=== PATIENT | female | born 1960 | race Caucasian/White ===

== ENCOUNTER 2017-08-23 05:56 | Day surgery (SDC) | payer OTHER, SELFPAY ==
[2017-08-23] VITALS (7 sets, daily range): BP systolic 78–106; BP diastolic 50–83; PULSE 56–97; RESP 16–18; TEMP 36.4–36.7; O2SAT 94–97; BMI 30.1
--- NOTE | 2017-08-23 07:02 | PCM.HP.STD ---
Problem List (1) Screening for intestinal cancer Status: Acute History of Present Illness Date of Admission: 08/23/17 The patient is a 57 year old F who presents for screening colonoscopy. She denies bright red blood per rectum or melena. No abdominal pain. She otherwise enjoys good health. She does have asthma well-controlled on inhalers. She has a family history of colon polyps. She herself has never had a previous colonoscopy. Past Medical History Allergies amoxicillin Adverse Reaction (Verified 08/21/17 15:54) Rash Sulfa (Sulfonamide Antibiotics) Adverse Reaction (Verified 08/21/17 15:54) Rash Home Medications: Ambulatory Orders Medication Instructions Recorded Albuterol Inhaler [Ventolin Hfa 2 puff INHALATION Q4H PRN PRN 09/10/16 (SP)] Escitalopram Oxalate [Lexapro] 20 mg PO DAILY 09/10/16 Lorazepam [Ativan] 0.5 mg PO QHS PRN PRN 09/10/16 Montelukast [Singulair] 10 mg PO DAILY 09/10/16 Theophylline Anhydrous 300 mg PO BID 09/10/16 [Theophylline] estradiol 0.5 mg tablet 0.5 mg PO QDAY #90 tab 08/07/17 Smoking Status: Never smoker Review of Systems Constitutional: Denies: Anorexia Eyes: Denies: Blurred vision Cardiovascular: Denies: Chest Pain Respiratory: Denies: Cough Gastrointestinal: Denies: Abdominal Pain Genitourinary: Denies: Dysuria Endocrine: Denies: Change in Body Habitus VTE Information - Inpt Only VTE Present on Admission: No Patient Problems: Active and Suspected Problems (Last Updated 08/07/17 @ 10:50 by Cecile Porras NP-C) Screening for intestinal cancer (Acute) - Physical Exam General: Alert, Oriented x3, Cooperative, No apparent distress HEENT: Atraumatic Oral: Moist Mucosa Neck: Supple Lungs: Clear to auscultation Cardiovascular: Regular rate Abdomen: Bowel Sounds Present, Soft, Non Tender Extremities: No clubbing Skin: No rashes Musculoskeletal: No Tenderness to Palpation of Joints or Extremities Neurological: Cranial nerves II-XII grossly intact Psych/Mental Status: Normal Affect Vital Signs Temp Pulse Resp BP Pulse Ox 98.0 F 97 16 106/83 H 97 08/23/17 06:21 08/23/17 06:21 08/23/17 06:21 08/23/17 06:21 08/23/17 06:21 Oxygen Delivery Method Room Air Weight: 159 lb 9.835 oz Body Mass Index (BMI) 30.1 Assessment/Plan Active and Suspected Problems (Last Updated 08/07/17 @ 10:50 by Cecile Porras NP-Racheal) Screening for intestinal cancer (Acute) I am recommending a screening colonoscopy. This would be with biopsy or polypectomy if indicated. She is aware of the technique, benefits, risks and alternatives. She has performed the bowel preparation. We will proceed at her discretion. She presents via our open access technique. Primary care physician Dr. ELISABETH Villar M.D., F.A.C.S.
--- NOTE | 2017-08-23 07:27 | PCM.OPRPT ---
Problem List (1) Screening for intestinal cancer Status: Acute Report of Operation Date of Procedure: 08/23/17 Pre-Operative Diagnosis: Screening for intestinal cancer Post-Operative Diagnosis: Sigmoid diverticulosis Surgery/Procedure Performed:: Colonoscopy Description of Surgical Findings:: Timeout and informed consent was obtained. 57-year-old female was taken to the procedure room. She was placed in left loud skin position. Throughout the procedure in aliquots she received a total of 100 mg Demerol and 5 mg of Versed is intravenous sedation. Digital rectal exam performed. Moderate internal and external hemorrhoids. No mass lesions. Flexible colonoscope inserted the rectum advanced with tortuous sigmoid colon. The scope was then nicely advanced to the transverse colon and by placing the patient supine the scope was advanced to the cecum. Bowel prep was quite good. The cecum ileocecal valve area was nicely achieved. The scope was carefully withdrawn from the ascending transverse descending and sigmoid colon. Sigmoid diverticulosis was identified but no evidence of acute inflammatory change. The scope was withdrawn to the rectum retroflex the anorectal verge inspected moderate hemorrhoidal changes noted but no active bleeding. Excess fluid and air was aspirated free. The procedure was completed with the patient tolerating it well. Impression Sigmoid diverticulosis Internal and external hemorrhoids Recommendations will be for follow-up colonoscopy in 10 years. Medications were given at 0708. Procedure was initiated at 0712. The cecum was reached at 0718.33. Procedure was completed at 0724.47. Cc: Dr. ELISABETH Villar M.D., F.A.C.S.
== END 2017-08-23 08:28 | disposition home or self-care (01) ==
LOC: EN 05:57 → AC 05:59
PROVIDERS: Family Provider Family Medicine; PCP Family Medicine; Visit Provider Surgery
PROC: 0DJD8ZZ Inspection of Lower Intestinal Tract, Via Natural or Artificial Opening Endoscopic (ICD-10-PCS; CPT 45378; principal; 2017-08-23 06:55)
DX: Z12.11 Encounter for screening for malignant neoplasm of colon (principal); K57.30 Diverticulosis of large intestine without perforation or abscess without bleeding; K64.4 Residual hemorrhoidal skin tags; K64.8 Other hemorrhoids; J45.909 Unspecified asthma, uncomplicated; K21.9 Gastro-esophageal reflux disease without esophagitis; F32.9 Major depressive disorder, single episode, unspecified; Z87.19 Personal history of other diseases of the digestive system; Z79.899 Other long term (current) drug therapy
CPT/HCPCS: 45378; J7120

== ENCOUNTER → 2017-10-09 07:43 | Outpatient (CLI) | payer OTHER, SELFPAY | PROVIDERS: Family Provider Family Medicine; PCP Family Medicine; Visit Provider Family Medicine | DX: E55.9 Vitamin D deficiency, unspecified (principal) | CPT/HCPCS: 36415; 82306 ==

== ENCOUNTER → 2018-03-18 15:12 | Outpatient (CLI) | payer OTHER, SELFPAY ==
--- NOTE | 2018-03-18 15:16 | RAD_ITS ---
STUDY: X-RAY CHEST REASON FOR EXAM: Female, 58 years old. Dyspnea on exertion. TECHNIQUE: PA and lateral views of the chest. COMPARISON: Comparison is made with prior examination dated December 07, 2010. FINDINGS: Pectus excavatum deformity. The lungs are clear and expanded. There is no demonstrated pleural abnormality. Normal size heart. Normal mediastinum and asfia. Normal visualized pulmonary arteries. Normal visualized aortic arch and descending thoracic aorta. Normal visualized thoracic spine. Normal visualized ribs, clavicles, and shoulders. There is no demonstrated abnormality of the visualized soft tissue structures of the upper abdomen. RAD/Chest PA and Lateral IMPRESSION: No acute abnormality is seen. Electronically Signed: Huy Santacruz MD at 15:46 EDT Tel [phone], Service support ,
== END ==
LOC: MTRAD 15:14
PROVIDERS: Family Provider Family Medicine; PCP Family Medicine; Referring Provider Family Medicine; Visit Provider Family Medicine
DX: R06.09 Other forms of dyspnea (principal)
CPT/HCPCS: 71046

== ENCOUNTER → 2018-05-19 13:45 | Outpatient (CLI) | payer OTHER, SELFPAY ==
[2018-05-19 08:41] VITALS: BMI 28.7
[2018-05-19 14:27] LABS: Mucous, Urine 0 SEEN /hpf (<or=2+); Squamous Epithelial Cells - UA 0 SEEN /hpf (5-10)
[2018-05-19 14:38] LABS: Color, Urine Yellow (Yellow); Glucose, Dipstick Normal (Normal); Ketone-Dipstick Negative (Negative); Leukocyte Esterase-Dipstick Negative /ul (Negative); Nitrite-Dipstick Negative (Negative); Occult Blood-Urine Negative /ul (Negative); Protein-Dipstick Negative (Negative); Urine Bilirubin Dipstick Negative (Negative); Urine Clarity Clear (Clear); Urine Urobilinogen Normal (Normal)
[2018-05-19 14:49] LABS: Bacteria 1+ /hpf (None Seen); Red Blood Cells-Urine 0-5 SEEN /hpf (0-5); White Blood Cells 0-5 SEEN /hpf (0-5)
== END ==
PROVIDERS: Family Provider Family Medicine; PCP Family Medicine; Referring Provider Physician Assistant Surgical; Visit Provider Physician Assistant Surgical
DX: N30.00 Acute cystitis without hematuria (principal)
CPT/HCPCS: 81001; 87086

== ENCOUNTER → 2019-04-15 12:14 | Outpatient (CLI) | payer OTHER, SELFPAY ==
[2018-08-14 13:31] VITALS: BMI 28.7
[2019-04-15 14:09] LABS: Basophil# 0.03 X10^3/uL; Basophil% 0.3 % (0-1); Eosinophil# 0.05 X10^3/uL; Eosinophils% 0.6 % (0-5); Hematocrit 40.1 % (37-47); Hemoglobin 13.2 g/dL (12.0-15.0); Lymphocyte % 13.7 % (19-41); Mean Corp Hgb Conc 32.9 g/dL (32-36); Mean Corpuscular Hgb 29.1 pg (27.0-32.0); Mean Corpuscular Volume 88.5 fL (81-99); Mean Platelet Vol. 10.1 fl (6.2-12.0); Monocyte# 0.45 X10^3/uL; Monocyte% 5.1 % (0-10); NRBC Flagged by Analyzer 0 % (0-5); Neutrophil # 6.99 X10^3/uL (2.7-7.7); Neutrophil % 79.5 % (47-70); Platelet Count 278 K/mm3 (150-450); RBC Distribution Width CV 12.4 % (11.6-14.6); RBC Distribution Width SD 40.2 fl (35.1-43.9); Red Blood Count 4.53 M/mm3 (4.2-5.4); White Blood Count 8.8 K/mm3 (4.4-11.0)
[2019-04-15 14:27] LABS: Vitamin D,25 Hydroxy 36.8 ng/mL (29.95-100.01)
[2019-04-15 14:34] LABS: Thyroid Stim Hormone (TSH) 1.44 uIU/mL (0.358-3.74)
== END ==
PROVIDERS: Visit Provider Family Medicine
DX: F32.9 Major depressive disorder, single episode, unspecified (principal); J45.909 Unspecified asthma, uncomplicated; E55.9 Vitamin D deficiency, unspecified
CPT/HCPCS: 36415; 82306; 84443; 85025

== ENCOUNTER → 2019-06-18 09:53 | Outpatient (CLI) | payer OTHER, SELFPAY ==
[2019-06-01 10:14] VITALS: BMI 28.7
--- NOTE | 2019-06-18 13:59 | PFT ---
INTRODUCTION: The patient is a 64-year-old female that presents for pulmonary function studies secondary to a diagnosis of chronic cough. Respiratory therapy reports good patient effort. Bronchodilators were used during testing. INTERPRETATION: Forced expiration spirometry demonstrates no evidence of a large airways obstructive ventilatory defect. There was no significant response to aerosolized bronchodilators, based upon strict ATS criteria. Spirograms are of good quality and plateau normally. Body plethysmography was performed and reveals lung volumes to be within normal limits. Diffusing capacity by single breath CO is also within normal limits at 82% of predicted. IMPRESSION: Normal spirometry without bronchodilator response. Normal lung volumes and diffusing capacity.
== END ==
LOC: PSN 09:54
PROVIDERS: Family Provider Family Medicine; PCP Family Medicine; Referring Provider Internal Medicine Critical Care Medicine; Visit Provider Internal Medicine Critical Care Medicine
DX: R05 Cough (principal)
CPT/HCPCS: 94060; 94726; 94729

== ENCOUNTER 2019-08-02 21:24 | Emergency (ER) | payer OTHER, SELFPAY ==
[2019-07-23 10:55] VITALS: BMI 28.7
[2019-08-02 21:25] VITALS: BP 97/68; PULSE 91; RESP 16; TEMP 36.1; O2SAT 98; BMI 29.9
[2019-08-02] MEDS: Ondansetron 4 MG/2 ML Vial IV (22:07)
[2019-08-02] MEDS: Morphine 4 MG/ML Syringe IV (22:08)
[2019-08-02 22:11] LABS: Absolute Lymphocyte Count 0.75 X10^3/uL (0.83-4.51); Absolute Neutrophil Count 7.8 X10^3/uL (2.0-7.7); Basophil# 0.03 X10^3/uL; Basophil% 0.3 % (0-1); Eosinophil# 0.13 X10^3/uL; Eosinophils% 1.4 % (0-5); Hematocrit 44.6 % (37-47); Hemoglobin 14.7 g/dL (12.0-15.0); Lymphocyte # 0.75 X10^3/ul (4.0); Lymphocyte % 8.2 % (19-41); Mean Corpuscular Hgb 29.3 pg (27.0-32.0); Mean Platelet Vol. 9.6 fl (6.2-12.0); Monocyte# 0.37 X10^3/uL; NRBC Flagged by Analyzer 0 % (0-5); Neutrophil # 7.83 X10^3/uL (2.7-7.7); Neutrophil % 85.4 % (47-70); Platelet Count 235 K/mm3 (150-450); RBC Distribution Width CV 12.6 % (11.6-14.6); RBC Distribution Width SD 41.1 fl (35.1-43.9); Red Blood Count 5.01 M/mm3 (4.2-5.4); White Blood Count 9.2 K/mm3 (4.4-11.0)
[2019-08-02 22:20] LABS: Color, Urine Yellow (Yellow); Glucose, Dipstick Normal (Normal); Ketone-Dipstick Negative (Negative); Leukocyte Esterase-Dipstick 25 /ul (Negative); Nitrite-Dipstick Negative (Negative); Occult Blood-Urine Negative /ul (Negative); Protein-Dipstick Negative (Negative); Urine Bilirubin Dipstick Negative (Negative); Urine Clarity Clear (Clear); Urine Urobilinogen Normal (Normal); Urine pH 6.5 (5.0 - 8.0)
[2019-08-02 22:24] LABS: AST(SGOT) 13 U/L (15-37); Alanine Aminotransfer ALT/SGPT 26 U/L (13-56); Albumin, Serum 3.3 g/dL (3.2-5.0); Alkaline Phosphatase 67 U/L (45-117); Anion Gap 6 (5-15); BUN 16 mg/dL (7-18); BUN/Creat Ratio 15.7 RATIO (10-20); Bilirubin, Direct 0.12 mg/dL (0.00-0.30); Calcium,Total 8.5 mg/dL (8.5-10.1); Chloride 112 mmol/L (98-107); Creatinine, Serum 1.02 mg/dL (0.55-1.02); EST Glomerular Filtration Rate 59 mL/min (>60); Est Glom Filt Rate - Afr Amer 72 mL/min (>60); Estimated Creatinine Clearance 48.13 ml/min; Globulin 3.4 g/dL (2.2-4.2); Glucose 90 mg/dL (74-106); Potassium 3.8 mmol/L (3.5-5.1); Protein, Total 6.7 g/dL (6.4-8.2); Sodium Level 141 mmol/L (136-145)
[2019-08-02 22:26] LABS: Bacteria RARE /hpf (None Seen); Mucous, Urine RARE /hpf (<or=2+); Red Blood Cells-Urine 0-5 SEEN /hpf (0-5); Squamous Epithelial Cells - UA 5-10 SEEN /hpf (5-10); White Blood Cells 0-5 SEEN /hpf (0-5)
[2019-08-02] MEDS: 0.9% Normal Saline 1,000 ML 150 ML IV (22:48)
--- NOTE | 2019-08-02 22:52 | ED.DCSUM_ITS ---
History of Present Illness Chief Complaint: Nausea/Vomiting/Diarrhea Informant: Patient Onset: Today Current Severity: Moderate Maximum Severity: Moderate Narrative: Patient presents with nausea, diarrhea, body aches that started this evening shortly after eating dinner. She states had a single episode of diarrhea 2 days ago but felt well yesterday. She has had dry heaves tonight and mild headache. She has not had fever. She was diagnosed with influenza A on July 20. She did not take Tamiflu. She denies history of ulcerative colitis but does report a remote history of IBS. She has not had problems with this in quite some time. She denies any prior abdominal surgeries. - Past Medical History (1) Asthma Status: Chronic (2) Depression Status: Chronic Past Medical History - Allergies and Home Meds Allergies/Adverse Reactions: Allergies amoxicillin Adverse Reaction (Verified 08/02/19 21:25) Rash Sulfa (Sulfonamide Antibiotics) Adverse Reaction (Verified 08/02/19 21:25) Rash Primary Care Physician: Justice James MD [Primary Care Provider] - Prior records reviewed: Yes Lives: Spouse/ Significant Other Smoking Status: Never smoker Review of Systems General: Denies: Chills, Fever Eyes: Denies: Visual changes - bilaterally ENT: Denies: Bilateral ear pain Cardiovascular: Denies: Chest pain Respiratory: Denies: Dyspnea, Cough Gastrointestinal: Reports: Abdominal pain, Nausea, Diarrhea. Denies: Vomiting - Dry heaves Genitourinary: Denies: Dysuria Musculoskeletal: Reports: Myalgias. Denies: Extremity Pain Skin: Denies: Rash Neurological: Reports: Headache Physical Exam Vital Signs/Narrative: Vital Signs Temp Pulse Resp BP Pulse Ox 08/02/19 21:25 97 F L 91 16 97/68 98 Inital Vital Signs reviewed: Yes General: Well nourished, Well developed Head: Normocephalic ENT: Moist mucous membranes Neck: Supple Cardiovascular: Regular rate, Regular rhythm Respiratory: No distress, CTA bilaterally Abdomen: Soft, Tender - Mild diffuse tenderness location., Hypoactive bowel sounds. Negative for: Guarding, Rebound tenderness Extremities: Nontender Skin: Normal color, No rash Neurological: Alert, Oriented x3 Psychological: Normal affect Diagnostic/Tx/Re-eval 08/02/19 22:01 Mucosa - Nose Influenza Types A,B Direct FA (SIMONE) - Final Laboratory Results 08/02/19 08/02/1908/02/20 21:43 21:43 22:12 WBC 9.2 RBC 5.01 Hgb 14.7 Hct 44.6 MCV 89.0 MCH 29.3 MCHC 33.0 RDW Std Deviation 41.1 RDW Coeff of Sarah 12.6 Plt Count 235 MPV 9.6 Immature Gran % (Auto) 0.700 Neut % (Auto) 85.4 H Lymph % (Auto) 8.2 L [place] % (Auto) 4.0 Eos % (Auto) 1.4 Baso % (Auto) 0.3 Absolute Neuts (auto) 7.8 H Absolute Lymphs (auto) 0.75 L Nucleated RBC % 0 Sodium 141 Potassium 3.8 Chloride 112 H Carbon Dioxide 23.0 Anion Gap 6 BUN 16 Creatinine 1.02 Estim Creat Clear Calc 48.13 Est GFR (MDRD) Af Amer 72 Est GFR (MDRD) Non-Af 59 L BUN/Creatinine Ratio 15.7 Glucose 90 Calcium 8.5 Total Bilirubin 0.70 Direct Bilirubin 0.12 AST 13 L ALT 26 Alkaline Phosphatase 67 Total Protein 6.7 Albumin 3.3 Globulin 3.4 Urine Color Yellow Urine Clarity Clear Urine pH 6.5 Ur Specific [place] 1.010 Urine Protein Negative Urine Glucose (UA) Normal Urine Ketones Negative Urine Occult Blood Negative Urine Nitrite Negative Urine Bilirubin Negative Urine Urobilinogen Normal Ur Leukocyte Esterase 25 H Urine RBC 0-5 SEEN Urine WBC 0-5 SEEN Ur Squamous Epith Cells 5-10 SEEN Urine Bacteria RARE Urine Mucus RARE - Medical Decision Making Patient was given morphine, Zofran, and IV fluids. On repeat evaluation she does report some improvement. She given prescriptions for Zofran and Bentyl. Patient is given return instructions. ED Disposition - Plan for ED Patient: Disposition: Home or Assisted Living Diagnosis: Viral gastroenteritis Instructions: GASTROENTERITIS, Viral (6y-Adult) Prescriptions: Dicyclomine HCl [Bentyl] 20 mg PO TIDAC #20 capsule Ondansetron [Zofran Odt] 4 mg PO Q8H PRN PRN #10 tablet PRN Reason: Nausea Referrals: Justice James MD [Primary Care Provider] - 3-5 Days if not improving
== END 2019-08-02 23:26 | disposition home or self-care (01) ==
PROVIDERS: Emergency Provider Emergency Medicine; PCP Family Medicine
DX: A08.4 Viral intestinal infection, unspecified (principal); F32.9 Major depressive disorder, single episode, unspecified; K58.9 Irritable bowel syndrome, unspecified; J45.909 Unspecified asthma, uncomplicated; Z79.899 Other long term (current) drug therapy
CPT/HCPCS: 80048; 80076; 81001; 85025; 87804; 96361; 96374; 96375; 99283; J7030; J2405

== ENCOUNTER → 2019-10-28 07:33 | Outpatient (CLI) | payer OTHER, SELFPAY ==
[2019-08-26 08:15] VITALS: BMI 29.9
[2019-10-28 10:02] LABS: Anion Gap 8 (5-15); BUN 15 mg/dL (7-18); BUN/Creat Ratio 15.6 RATIO (10-20); Calcium,Total 8.6 mg/dL (8.5-10.1); Chloride 109 mmol/L (98-107); Creatinine, Serum 0.96 mg/dL (0.55-1.02); EST Glomerular Filtration Rate 63 mL/min (>60); Est Glom Filt Rate - Afr Amer 77 mL/min (>60); Glucose 92 mg/dL (74-106); Sodium Level 143 mmol/L (136-145)
[2019-10-28 10:04] LABS: Vitamin D,25 Hydroxy 51.7 ng/mL
== END ==
PROVIDERS: PCP Family Medicine; Referring Provider Family Medicine; Visit Provider Family Medicine
DX: E55.9 Vitamin D deficiency, unspecified (principal); R94.4 Abnormal results of kidney function studies
CPT/HCPCS: 36415; 80048; 82306

== ENCOUNTER → 2019-12-16 08:36 | Outpatient (CLI) | payer OTHER, SELFPAY ==
[2019-12-16 08:10] VITALS: BMI 29.9
[2019-12-16 09:15] LABS: Absolute Neutrophil Count 3.1 X10^3/uL (2.0-7.7); Basophil# 0.04 X10^3/uL; Basophil% 0.6 % (0-1); Eosinophil# 0.13 X10^3/uL; Hematocrit 40.5 % (37-47); Hemoglobin 13.2 g/dL (12.0-15.0); Lymphocyte % 40.9 % (19-41); Mean Corp Hgb Conc 32.6 g/dL (32-36); Mean Corpuscular Hgb 29.7 pg (27.0-32.0); Mean Corpuscular Volume 91.2 fL (81-99); Mean Platelet Vol. 9.8 fl (6.2-12.0); Monocyte# 0.48 X10^3/uL; Monocyte% 7.5 % (0-10); NRBC Flagged by Analyzer 0 % (0-5); Neutrophil # 3.08 X10^3/uL (2.7-7.7); Neutrophil % 48.5 % (47-70); Platelet Count 243 K/mm3 (150-450); RBC Distribution Width CV 12.2 % (11.6-14.6); RBC Distribution Width SD 40.6 fl (35.1-43.9); Red Blood Count 4.44 M/mm3 (4.2-5.4); White Blood Count 6.4 K/mm3 (4.4-11.0)
[2019-12-19 09:36] LABS: Alternaria alternata 0.26 kU/L (Class 0/I); Aspergillus fumigatus <0.10 kU/L (Class 0); Bahia Grass <0.10 kU/L (Class 0); Bermuda Grass <0.10 kU/L (Class 0); Bluegrass, Kentucky <0.10 kU/L (Class 0); Cat Hair/Dander, Standard <0.10 kU/L (Class 0); Cedar, Mountain <0.10 kU/L (Class 0); Cladosporium herbarum <0.10 kU/L (Class 0); Cockroach, American <0.10 kU/L (Class 0); D farinae Mite <0.10 kU/L (Class 0); D pteronyssinus <0.10 kU/L (Class 0); Dog Epithelia <0.10 kU/L (Class 0); Elm, American White <0.10 kU/L (Class 0); Hazelnut Tree <0.10 kU/L (Class 0); Hickory, White <0.10 kU/L (Class 0); Johnson Grass <0.10 kU/L (Class 0); Maple/Box Elder <0.10 kU/L (Class 0); Mucor racemosus <0.10 kU/L (Class 0); Mugwort <0.10 kU/L (Class 0); Mulberry, White <0.10 kU/L (Class 0); Oak, White <0.10 kU/L (Class 0); Penicillium chrysogen <0.10 kU/L (Class 0); Pigweed, Rough <0.10 kU/L (Class 0); Plantain, English <0.10 kU/L (Class 0); Ragweed, Short/Common <0.10 kU/L (Class 0); Sheep Sorrel(Dock) <0.10 kU/L (Class 0); Stemphylium herbarum 0.13 kU/L (Class 0/I); Sweet Gum <0.10 kU/L (Class 0); Sycamore, American <0.10 kU/L (Class 0)
[2019-12-19 14:33] LABS: Nettle <0.10 kU/L (Class 0)
[2019-12-20 09:07] LABS: Aspirgillus flavus Negative (Neg:<1:1); Aspirgillus fumigatus Negative (Neg:<1:1); Aspirgillus niger Negative (Neg:<1:1)
[2019-12-20 23:45] LABS: Immunoglobulin E 13 IU/mL (6-495)
== END ==
PROVIDERS: PCP Family Medicine; Referring Provider Internal Medicine Critical Care Medicine; Visit Provider Internal Medicine Critical Care Medicine
DX: J45.50 Severe persistent asthma, uncomplicated (principal)
CPT/HCPCS: 36415; 82785; 85025; 86003; 86606

== ENCOUNTER → 2020-04-06 10:10 | Outpatient (CLI) | payer OTHER, SELFPAY ==
[2020-04-06 10:15] LABS: Red Blood Cells-Urine 0 SEEN /hpf (0-5)
[2020-04-06 10:17] LABS: Bacteria 0 SEEN /hpf (None Seen); Mucous, Urine 0 SEEN /hpf (<or=2+)
[2020-04-06 10:20] LABS: Color, Urine Yellow (Yellow); Glucose, Dipstick Normal (Normal); Ketone-Dipstick Negative (Negative); Leukocyte Esterase-Dipstick 25 /ul (Negative); Nitrite-Dipstick Negative (Negative); Occult Blood-Urine Negative /ul (Negative); Protein-Dipstick Negative (Negative); Urine Bilirubin Dipstick Negative (Negative); Urine Clarity Clear (Clear); Urine Urobilinogen Normal (Normal); Urine pH 6.5 (5.0 - 8.0)
[2020-04-06 10:55] LABS: Squamous Epithelial Cells - UA 0-5 SEEN /hpf (5-10); White Blood Cells 0-5 SEEN /hpf (0-5)
== END ==
PROVIDERS: PCP Family Medicine; Visit Provider Physician Assistant
DX: M54.5 Low back pain (principal); R10.9 Unspecified abdominal pain
CPT/HCPCS: 81001; 87086; 87088

== ENCOUNTER → 2020-04-07 10:19 | Outpatient (CLI) | payer OTHER, SELFPAY ==
[2020-04-07 12:18] LABS: Absolute Lymphocyte Count 1.69 X10^3/uL (0.83-4.51); Absolute Neutrophil Count 2.7 X10^3/uL (2.0-7.7); Basophil# 0.02 X10^3/uL; Basophil% 0.4 % (0-1); Eosinophil# 0.16 X10^3/uL; Eosinophils% 3.2 % (0-5); Hematocrit 39.2 % (37-47); Hemoglobin 12.5 g/dL (12.0-15.0); Lymphocyte # 1.69 X10^3/ul (4.0); Lymphocyte % 33.9 % (19-41); Mean Corp Hgb Conc 31.9 g/dL (32-36); Mean Platelet Vol. 10.3 fl (6.2-12.0); Monocyte# 0.38 X10^3/uL; Monocyte% 7.6 % (0-10); NRBC Flagged by Analyzer 0 % (0-5); Neutrophil # 2.71 X10^3/uL (2.7-7.7); Neutrophil % 54.5 % (47-70); Platelet Count 229 K/mm3 (150-450); RBC Distribution Width CV 12.1 % (11.6-14.6); RBC Distribution Width SD 40.6 fl (35.1-43.9); Red Blood Count 4.31 M/mm3 (4.2-5.4)
[2020-04-07 12:37] LABS: ALB/GLOB Ratio 0.9 RATIO (0.9-2.4); AST(SGOT) 18 U/L (15-37); Alanine Aminotransfer ALT/SGPT 24 U/L (13-56); Albumin, Serum 3.5 g/dL (3.2-5.0); Alkaline Phosphatase 90 U/L (45-117); Anion Gap 6 (5-15); BUN 18 mg/dL (7-18); BUN/Creat Ratio 17.3 RATIO (10-20); Calcium,Total 9.2 mg/dL (8.5-10.1); Chloride 110 mmol/L (98-107); Creatinine, Serum 1.04 mg/dL (0.55-1.02); EST Glomerular Filtration Rate 58 mL/min (>60); Est Glom Filt Rate - Afr Amer 70 mL/min (>60); Globulin 3.8 g/dL (2.2-4.2); Glucose 110 mg/dL (74-106); Potassium 3.7 mmol/L (3.5-5.1); Protein, Total 7.3 g/dL (6.4-8.2); Sodium Level 141 mmol/L (136-145)
== END ==
PROVIDERS: PCP Family Medicine; Referring Provider Family Medicine; Visit Provider Family Medicine
DX: K57.92 Diverticulitis of intestine, part unspecified, without perforation or abscess without bleeding (principal)
CPT/HCPCS: 36415; 80053; 85025

== ENCOUNTER → 2020-04-07 11:17 | Outpatient (CLI) | payer OTHER, SELFPAY ==
--- NOTE | 2020-04-07 11:19 | CT_ITS ---
STUDY: CT ABDOMEN AND PELVIS WITH CONTRAST REASON FOR EXAM: Female, 60 years old. Abdomen pain, ? diverticulitis. RADIATION DOSAGE (If Supplied By Facility): CTDIvol = ( 15.30 ) mGy, DLP = ( 867.30 ) mGycm TECHNIQUE: Transaxial images were obtained from the dome of the diaphragm to the symphysis pubis with oral contrast. Oral and amp; IV Gastrografin and amp; 100mL Isovue-300 was administered. Sagittal and coronal images were reconstructed. Individualized dose optimization techniques were used for this CT. COMPARISON: None. FINDINGS: Mild degree of increased linear markings in the right middle lobe suggesting scarring. The visualized portions of the heart are within normal limits. A 1 cm cyst in the inferior aspect of the right lobe of the liver. There is also evidence of a 2.4 cm by 2.1 cm cyst in the peripheral aspect of the left liver. Normal gallbladder and extrahepatic biliary system. Normal spleen. Normal pancreas. Normal bilateral adrenal glands. Normal right kidney. Normal left kidney. Normal visualized stomach. Normal small intestine. There is diverticulosis, with thickening of the colon wall, and pericolonic inflammation changes consistent with acute diverticulitis. The appendix is visualized and appears normal. Normal abdominal aorta. Normal inferior vena cava. Normal retroperitoneum. Normal urinary bladder. There is a small umbilical hernia containing fat. Normal osseous structures. CT/Abdomen/Pelvis WITH Contrast IMPRESSION: Noncomplicated sigmoid diverticulitis. Small hepatic cysts. Electronically Signed: Huy Santacruz, at 14:08 EDT , Service support ,
== END ==
PROVIDERS: PCP Family Medicine; Referring Provider Family Medicine; Visit Provider Family Medicine
DX: K57.92 Diverticulitis of intestine, part unspecified, without perforation or abscess without bleeding (principal)
CPT/HCPCS: 74177; Q9967

== ENCOUNTER 2020-06-13 08:30 | Outpatient (RCR) | payer OTHER, SELFPAY ==
[2020-05-05 09:40] VITALS: BMI 30.9
== END 2020-06-16 23:59 ==
LOC: EMPH 08:30
PROVIDERS: PCP Family Medicine; Visit Provider Family Medicine Geriatric Medicine
DX: Z03.818 Encounter for observation for suspected exposure to other biological agents ruled out (principal)
CPT/HCPCS: 87426

== ENCOUNTER 2020-06-30 12:13 | Outpatient (CLI) | payer OTHER, SELFPAY ==
[2020-06-22 08:11] VITALS: BMI 30.5
[2020-06-30 12:17] VITALS: BP 107/63; PULSE 75; RESP 12; TEMP 36.2; O2SAT 99; BMI 30.3
[2020-06-30 13:16] VITALS: BP 105/71; PULSE 66; RESP 14; TEMP 36.1; O2SAT 98
[2020-06-30 13:43] VITALS: BP 108/65; PULSE 67; RESP 12; TEMP 36.1; O2SAT 100
[2020-06-30 14:13] VITALS: BP 118/74; PULSE 70; RESP 14; TEMP 36.1; O2SAT 100
[2020-06-30 14:42] VITALS: BP 110/67; PULSE 70; RESP 16; TEMP 36.1; O2SAT 100
== END 2020-06-30 14:46 | disposition home or self-care (01) ==
LOC: MS2OUT 12:14 → MS2 12:15
PROVIDERS: PCP Family Medicine; Referring Provider Nurse Practitioner Acute Care; Visit Provider Nurse Practitioner Acute Care
DX: U07.1 COVID-19 (principal)
CPT/HCPCS: 96365; J7050; M0239; Q0239

== ENCOUNTER → 2020-08-11 08:19 | Outpatient (CLI) | payer OTHER, SELFPAY ==
[2020-05-05 09:40] VITALS: BMI 30.9
--- NOTE | 2020-08-11 08:21 | BI_ITS ---
MAMMOGRAPHY - BILATERAL SCREENING REASON FOR EXAM: Female, 60 years old. Routine annual screening examination. PERTINENT HISTORY: Mother with breast cancer. Aunt with breast cancer. TECHNIQUE: Digital bilateral breast abraham (3D mammographic acquisition) in the CC and MLO projections. 2-D mediolateral oblique (MLO) and craniocaudad (CC) views of both breasts were obtained. CAD: Full Field Digital Mammography with Computer Added Detection was performed. COMPARISON: Comparison is made with prior examination dated 03/02/2015 and 09/10/2013. FINDINGS: Breast Composition: There are scattered areas of fibroglandular density. There are no dominant masses or suspicious calcifications. Stable small benign appearing bilateral axillary lymph nodes. No other significant abnormalities are identified. There has been no significant change since the prior study. BI/SCRN MAMM (CAD)W/ABRAHAM BILAT IMPRESSION: Stable bilateral screening mammogram. Yearly follow-up mammogram recommended. (A) ASSESSMENT CATEGORY: BIRADS Category 2: Benign. A letter regarding these results will be sent to the patient by the facility within 30 days. Approximately 10% of breast cancers are not detected by mammography. A normal mammogram should not delay biopsy of a clinically suspicious abnormality. [id number] Electronically Signed: Huy Santacruz MD at 9:07 EST , Service support ,
== END ==
PROVIDERS: PCP Family Medicine; Referring Provider Nurse Practitioner Women's Health; Visit Provider Nurse Practitioner Women's Health
DX: Z12.31 Encounter for screening mammogram for malignant neoplasm of breast (principal)
CPT/HCPCS: 77063; 77067

== ENCOUNTER → 2020-08-25 10:46 | Outpatient (CLI) | payer OTHER, SELFPAY ==
[2020-08-25 12:30] LABS: Anion Gap 4 (5-15); BUN 18 mg/dL (7-18); BUN/Creat Ratio 19.2 RATIO (10-20); Calcium,Total 8.9 mg/dL (8.5-10.1); Chloride 110 mmol/L (98-107); Creatinine, Serum 0.94 mg/dL (0.55-1.02); EST Glomerular Filtration Rate 65 mL/min (>60); Est Glom Filt Rate - Afr Amer 79 mL/min (>60); Glucose 73 mg/dL (74-106); Potassium 3.4 mmol/L (3.5-5.1); Sodium Level 141 mmol/L (136-145)
[2020-08-25 12:32] LABS: Vitamin D,25 Hydroxy 59.2 ng/mL
== END ==
PROVIDERS: PCP Family Medicine; Referring Provider Family Medicine; Visit Provider Family Medicine
DX: E55.9 Vitamin D deficiency, unspecified (principal); R94.4 Abnormal results of kidney function studies
CPT/HCPCS: 36415; 80048; 82306

== ENCOUNTER → 2020-11-29 | Outpatient (CLI) | payer OTHER, SELFPAY ==
[2020-11-29 08:00] VITALS: BMI 29.4
[2020-11-29 10:43] LABS: Mucous, Urine 0 SEEN /hpf (<or=2+); Squamous Epithelial Cells - UA 0 SEEN /hpf (5-10)
[2020-11-29 10:44] LABS: Color, Urine Yellow (Yellow); Glucose, Dipstick Normal (Normal); Ketone-Dipstick Negative (Negative); Leukocyte Esterase-Dipstick 500 /ul (Negative); Nitrite-Dipstick Positive (Negative); Occult Blood-Urine 25 /ul (Negative); Protein-Dipstick 15 mg/dl (Negative); Specific Gravity, Urine 1.015 (1.002-1.030); Urine Bilirubin Dipstick Negative (Negative); Urine Clarity Clear (Clear); Urine Urobilinogen 1 mg/dl (Normal)
[2020-11-29 10:53] LABS: Bacteria 2+ /hpf (None Seen); Red Blood Cells-Urine 0-5 SEEN /hpf (0-5); White Blood Cells 10-25 SEEN /hpf (0-5)
== END | disposition home or self-care (01) ==
LOC: LABSPEC 10:38
PROVIDERS: PCP Family Medicine; Visit Provider Physician Assistant Surgical
DX: N39.0 Urinary tract infection, site not specified (principal)
CPT/HCPCS: 81001; 87086; 87088; 87186

== ENCOUNTER 2020-12-06 14:56 | Inpatient (IN) | payer OTHER, SELFPAY ==
[2020-11-29 08:00] VITALS: BMI 29.4
[2020-12-06] VITALS (19 sets, daily range): BP systolic 95–133; BP diastolic 45–78; PULSE 86–115; RESP 14–22; TEMP 36.3–38.3; O2SAT 86–98; BMI 30.6; BMI 30.7
--- NOTE | 2020-12-06 15:37 | EKG12_ITS ---
Test Reason : NAUSEA/VOMITING Blood Pressure : / mmHG Vent. Rate : 106 BPM Atrial Rate : 106 BPM P-R Int : 146 ms QRS Dur : 094 ms QT Int : 336 ms P-R-T Axes : 055 048 013 degrees QTc Int : 446 ms Sinus tachycardia Possible Left atrial enlargement Incomplete right bundle branch block Nonspecific ST abnormality Abnormal ECG Confirmed by SARAH RANDHAWA, LISA ([id number]), subeditor JANI WHITNEY ([id number]) on 12/08/2020 12:30:36 PM Referred By: COBY Confirmed By:LISA SMITH MD
--- NOTE | 2020-12-06 15:47 | EDS_ITS ---
HPI History of Present Illness Chief Complaint: Nausea/Vomiting Narrative Narrative: Patient states she developed a gradual onset headache yesterday that felt like a migraine which she gets fairly frequently, similar pain, she took Tylenol and Benadryl which usually helps a but this time it did not and today the headache is persistent. She also has developed a productive cough, myalgias, subjective fevers, and she points to her manubrium saying that she has some tightness there and mild dyspnea. She has history of asthma and states she has not been wheezing and this does not necessarily feel like asthma, but although she does not provide any other details, hence that she has had the symptoms in her upper chest before. She had both Moderna COVID-19 injections, the first 1 was in June and the second was in September which was delayed because she developed Covid at some point soon after the first injection, and needed to have an antibody infusion. She has had no contact with anyone with COVID-19 that she knows of recently. [facility] Medical History (Updated 12/06/20 @ 17:[address] Nicholas Willoughby MD) Asthma Chronic neck and back pain Depression Diverticulosis GERD (gastroesophageal reflux disease) Hemorrhoids History of hay fever Home Medications albuterol sulfate 2 puff INHALATION Q4H PRN PRN 09/10/16 [History Last Taken 09/08/16] escitalopram oxalate 20 mg PO DAILY 09/10/16 [History Last Taken 09/08/16] montelukast 10 mg PO DAILY 09/10/16 [History Last Taken 09/08/16] omeprazole magnesium 20 mg capsule,delayed release 20 mg PO DAILY 04/05/20 [History Last Taken Unknown] cholecalciferol (vitamin D3) 125 mcg (5,000 unit) capsule 125 mcg PO DAILY 05/05/20 [History Last Taken Unknown] docusate sodium 100 mg capsule 200 mg PO DAILY cap 05/05/20 [History Last Taken Unknown] budesonide-formoterol HFA 160 mcg-4.5 mcg/actuation aerosol inhaler 2 puff INHALATION Q12H #3 ea 10/04/20 [Rx Last Taken Unknown] bupropion HCl 150 mg tablet,12 hr sustained-release 150 mg PO DAILY 10/04/20 [History Last Taken Unknown] Allergy/AdvReac Type Severity Reaction Status Date / Time amoxicillin AdvReac Rash Verified 12/06/20 14:59 Sulfa (Sulfonamide AdvReac Rash Verified 12/06/20 14:59 Antibiotics) Family History Mother Breast cancer CVA (cerebral vascular accident) Sister Cancer ovarian Father Myocardial infarction Grandmother Cancer cervical Aunt Breast cancer Cancer lymphoma Uncle Cancer lymphoma Surgical History History of colonoscopy (~2017) Social History Smoking Status: Never smoker alcohol intake: current details: social substance use type: does not use caffeine: Yes frequency: 3-4 times per week seatbelt use: always do you feel safe at home: Yes additional social history: Don- [employer] Patient works at [employer] ROS ROS ED Constitutional Constitutional ED: Reports body ache(s), fever(s), headache(s) and malaise; Denies chills Eyes Eyes: Reports blurry vision; Denies diplopia ENT ENT ED: Denies ear pain or sore throat Cardiovascular Cardiovascular: Reports chest pain; Denies palpitations Respiratory/Chest Respiratory/Chest: Reports cough, dyspnea, productive cough and other Details: mild nonbloody sputum production Gastrointestinal Gastrointestinal: Reports nausea and vomiting; Denies abdominal pain or diarrhea Genitourinary Genitourinary ED: Denies dysuria or urinary frequency Musculoskeletal Musculoskeletal: Reports myalgias and neck pain; Denies back pain Integumentary Denies abscess or rash Neurologic Neurologic: Reports headache(s); Denies paresthesias or weakness Psychiatric Psychiatric: Denies depression or suicidal thoughts EXAM Physical Exam Const Vital Signs: 12/06/20 14:57 12/06/20 14:59 12/06/20 15:55 Temperature 97.3 F L 97.3 F L Temperature Source Temporal Temporal Pulse Rate 115 H 115 H 105 H Respiratory Rate 16 16 18 Blood Pressure 95/78 95/78 Blood Pressure Mean 83 83 Pulse Ox 98 98 Oxygen Delivery Method Room Air Room Air Oxygen Flow Rate (L/min) 12/06/20 15:59 12/06/20 16:00 12/06/20 16:15 Temperature 97.3 F L 101 F H Temperature Source Temporal Oral Pulse Rate 105 H 108 H Respiratory Rate 18 22 H Blood Pressure 95/78 128/60 H Blood Pressure Mean 83 82 Pulse Ox 98 93 Oxygen Delivery Method Room Air Room Air Room Air Oxygen Flow Rate (L/min) 12/06/20 16:38 12/06/20 16:39 12/06/20 17:36 Temperature 100.8 F H Temperature Source Oral Pulse Rate 108 H Respiratory Rate 14 Blood Pressure 101/54 L Blood Pressure Mean 69 Pulse Ox 86 92 89 Oxygen Delivery Method Room Air Nasal Cannula Room Air Oxygen Flow Rate (L/min) 2 12/06/20 17:39 Temperature Temperature Source Pulse Rate Respiratory Rate Blood Pressure Blood Pressure Mean Pulse Ox 93 Oxygen Delivery Method Nasal Cannula Oxygen Flow Rate (L/min) 2 Positive alert, oriented x3 and no apparent distress HEENT Reports normocephalic and moist mucous membranes atraumatic Eyes PERRL, EOMs intact bilaterally and conjunctivae normal Neck no lymphadenopathy, supple and no meningeal signs Resp normal respiratory effort and clear to auscultation bilaterally GI non-tender and non-distended Auscultation: normoactive bowel sounds Palpation: soft Back/Spine no CVA tenderness, normal ROM and normal to inspection Extremity normal to inspection and full ROM Neuro oriented x3 and CN's II-XII intact bilaterally Sensorium / Orientation: awake and alert Speech: speech normal Gait (Neuro): normal gait Motor Exam: strength 5/5 throughout Psych mental status grossly normal Skin Lesions: no lesions Rashes: no rashes MDM MDM MDM Narrative Medical decision making narrative: In evaluating the patient's work-up, her chest x-ray is consistent with pneumonia. She does not have a significant leukocytosis. Prior to reevaluation, she did not meet sepsis criteria. However, when I went back to reevaluate her her heart rate is 120, and she is on oxygen. I discussed with nurses, she desatted to 87% and they put her on 2 L, and she is at 93 on 2 L. Her symptoms are improved with treatment with Toradol and an albuterol treatment, her chest discomfort is resolved and her dyspnea is resolved while at rest although she is still hypoxic when I took the oxygen off. We put it back on. Lactate, blood cultures, antibiotics are ordered and she will be admitted to the hospital for further treatment. Her Covid test did return negative as expected. Of note, her EKG shows some mild ST elevations inferolaterally possibly ischemic, however her high-sensitivity troponin returned negative. Lab Data Attestation: I reviewed the patient's lab results. Labs: Laboratory Results - last 24 hr 12/06/20 12/06/20 16:05 16:05 WBC 10.0 RBC 4.64 Hgb 13.5 Hct 41.7 MCV 89.9 MCH 29.1 MCHC 32.4 RDW Std Deviation 40.3 RDW Coeff of Sarah 12.2 Plt Count 184 MPV 9.2 Immature Gran % (Auto) 0.500 Neut % (Auto) 89.5 H Lymph % (Auto) 5.2 L [place] % (Auto) 3.1 Eos % (Auto) 1.4 Baso % (Auto) 0.3 Absolute Neuts (auto) 9.0 H Absolute Lymphs (auto) 0.52 L Nucleated RBC % 0 Differential Comment SEE COMMENT Platelet Estimate ADEQUATE RBC Morphology N CHROM Anisocytosis RARE Sodium 139 Potassium 3.5 Chloride 106 Carbon Dioxide 27.0 Anion Gap 6 BUN 12 Creatinine 1.08 H Estim Creat Clear Calc 44.91 Est GFR (MDRD) Af Amer 67 Est GFR (MDRD) Non-Af 55 L BUN/Creatinine Ratio 11.1 Glucose 99 Calcium 8.6 Troponin I High Sens < 3.0 L Radiography Chest X-Ray - ED: 1 View, Read by ED Physician, Right Infiltrate and Left In filtrate Diagnostic Testing: Radiology Impression Chest X-Ray 12/06/20 16:35 IMPRESSION: Hazy bibasilar airspace disease suspicious for pneumonia including atypical or viral pneumonia. Recommend short-term follow-up. at 1701 Reported and signed by: Darryl Maria MD Electronically Signed: Darryl Maria MD at 16:59 EDT Tel , Service support , EKG Initial EKG: Attestation: I personally reviewed and interpreted this EKG as follows: Interpretation: Sinus Tachycardia (106) and S-T Depression (Infero laterally) Comments: RSR' which is unchanged compared with prior Prior EKG tracings: available for review Prior: Changed Discharge Plan Triage Chief Complaint: Nausea/Vomiting ED Provider: Nicholas Willoughby Dx/Rx/DC Orders Clinical Impression: Pneumonia, Sepsis due to pneumonia, Hypoxemia Prescriptions: No Action omeprazole magnesium [[facility] Lead Consultant (omeprazole)] 20 mg capsule,delayed release(DR/EC) 20 mg PO DAILY RF: 0 bupropion HCl [Wellbutrin SR] 150 mg tablet sustained-release 12 hr 150 mg PO DAILY RF: 0 Symbicort 160-4.5 mcg/actuation HFA aerosol inhaler 2 puff INHALATION Q12H Qty: 3 RF: 3 docusate sodium [Colace] 100 mg capsule 200 mg PO DAILY RF: 0 cholecalciferol (vitamin D3) 125 mcg (5,000 unit) capsule 125 mcg PO DAILY RF: 0 montelukast 10 MG tablet 10 mg PO DAILY RF: 0 albuterol sulfate 1 INHALER inhaler 2 puff INHALATION Q4H PRN PRN (Reason: Sob &/Or Wheezing) RF: 0 escitalopram oxalate 20 MG tablet 20 mg PO DAILY RF: 0 Primary Care Provider: Justice James Referrals: Justice James MD [Primary Care Provider] - Disposition Disposition: Acute Care [facility]
[2020-12-06] MEDS: Albuterol 2.5 MG/3 ML VIAL.NEB. INHALATION ×2 (15:51→22:22)
[2020-12-06] MEDS: Ketorolac 15 MG/ML Vial IV (16:11)
[2020-12-06] MEDS: Metoclopramide 10 MG/2 ML Vial 5 MG IV (16:11)
[2020-12-06 16:13] LABS: Absolute Lymphocyte Count 0.52 X10^3/uL (0.83-4.51); Basophil# 0.03 X10^3/uL; Basophil% 0.3 % (0-1); Eosinophil# 0.14 X10^3/uL; Eosinophils% 1.4 % (0-5); Hematocrit 41.7 % (37-47); Hemoglobin 13.5 g/dL (12.0-15.0); Lymphocyte # 0.52 X10^3/ul (0.83-4.51); Lymphocyte % 5.2 % (19-41); Mean Corp Hgb Conc 32.4 g/dL (32-36); Mean Corpuscular Hgb 29.1 pg (27.0-32.0); Mean Corpuscular Volume 89.9 fL (81-99); Mean Platelet Vol. 9.2 fl (6.2-12.0); Monocyte# 0.31 X10^3/uL; Monocyte% 3.1 % (0-10); NRBC Flagged by Analyzer 0 % (0-5); Neutrophil # 8.96 X10^3/uL (2.7-7.7); Neutrophil % 89.5 % (47-70); POSITIVE DIFFERENTIAL YES; Platelet Count 184 K/mm3 (150-450); RBC Distribution Width CV 12.2 % (11.6-14.6); RBC Distribution Width SD 40.3 fl (35.1-43.9); Red Blood Count 4.64 M/mm3 (4.2-5.4)
[2020-12-06 16:26] LABS: Anion Gap 6 (5-15); BUN 12 mg/dL (7-18); BUN/Creat Ratio 11.1 RATIO (10-20); Calcium,Total 8.6 mg/dL (8.5-10.1); Chloride 106 mmol/L (98-107); Creatinine, Serum 1.08 mg/dL (0.55-1.02); EST Glomerular Filtration Rate 55 mL/min (>60); Est Glom Filt Rate - Afr Amer 67 mL/min (>60); Estimated Creatinine Clearance 44.91 ml/min; Glucose 99 mg/dL (74-106); Potassium 3.5 mmol/L (3.5-5.1); Sodium Level 139 mmol/L (136-145); Troponin-I HS < 3.0 pg/mL (3.0-53.7)
--- NOTE | 2020-12-06 16:35 | RAD_ITS ---
HISTORY: chest pain/sob EXAMINATION/TECHNIQUE: XR Chest 1 View: Portable upright AP chest x-ray COMPARISON: March 18, 2018 FINDINGS: LINES/DEVICES: None. LUNGS: Hazy bibasilar airspace opacities without consolidation, edema or effusion. No pneumothorax. MEDIASTINUM AND CARDIOVASCULAR STRUCTURES: Cardiac silhouette not enlarged. Central airways and mediastinal contour are unremarkable. BONES AND SOFT TISSUES: No acute bony abnormalities. RAD/Chest 1 View (Portable) IMPRESSION: Hazy bibasilar airspace disease suspicious for pneumonia including atypical or viral pneumonia. Recommend short-term follow-up. at 1701 Reported and signed by: Darryl Maria MD Electronically Signed: Darryl Maria MD at 16:59 EDT Tel , Service support ,
[2020-12-06 16:38] LABS: Differential Indicated SCAN CRITERIA MET
[2020-12-06 16:49] LABS: Anisocytosis RARE; Platelet Estimate ADEQUATE (ADEQ); Red Cell Morphology N CHROM NORMAL (NORM C&C)
[2020-12-06] MEDS: 0.9% Normal Saline 1,000 ML 999 ML IV (17:48)
[2020-12-06] MEDS: Acetaminophen 500 MG Tablet 1000 MG PO (18:03)
--- NOTE | 2020-12-06 18:11 | NURSING ---
PCU [facility] SEPSIS, PNEUMONIA, HYOXEMIA
--- NOTE | 2020-12-06 18:14 | HP.PCM.HOS_ITS ---
[facility] - General General Date of Admission: 12/06/20 Date of Service: 12/06/20 Chief Complaint: Headache, nausea, shortness of breath. [facility] Narrative ANMOL HERNANDEZ, is a 60 F with past medical history as mentioned below presented to the emergency because of multiple complaints. Her illness started 2 days ago with headache and she thought that it is because of migraine as she has history of migraine, associated with nausea. Since yesterday, she started having malaise and low-grade fever at home which was 99.7 Fahrenheit. Today, she started having shortness of breath, on minimal exertion, associated with mild cough with minimal clear sputum and without aggravating or relieving factors. She denied vomiting, abdominal pain, diarrhea. She denied urinary symptoms. She stated that she received her first, vaccine doses back on Jun and 2 weeks later, she developed COVID-19 infection. She was managed at home and it was recommended that she should receive the antibodies for the COVID-19 afterwards. She received her second dose of COVID-19 vaccine on September,. In the emergency department, initially patient was afebrile but then she developed fever and she became tachycardic. Initially, pulse ox was 98% on room air and then she required oxygen of up to 2 L. Routine blood work was unremarkable. Chest x-ray revealed questionable bilateral basilar infiltrate. COVID-19 antigen came back negative. EKG revealed sinus tachycardia with nonspecific ST, T wave changes, no acute ischemic changes. Troponin was n egative. She is being admitted for probable community-acquired pneumonia with sepsis and hypoxia. [facility] Medical History (Updated 12/06/20 @ 18:[address] Alvina Olivier MD) Asthma Chronic neck and back pain Depression GERD (gastroesophageal reflux disease) Hemorrhoids History of hay fever Home Medications albuterol sulfate 2 puff INHALATION Q4H PRN PRN 09/10/16 [History Last Taken 12/06/20] escitalopram oxalate 20 mg PO DAILY 09/10/16 [History Last Taken 12/06/20] montelukast 10 mg PO DAILY 09/10/16 [History Last Taken 12/06/20] omeprazole magnesium 20 mg capsule,delayed release 20 mg PO DAILY 04/05/20 [History Last Taken 12/06/20] cholecalciferol (vitamin D3) 125 mcg (5,000 unit) capsule 125 mcg PO DAILY 05/05/20 [History Last Taken 12/06/20] docusate sodium 100 mg capsule 200 mg PO DAILY cap 05/05/20 [History Last Taken 12/04/20] budesonide-formoterol HFA 160 mcg-4.5 mcg/actuation aerosol inhaler 2 puff INHALATION Q12H #3 ea 10/04/20 [Rx Last Taken 12/06/20] bupropion HCl 150 mg tablet,12 hr sustained-release 150 mg PO DAILY 10/04/20 [History Last Taken 12/04/20] Allergy/AdvReac Type Severity Reaction Status Date / Time amoxicillin AdvReac Rash Verified 12/06/20 14:59 Sulfa (Sulfonamide AdvReac Rash Verified 12/06/20 14:59 Antibiotics) Family History Mother Breast cancer CVA (cerebral vascular accident) Sister Cancer ovarian Father Myocardial infarction Grandmother Cancer cervical Aunt Breast cancer Cancer lymphoma Uncle Cancer lymphoma Surgical History (Updated 12/06/20 @ 18:[address] 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 [employer] [place] Constitutional Constitutional: Reports anorexia, fever(s) and malaise; Denies chills or fatigue Eyes Eyes: Denies blurry vision, change in eye color, change in vision, double vision or eye pain ENT HEENT: Denies ear discharge, ear pain, epistaxis, headache(s), nasal congestion, post nasal drip or sore throat Cardiovascular Cardiovascular: Reports dyspnea on exertion; Denies chest pain, edema, lightheadedness, orthopnea, palpitations or syncope Respiratory/Chest Respiratory/Chest: Reports cough, dyspnea, productive cough, shortness of breath at rest and shortness of breath with exertion; Denies hemoptysis or wheezing Gastrointestinal Gastrointestinal: Reports nausea and vomiting; Denies abdominal pain, constipation, diarrhea, hematemesis, hematochezia or melena Genitourinary Genitourinary: Denies burning urination, dysuria, hematuria, urinary hesitancy or urinary urgency Musculoskeletal Musculoskeletal: Denies arthralgias, back pain, joint pain, joint swelling, myalgias or neck pain Neurologic Neurologic: Denies confusion, dizziness, focal weakness, headache(s), numbness, paresthesias, seizures, tingling, tremor(s) or vertigo Psychiatric Psychiatric: Denies anxiety, depression, hallucinations, homicidal ideation or suicidal ideation Endocrine Endocrinology: Denies change in body appearance, cold intolerance, heat int olerance, polydipsia or polyuria Hematologic/Lymphatic Hematologic/Lymphatic: Denies easy bleeding, easy bruising or lymphadenopathy Allergic/Immunologic Allergic/Immunologic: Denies itchy eyes, rhinitis, throat swelling, tongue swelling, hives, urticaria or wheezing Vital Signs Vital Signs Vital Signs: 12/06/20 14:57 12/06/20 14:59 12/06/20 15:55 Temperature 97.3 F L 97.3 F L Temperature Source Temporal Temporal Pulse Rate 115 H 115 H 105 H Respiratory Rate 16 16 18 Blood Pressure 95/78 95/78 Blood Pressure Mean 83 83 Pulse Ox 98 98 Oxygen Delivery Method Room Air Room Air Oxygen Flow Rate (L/min) 12/06/20 15:59 12/06/20 16:00 12/06/20 16:15 Temperature 97.3 F L 101 F H Temperature Source Temporal Oral Pulse Rate 105 H 108 H Respiratory Rate 18 22 H Blood Pressure 95/78 128/60 H Blood Pressure Mean 83 82 Pulse Ox 98 93 Oxygen Delivery Method Room Air Room Air Room Air Oxygen Flow Rate (L/min) 12/06/20 16:38 12/06/20 16:39 12/06/20 17:36 Temperature 100.8 F H Temperature Source Oral Pulse Rate 108 H Respiratory Rate 14 Blood Pressure 101/54 L Blood Pressure Mean 69 Pulse Ox 86 92 89 Oxygen Delivery Method Room Air Nasal Cannula Room Air Oxygen Flow Rate (L/min) 2 12/06/20 17:39 12/06/20 17:46 12/06/20 17:56 Temperature 100.8 F H Temperature Source Oral Pulse Rate Respiratory Rate Blood Pressure Blood Pressure Mean Pulse Ox 93 93 Oxygen Delivery Method Nasal Cannula Nasal Cannula Oxygen Flow Rate (L/min) 2 2 12/06/20 18:00 12/06/20 18:14 Temperature 100.3 F H 100.3 F H Temperature Source Oral Oral Pulse Rate 107 H 107 H Respiratory Rate 22 H 22 H Blood Pressure 120/62 120/62 Blood Pressure Mean 81 81 Pulse Ox 96 96 Oxygen Delivery Method Room Air Nasal Cannula Oxygen Flow Rate (L/min) 2 2 Weight Weight: 167 lb 5.294 oz Body Mass Index (BMI) 30.6 Physical Exam Const alert, oriented x3, no apparent distress and no limitations General Appearance: cooperative HEENT normocephalic, head/scalp atraumatic, external ears normal, external nose normal and moist oral mucous membranes Eyes PERRL, EOMs intact bilaterally, conjunctivae normal and no scleral icterus General Eye: normal appearance of both eyes Neck no lymphadenopathy, supple, no meningeal signs, no JVD and no carotid bruits Lymph Lymphatic: no lymphadenopathy noted Resp normal air movement and clear to auscultation bilaterally Resp Narrative: Decreased breath sounds at the bases, otherwise clear. Auscultation: Negative for crackles, rales, rhonchi or wheezes Cardio regular rate, regular rhythm, S1 normal heart sound, S2 normal heart sound, no murmurs and no JVD Cardio Narrative: Tachycardia. GI normal to inspection, nondistended, normoactive bowel sounds, soft to palpation, non-tender and non-distended; Negative for hepatosplenomegaly Extremity normal to inspection, full ROM and no clubbing, cyanosis or edema Skin no rashes or lesions noted, no wounds and no petechiae Neuro oriented x3, CN's II-XII intact bilaterally and moves all extremities Sensorium / Orientation: alert Speech: speech normal Motor Exam: strength 5/5 throughout Psych mental status grossly normal and affect normal Appearance: appropriate Results Lab / Micro Data Result Diagrams: 12/06/20 16:05 12/06/20 16:05 Labs: Laboratory Results - last 24 hr 12/06/20 12/06/20 16:05 16:05 WBC 10.0 RBC 4.64 Hgb 13.5 Hct 41.7 MCV 89.9 MCH 29.1 MCHC 32.4 RDW Std Deviation 40.3 RDW Coeff of Sarah 12.2 Plt Count 184 MPV 9.2 Immature Gran % (Auto) 0.500 Neut % (Auto) 89.5 H Lymph % (Auto) 5.2 L [place] % (Auto) 3.1 Eos % (Auto) 1.4 Baso % (Auto) 0.3 Absolute Neuts (auto) 9.0 H Absolute Lymphs (auto) 0.52 L Nucleated RBC % 0 Differential Comment SEE COMMENT Platelet Estimate ADEQUATE RBC Morphology N CHROM Anisocytosis RARE Sodium 139 Potassium 3.5 Chloride 106 Carbon Dioxide 27.0 Anion Gap 6 BUN 12 Creatinine 1.08 H Estim Creat Clear Calc 44.91 Est GFR (MDRD) Af Amer 67 Est GFR (MDRD) Non-Af 55 L BUN/Creatinine Ratio 11.1 Glucose 99 Calcium 8.6 Troponin I High Sens < 3.0 L Micro: Microbiology 12/06/20 16:15 SARS-CoV-2 Antigen (Rapid) - Final Interface Orders Radiology Impression Chest X-Ray 12/06/20 16:35 IMPRESSION: Hazy bibasilar airspace disease suspicious for pneumonia including atypical or viral pneumonia. Recommend short-term follow-up. at 1701 Reported and signed by: Darryl Maria MD Electronically Signed: Darryl Maria MD at 16:59 EDT Tel , Service support , Assessment & Plan Assessment/Plan (1) Sepsis: (2) Community acquired pneumonia: (3) Hypoxemia: (4) GERD (gastroesophageal reflux disease): (5) Asthma: QUALIFIERS: Asthma complication type: uncomplicated Asthma persistence: persistent Asthma severity: moderate Qualified Code(s): J45.40 - Moderate persistent asthma, uncomplicated (6) Depression: PLAN: This is a 60 years old female patient presented to the emergency room because of nausea, headache, shortness of breath and cough as well as subjective fever, developed fever in the ED and she became tachycardic, found to have questionable bilateral basilar infiltrate on chest x-ray which could be due to probable pneumonia with sepsis and hypoxia. #1 sepsis: Probable source is the pneumonia. Patient mentioned that she had recent UTI as well. Currently, she is febrile, tachycardic. Lactic acid is normal. Plan: Admit to PCU, cardiac monitoring, IV fluids, blood culture, urine culture, urinalysis, start IV antibiotics as below, will do COVID-19 by PCR, repeat CBC and BMP tomorrow morning. #2 probable community-acquired pneumonia: Chest x-ray reviewed. She is febrile, no leukocytosis. COVID-19 antigen is negative. Plan: Pancultures, pneumococcal and Legionella antigen, COVID-19 by PCR, start empiric IV Rocephin and Zithromax, pulmonology consult. #3 hypoxia: Does not seem to be an asthma exacerbation. No wheezing auscultation. Probably due to the pneumonia, PE cannot be ruled out. Plan: Albuterol every 4 hours, D-dimer, CTA chest, oxygen by nasal cannula to keep O2 saturation around 92%. #4 status post COVID-19 infection: Patient received first COVID-19 vaccine on June,, had COVID-19 infection 2 weeks later was managed as outpatient and received monoclonal antibodies afterwards. Received second dose of COVID-19 vaccine on September,. Plan to repeat COVID-19 by PCR. #5 asthma: Currently, she is on oxygen at 2 L. Plan for albuterol every 4 hours, continue Symbicort twice daily, incentive spirometer. #6 GERD: Continue PPI. #7 depression: Continue bupropion and escitalopram. #8 DVT prophylaxis: Subcu Lovenox. This note was generated with [employer]ialpoint dictation software. It may contain incorrect words, spelling, and punctuation that were not noted in checking the note before signing. Charges/Coding Visit Charges Inpatient E&M: 98031 Init Hosp L3
--- NOTE | 2020-12-06 19:42 | CT_ITS ---
HISTORY: Hypoxia, tachycardia EXAMINATION: CTA Chest WO/W Contrast Injection TECHNIQUE: Helically acquired images were obtained of the chest following IV contrast as per pulmonary angiogram protocol with 3D reconstructions. A radiation dose optimization technique was used for this scan. IV Contrast dosage and agent: 100mL Isovue-370 COMPARISON: None FINDINGS: LUNGS, PLEURA AND LARGE AIRWAYS: Diffuse septal thickening with small areas of scattered groundglass opacity, bibasilar dependent changes with right middle lobe consolidation THYROID: No thyroid lesions. PULMONARY ARTERIES: Normal in caliber. No pulmonary embolism. AORTA AND GREAT VESSELS: No aneurysm or dissection. HEART AND PERICARDIUM: Heart size is normal. No pericardial effusion. No signs of right heart strain. MEDIASTINUM AND JANIA: Subcarinal mediastinal adenopathy. Esophagus is unremarkable. No hiatal hernia. UPPER ABDOMEN: No acute pathology. BONES: No acute or aggressive abnormality. CT/CTA Chest W/WO Contrast IMPRESSION: Negative CTA Chest. Pulmonary findings consistent with pulmonary interstitial edema, infection including atypical or viral pneumonia. Right middle lobe consolidation, atelectasis versus infection. Individualized dose optimization techniques were used for this CT. at 2104 Reported and signed by: Darryl Maria MD Electronically Signed: Darryl Maria MD at 21:02 EDT Tel , Service support ,
[2020-12-06 21:15] LABS: D-Dimer Quantitative (DVT/PE) 1.16 FEU/ug/m (0.27-0.49)
[2020-12-06] MEDS: 0.9% Normal Saline 1,000 ML 100 ML IV (21:53)
[2020-12-06] MEDS: 0.9% Saline Lock 10 ML Syringe IV (21:53)
[2020-12-06] MEDS: Acetaminophen 325 MG Tablet 650 MG PO (21:55)
[2020-12-07] VITALS (18 sets, daily range): BP systolic 108–124; BP diastolic 65–68; PULSE 68–109; RESP 16–20; TEMP 36.9–37.9; O2SAT 94–95
[2020-12-07 04:44] LABS: Bacteria 0 SEEN /hpf (None Seen); Mucous, Urine 0 SEEN /hpf (<or=2+); Red Blood Cells-Urine 0 SEEN /hpf (0-5); Squamous Epithelial Cells - UA 0 SEEN /hpf (5-10)
[2020-12-07 04:45] LABS: Color, Urine Yellow (Yellow); Glucose, Dipstick Normal (Normal); Ketone-Dipstick Negative (Negative); Leukocyte Esterase-Dipstick 25 /ul (Negative); Nitrite-Dipstick Negative (Negative); Occult Blood-Urine Negative /ul (Negative); Protein-Dipstick 15 mg/dl (Negative); Urine Bilirubin Dipstick Negative (Negative); Urine Clarity Clear (Clear); Urine Urobilinogen Normal (Normal)
[2020-12-07 04:52] LABS: White Blood Cells 0-5 SEEN /hpf (0-5)
[2020-12-07] MEDS: Ondansetron 4 MG/2 ML Vial IV (05:07)
[2020-12-07] MEDS: Acetaminophen 325 MG Tablet 650 MG PO ×3 (05:07→17:58)
[2020-12-07] MEDS: 0.9% Saline Lock 10 ML Syringe IV (05:08)
[2020-12-07] MEDS: Albuterol 2.5 MG/3 ML VIAL.NEB. INHALATION ×4 (05:09→18:54)
[2020-12-07] MEDS: 0.9% Normal Saline 1,000 ML 100 ML IV ×2 (05:12→15:16)
[2020-12-07 06:01] LABS: Absolute Lymphocyte Count 0.66 X10^3/uL (0.83-4.51); Absolute Neutrophil Count 9.9 X10^3/uL (2.0-7.7); Basophil# 0.02 X10^3/uL; Basophil% 0.2 % (0-1); Eosinophil# 0.23 X10^3/uL; Hematocrit 37.1 % (37-47); Hemoglobin 12.2 g/dL (12.0-15.0); Lymphocyte # 0.66 X10^3/ul (0.83-4.51); Lymphocyte % 5.8 % (19-41); Mean Corp Hgb Conc 32.9 g/dL (32-36); Mean Corpuscular Hgb 29.5 pg (27.0-32.0); Mean Corpuscular Volume 89.6 fL (81-99); Mean Platelet Vol. 9.9 fl (6.2-12.0); Monocyte# 0.41 X10^3/uL; Monocyte% 3.6 % (0-10); NRBC Flagged by Analyzer 0 % (0-5); Neutrophil # 9.92 X10^3/uL (2.7-7.7); Neutrophil % 87.6 % (47-70); Platelet Count 167 K/mm3 (150-450); RBC Distribution Width CV 12.1 % (11.6-14.6); RBC Distribution Width SD 39.6 fl (35.1-43.9); Red Blood Count 4.14 M/mm3 (4.2-5.4); White Blood Count 11.3 K/mm3 (4.4-11.0)
[2020-12-07 06:26] LABS: Anion Gap 7 (5-15); BUN 9 mg/dL (7-18); BUN/Creat Ratio 9.8 RATIO (10-20); Chloride 107 mmol/L (98-107); Creatinine, Serum 0.92 mg/dL (0.55-1.02); EST Glomerular Filtration Rate 67 mL/min (>60); Est Glom Filt Rate - Afr Amer 81 mL/min (>60); Estimated Creatinine Clearance 52.72 ml/min; Glucose 97 mg/dL (74-106); Potassium 3.5 mmol/L (3.5-5.1); Sodium Level 137 mmol/L (136-145)
[2020-12-07] MEDS: Budesonide Respules 0.5 MG/2 ML AMPUL.NEB. INHALATION (07:01)
[2020-12-07] MEDS: Escitalopram Oxalate 20 MG Tablet PO (09:49)
[2020-12-07] MEDS: Montelukast 10 MG Tablet PO (09:49)
[2020-12-07] MEDS: Pantoprazole Sodium 20 MG Tablet PO (09:49)
[2020-12-07] MEDS: Enoxaparin 40 MG/0.4 ML Syringe SC (09:49)
[2020-12-07] MEDS: buPROPion (SR) 150 MG Tablet.SA PO (09:49)
--- NOTE | 2020-12-07 10:45 | CASEMGMT ---
RN CM Face to Face with patient for initial transition planning/care coordination assessment. RN CM introduced self and role at [facility]. Patient lying in bed, alert and oriented. Patient willing to participate in assessment and is able to answer all questions appropriately. Care providers, pharmacy, and demographics verified. Patient wishes to discharge home, denies need for home health at this time. Patient states she has no further needs or concerns at this time. CM to follow for discharge planning needs that may arise. PCP: Erika Specialists: Sheldon fire[employer] [facility] Preferred Pharmacy: [facility] Insurance: MMO Prescription Benefit: yes Living Will/HPOA: none LNOK: Living Arrangements: Patient lives with in a 1 story home with 3 steps and railing to enter the home. Patient states she is independent at home. Transportation: self/ DME/HHC: Patient denies DME or previous HHC. Disposition Plan: Patient to discharge home with family support and follow-up plans in place. Marilyn JAY, RN, CM
[2020-12-07] MEDS: SUMAtriptan 6 MG/0.5 ML Vial SC (12:09)
--- NOTE | 2020-12-07 13:27 | PN.HOSP_ITS ---
Documented by User: Diana Abreu NP, [facility] 12/07/20 13:34 Subjective Subjective Patient seen and examined. Reports improvement in breathing. Complains of migraine which she has a history of. Denies other symptoms or complaints. Fever improved. Objective Data Objective Data Vital Signs: Vital Signs Temp Pulse Resp BP Pulse Ox 98.7 F 101 H 18 113/68 95 12/07/20 09:38 12/07/20 10:59 12/07/20 09:38 12/07/20 09:38 12/07/20 09:40 Oxygen Flow Rate (L/min) 2 Oxygen Delivery Method Room Air Weight: 167 lb 15.876 oz Body Mass Index (BMI) 30.7 Intake & Output: Intake and Output for Last 24 Hours 12/05/20 12/06/20 12/07/20 23:59 23:59 23:59 Intake Total 1305 / 1545 1451.67 / 1451.67 Balance 1305 / 1545 1451.67 / 1451.67 Lab / Micro Data Result Diagrams: 12/07/20 05:30 12/07/20 05:30 Labs: Laboratory Results - last 24 hr 12/06/20 12/06/20 12/06/20 16:05 16:05 17:50 WBC 10.0 RBC 4.64 Hgb 13.5 Hct 41.7 MCV 89.9 MCH 29.1 MCHC 32.4 RDW Std Deviation 40.3 RDW Coeff of Sarah 12.2 Plt Count 184 MPV 9.2 Immature Gran % (Auto) 0.500 Neut % (Auto) 89.5 H Lymph % (Auto) 5.2 L [place] % (Auto) 3.1 Eos % (Auto) 1.4 Baso % (Auto) 0.3 Absolute Neuts (auto) 9.0 H Absolute Lymphs (auto) 0.52 L Nucleated RBC % 0 Differential Comment SEE COMMENT Platelet Estimate ADEQUATE RBC Morphology N CHROM Anisocytosis RARE D-Dimer Quant (PE/DVT) Sodium 139 Potassium 3.5 Chloride 106 Carbon Dioxide 27.0 Anion Gap 6 BUN 12 Creatinine 1.08 H Estim Creat Clear Calc 44.91 Est GFR (MDRD) Af Amer 67 Est GFR (MDRD) Non-Af 55 L BUN/Creatinine Ratio 11.1 Glucose 99 Lactic Acid 1.0 Calcium 8.6 Troponin I High Sens < 3.0 L Urine Color Urine Clarity Urine pH Ur Specific [place] Urine Protein Urine Glucose (UA) Urine Ketones Urine Occult Blood Urine Nitrite Urine Bilirubin Urine Urobilinogen Ur Leukocyte Esterase Urine RBC Urine WBC Ur Squamous Epith Cells Urine Bacteria Urine Mucus COVID-19 (SHAYLA) 12/06/20 12/06/20 12/07/20 19:30 20:47 02:15 WBC RBC Hgb Hct MCV MCH MCHC RDW Std Deviation RDW Coeff of Sarah Plt Count MPV Immature Gran % (Auto) Neut % (Auto) Lymph % (Auto) [place] % (Auto) Eos % (Auto) Baso % (Auto) Absolute Neuts (auto) Absolute Lymphs (auto) Nucleated RBC % Differential Comment Platelet Estimate RBC Morphology Anisocytosis D-Dimer Quant (PE/DVT) 1.16 H* Sodium Potassium Chloride Carbon Dioxide Anion Gap BUN Creatinine Estim Creat Clear Calc Est GFR (MDRD) Af Amer Est GFR (MDRD) Non-Af BUN/Creatinine Ratio Glucose Lactic Acid Calcium Troponin I High Sens Urine Color Yellow Urine Clarity Clear Urine pH 5.0 Ur Specific [place] 1.010 Urine Protein 15 H Urine Glucose (UA) Normal Urine Ketones Negative Urine Occult Blood Negative Urine Nitrite Negative Urine Bilirubin Negative Urine Urobilinogen Normal Ur Leukocyte Esterase 25 H Urine RBC 0 SEEN Urine WBC 0-5 SEEN Ur Squamous Epith Cells 0 SEEN Urine Bacteria 0 SEEN Urine Mucus 0 SEEN COVID-19 (SHAYLA) Not Detected 12/07/20 12/07/20 05:30 05:30 WBC 11.3 H RBC 4.14 L Hgb 12.2 Hct 37.1 MCV 89.6 MCH 29.5 MCHC 32.9 RDW Std Deviation 39.6 RDW Coeff of Sarah 12.1 Plt Count 167 MPV 9.9 Immature Gran % (Auto) 0.800 Neut % (Auto) 87.6 H Lymph % (Auto) 5.8 L [place] % (Auto) 3.6 Eos % (Auto) 2.0 Baso % (Auto) 0.2 Absolute Neuts (auto) 9.9 H Absolute Lymphs (auto) 0.66 L Nucleated RBC % 0 Differential Comment Platelet Estimate RBC Morphology Anisocytosis D-Dimer Quant (PE/DVT) Sodium 137 Potassium 3.5 Chloride 107 Carbon Dioxide 23.0 Anion Gap 7 BUN 9 Creatinine 0.92 Estim Creat Clear Calc 52.72 Est GFR (MDRD) Af Amer 81 Est GFR (MDRD) Non-Af 67 BUN/Creatinine Ratio 9.8 L Glucose 97 Lactic Acid Calcium 8.0 L Troponin I High Sens Urine Color Urine Clarity Urine pH Ur Specific [place] Urine Protein Urine Glucose (UA) Urine Ketones Urine Occult Blood Urine Nitrite Urine Bilirubin Urine Urobilinogen Ur Leukocyte Esterase Urine RBC Urine WBC Ur Squamous Epith Cells Urine Bacteria Urine Mucus COVID-19 (SHAYLA) Micro: Microbiology 12/07/20 02:15 Urine, Clean Catch Legionella Antigen - Final 12/07/20 02:15 Urine, Clean Catch Streptococcus pneumoniae Antigen (M - Final 12/06/20 16:15 Interface Orders SARS-CoV-2 Antigen (Rapid) - Final Radiography Diagnostic Testing: Radiology Impression Chest X-Ray 12/06/20 16:35 IMPRESSION: Hazy bibasilar airspace disease suspicious for pneumonia including atypical or viral pneumonia. Recommend short-term follow-up. at 1701 Reported and signed by: Darryl Maria MD Electronically Signed: Darryl aMria MD at 16:59 EDT Tel , Service support , Chest CTA 12/06/20 19:42 IMPRESSION: Negative CTA Chest. Pulmonary findings consistent with pulmonary interstitial edema, infection including atypical or viral pneumonia. Right middle lobe consolidation, atelectasis versus infection. Individualized dose optimization techniques were used for this CT. at 2104 Reported and signed by: Darryl Maria MD Electronically Signed: Darryl Maria MD at 21:02 EDT Tel , Service support , Physical Exam Const alert, oriented x3 and no apparent distress Orientation / Consciousness: awake, oriented to person, oriented to place and oriented to time HEENT normocephalic and moist oral mucous membranes Eyes PERRL, EOMs intact bilaterally and conjunctivae normal Neck no lymphadenopathy Resp Auscultation: crackles left base and diminished lung sounds Cardio regular rate, regular rhythm and no murmurs Peripheral Pulses: pulses 2+ throughout GI normal to inspection, nondistended, normoactive bowel sounds, non-tender and non-distended Extremity normal to inspection Skin no rashes or lesions noted Lesions: no lesions Rashes: no rashes Trauma: no lacerations or abrasions Neuro CN's II-XII intact bilaterally, no focal motor deficits, no sensory deficits noted and deep tendon reflexes 2+ bilaterally Psych mental status grossly normal and affect normal Assessment & Plan Assessment/Plan (1) Community acquired pneumonia: (2) Sepsis: PLAN: 1. Sepsis secondary to community-acquired pneumonia-IV azithromycin and IV Rocephin. Albuterol DuoNeb aerosols. Improving. Possible DC tomorrow if continued improvement. Will need walking pulse ox prior to discharge. 2. Acute hypoxic respiratory insufficiency, secondary to #1-oxygen now stable on room air. Walking pulse ox prior to discharge. Per treatment per above. 3. History of COVID-19 infection, completed vaccination series. Covid PCR admission negative. 4. Chronic intermittent asthma-no exacerbation. As needed albuterol aerosol. 5. Depression-on bupropion, escitalopram. 6. GERD-continue PPI. 7. Status migrainous-subcu Imitrex. As needed Tylenol/NSAIDs. DVT prophylaxis- Lovenox sc This patient was seen by DEBORAH Galindo under the supervision of Dr. Magana. Documented by User: Dr. Adeel Magana MD 12/07/20 14:30 Objective Data Lab / Micro Data Result Diagrams: 12/07/20 05:30 12/07/20 05:30 Charges/Coding Addendum Addendum: Dr. Magana: I personally reviewed the chart and examined the patient, and agree with the above findings. 60-year-old female presented to the hospital with shortness of breath and sepsis secondary to a right lower lobe community-acquired pneumonia. She has had her Covid vaccines and actually had Covid in between her vaccines as well and she tested negative for Covid on this admission. Appreciate pulmonology's assistance, will transition her from Pulmicort to p.o. prednisone for 5 days. She is on room air currently in and maintaining her oxygen saturations very well. She feels better than when she came in however she is endorsing a headache therefore will also add Imitrex given her history of migraines in the past. Visit Charges Inpatient E&M: 60825 Subs Hosp L2
--- NOTE | 2020-12-07 13:53 | EX.PCM.CONCC ---
Assessment & Plan Assessment/Plan (1) Community acquired pneumonia: QUALIFIERS: Laterality: right Lung location: lower lobe of lung Qualified Code(s): J18.9 - Pneumonia, unspecified organism (2) Hypoxemia: (3) Asthma: QUALIFIERS: Asthma severity: moderate Asthma persistence: persistent Asthma complication type: with acute exacerbation Qualified Code(s): J45.41 - Moderate persistent asthma with (acute) exacerbation (4) Depression: QUALIFIERS: Depression Type: major depressive disorder Major depression recurrence: recurrent Active/Remission status: in full remission Qualified Code(s): F33.42 - Major depressive disorder, recurrent, in full remission (5) GERD (gastroesophageal reflux disease): QUALIFIERS: Esophagitis presence: without esophagitis Qualified Code(s): K21.9 - Gastro-esophageal reflux disease without esophagitis PLAN: RECOMMENDATIONS: 1. Continue antibiotics and bronchodilators as ordered 2. Transition from Pulmicort to prednisone 5-day burst 3. Walking oximetry prior to discharge 4. Follow-up chest x-ray in 6 to 8 weeks to ensure resolution IMPRESSIONS: 1. Acute hypoxic respiratory insufficiency secondary to asthma exacerbation secondary to community-acquired pneumonia Patient presented with hypoxia, likely secondary to atelectasis associated with asthma exacerbation. Patient has had some improvement on current therapy, but concerned that Pulmicort will not penetrate deep enough into the lungs to allow for pulmonary recruitment. Will transition to prednisone therapy. Patient has had difficulty tolerating prednisone in the past, so will attempt a 5-day burst. 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 We will follow-up in 6-8 weeks at a minimum to ensure resolution. 2. History of COVID-19/depression/GERD/obesity/migraines Complicates care, management, recovery and prognosis. Okay to continue with baseline medications. Okay to use baseline medications for migraine therapy. Clinical suspicion that migraines were triggered by problem #1. HPI Consult Data Date of Consult: 12/07/20 HPI Narrative HPI Narrative: ANMOL HERNANDEZ is a 60 F, with past medical history listed below and well-known to me from the outpatient office, who presented to [facility] on 12/06/2020 secondary to gradual onset of a headache and shortness of breath. Patient reports that over the last 2 days she had developed a productive cough, myalgias and subjective fevers. Patient subsequently developed a migraine and came to be evaluated. Patient has been immunized against COVID-19 in addition to having COVID-19 in the past. In the ER, patient was afebrile, but tachycardic and had a blood pressure of 95/78. Patient was doing well on room air initially, but eventually was found to be desaturating to 86% was placed on nasal cannula oxygen. Patient does not use supplemental oxygen at baseline. Patient did not have a significant leukocytosis, but was tachycardic and on supplemental oxygen. Patient was given some Toradol and albuterol with some improvement. Remaining laboratory work-up was relatively unremarkable, but a chest x-ray showed hazy bibasilar airspace disease. This was subsequently followed up with a CT scan confirming diagnosis. EKG showed only sinus tachycardia. Patient was given antibiotics and admitted to the floor. Since being admitted, patient is slightly improved compared to previous. Patient continues to have a cough productive of green sputum. Patient has been able to be taken off of supplemental oxygen, but reports shortness of breath with exertion. Patient denies any current chest pain, bone pain, nausea or vomiting.Patient does continue to have a headache. Patient denies any noxious exposure or known sick contacts. Patient states she has been compliant with her baseline inhaler therapy. Patient had tried to use albuterol prior to coming in without success. Review of systems otherwise negative from a constitutional, HEENT, respiratory, cardiovascular, GI, genitourinary, musculoskeletal, skin, neurologic, psychiatric and hematologic system unless stated above. [facility] Medical History Asthma Chronic neck and back pain Depression GERD (gastroesophageal reflux disease) Hemorrhoids History of hay fever Migraines Home Medications albuterol sulfate 2 puff INHALATION Q4H PRN PRN 09/10/16 [History Last Taken 12/06/20] escitalopram oxalate 20 mg PO DAILY 09/10/16 [History Last Taken 12/06/20] montelukast 10 mg PO DAILY 09/10/16 [History Last Taken 12/06/20] omeprazole magnesium 20 mg capsule,delayed release 20 mg PO DAILY 04/05/20 [History Last Taken 12/06/20] cholecalciferol (vitamin D3) 125 mcg (5,000 unit) capsule 125 mcg PO DAILY 05/05/20 [History Last Taken 12/06/20] docusate sodium 100 mg capsule 200 mg PO DAILY cap 05/05/20 [History Last Taken 12/04/20] budesonide-formoterol HFA 160 mcg-4.5 mcg/actuation aerosol inhaler 2 puff INHALATION Q12H #3 ea 10/04/20 [Rx Last Taken 12/06/20] bupropion HCl 150 mg tablet,12 hr sustained-release 150 mg PO DAILY 10/04/20 [History Last Taken 12/04/20] Allergy/AdvReac Type Severity Reaction Status Date / Time amoxicillin Allergy Rash Verified 12/06/20 19:17 Sulfa (Sulfonamide Allergy Rash Verified 12/06/20 19:17 Antibiotics) Family History Mother Breast cancer CVA (cerebral vascular accident) Sister Cancer ovarian Father Myocardial infarction Grandmother Cancer cervical Aunt Breast cancer Cancer lymphoma Uncle Cancer lymphoma Surgical History H/O: hysterectomy History of colonoscopy (~2017) Social History Smoking Status: Never smoker alcohol intake: current details: social substance use type: does not use caffeine: Yes frequency: 3-4 times per week seatbelt use: always do you feel safe at home: Yes 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 Patient works at [employer] Narrative See HPI Physical Exam Const oriented x3 and no apparent distress General Appearance: frail; Negative for in distress HEENT normocephalic and head/scalp atraumatic; Negative for moist oral mucous membranes Eyes PERRL, EOMs intact bilaterally and conjunctivae normal Neck full ROM Lymph Lymphatic: no lymphadenopathy noted Resp normal respiratory effort and no use of accessory muscles Effort and Inspection: able to speak in complete sentences Auscultation: rhonchi lower bilaterally; Negative for rales or wheezes Percussion: percussion normal Cardio S1 normal heart sound, S2 normal heart sound, no murmurs, no rub, no gallops and no JVD Rate: tachycardic Rhythm: abnormal rhythm irregularly irregular GI normal to inspection, nondistended, normoactive bowel sounds Extremity no clubbing, cyanosis or edema Skin no rashes or lesions noted Neuro oriented x3 and CN's II-XII intact bilaterally Psych cooperative and affect normal Lab / Micro Data Result Diagrams: 12/07/20 05:30 12/07/20 05:30 Labs: Laboratory Results - last 24 hr 12/06/20 12/06/20 12/06/20 16:05 16:05 17:50 WBC 10.0 RBC 4.64 Hgb 13.5 Hct 41.7 MCV 89.9 MCH 29.1 MCHC 32.4 RDW Std Deviation 40.3 RDW Coeff of Sarah 12.2 Plt Count 184 MPV 9.2 Immature Gran % (Auto) 0.500 Neut % (Auto) 89.5 H Lymph % (Auto) 5.2 L Kings % (Auto) 3.1 Eos % (Auto) 1.4 Baso % (Auto) 0.3 Absolute Neuts (auto) 9.0 H Absolute Lymphs (auto) 0.52 L Nucleated RBC % 0 Differential Comment SEE COMMENT Platelet Estimate ADEQUATE RBC Morphology N CHROM Anisocytosis RARE D-Dimer Quant (PE/DVT) Sodium 139 Potassium 3.5 Chloride 106 Carbon Dioxide 27.0 Anion Gap 6 BUN 12 Creatinine 1.08 H Estim Creat Clear Calc 44.91 Est GFR (MDRD) Af Amer 67 Est GFR (MDRD) Non-Af 55 L BUN/Creatinine Ratio 11.1 Glucose 99 Lactic Acid 1.0 Calcium 8.6 Troponin I High Sens < 3.0 L Urine Color Urine Clarity Urine pH Ur Specific [place] Urine Protein Urine Glucose (UA) Urine Ketones Urine Occult Blood Urine Nitrite Urine Bilirubin Urine Urobilinogen Ur Leukocyte Esterase Urine RBC Urine WBC Ur Squamous Epith Cells Urine Bacteria Urine Mucus COVID-19 (SHAYLA) 12/06/20 12/06/20 12/07/20 19:30 20:47 02:15 WBC RBC Hgb Hct MCV MCH MCHC RDW Std Deviation RDW Coeff of Sarah Plt Count MPV Immature Gran % (Auto) Neut % (Auto) Lymph % (Auto) Kings % (Auto) Eos % (Auto) Baso % (Auto) Absolute Neuts (auto) Absolute Lymphs (auto) Nucleated RBC % Differential Comment Platelet Estimate RBC Morphology Anisocytosis D-Dimer Quant (PE/DVT) 1.16 H* Sodium Potassium Chloride Carbon Dioxide Anion Gap BUN Creatinine Estim Creat Clear Calc Est GFR (MDRD) Af Amer Est GFR (MDRD) Non-Af BUN/Creatinine Ratio Glucose Lactic Acid Calcium Troponin I High Sens Urine Color Yellow Urine Clarity Clear Urine pH 5.0 Ur Specific [place] 1.010 Urine Protein 15 H Urine Glucose (UA) Normal Urine Ketones Negative Urine Occult Blood Negative Urine Nitrite Negative Urine Bilirubin Negative Urine Urobilinogen Normal Ur Leukocyte Esterase 25 H Urine RBC 0 SEEN Urine WBC 0-5 SEEN Ur Squamous Epith Cells 0 SEEN Urine Bacteria 0 SEEN Urine Mucus 0 SEEN COVID-19 (SHAYLA) Not Detected 12/07/20 12/07/20 05:30 05:30 WBC 11.3 H RBC 4.14 L Hgb 12.2 Hct 37.1 MCV 89.6 MCH 29.5 MCHC 32.9 RDW Std Deviation 39.6 RDW Coeff of Sarah 12.1 Plt Count 167 MPV 9.9 Immature Gran % (Auto) 0.800 Neut % (Auto) 87.6 H Lymph % (Auto) 5.8 L Kings % (Auto) 3.6 Eos % (Auto) 2.0 Baso % (Auto) 0.2 Absolute Neuts (auto) 9.9 H Absolute Lymphs (auto) 0.66 L Nucleated RBC % 0 Differential Comment Platelet Estimate RBC Morphology Anisocytosis D-Dimer Quant (PE/DVT) Sodium 137 Potassium 3.5 Chloride 107 Carbon Dioxide 23.0 Anion Gap 7 BUN 9 Creatinine 0.92 Estim Creat Clear Calc 52.72 Est GFR (MDRD) Af Amer 81 Est GFR (MDRD) Non-Af 67 BUN/Creatinine Ratio 9.8 L Glucose 97 Lactic Acid Calcium 8.0 L Troponin I High Sens Urine Color Urine Clarity Urine pH Ur Specific [place] Urine Protein Urine Glucose (UA) Urine Ketones Urine Occult Blood Urine Nitrite Urine Bilirubin Urine Urobilinogen Ur Leukocyte Esterase Urine RBC Urine WBC Ur Squamous Epith Cells Urine Bacteria Urine Mucus COVID-19 (SHAYLA) Micro: Microbiology 12/07/20 02:15 Legionella Antigen - Final Urine, Clean Catch Streptococcus pneumoniae Antigen (M - Final 12/06/20 16:15 SARS-CoV-2 Antigen (Rapid) - Final Interface Orders Radiology Impression Chest X-Ray 12/06/20 16:35 IMPRESSION: Hazy bibasilar airspace disease suspicious for pneumonia including atypical or viral pneumonia. Recommend short-term follow-up. at 1701 Reported and signed by: Darryl Maria MD Electronically Signed: Darryl Maria MD at 16:59 EDT Tel , Service support , Chest CTA 12/06/20 19:42 IMPRESSION: Negative CTA Chest. Pulmonary findings consistent with pulmonary interstitial edema, infection including atypical or viral pneumonia. Right middle lobe consolidation, atelectasis versus infection. Individualized dose optimization techniques were used for this CT. at 2104 Reported and signed by: Darryl Maria MD Electronically Signed: Darryl Maria MD at 21:02 EDT Tel , Service support , Charges/Coding Visit Charges Inpatient E&M: 36233 Init Hosp L2
[2020-12-07] MEDS: Ceftriaxone 1 GM/50 ML BAG IV (21:40)
[2020-12-08] VITALS (7 sets, daily range): BP systolic 114–123; BP diastolic 66–81; PULSE 70–93; RESP 16–18; TEMP 36.8–36.9; O2SAT 90–96
[2020-12-08] MEDS: Albuterol 2.5 MG/3 ML VIAL.NEB. INHALATION ×2 (00:35→06:49)
[2020-12-08] MEDS: 0.9% Normal Saline 1,000 ML 100 ML IV (02:57)
[2020-12-08] MEDS: Acetaminophen 325 MG Tablet 650 MG PO (03:03)
[2020-12-08 07:02] LABS: Absolute Lymphocyte Count 1.14 X10^3/uL (0.83-4.51); Absolute Neutrophil Count 2.2 X10^3/uL (2.0-7.7); Basophil# 0.01 X10^3/uL; Basophil% 0.3 % (0-1); Eosinophil# 0.18 X10^3/uL; Eosinophils% 4.7 % (0-5); Hematocrit 30.3 % (37-47); Hemoglobin 9.8 g/dL (12.0-15.0); Lymphocyte # 1.14 X10^3/ul (0.83-4.51); Lymphocyte % 29.9 % (19-41); Mean Corp Hgb Conc 32.3 g/dL (32-36); Mean Corpuscular Hgb 29.3 pg (27.0-32.0); Mean Corpuscular Volume 90.7 fL (81-99); Mean Platelet Vol. 10.1 fl (6.2-12.0); Monocyte# 0.23 X10^3/uL; NRBC Flagged by Analyzer 0 % (0-5); Neutrophil # 2.23 X10^3/uL (2.7-7.7); Neutrophil % 58.6 % (47-70); POSITIVE MORPHOLOGY YES; Platelet Count 149 K/mm3 (150-450); RBC Distribution Width CV 12.5 % (11.6-14.6); RBC Distribution Width SD 41.6 fl (35.1-43.9); Red Blood Count 3.34 M/mm3 (4.2-5.4); White Blood Count 3.8 K/mm3 (4.4-11.0)
[2020-12-08 07:05] LABS: Differential Indicated SCAN CRITERIA MET
[2020-12-08 07:20] LABS: Differential Comment SCANNED
[2020-12-08 07:27] LABS: Anion Gap 4 (5-15); BUN 8 mg/dL (7-18); BUN/Creat Ratio 8.8 RATIO (10-20); Calcium,Total 8.1 mg/dL (8.5-10.1); Chloride 115 mmol/L (98-107); Creatinine, Serum 0.91 mg/dL (0.55-1.02); EST Glomerular Filtration Rate 67 mL/min (>60); Est Glom Filt Rate - Afr Amer 81 mL/min (>60); Glucose 88 mg/dL (74-106); Potassium 3.8 mmol/L (3.5-5.1); Sodium Level 144 mmol/L (136-145)
[2020-12-08] MEDS: Escitalopram Oxalate 20 MG Tablet PO (08:35)
[2020-12-08] MEDS: Montelukast 10 MG Tablet PO (08:35)
[2020-12-08] MEDS: Pantoprazole Sodium 20 MG Tablet PO (08:35)
[2020-12-08] MEDS: buPROPion (SR) 150 MG Tablet.SA PO (08:35)
[2020-12-08] MEDS: predniSONE 20 MG Tablet 40 MG PO (08:35)
--- NOTE | 2020-12-08 08:42 | PN.CC_ITS ---
Assessment & Plan Assessment/Plan (1) Community acquired pneumonia: QUALIFIERS: Laterality: right Lung location: lower lobe of lung Qualified Code(s): J18.9 - Pneumonia, unspecified organism (2) Hypoxemia: (3) Asthma: QUALIFIERS: Asthma severity: moderate Asthma persistence: persistent Asthma complication type: with acute exacerbation Qualified Code(s): J45.41 - Moderate persistent asthma with (acute) exacerbation (4) Depression: QUALIFIERS: Depression Type: major depressive disorder Major depression recurrence: recurrent Active/Remission status: in full remission Qualified Code(s): F33.42 - Major depressive disorder, recurrent, in full sumit ssion (5) GERD (gastroesophageal reflux disease): QUALIFIERS: Esophagitis presence: without esophagitis Qualified Code(s): K21.9 - Gastro-esophageal reflux disease without esophagitis PLAN: RECOMMENDATIONS: 1. Continue antibiotics and bronchodilators as ordered 2. Transition from Pulmicort to prednisone 5-day burst 3. Walking oximetry prior to discharge 4. Follow-up chest x-ray in 6 to 8 weeks to ensure resolution 5. Consider discharging with supply for a 12-day taper. Patient should call if transition to a 12-day taper IMPRESSIONS: 1. Acute hypoxic respiratory insufficiency secondary to asthma exacerbation secondary to community-acquired pneumonia Patient presented with hypoxia, likely secondary to atelectasis associated with asthma exacerbation. Patient has had some improvement on current therapy, but concerned that Pulmicort will not penetrate deep enough into the lungs to allow for pulmonary recruitment. Transitioned to prednisone therapy. Patient has had difficulty tolerating prednisone in the past, so will attempt a 5-day burst. Patient may require a 12-day taper, but is resistant to this secondary to side effects of prednisone. 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 We will follow-up in 6-8 weeks at a minimum to ensure resolution. 2. History of COVID-19/depression/GERD/obesity/migraines Complicates care, management, recovery and prognosis. Okay to continue with baseline medications. Okay to use baseline medications for migraine therapy. Clinical suspicion that migraines were triggered by problem #1. Subjective Subjective Patient did have to go on supplemental oxygen briefly overnight secondary to hypoxia. Patient states that she feels more rattling but is not having much production. Patient denies any chest pain. Objective Data Objective Data Vital Signs: Vital Signs Temp Pulse Resp BP Pulse Ox 36.8 C 78 18 114/69 96 12/08/20 08:41 12/08/20 08:41 12/08/20 08:41 12/08/20 08:41 12/08/20 08:41 Oxygen Flow Rate (L/min) 2 Oxygen Delivery Method Room Air Weight: 76.2 kg Body Mass Index (BMI) 30.7 Intake & Output: Intake and Output for Last 24 Hours 12/06/20 12/07/20 12/08/20 23:59 23:59 23:59 Intake Total 1305 / 1545 3656.67 / 3656.67 1000 / 1000 Balance 1305 / 1545 3656.67 / 3656.67 1000 / 1000 Lab / Micro Data Result Diagrams: 12/08/20 05:50 12/08/20 05:50 Labs: Laboratory Results - last 24 hr 12/08/20 12/08/20 05:50 05:50 WBC 3.8 L RBC 3.34 L Hgb 9.8 L Hct 30.3 L MCV 90.7 MCH 29.3 MCHC 32.3 RDW Std Deviation 41.6 RDW Coeff of Sarah 12.5 Plt Count 149 L MPV 10.1 Immature Gran % (Auto) 0.500 Neut % (Auto) 58.6 Lymph % (Auto) 29.9 [place] % (Auto) 6.0 Eos % (Auto) 4.7 Baso % (Auto) 0.3 Absolute Neuts (auto) 2.2 Absolute Lymphs (auto) 1.14 Nucleated RBC % 0 Differential Comment SCANNED Sodium 144 Potassium 3.8 Chloride 115 H Carbon Dioxide 25.0 Anion Gap 4 L BUN 8 Creatinine 0.91 Estim Creat Clear Calc 53.30 Est GFR (MDRD) Af Amer 81 Est GFR (MDRD) Non-Af 67 BUN/Creatinine Ratio 8.8 L Glucose 88 Calcium 8.1 L Micro: Microbiology 12/07/20 02:15 Urine, Clean Catch Legionella Antigen - Final 12/07/20 02:15 Urine, Clean Catch Streptococcus pneumoniae Antigen (M - Final 12/06/20 16:15 Interface Orders SARS-CoV-2 Antigen (Rapid) - Final Physical Exam Const oriented x3 and no apparent distress General Appearance: frail; Negative for in distress HEENT normocephalic and head/scalp atraumatic; Negative for moist oral mucous membranes Eyes PERRL, EOMs intact bilaterally and conjunctivae normal Neck full ROM Lymph Lymphatic: no lymphadenopathy noted Resp normal respiratory effort and no use of accessory muscles Effort and Inspection: able to speak in complete sentences Auscultation: rhonchi lower bilaterally; Negative for rales or wheezes Percussion: percussion normal Cardio S1 normal heart sound, S2 normal heart sound, no murmurs, no rub, no gallops and no JVD Rate: tachycardic Rhythm: abnormal rhythm irregularly irregular GI normal to inspection, nondistended, normoactive bowel sounds Extremity no clubbing, cyanosis or edema Skin no rashes or lesions noted Neuro oriented x3 and CN's II-XII intact bilaterally Psych cooperative and affect normal Charges/Coding Visit Charges Inpatient E&M: 04358 Subs Hosp L2
--- NOTE | 2020-12-08 10:02 | CASEMGMT ---
Pt does not qualify for home oxygen at discharge. Pt stated no further concerns with going home. Pt awaiting discharge. Lyntete GRIFFITHS CM
--- NOTE | 2020-12-08 10:04 | CASEMGMT ---
[facility] palliative screening tool completed and pt does not qualify for palliative referral. SStdustin RN CM
--- NOTE | 2020-12-08 11:10 | DCINST_ITS ---
Discharge Instructions Diet Discharge Diet: No restrictions Activity Discharge Activity: Return to Normal Activity Dressing / Incision Call your doctor if you observe: Fever of 101 or Higher, Shortness of breath, Dizziness, Swelling in the ankles, Chest pain and Increased palpitations (irregular heartbeat) Follow Up Care Test Results: Test results from this visit will be discussed in further detail at your follow-up appointment, if applicable. Discharge Plan Admission Admit Date/Time: 12/06/20 18:12 Attending Provider: Adeel Magana Primary Care Provider: Justice James Consulting Providers: Kimani Chung Instructions Patient Instructions: Asthma Action Plan, Asthma Medicine, Asthma Trigger Checklist, Asthma, Pneumonia Discharge Orders/Prescriptions Prescriptions: New prednisone 10 mg tablet 40 mg PO BREAKFAST Qty: 30 RF: 0 azithromycin 500 mg tablet 500 mg PO DAILY Qty: 1 RF: 0 cefdinir 300 mg capsule 300 mg PO BID Qty: 10 RF: 0 Continued omeprazole magnesium [Acid Ruling Technician (omeprazole)] 20 mg capsule,delayed release(DR/EC) 20 mg PO DAILY RF: 0 bupropion HCl [Wellbutrin SR] 150 mg tablet sustained-release 12 hr 150 mg PO DAILY RF: 0 Symbicort 160-4.5 mcg/actuation HFA aerosol inhaler 2 puff INHALATION Q12H Qty: 3 RF: 3 docusate sodium [Colace] 100 mg capsule 200 mg PO DAILY RF: 0 cholecalciferol (vitamin D3) 125 mcg (5,000 unit) capsule 125 mcg PO DAILY RF: 0 montelukast 10 MG tablet 10 mg PO DAILY RF: 0 albuterol sulfate 1 INHALER inhaler 2 puff INHALATION Q4H PRN PRN (Reason: Sob &/Or Wheezing) RF: 0 escitalopram oxalate 20 MG tablet 20 mg PO DAILY RF: 0 Referrals / Follow Up: Justice James MD [Primary Care Provider] - Disposition Disposition (needs filled in before D/C Order can be placed): Home, Self Care
--- NOTE | 2020-12-08 12:08 | PHA.DC.MC ---
Pharmacy Service has performed discharge medication reconciliation and counseling for this patient. The patient was counseled on the following discharge medications and changes in medications for homegoing were reviewed. 1. OMNICEF 2. ZITHROMAX 3. PREDNISONE The Reason for Use, instructions for use, and potential side effects were reviewed for all new medications. The patient's questions regarding all of their medications were answered. The patient was able to verbally demonstrate an understanding of their discharge medications. Home Medications albuterol sulfate 2 puff INHALATION Q4H PRN PRN 09/10/16 escitalopram oxalate 20 mg PO DAILY 09/10/16 montelukast 10 mg PO DAILY 09/10/16 omeprazole magnesium 20 mg capsule,delayed release 20 mg PO DAILY 04/05/20 cholecalciferol (vitamin D3) 125 mcg (5,000 unit) capsule 125 mcg PO DAILY 05/05/20 docusate sodium 100 mg capsule 200 mg PO DAILY cap 05/05/20 budesonide-formoterol HFA 160 mcg-4.5 mcg/actuation aerosol inhaler 2 puff INHALATION Q12H #3 ea 10/04/20 bupropion HCl 150 mg tablet,12 hr sustained-release 150 mg PO DAILY 10/04/20 azithromycin 500 mg PO DAILY #1 tab 12/08/20 cefdinir 300 mg PO BID #10 cap 12/08/20 prednisone 40 mg PO BREAKFAST #30 tab 12/08/20 The patient's discharge medication list was reviewed for discrepancies and discrepancies were resolved.
--- NOTE | 2020-12-08 13:08 | PCM.DC.SUM ---
Providers Date of Admission: 12/06/20 Primary Care Physician: Dr. Justice James MD Consultations 12/06/20 18:59 Consult: [employer] Associate / Pulmonary Medicine Routine Consulting Provider: Kimani Chung Reason for Consult: Hypoxia, probable pneumonia, recent COVID-19 EMERGENT Consult: No MD Notified: Yes Date Notified: 12/06/20 Time Notified: 18:11 Method of Notification: Text Reason For Visit: SEPSIS, PROBABLY PNEUMONIA, HYPOXIA Diagnosis Discharge Diagnosis (1) Community acquired pneumonia: Status: Acute Code(s): J18.9 - Pneumonia, unspecified organism Qualifiers: Laterality: right Lung location: lower lobe of lung Qualified Code(s): J18.9 - Pneumonia, unspecified organism (2) Hypoxemia: Status: Acute Code(s): R09.02 - Hypoxemia (3) Asthma: Status: Chronic Code(s): J45.909 - Unspecified asthma, uncomplicated Qualifiers: Asthma severity: moderate Asthma persistence: persistent Asthma complication type: with acute exacerbation Qualified Code(s): J45.41 - Moderate persistent asthma with (acute) exacerbation (4) Depression: Status: Chronic Code(s): F32.9 - Major depressive disorder, single episode, unspecified Qualifiers: Depression Type: major depressive disorder Major depression recurrence: recurrent Active/Remission status: in full remission Qualified Code(s): F33.42 - Major depressive disorder, recurrent, in full remission (5) GERD (gastroesophageal reflux disease): Status: Acute Code(s): K21.9 - Gastro-esophageal reflux disease without esophagitis Qualifiers: Esophagitis presence: without esophagitis Qualified Code(s): K21.9 - Gastro-esophageal reflux disease without esophagitis Medications at Discharge Home Medications albuterol sulfate 2 puff INHALATION Q4H PRN PRN 09/10/16 escitalopram oxalate 20 mg PO DAILY 09/10/16 montelukast 10 mg PO DAILY 09/10/16 omeprazole magnesium 20 mg capsule,delayed release 20 mg PO DAILY 04/05/20 cholecalciferol (vitamin D3) 125 mcg (5,000 unit) capsule 125 mcg PO DAILY 05/05/20 docusate sodium 100 mg capsule 200 mg PO DAILY cap 05/05/20 budesonide-formoterol HFA 160 mcg-4.5 mcg/actuation aerosol inhaler 2 puff INHALATION Q12H #3 ea 10/04/20 bupropion HCl 150 mg tablet,12 hr sustained-release 150 mg PO DAILY 10/04/20 azithromycin 500 mg PO DAILY #1 tab 12/08/20 cefdinir 300 mg PO BID #10 cap 12/08/20 prednisone 40 mg PO BREAKFAST #30 tab 12/08/20 Hospital Course Operations None Procedures None Summary of Care Provided Minutes Spent on Discharge: 40 Hospital Course: Per HPI: ANMOL HERNANDEZ, is a 60 F with past medical history as mentioned below presented to the emergency because of multiple complaints. Her illness started 2 days ago with headache and she thought that it is because of migraine as she has history of migraine, associated with nausea. Since yesterday, she started having malaise and low-grade fever at home which was 99.7 Fahrenheit. Today, she started having shortness of breath, on minimal exertion, associated with mild cough with minimal clear sputum and without aggravating or relieving factors. She denied vomiting, abdominal pain, diarrhea. She denied urinary symptoms. She stated that she received her first, vaccine doses back on June, and 2 weeks later, she developed COVID-19 infection. She was managed at home and it was recommended that she should receive the antibodies for the COVID-19 afterwards. She received her second dose of COVID-19 vaccine on September,. In the emergency department, initially patient was afebrile but then she developed fever and she became tachycardic. Initially, pulse ox was 98% on room air and then she required oxygen of up to 2 L. Routine blood work was unremarkable. Chest x-ray revealed questionable bilateral basilar infiltrate. COVID-19 antigen came back negative. EKG revealed sinus tachycardia with nonspecific ST, T wave changes, no acute ischemic changes. Troponin was negative. She is being admitted for probable community-acquired pneumonia with sepsis and hypoxia. Hospital Course: 1. Sepsis and acute hypoxic respiratory insufficiency secondary to community-acquired pneumonia/chronic intermittent [id number] female with a history of asthma presents to the hospital with acute hypoxic respiratory insufficiency with right lower lobe pneumonia. Her oxygen sats were improved very quickly. Pulmonology was consulted short steroid burst secondary to her issues with prolonged steroid tapers asthma exacerbations. She did have an ambulatory pulse ox today which did not require her to have any oxygen and I discussed with her the possibility of discharge today and she would prefer to go home if she will be discharged on 1 more dose of azithromycin be taken tonight as well and has 5 more days of cefdinir to complete her antibiotic course. Also place her on total of 5 days of steroids however we will give her a prescription that will allow for a taper if necessary. She is aware that she should call her financial aid officer and if she continues to be short of breath she also did have a history of Covid in between her 2 doses of seen and she tested negative for Covid on admission here. 2. Depression, GERD, migraines are all chronic medical conditions which complicate her care. Her home medications were continued where appropriate Physical Exam Const alert, oriented x3 and no apparent distress General Appearance: cooperative HEENT normocephalic Mouth: dry mucous membranes Eyes PERRL, EOMs intact bilaterally and conjunctivae normal Neck supple and no JVD Resp normal respiratory effort, no retractions and no use of accessory muscles Auscultation: crackles right base; Negative for rales, rhonchi or wheezes Cardio regular rate, regular rhythm, S1 normal heart sound, S2 normal heart sound and no murmurs GI soft to palpation, non-tender and non-distended; Negative for hepatosplenomegaly Extremity no clubbing, cyanosis or edema Skin no rashes or lesions noted Neuro no focal motor deficits and no sensory deficits noted Psych affect normal Appearance: appropriate Weight / BMI Weight Weight: 167 lb 15.876 oz Body Mass Index (BMI) 30.7 ABG / Lab / Microbiology Data Result Diagrams: 12/08/20 05:50 12/08/20 05:50 Laboratory: Laboratory Results - last 24 hr 12/08/20 12/08/20 05:50 05:50 WBC 3.8 L RBC 3.34 L Hgb 9.8 L Hct 30.3 L MCV 90.7 MCH 29.3 MCHC 32.3 RDW Std Deviation 41.6 RDW Coeff of Sarah 12.5 Plt Count 149 L MPV 10.1 Immature Gran % (Auto) 0.500 Neut % (Auto) 58.6 Lymph % (Auto) 29.9 [place] % (Auto) 6.0 Eos % (Auto) 4.7 Baso % (Auto) 0.3 Absolute Neuts (auto) 2.2 Absolute Lymphs (auto) 1.14 Nucleated RBC % 0 Differential Comment SCANNED Sodium 144 Potassium 3.8 Chloride 115 H Carbon Dioxide 25.0 Anion Gap 4 L BUN 8 Creatinine 0.91 Estim Creat Clear Calc 53.30 Est GFR (MDRD) Af Amer 81 Est GFR (MDRD) Non-Af 67 BUN/Creatinine Ratio 8.8 L Glucose 88 Calcium 8.1 L Microbiology: Microbiology 12/07/20 02:15 Urine Culture - Preliminary Urine, Clean Catch Culture exhibits no growth. Microbiology 12/07/20 02:15 Urine, Clean Catch Urine Culture - Preliminary Culture exhibits no growth. 12/07/20 02:15 Urine, Clean Catch Legionella Antigen - Final 12/07/20 02:15 Urine, Clean Catch Streptococcus pneumoniae Antigen (M - Final 12/06/20 16:15 Interface Orders SARS-CoV-2 Antigen (Rapid) - Final D/C Instructions Discharge Diet: No restrictions Call your doctor if you observe: Fever of 101 or Higher, Shortness of breath, Dizziness, Swelling in the ankles, Chest pain and Increased palpitations (irregular heartbeat) Meaningful Use Info Meaningful Use Diagnoses (Choose all that apply): None applicable Discharge Plan Admission Admit Date/Time: 12/06/20 18:12 Attending Provider: Adeel Magana Primary Care Provider: Justice James Consulting Providers: Kimani Chung Instructions Patient Instructions: Asthma Action Plan, Asthma Medicine, Asthma Trigger Checklist, Asthma, Pneumonia Discharge Orders/Prescriptions Prescriptions: New prednisone 10 mg tablet 40 mg PO BREAKFAST Qty: 30 RF: 0 azithromycin 500 mg tablet 500 mg PO DAILY Qty: 1 RF: 0 cefdinir 300 mg capsule 300 mg PO BID Qty: 10 RF: 0 Continued omeprazole magnesium [Acid J2Ee Android Developer (omeprazole)] 20 mg capsule,delayed release(DR/EC) 20 mg PO DAILY RF: 0 bupropion HCl [Wellbutrin SR] 150 mg tablet sustained-release 12 hr 150 mg PO DAILY RF: 0 Symbicort 160-4.5 mcg/actuation HFA aerosol inhaler 2 puff INHALATION Q12H Qty: 3 RF: 3 docusate sodium [Colace] 100 mg capsule 200 mg PO DAILY RF: 0 cholecalciferol (vitamin D3) 125 mcg (5,000 unit) capsule 125 mcg PO DAILY RF: 0 montelukast 10 MG tablet 10 mg PO DAILY RF: 0 albuterol sulfate 1 INHALER inhaler 2 puff INHALATION Q4H PRN PRN (Reason: Sob &/Or Wheezing) RF: 0 escitalopram oxalate 20 MG tablet 20 mg PO DAILY RF: 0 Referrals / Follow Up: Justice James MD [Primary Care Provider] - 12/22/20 1:40 pm Disposition Disposition (needs filled in before D/C Order can be placed): Home, Self Care Charges/Coding Visit Charges Inpatient E&M: 71357 Disch Hosp
--- NOTE | 2020-12-09 16:22 | CASEMGMT ---
TUNDE APODACA Discharge Follow-up Phone Call: SIMON: 3 Strata: 3 Call Date: 12/09/20 Discharge Date: 12/08/20 Time of Call: 1623 Duration: 1 min Admitting Diagnosis: Sepsis, pneumonia TUNDE APODACA attempted to complete follow-up phone call after recent hospitalization. No answer, voice message left with return contact information.
== END 2020-12-08 13:13 | disposition home or self-care (01) | DRG 871 ==
LOC: ED 17:44 → PCU 18:19
PROVIDERS: Nurse Practitioner Family; Admitting Provider Hospitalist; Emergency Provider Emergency Medicine; PCP Family Medicine; Visit Provider Family Medicine
DX: A41.9 Sepsis, unspecified organism (principal); J18.9 Pneumonia, unspecified organism; J98.11 Atelectasis; J45.41 Moderate persistent asthma with (acute) exacerbation; R09.02 Hypoxemia; R06.89 Other abnormalities of breathing; G89.29 Other chronic pain; G43.909 Migraine, unspecified, not intractable, without status migrainosus; F33.42 Major depressive disorder, recurrent, in full remission; K21.9 Gastro-esophageal reflux disease without esophagitis; K57.90 Diverticulosis of intestine, part unspecified, without perforation or abscess without bleeding; E66.9 Obesity, unspecified; Z68.30 Body mass index [BMI] 30.0-30.9, adult; Z86.16 Personal history of COVID-19; Z86.73 Personal history of transient ischemic attack (TIA), and cerebral infarction without residual deficits; Z79.899 Other long term (current) drug therapy; Z87.440 Personal history of urinary (tract) infections
CPT/HCPCS: 36415; 71045; 71275; 80048; 81001; 83605; 84484; 85025; 85379; 87040; 87086; 87426; 87449; 87635; 93005; 94640; 99251; 99285; J7030; Q9967; U0005; A4216; G0463; J0696; J2405; J3030; U0003

== ENCOUNTER → 2020-12-22 14:06 | Outpatient (CLI) | payer OTHER, SELFPAY ==
[2020-12-15 07:51] VITALS: BMI 30.2
--- NOTE | 2020-12-22 14:09 | RAD_ITS ---
STUDY: X-RAY CHEST REASON FOR EXAM: Female, 60 years old. RIGHT LOWER LOBE PNEUMONIA TECHNIQUE: PA and lateral views of the chest. COMPARISON: Comparison is made with prior study dated 12/06/2020. FINDINGS: Mild residual increased markings at the lung bases. Further follow-up is recommended. There is no demonstrated pleural abnormality. Normal size heart. Normal mediastinum and safia. Normal visualized pulmonary arteries. Normal visualized aortic arch and descending thoracic aorta. Normal visualized thoracic spine. Normal visualized ribs, clavicles, and shoulders. There is no demonstrated abnormality of the visualized soft tissue structures of the upper abdomen. RAD/Chest PA and Lateral IMPRESSION: Mild degree of residual increased markings at the lung bases. Further follow-up is recommended. Electronically Signed: Huy Santacruz MD at 15:15 EDT , Service support ,
[2020-12-22 17:44] LABS: Absolute Lymphocyte Count 1.92 X10^3/uL (0.83-4.51); Absolute Neutrophil Count 2.4 X10^3/uL (2.0-7.7); Basophil# 0.04 X10^3/uL; Basophil% 0.8 % (0-1); Eosinophil# 0.38 X10^3/uL; Eosinophils% 7.3 % (0-5); Hematocrit 41.5 % (37-47); Lymphocyte # 1.92 X10^3/ul (0.83-4.51); Lymphocyte % 37.1 % (19-41); Mean Corp Hgb Conc 31.3 g/dL (32-36); Mean Corpuscular Hgb 28.6 pg (27.0-32.0); Mean Corpuscular Volume 91.4 fL (81-99); Mean Platelet Vol. 10.2 fl (6.2-12.0); Monocyte# 0.42 X10^3/uL; Monocyte% 8.1 % (0-10); NRBC Flagged by Analyzer 0 % (0-5); Neutrophil % 46.3 % (47-70); Platelet Count 273 K/mm3 (150-450); RBC Distribution Width CV 12.6 % (11.6-14.6); RBC Distribution Width SD 41.8 fl (35.1-43.9); Red Blood Count 4.54 M/mm3 (4.2-5.4); White Blood Count 5.2 K/mm3 (4.4-11.0)
[2020-12-22 17:58] LABS: Vitamin B12 422 pg/mL (211-911); Vitamin D,25 Hydroxy 62.4 ng/mL
[2020-12-28 10:53] LABS: AST(SGOT) 11 U/L (15-37); Alanine Aminotransfer ALT/SGPT 29 U/L (13-56); Albumin, Serum 3.5 g/dL (3.2-5.0); Alkaline Phosphatase 108 U/L (45-117); Anion Gap 6 (5-15); BUN 15 mg/dL (7-18); BUN/Creat Ratio 15.3 RATIO (10-20); Calcium,Total 8.7 mg/dL (8.5-10.1); Chloride 109 mmol/L (98-107); Creatinine, Serum 0.98 mg/dL (0.55-1.02); EST Glomerular Filtration Rate 62 mL/min (>60); Est Glom Filt Rate - Afr Amer 75 mL/min (>60); Ferritin 95 ng/mL (8-252); Globulin 3.5 g/dL (2.2-4.2); Glucose 82 mg/dL (74-106); Iron 43 ug/dL (50-170); Iron Binding Capacity,Total 292 ug/dL (250-450); Potassium 3.5 mmol/L (3.5-5.1); Sodium Level 141 mmol/L (136-145)
== END ==
PROVIDERS: PCP Family Medicine; Referring Provider Family Medicine; Visit Provider Family Medicine
DX: J18.9 Pneumonia, unspecified organism (principal); E55.9 Vitamin D deficiency, unspecified; D64.9 Anemia, unspecified
CPT/HCPCS: 36415; 71046; 80053; 82306; 82607; 82728; 82746; 83540; 83550; 85025

== ENCOUNTER → 2020-12-30 09:13 | Outpatient (CLI) | payer OTHER, SELFPAY ==
[2020-12-15 07:51] VITALS: BMI 30.2
--- NOTE | 2020-12-30 09:14 | RAD_ITS ---
STUDY: X-RAY CHEST REASON FOR EXAM: Female, 60 years old. pneu TECHNIQUE: Frontal and lateral views of the chest COMPARISON: 22 December 2020 FINDINGS: There there is no pneumothorax, pulmonary edema or pleural effusions. There are residual coarsened interstitial markings bilaterally in the bases, improved since CT at the end. The heart is mildly enlarged. There are enlarged hilar lymph nodes bilaterally. Appearance is comparable to one week prior. RAD/Chest PA and Lateral IMPRESSION: 1. Stable appearance since one week prior, including appearance since one month prior. 2. Residual basal interstitial disease, possibly resolving pneumonia. 3. Bilateral hilar lymphadenopathy. 4. Mild cardiomegaly. Electronically Signed: Devan Anthony MD at 17:07 EDT Tel , Service support ,
== END ==
PROVIDERS: PCP Family Medicine; Referring Provider Family Medicine; Visit Provider Family Medicine
DX: J18.9 Pneumonia, unspecified organism (principal)
CPT/HCPCS: 71046

== ENCOUNTER → 2021-03-28 08:36 | Outpatient (CLI) | payer OTHER, SELFPAY ==
[2021-03-28 09:58] LABS: Absolute Lymphocyte Count 1.94 X10^3/uL (0.83-4.51); Absolute Neutrophil Count 2.9 X10^3/uL (2.0-7.7); Basophil# 0.03 X10^3/uL; Basophil% 0.5 % (0-1); Eosinophil# 0.13 X10^3/uL; Eosinophils% 2.4 % (0-5); Hematocrit 39.2 % (37-47); Hemoglobin 12.6 g/dL (12.0-15.0); Lymphocyte # 1.94 X10^3/ul (0.83-4.51); Lymphocyte % 35.3 % (19-41); Mean Corp Hgb Conc 32.1 g/dL (32-36); Mean Corpuscular Hgb 29.4 pg (27.0-32.0); Mean Corpuscular Volume 91.4 fL (81-99); Mean Platelet Vol. 10.2 fl (6.2-12.0); Monocyte# 0.45 X10^3/uL; Monocyte% 8.2 % (0-10); NRBC Flagged by Analyzer 0 % (0-5); Neutrophil # 2.92 X10^3/uL (2.7-7.7); Neutrophil % 53.1 % (47-70); Platelet Count 229 K/mm3 (150-450); RBC Distribution Width CV 12.6 % (11.6-14.6); RBC Distribution Width SD 41.7 fl (35.1-43.9); Red Blood Count 4.29 M/mm3 (4.2-5.4); White Blood Count 5.5 K/mm3 (4.4-11.0)
[2021-03-28 10:39] LABS: ALB/GLOB Ratio 0.9 RATIO (0.9-2.4); AST(SGOT) 15 U/L (15-37); Alanine Aminotransfer ALT/SGPT 25 U/L (13-56); Albumin, Serum 3.4 g/dL (3.2-5.0); Alkaline Phosphatase 99 U/L (45-117); Anion Gap 9 (5-15); BUN 16 mg/dL (7-18); BUN/Creat Ratio 15.5 RATIO (10-20); Calcium,Total 8.6 mg/dL (8.5-10.1); Chloride 108 mmol/L (98-107); Creatinine, Serum 1.03 mg/dL (0.55-1.02); EST Glomerular Filtration Rate 58 mL/min (>60); Est Glom Filt Rate - Afr Amer 71 mL/min (>60); Ferritin 94 ng/mL (8-252); Globulin 3.7 g/dL (2.2-4.2); Glucose 87 mg/dL (74-106); Iron 59 ug/dL (50-170); Iron Binding Capacity,Total 272 ug/dL (250-450); Potassium 3.7 mmol/L (3.5-5.1); Protein, Total 7.1 g/dL (6.4-8.2); Sodium Level 142 mmol/L (136-145)
[2021-03-28 10:40] LABS: Vitamin B12 308 pg/mL (211-911); Vitamin D,25 Hydroxy 61.4 ng/mL
== END ==
PROVIDERS: PCP Family Medicine; Referring Provider Family Medicine; Visit Provider Family Medicine
DX: D64.9 Anemia, unspecified (principal); E55.9 Vitamin D deficiency, unspecified
CPT/HCPCS: 36415; 80053; 82306; 82607; 82728; 82746; 83540; 83550; 85025

== ENCOUNTER 2021-06-28 23:15 | Outpatient (RCR) | payer OTHER, SELFPAY | END 2021-07-17 23:59 | LOC: EMPH 23:15 | PROVIDERS: PCP Family Medicine; Referring Provider Family Medicine Geriatric Medicine; Visit Provider Family Medicine Geriatric Medicine | DX: Z03.818 Encounter for observation for suspected exposure to other biological agents ruled out (principal) | CPT/HCPCS: 87426 ==

== ENCOUNTER 2021-08-08 08:05 | Outpatient (CLI) | payer OTHER, SELFPAY ==
[2021-08-08 09:54] LABS: Absolute Lymphocyte Count 2.06 X10^3/uL (0.83-4.51); Absolute Neutrophil Count 2.9 X10^3/uL (2.0-7.7); Basophil# 0.04 X10^3/uL; Basophil% 0.7 % (0-1); Eosinophil# 0.14 X10^3/uL; Eosinophils% 2.5 % (0-5); Hematocrit 38.1 % (37-47); Hemoglobin 12.4 g/dL (12.0-15.0); Lymphocyte # 2.06 X10^3/ul (0.83-4.51); Lymphocyte % 36.7 % (19-41); Mean Corp Hgb Conc 32.5 g/dL (32-36); Mean Corpuscular Hgb 29.3 pg (27.0-32.0); Mean Corpuscular Volume 90.1 fL (81-99); Mean Platelet Vol. 10.1 fl (6.2-12.0); Monocyte# 0.45 X10^3/uL; NRBC Flagged by Analyzer 0 % (0-5); Neutrophil % 51.7 % (47-70); Platelet Count 227 K/mm3 (150-450); RBC Distribution Width CV 12.5 % (11.6-14.6); RBC Distribution Width SD 41.1 fl (35.1-43.9); Red Blood Count 4.23 M/mm3 (4.2-5.4); White Blood Count 5.6 K/mm3 (4.4-11.0)
[2021-08-08 10:31] LABS: Vitamin B12 314 pg/mL (211-911); Vitamin D,25 Hydroxy 64.6 ng/mL
[2021-08-08 10:33] LABS: AST(SGOT) 17 U/L (15-37); Alanine Aminotransfer ALT/SGPT 31 U/L (13-56); Albumin, Serum 3.6 g/dL (3.2-5.0); Alkaline Phosphatase 99 U/L (45-117); Anion Gap 9 (5-15); BUN 20 mg/dL (7-18); BUN/Creat Ratio 20.1 RATIO (10-20); Chloride 108 mmol/L (98-107); Cholesterol 238 mg/dL (200); EST Glomerular Filtration Rate 61 mL/min (>60); Est Glom Filt Rate - Afr Amer 73 mL/min (>60); Ferritin 88 ng/mL (8-252); Globulin 3.5 g/dL (2.2-4.2); Glucose 85 mg/dL (74-106); High Density Lipoprotein 66 mg/dL; Iron 52 ug/dL (50-170); Iron Binding Capacity,Total 291 ug/dL (250-450); Potassium 3.6 mmol/L (3.5-5.1); Protein, Total 7.1 g/dL (6.4-8.2); Sodium Level 140 mmol/L (136-145); Thyroid Stim Hormone (TSH) 2.75 uIU/mL (0.358-3.74); Triglycerides 69 mg/dL; Very Low Density Lipoprotein 14 mg/dL (5-40)
== END 2021-08-08 23:59 | disposition home or self-care (01) ==
LOC: MFPLAB 08:05
PROVIDERS: PCP Family Medicine; Referring Provider Family Medicine; Visit Provider Family Medicine
DX: E66.9 Obesity, unspecified (principal); D64.9 Anemia, unspecified; E55.9 Vitamin D deficiency, unspecified
CPT/HCPCS: 36415; 80053; 80061; 82306; 82607; 82728; 82746; 83540; 83550; 84443; 85025

== ENCOUNTER → 2022-02-21 | Outpatient (CLI) | payer OTHER, SELFPAY ==
--- NOTE | 2022-02-21 07:31 | BI_ITS ---
MAMMOGRAPHY - BILATERAL SCREENING REASON FOR EXAM: Female, 62 years old. Routine annual screening examination. PERTINENT HISTORY: Mother with breast cancer. Aunt with breast cancer. TECHNIQUE: Digital bilateral breast abraham (3D mammographic acquisition) in the CC and MLO projections. 2-D mediolateral oblique (MLO) and craniocaudad (CC) views of both breasts were obtained. CAD: Full Field Digital Mammography with Computer Added Detection was performed. COMPARISON: Comparison is made with prior study dated 08/11/2020 and 03/02/2015. FINDINGS: Breast Composition: There are scattered areas of fibroglandular density. There are no dominant masses or suspicious calcifications. Stable small benign-appearing bilateral axillary lymph nodes. No other significant abnormalities are identified. There has been no significant change since the prior study. BI/SCRN MAMM (CAD)W/ABRAHAM BILAT IMPRESSION: Stable bilateral screening mammogram. Yearly follow-up mammogram recommended. (A) ASSESSMENT CATEGORY: BIRADS Category 2: Benign. A letter regarding these results will be sent to the patient by the facility within 30 days. Approximately 10% of breast cancers are not detected by mammography. A normal mammogram should not delay biopsy of a clinically suspicious abnormality. [id number] Electronically Signed: Huy Santacruz MD at 9:49 EDT ,
== END | disposition home or self-care (01) ==
LOC: OPBI 07:29
PROVIDERS: PCP Family Medicine; Visit Provider Family Medicine
DX: Z12.31 Encounter for screening mammogram for malignant neoplasm of breast (principal)
CPT/HCPCS: 77063; 77067

== ENCOUNTER 2022-02-25 16:51 | Emergency (ER) | payer OTHER, SELFPAY ==
[2022-02-25 16:52] VITALS: BP 114/74; PULSE 122; RESP 18; TEMP 37.4; O2SAT 96; BMI 29.9
[2022-02-25 17:44] VITALS: BP 128/59; PULSE 110; RESP 16; O2SAT 96
[2022-02-25 17:45] VITALS: BP 128/59; PULSE 112; RESP 16; TEMP 38.2; O2SAT 96
--- NOTE | 2022-02-25 18:06 | EKG12_ITS ---
Test Reason : GEN ILLNESS Blood Pressure : / mmHG Vent. Rate : 107 BPM Atrial Rate : 107 BPM P-R Int : 148 ms QRS Dur : 102 ms QT Int : 324 ms P-R-T Axes : 051 019 -13 degrees QTc Int : 432 ms Sinus tachycardia T wave abnormality, consider inferior ischemia Abnormal ECG Confirmed by TIFFANIE RANDHAWA, FRED ([id number]), order editor JANI WHITNEY ([id number]) on 02/26/2022 10:33:43 AM Referred By: DR MURCIA Confirmed By:FRED MORENO MD
--- NOTE | 2022-02-25 18:07 | EX.ED.DYSGE1 ---
HPI History of Present Illness Chief Complaint: General Illness Informant: patient and spouse/S.O. Narrative Narrative: 1 day history of headache, fever dyspnea with significant nausea. Grandchild 5 months was sick with viral issues. Not tested. Patient vaccinated for COVID no booster. Had COVID began last year prior to vaccination. Denies vomiting diarrhea. Week ago had some lower abdominal cramping without urine symptoms took Pyridium has resolved since then. History of allergic asthma. Motrin taken 5 hours ago. [facility] Medical History Asthma Chronic neck and back pain Depression GERD (gastroesophageal reflux disease) Hemorrhoids History of hay fever Migraines Home Medications albuterol sulfate 90 mcg/actuation aerosol inhaler 2 puff inhalation Q4H PRN PRN Sob &/Or Wheezing 09/10/16 [History Last Taken 12/06/20] escitalopram oxalate 20 mg tablet (Lexapro) 20 mg PO DAILY 09/10/16 [History Last Taken 12/06/20] omeprazole magnesium 20 mg capsule,delayed release (Acid Loan Originator (omeprazole)) 20 mg PO DAILY 04/05/20 [History Last Taken 12/06/20] cholecalciferol (vitamin D3) 125 mcg (5,000 unit) capsule 125 mcg PO DAILY 05/05/20 [History Last Taken 12/06/20] docusate sodium 100 mg capsule (Colace) 200 mg PO DAILY 05/05/20 [History Last Taken 12/04/20] bupropion HCl 150 mg tablet,12 hr sustained-release (Wellbutrin SR) 150 mg PO DAILY 10/04/20 [History Last Taken 12/04/20] budesonide-formoterol HFA 160 mcg-4.5 mcg/actuation aerosol inhaler (Symbicort) 2 puff inhalation Q12H #3 ea 05/01/21 [Rx Last Taken Unknown] montelukast 10 mg tablet (Singulair) 10 mg PO DAILY 02/25/22 [History Last Taken Unknown] ondansetron 4 mg disintegrating tablet 4 mg PO Q6H PRN nausea and vomiting #10 tabs 02/25/22 [Rx Last Taken Unknown] Allergy/AdvReac Type Severity Reaction Status Date / Time amoxicillin Allergy Rash Verified 02/25/22 17:50 Sulfa (Sulfonamide Allergy Rash Verified 02/25/22 17:50 Antibiotics) Family History Mother Breast cancer CVA (cerebral vascular accident) Sister Cancer ovarian Father Myocardial infarction Grandmother Cancer cervical Aunt Breast cancer Cancer lymphoma Uncle Cancer lymphoma Other Asthma Surgical History H/O: hysterectomy History of colonoscopy (~2018) Social History Smoking Status: Never smoker alcohol intake: current details: social substance use type: does not use caffeine: Yes frequency: 3-4 times per week seatbelt use: always do you feel safe at home: Yes 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 works at [employer] ED Constitutional Constitutional ED: Reports fever(s); Denies chills or sweats Eyes Eyes: Denies change in vision ENT ENT ED: Denies dysphagia or sore throat Cardiovascular Cardiovascular: Denies chest pain, leg edema, palpitations or racing heartbeat Respiratory/Chest Respiratory/Chest: Reports cough and dyspnea; Denies dyspnea on exertion Gastrointestinal Gastrointestinal: Reports nausea; Denies abdominal pain, diarrhea or vomiting Genitourinary Genitourinary ED: Denies dysuria, hematuria or urinary frequency Musculoskeletal Musculoskeletal: Denies back pain, extremity pain or neck pain Integumentary Denies rash or wounds Neurologic Neurologic: Reports headache(s); Denies paresthesias or weakness EXAM Physical Exam Const Vital Signs: 02/25/22 16:52 02/25/22 17:44 02/25/22 17:45 Temperature 99.4 F H 100.7 F H Temperature Source Temporal Temporal Pulse Rate 122 H 110 H 112 H Respiratory Rate 18 16 16 Respiratory Effort Respiratory Pattern Blood Pressure 114/74 128/59 H 128/59 H Blood Pressure Mean 87 82 82 Pulse Ox 96 96 96 Oxygen Delivery Method Room Air Room Air Room Air 02/25/22 17:46 02/25/22 19:27 02/25/22 19:27 Temperature 98.9 F 98.9 F Temperature Source Temporal Temporal Pulse Rate 107 H 107 H Respiratory Rate 17 16 Respiratory Effort Short of Breath Respiratory Pattern Normal Blood Pressure 122/72 H 122/72 H Blood Pressure Mean 88 88 Pulse Ox 96 96 Oxygen Delivery Method Room Air Room Air 02/25/22 20:24 Temperature 99 F Temperature Source Pulse Rate 100 Respiratory Rate 15 Respiratory Effort Respiratory Pattern Blood Pressure 114/62 Blood Pressure Mean Pulse Ox 98 Oxygen Delivery Method Positive well nourished and well developed General Appearance ED: well developed and NAD HEENT Reports moist mucous membranes normocephalic and atraumatic Eyes PERRL, EOMs intact bilaterally and conjunctivae normal General Eye ED: Yes normal appearance of both eyes Neck no lymphadenopathy and supple Neck Narrative: No meningismus General: Negative for tenderness Chest Wall Chest: Negative for tenderness Resp normal respiratory effort and normal air movement Effort and Inspection: symmetric chest movement; Negative for respiratory distress Cardio regular rhythm and no murmurs Rate: tachycardic Peripheral Pulses: pulses 2+ throughout GI normal to inspection, nondistended, normoactive bowel sounds and non-tender Palpation: Negative for guarding or rebound tenderness present Back/Spine no CVA tenderness and no thoracic nor lumbar tenderness Extremity normal to inspection General Extremety ED: Negative for edema or tenderness General Extremity: Negative for edema Neuro oriented x3, CN's II-XII intact bilaterally and no sensory deficits noted Sensorium / Orientation: awake and alert Skin no rashes or lesions noted and no wounds MDM MDM MDM Narrative Medical decision making narrative: Patient presenting with COVID symptoms she is febrile tachycardic. She is nontoxic. She was given Tylenol Zofran for her nausea. Labs were obtained white count 11 creatinine 1.3. Urine only noted 25 leukocytes he is currently asymptomatic. Rapid COVID and flu were negative. Pulse ox 98%. Chest x-ray 1 view reviewed by myself read by radiologist shows no infiltrates. She is feeling better on reevaluation. I did send off for COVID PCR with concerning symptoms and was pending. Discussed viral syndrome at this time. Patient heart rate improved. Prescription for Zofran. She will continue Tylenol and Motrin as needed. Return precautions discussed. She does have a pulse oximeter at home to monitor. 0020: COVID PCR returned negative. Lab Data Attestation: I reviewed the patient's lab results. Labs: Laboratory Results - last 24 hr 02/25/22 02/25/22 02/25/22 17:39 17:39 19:37 WBC 11.0 RBC 4.29 Hgb 12.9 Hct 38.1 MCV 88.8 MCH 30.1 MCHC 33.9 RDW Std Deviation 39.8 RDW Coeff of Sarah 12.4 Plt Count 175 MPV 10.2 Immature Gran % (Auto) 0.400 Neut % (Auto) 93.1 H Lymph % (Auto) 3.0 L [place] % (Auto) 2.6 Eos % (Auto) 0.7 Baso % (Auto) 0.2 Absolute Neuts (auto) 10.2 H Absolute Lymphs (auto) 0.33 L Nucleated RBC % 0 Platelet Estimate ADEQUATE RBC Morphology NORM C+C Sodium 139 Potassium 3.6 Chloride 109 H Carbon Dioxide 23.0 Anion Gap 7 BUN 10 Creatinine 1.10 H Estim Creat Clear Calc 43.02 Est GFR (MDRD) Af Amer 65 Est GFR (MDRD) Non-Af 54 L BUN/Creatinine Ratio 9.1 L Glucose 105 Calcium 9.0 Total Bilirubin 0.70 AST 14 L ALT 28 Alkaline Phosphatase 87 Total Protein 6.9 Albumin 3.2 Globulin 3.7 Albumin/Globulin Ratio 0.9 Urine Color Yellow Urine Clarity Clear Urine pH 8.0 Ur Specific Paige 1.015 Urine Protein Negative Urine Glucose (UA) Normal Urine Ketones Negative Urine Occult Blood Negative Urine Nitrite Negative Urine Bilirubin Negative Urine Urobilinogen Normal Ur Leukocyte Esterase 25 H Urine RBC 0 SEEN Urine WBC 0-5 SEEN Ur Squamous Epith Cells 0-5 SEEN Urine Bacteria 0 SEEN Urine Mucus 0 SEEN COVID-19 (SHAYLA) 02/25/22 20:00 WBC RBC Hgb Hct MCV MCH MCHC RDW Std Deviation RDW Coeff of Sarah Plt Count MPV Immature Gran % (Auto) Neut % (Auto) Lymph % (Auto) [place] % (Auto) Eos % (Auto) Baso % (Auto) Absolute Neuts (auto) Absolute Lymphs (auto) Nucleated RBC % Platelet Estimate RBC Morphology Sodium Potassium Chloride Carbon Dioxide Anion Gap BUN Creatinine Estim Creat Clear Calc Est GFR (MDRD) Af Amer Est GFR (MDRD) Non-Af BUN/Creatinine Ratio Glucose Calcium Total Bilirubin AST ALT Alkaline Phosphatase Total Protein Albumin Globulin Albumin/Globulin Ratio Urine Color Urine Clarity Urine pH Ur Specific Paige Urine Protein Urine Glucose (UA) Urine Ketones Urine Occult Blood Urine Nitrite Urine Bilirubin Urine Urobilinogen Ur Leukocyte Esterase Urine RBC Urine WBC Ur Squamous Epith Cells Urine Bacteria Urine Mucus COVID-19 (SHAYLA) Not Detected Radiography Diagnostic Testing: Clinical Impression(s) from Imaging Studies Chest X-Ray 02/25/22 18:23 IMPRESSION: Poor inspiration with some bibasilar atelectasis. Electronically Signed: Robert Boo MD at 18:33 EDT , EKG Initial EKG: Attestation: I personally reviewed and interpreted this EKG as follows: Comments: Sinus rhythm 107, no ST changes T wave inversions inferior leads. Similar to November 2020. Discharge Plan Triage Chief Complaint: General Illness ED Provider: Derik Duffy Dx/Rx/DC Orders Clinical Impression: Fever, Viral syndrome, Headache, Nausea Instructions: ED FUO Adult, ED Viral Syndrome (Adult) Prescriptions: New ondansetron 4 mg tablet,disintegrating 4 mg PO Q6H PRN (Reason: nausea and vomiting) Qty: 10 0RF No Action omeprazole magnesium [Acid Loan Originator (omeprazole)] 20 mg capsule,delayed release(DR/EC) 20 mg PO DAILY bupropion HCl [Wellbutrin SR] 150 mg tablet sustained-release 12 hr 150 mg PO DAILY docusate sodium [Colace] 100 mg capsule 200 mg PO DAILY cholecalciferol (vitamin D3) 125 mcg (5,000 unit) capsule 125 mcg PO DAILY Symbicort 160-4.5 mcg/actuation HFA aerosol inhaler 2 puff INHALATION Q12H Qty: 3 3RF albuterol sulfate 1 INHALER inhaler 2 puff INHALATION Q4H PRN PRN (Reason: Sob &/Or Wheezing) escitalopram oxalate [Lexapro] 20 MG tablet 20 mg PO DAILY montelukast [Singulair] 10 mg tablet 10 mg PO DAILY Stand Alone Forms: ED Work / School Excuse Primary Care Provider: Justice James Referrals: Justice James MD [Primary Care Provider] - 3-5 Days if not improving Activity Restrictions/Additional Instructions: Work-up negative COVID PCR pending. Take medications as prescribed and needed. Continue oral fluids Tylenol Motrin as needed. Monitor your pulse oximeter return if worsening dyspnea pulse ox below 88%. Disposition Disposition: Home, Self Care Discharge Date/Time: 02/25/22 20:58
[2022-02-25] MEDS: Acetaminophen 500 MG Tablet 1000 MG PO (18:18)
[2022-02-25] MEDS: Ondansetron 4 MG/2 ML Vial IV (18:18)
[2022-02-25] MEDS: 0.9% Normal Saline 1,000 ML 1000 ML IV (18:19)
[2022-02-25 18:21] LABS: Absolute Lymphocyte Count 0.33 X10^3/uL (0.83-4.51); Absolute Neutrophil Count 10.2 X10^3/uL (2.0-7.7); Basophil# 0.02 X10^3/uL; Basophil% 0.2 % (0-1); Eosinophil# 0.08 X10^3/uL; Eosinophils% 0.7 % (0-5); Hematocrit 38.1 % (37-47); Hemoglobin 12.9 g/dL (12.0-15.0); Lymphocyte # 0.33 X10^3/ul (0.83-4.51); Mean Corp Hgb Conc 33.9 g/dL (32-36); Mean Corpuscular Hgb 30.1 pg (27.0-32.0); Mean Corpuscular Volume 88.8 fL (81-99); Mean Platelet Vol. 10.2 fl (6.2-12.0); Monocyte# 0.28 X10^3/uL; Monocyte% 2.6 % (0-10); NRBC Flagged by Analyzer 0 % (0-5); Neutrophil # 10.23 X10^3/uL (2.7-7.7); Neutrophil % 93.1 % (47-70); POSITIVE DIFFERENTIAL YES; Platelet Count 175 K/mm3 (150-450); RBC Distribution Width CV 12.4 % (11.6-14.6); RBC Distribution Width SD 39.8 fl (35.1-43.9); Red Blood Count 4.29 M/mm3 (4.2-5.4)
--- NOTE | 2022-02-25 18:23 | RAD_ITS ---
STUDY: X-RAY CHEST REASON FOR EXAM: Female, 62 years old. cough TECHNIQUE: Single AP portable view of the chest. COMPARISON: 12/30/2020 FINDINGS: Poor inspiration with some bibasilar atelectasis. There is no demonstrated pleural abnormality. Normal size heart. Normal mediastinum and safia. Normal visualized pulmonary arteries. Normal visualized aortic arch and descending thoracic aorta. Normal visualized thoracic spine. Normal visualized ribs, clavicles, and shoulders. There is no demonstrated abnormality of the visualized soft tissue structures of the upper abdomen. RAD/Chest 1 View (Portable) IMPRESSION: Poor inspiration with some bibasilar atelectasis. Electronically Signed: Robert Boo MD at 18:33 EDT ,
[2022-02-25 18:37] LABS: ALB/GLOB Ratio 0.9 RATIO (0.9-2.4); AST(SGOT) 14 U/L (15-37); Alanine Aminotransfer ALT/SGPT 28 U/L (13-56); Albumin, Serum 3.2 g/dL (3.2-5.0); Alkaline Phosphatase 87 U/L (45-117); Anion Gap 7 (5-15); BUN 10 mg/dL (7-18); BUN/Creat Ratio 9.1 RATIO (10-20); Chloride 109 mmol/L (98-107); EST Glomerular Filtration Rate 54 mL/min (>60); Est Glom Filt Rate - Afr Amer 65 mL/min (>60); Estimated Creatinine Clearance 43.02 ml/min; Globulin 3.7 g/dL (2.2-4.2); Glucose 105 mg/dL (74-106); Potassium 3.6 mmol/L (3.5-5.1); Protein, Total 6.9 g/dL (6.4-8.2); Sodium Level 139 mmol/L (136-145)
[2022-02-25 18:44] LABS: Differential Indicated SCAN CRITERIA MET
[2022-02-25 19:26] LABS: Platelet Estimate ADEQUATE (ADEQ); Red Cell Morphology NORM C+C NORMAL (NORM C&C)
[2022-02-25 19:27] VITALS: BP 122/72; PULSE 107; RESP 16; RESP 17; TEMP 37.2; O2SAT 96
[2022-02-25 19:42] LABS: Bacteria 0 SEEN /hpf (None Seen); Mucous, Urine 0 SEEN /hpf (<or=2+); Red Blood Cells-Urine 0 SEEN /hpf (0-5)
[2022-02-25 19:45] LABS: Color, Urine Yellow (Yellow); Glucose, Dipstick Normal (Normal); Ketone-Dipstick Negative (Negative); Leukocyte Esterase-Dipstick 25 /ul (Negative); Nitrite-Dipstick Negative (Negative); Occult Blood-Urine Negative /ul (Negative); Protein-Dipstick Negative (Negative); Specific Gravity, Urine 1.015 (1.002-1.030); Urine Bilirubin Dipstick Negative (Negative); Urine Clarity Clear (Clear); Urine Urobilinogen Normal (Normal)
[2022-02-25 20:00] LABS: Squamous Epithelial Cells - UA 0-5 SEEN /hpf (5-10); White Blood Cells 0-5 SEEN /hpf (0-5)
[2022-02-25 20:24] VITALS: BP 114/62; PULSE 100; RESP 15; TEMP 37.2; O2SAT 98
== END 2022-02-25 20:58 | disposition home or self-care (01) ==
PROVIDERS: Emergency Provider Emergency Medicine; PCP Family Medicine; Visit Provider Emergency Medicine
DX: B34.9 Viral infection, unspecified (principal); R11.0 Nausea; R51.9 Headache, unspecified; R50.9 Fever, unspecified; R06.00 Dyspnea, unspecified; Z86.16 Personal history of COVID-19; F32.A Depression, unspecified; J45.909 Unspecified asthma, uncomplicated; K21.9 Gastro-esophageal reflux disease without esophagitis; Z79.899 Other long term (current) drug therapy; G43.909 Migraine, unspecified, not intractable, without status migrainosus
CPT/HCPCS: 71045; 80053; 81001; 85025; 87428; 87635; 93005; 96361; 96374; 99285; J7030; A4216; J2405; U0003; U0005

== ENCOUNTER → 2022-03-30 | Outpatient (CLI) | payer OTHER, SELFPAY ==
[2022-03-30 12:39] LABS: Absolute Lymphocyte Count 2.15 X10^3/uL (0.83-4.51); Absolute Neutrophil Count 2.6 X10^3/uL (2.0-7.7); Basophil# 0.04 X10^3/uL; Basophil% 0.7 % (0-1); Eosinophils% 5.3 % (0-5); Hematocrit 41.3 % (37-47); Hemoglobin 13.3 g/dL (12.0-15.0); Lymphocyte # 2.15 X10^3/ul (0.83-4.51); Lymphocyte % 38.3 % (19-41); Mean Corp Hgb Conc 32.2 g/dL (32-36); Mean Corpuscular Hgb 29.3 pg (27.0-32.0); Mean Platelet Vol. 10.6 fl (6.2-12.0); Monocyte# 0.55 X10^3/uL; Monocyte% 9.8 % (0-10); NRBC Flagged by Analyzer 0 % (0-5); Neutrophil # 2.55 X10^3/uL (2.7-7.7); Neutrophil % 45.5 % (47-70); Platelet Count 235 K/mm3 (150-450); RBC Distribution Width CV 12.3 % (11.6-14.6); RBC Distribution Width SD 41.1 fl (35.1-43.9); Red Blood Count 4.54 M/mm3 (4.2-5.4); White Blood Count 5.6 K/mm3 (4.4-11.0)
[2022-03-30 13:11] LABS: Vitamin D,25 Hydroxy 64.2 ng/mL
[2022-03-30 13:58] LABS: ALB/GLOB Ratio 0.9 RATIO (0.9-2.4); AST(SGOT) 16 U/L (15-37); Alanine Aminotransfer ALT/SGPT 33 U/L (13-56); Albumin, Serum 3.4 g/dL (3.2-5.0); Alkaline Phosphatase 94 U/L (45-117); Anion Gap 6 (5-15); BUN 18 mg/dL (7-18); BUN/Creat Ratio 16.5 RATIO (10-20); Calcium,Total 9.1 mg/dL (8.5-10.1); Chloride 111 mmol/L (98-107); Creatinine, Serum 1.09 mg/dL (0.55-1.02); EST Glomerular Filtration Rate 54 mL/min (>60); Est Glom Filt Rate - Afr Amer 66 mL/min (>60); Globulin 3.7 g/dL (2.2-4.2); Glucose 85 mg/dL (74-106); Potassium 3.5 mmol/L (3.5-5.1); Protein, Total 7.1 g/dL (6.4-8.2); Sodium Level 142 mmol/L (136-145); Thyroid Stim Hormone (TSH) 2.23 uIU/mL (0.358-3.74)
== END | disposition home or self-care (01) ==
LOC: MTLAB 09:35
PROVIDERS: PCP Family Medicine; Referring Provider Family Medicine; Visit Provider Family Medicine
DX: J45.909 Unspecified asthma, uncomplicated (principal); E55.9 Vitamin D deficiency, unspecified; F32.A Depression, unspecified
CPT/HCPCS: 36415; 80053; 82306; 84443; 85025

== ENCOUNTER → 2022-09-25 | Outpatient (CLI) | payer OTHER, SELFPAY ==
[2022-09-25 10:12] LABS: Absolute Lymphocyte Count 1.44 X10^3/uL (0.83-4.51); Absolute Neutrophil Count 2.1 X10^3/uL (2.0-7.7); Basophil# 0.03 X10^3/uL; Basophil% 0.7 % (0-1); Eosinophil# 0.16 X10^3/uL; Hematocrit 38.1 % (37-47); Hemoglobin 12.2 g/dL (12.0-15.0); Lymphocyte # 1.44 X10^3/ul (0.83-4.51); Lymphocyte % 35.6 % (19-41); Mean Corpuscular Hgb 29.3 pg (27.0-32.0); Mean Corpuscular Volume 91.4 fL (81-99); Mean Platelet Vol. 10.3 fl (6.2-12.0); Monocyte# 0.35 X10^3/uL; Monocyte% 8.6 % (0-10); NRBC Flagged by Analyzer 0 % (0-5); Neutrophil # 2.05 X10^3/uL (2.7-7.7); Neutrophil % 50.6 % (47-70); Platelet Count 220 K/mm3 (150-450); RBC Distribution Width CV 12.9 % (11.6-14.6); RBC Distribution Width SD 42.7 fl (35.1-43.9); Red Blood Count 4.17 M/mm3 (4.2-5.4); White Blood Count 4.1 K/mm3 (4.4-11.0)
[2022-09-25 10:35] LABS: AST(SGOT) 16 U/L (15-37); Alanine Aminotransfer ALT/SGPT 31 U/L (13-56); Albumin, Serum 3.2 g/dL (3.2-5.0); Alkaline Phosphatase 107 U/L (45-117); Anion Gap 7 (5-15); BUN 15 mg/dL (7-18); BUN/Creat Ratio 14.7 RATIO (10-20); Calcium,Total 9.1 mg/dL (8.5-10.1); Chloride 111 mmol/L (98-107); Creatinine, Serum 1.02 mg/dL (0.55-1.02); EST Glomerular Filtration Rate 59 mL/min (>60); Est Glom Filt Rate - Afr Amer 71 mL/min (>60); Globulin 3.3 g/dL (2.2-4.2); Glucose 124 mg/dL (74-106); Potassium 3.4 mmol/L (3.5-5.1); Protein, Total 6.5 g/dL (6.4-8.2); Sodium Level 141 mmol/L (136-145)
[2022-09-25 10:56] LABS: Vitamin D,25 Hydroxy 66.6 ng/mL
[2022-09-26 15:17] LABS: Hemoglobin A1c 5.5 % (3.8-5.6)
== END | disposition home or self-care (01) ==
LOC: MFPLAB 08:30
PROVIDERS: PCP Family Medicine; Referring Provider Family Medicine; Visit Provider Family Medicine
DX: J45.909 Unspecified asthma, uncomplicated (principal); E55.9 Vitamin D deficiency, unspecified
CPT/HCPCS: 36415; 80053; 82306; 83036; 85025

== ENCOUNTER → 2023-01-08 | Outpatient (CLI) | payer OTHER, SELFPAY ==
--- NOTE | 2023-01-08 16:08 | RAD_ITS ---
INDICATION: wheeze EXAMINATION/TECHNIQUE: X-RAY - XR Chest 2 Views COMPARISON: 02/25/2022. FINDINGS: LINES/DEVICES: None. LUNGS: No consolidation, edema or effusion. No pneumothorax. MEDIASTINUM AND CARDIOVASCULAR STRUCTURES: Cardiac silhouette not enlarged. Central airways and mediastinal contour are unremarkable. BONES AND SOFT TISSUES: Unremarkable. RAD/Chest PA and Lateral IMPRESSION: No radiographic evidence of acute cardiopulmonary disease. Electronically Signed: Milagros Javier MD at 17:52 EDT Reading Location ID and State: [id number] / Tel , Service support ,
== END | disposition home or self-care (01) ==
PROVIDERS: PCP Family Medicine; Referring Provider Nurse Practitioner Acute Care; Visit Provider Nurse Practitioner Acute Care
DX: R06.2 Wheezing (principal)
CPT/HCPCS: 71046

== ENCOUNTER 2023-01-09 13:51 | Emergency (ER) | payer OTHER, SELFPAY ==
[2023-01-09 13:53] VITALS: BP 162/91; PULSE 71; RESP 20; TEMP 35.7; O2SAT 98; BMI 31.1
--- NOTE | 2023-01-09 15:06 | EKG12_ITS ---
Test Reason : CP Blood Pressure : / mmHG Vent. Rate : 068 BPM Atrial Rate : 068 BPM P-R Int : 156 ms QRS Dur : 092 ms QT Int : 418 ms P-R-T Axes : 000 031 033 degrees QTc Int : 444 ms Normal sinus rhythm RSR' or QR pattern in V1 suggests right ventricular conduction delay Borderline ECG Confirmed by TIFFANIE RANDHAWA, FRED ([id number]), associate entertainment editor JANI WHITNEY ([id number]) on 01/10/2023 1:28:05 PM Referred By: OSWALD/LAST Confirmed By:FRED MORENO MD
--- NOTE | 2023-01-09 15:07 | EDS_ITS ---
HPI History of Present Illness Chief Complaint: Chest Pain Informant: patient Onset/Context/Timing Onset: Weeks (1) Context: sudden Timing: Continuous Quality: Positive for Wheezing and - (Feels like I am breathing through a straw) Worsened by: Nothing Relieved by: - (Sitting up) Associated Symptoms Negative for cough, rhinorrhea, post nasal drip, fever, sore throat or chills Chest Pain: Positive for - (Heaviness) Narrative Narrative: Patient presents with shortness of breath that has been getting worse over the past 8 days. Patient states it began rather suddenly. Patient states it has been constant. Patient states she called her pulmonology office and was given a prescription for Zithromax and prednisone. Patient states she completed this course. Patient states she had a chest x-ray done yesterday that was negative. Patient states her breathing is better when she is sitting up. Patient states nothing makes it worse. Patient admits to some chest heaviness that is substernal. PE Risk Factors: Negative for Cancer, OCP + Smoking + > 35, Prior DVT or PE, Recent immobilization, Recent surgery or Recent travel [facility] Medical History Asthma Chronic neck and back pain Depression GERD (gastroesophageal reflux disease) Hemorrhoids History of hay fever Migraines Home Medications escitalopram oxalate 20 mg tablet (Lexapro) 20 mg PO DAILY 09/10/16 [History Last Taken 12/06/20] omeprazole magnesium 20 mg capsule,delayed release (Acid Package Line Operator (omeprazole)) 20 mg PO DAILY 04/05/20 [History Last Taken 12/06/20] cholecalciferol (vitamin D3) 125 mcg (5,000 unit) capsule 125 mcg PO DAILY 05/05/20 [History Last Taken 12/06/20] docusate sodium 100 mg capsule (Colace) 200 mg PO DAILY 05/05/20 [History Last Taken 12/04/20] ondansetron 4 mg disintegrating tablet 4 mg PO Q6H PRN nausea and vomiting #10 tabs 02/25/22 [Rx Last Taken Unknown] albuterol sulfate 90 mcg/actuation aerosol inhaler 2 puff inhalation Q4H PRN PRN Sob &/Or Wheezing #8.5 grams 06/20/22 [Rx Last Taken Unknown] budesonide-formoterol HFA 160 mcg-4.5 mcg/actuation aerosol inhaler (Symbicort) 2 puff inhalation Q12H #3 ea 06/20/22 [Rx Last Taken Unknown] bupropion HCl 100 mg tablet,12 hr sustained-release (Wellbutrin SR) 100 mg PO DAILY 06/20/22 [History Last Taken Unknown] montelukast 10 mg tablet (Singulair) 10 mg PO DAILY #90 tabs 06/20/22 [Rx Last Taken Unknown] azithromycin 250 mg tablet See Rx Instructions PO .COMPLEX #6 tabs 01/02/23 [Rx Last Taken Unknown] prednisone 20 mg tablet 60 mg (3 x 20 mg) PO QDAY #15 tabs 01/02/23 [Rx Last Taken Unknown] Allergy/AdvReac Type Severity Reaction Status Date / Time amoxicillin Allergy Rash Verified 01/09/23 13:52 Sulfa (Sulfonamide Allergy Rash Verified 01/09/23 13:52 Antibiotics) Family History Mother Breast cancer CVA (cerebral vascular accident) Sister Cancer ovarian Father Myocardial infarction Grandmother Cancer cervical Aunt Breast cancer Cancer lymphoma Uncle Cancer lymphoma Other Asthma Surgical History H/O: hysterectomy History of colonoscopy (~2017) Social History Smoking Status: Never smoker alcohol intake: current details: social substance use type: does not use caffeine: Yes frequency: 3-4 times per week seatbelt use: always do you feel safe at home: Yes 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 at [employer] ROS ROS ED Constitutional Constitutional ED: Denies chills or fever(s) Eyes Eyes: Denies blurry vision or change in vision ENT ENT ED: Denies rhinorrhea or sore throat Cardiovascular Cardiovascular: Reports chest pain; Denies palpitations Respiratory/Chest Respiratory/Chest: Reports dyspnea; Denies cough Gastrointestinal Gastrointestinal: Denies nausea or vomiting Genitourinary Genitourinary ED: Denies dysuria or hematuria Musculoskeletal Musculoskeletal: Denies back pain or neck pain Integumentary Denies abscess or rash Neurologic Neurologic: Denies headache(s) or weakness Allergic/Immunologic Allergic/Immunologic ED: Denies mouth swelling or urticaria EXAM Physical Exam Const Vital Signs: 01/09/23 13:53 01/09/23 14:01 01/09/23 15:17 Temperature 96.2 F L Temperature Source Temporal Pulse Rate 71 63 Respiratory Rate 20 H 20 H Respiratory Effort Short of Breath Respiratory Depth Shallow Respiratory Pattern Normal Tachypnea Blood Pressure 162/91 H Blood Pressure Mean 114 Pulse Ox 98 Oxygen Delivery Method Room Air Room Air 01/09/23 15:52 01/09/23 17:52 Temperature Temperature Source Pulse Rate 67 Respiratory Rate 16 12 Respiratory Effort Respiratory Depth Respiratory Pattern Blood Pressure 147/80 H Blood Pressure Mean 102 Pulse Ox 97 Oxygen Delivery Method Room Air Positive well nourished and well developed General Appearance ED: well developed and NAD HEENT Reports moist mucous membranes Neck supple and no JVD Resp normal respiratory effort Auscultation: wheezes expiratory wheezes and throughout Cardio regular rate and regular rhythm GI normal to inspection, nondistended, normoactive bowel sounds and non-tender Palpation: soft Extremity normal to inspection General Extremety ED: Negative for edema or tenderness General Extremity: Negative for edema Neuro oriented x3, CN's II-XII intact bilaterally and no sensory deficits noted Sensorium / Orientation: alert Motor Exam: strength 5/5 throughout Psych mental status grossly normal Skin no rashes or lesions noted MDM MDM MDM Narrative Medical decision making narrative: Differential diagnosis includes asthma, cardiac dysrhythmia, cardiac ischemia, pneumonia, pneumothorax, and electrolyte abnormality. EKG will be obtained to assess for cardiac dysrhythmia and cardiac ischemia. CBC will be obtained to assess for anemia and leukocytosis. Basic metabolic profile will be obtained to assess for electrolyte abnormality and renal function. High-sensitivity troponin will be obtained to assess for cardiac ischemia. Chest x-ray will be obtained to assess for pneumonia and pneumothorax. Lab Data Attestation: I reviewed the patient's lab results. Lab results narrative: CBC was reviewed and was within normal limits. Basic metabolic profile was reviewed and was essentially within normal limits. High-sensitivity troponin was reviewed and was normal at less than 3. Labs: Laboratory Results - last 24 hr 01/09/23 15:25 WBC 7.8 RBC 5.11 Hgb 14.8 Hct 45.0 MCV 88.1 MCH 29.0 MCHC 32.9 RDW Std Deviation 39.8 RDW Coeff of Sarah 12.3 Plt Count 295 MPV 9.5 Immature Gran % (Auto) 1.500 H Neut % (Auto) 49.6 Lymph % (Auto) 39.8 Vance % (Auto) 5.9 Eos % (Auto) 2.7 Baso % (Auto) 0.5 Absolute Neuts (auto) 3.8 Absolute Lymphs (auto) 3.09 Nucleated RBC % 0 Sodium 140 Potassium 3.9 Chloride 109 H Carbon Dioxide 24.0 Anion Gap 7 BUN 12 Creatinine 1.08 H Estim Creat Clear Calc 43.81 Est GFR (MDRD) Af Amer 66 Est GFR (MDRD) Non-Af 55 L BUN/Creatinine Ratio 11.1 Glucose 91 Calcium 9.3 Troponin I High Sens < 3 L Radiography Diagnostic Testing: Clinical Impression(s) from Imaging Studies Chest X-Ray 01/09/23 15:33 IMPRESSION: No acute abnormality is seen. Pectus excavatum deformity. Electronically Signed: Huy Santacruz MD at 15:44 EDT , PA and lateral chest x-ray was obtained. There are 2 views. On my independent interpretation, lung jiménez are clear. There is normal cardiac silhouette. Bony thorax shows a pectus excavatum deformity. There is no acute process noted. Radiologist also interpreted the x-ray and agrees. EKG Initial EKG: Attestation: I personally reviewed and interpreted this EKG as follows: Interpretation: Sinus Rhythm (68) and No Acute Injury Pattern Comments: EKG was obtained. On my independent interpretation, it showed a normal sinus rhythm with a rate of 68. [place] interval, QRS interval, and QTc intervals were all normal. [place] was normal. There are no acute ST or T wave changes. Prior EKG tracings: available for review Prior: Unchanged (02/25/2022) Treatment and Re-Evaluation :: Patient was given a DuoNeb aerosol here. Patient felt better on reevaluation. Patient was advised of her findings. Patient wants to go home. Patient was instructed to follow-up with her primary care physician in 5 to 7 days for further evaluation. Patient was instructed return if worse in any way. Patient understood and was agreeable with the plan. All questions were answered. Discharge Plan Triage Chief Complaint: Chest Pain Other Complaint: Shortness of Breath ED Provider: Raphael Guerrero Dx/Rx/DC Orders Clinical Impression: Dyspnea, Asthma Instructions: ED Asthma, Acute (Adult) Prescriptions: No Action omeprazole magnesium [Acid Package Line Operator (omeprazole)] 20 mg capsule,delayed release(DR/EC) 20 mg PO DAILY docusate sodium [Colace] 100 mg capsule 200 mg PO DAILY cholecalciferol (vitamin D3) 125 mcg (5,000 unit) capsule 125 mcg PO DAILY bupropion HCl [Wellbutrin SR] 100 mg tablet sustained-release 12 hr 100 mg PO DAILY montelukast [Singulair] 10 mg tablet 10 mg PO DAILY Qty: 90 3RF Symbicort 160-4.5 mcg/actuation HFA aerosol inhaler 2 puff INHALATION Q12H Qty: 3 3RF albuterol sulfate 90 mcg/actuation HFA aerosol inhaler 2 puff INHALATION Q4H PRN PRN (Reason: Sob &/Or Wheezing) Qty: 8.5 3RF escitalopram oxalate [Lexapro] 20 MG tablet 20 mg PO DAILY ondansetron 4 mg tablet,disintegrating 4 mg PO Q6H PRN (Reason: nausea and vomiting) Qty: 10 0RF azithromycin 250 mg tablet See Rx Instructions PO .COMPLEX Qty: 6 0RF Rx Instructions: take 500 mg today (day 1), then 250 mg for 4 days (days 2-5) PO prednisone 20 mg tablet 60 mg PO QDAY Qty: 15 0RF Rx Instructions: administer with food or milk Primary Care Provider: Justice James Referrals: Justice James MD [Primary Care Provider] - 5-7 Days Disposition Disposition: Home, Self Care
[2023-01-09] MEDS: Ipratropium/Albuterol Sulfate 3 ML AMPUL.NEB INHALATION (15:16)
[2023-01-09 15:17] VITALS: PULSE 63; RESP 20
--- NOTE | 2023-01-09 15:33 | RAD_ITS ---
STUDY: X-RAY CHEST REASON FOR EXAM: Female, 62 years old. Dyspnea TECHNIQUE: PA and lateral views of the chest. COMPARISON: Comparison is made with prior study dated January 08, 2003. FINDINGS: EKG electrodes are seen. There is evidence of a pectus excavatum deformity. No acute abnormality is seen. The lungs are clear and expanded. There is no demonstrated pleural abnormality. Normal size heart. Normal mediastinum and safia. Normal visualized pulmonary arteries. Normal visualized aortic arch and descending thoracic aorta. Normal visualized thoracic spine. Normal visualized ribs, clavicles, and shoulders. There is no demonstrated abnormality of the visualized soft tissue structures of the upper abdomen. RAD/Chest PA and Lateral IMPRESSION: No acute abnormality is seen. Pectus excavatum deformity. Electronically Signed: Huy Santacruz MD at 15:44 EDT ,
[2023-01-09 15:38] LABS: Absolute Lymphocyte Count 3.09 X10^3/uL (0.83-4.51); Absolute Neutrophil Count 3.8 X10^3/uL (2.0-7.7); Basophil# 0.04 X10^3/uL; Basophil% 0.5 % (0-1); Eosinophil# 0.21 X10^3/uL; Eosinophils% 2.7 % (0-5); Hemoglobin 14.8 g/dL (12.0-15.0); Lymphocyte # 3.09 X10^3/ul (0.83-4.51); Lymphocyte % 39.8 % (19-41); Mean Corp Hgb Conc 32.9 g/dL (32-36); Mean Corpuscular Volume 88.1 fL (81-99); Mean Platelet Vol. 9.5 fl (6.2-12.0); Monocyte# 0.46 X10^3/uL; Monocyte% 5.9 % (0-10); NRBC Flagged by Analyzer 0 % (0-5); Neutrophil # 3.84 X10^3/uL (2.7-7.7); Neutrophil % 49.6 % (47-70); Platelet Count 295 K/mm3 (150-450); RBC Distribution Width CV 12.3 % (11.6-14.6); RBC Distribution Width SD 39.8 fl (35.1-43.9); Red Blood Count 5.11 M/mm3 (4.2-5.4); White Blood Count 7.8 K/mm3 (4.4-11.0)
[2023-01-09 15:52] VITALS: RESP 16
[2023-01-09 17:52] VITALS: BP 147/80; PULSE 67; RESP 12; O2SAT 97
[2023-01-09 17:54] LABS: Anion Gap 7 (5-15); BUN 12 mg/dL (7-18); BUN/Creat Ratio 11.1 RATIO (10-20); Calcium,Total 9.3 mg/dL (8.5-10.1); Chloride 109 mmol/L (98-107); Creatinine, Serum 1.08 mg/dL (0.55-1.02); EST Glomerular Filtration Rate 55 mL/min (>60); Est Glom Filt Rate - Afr Amer 66 mL/min (>60); Estimated Creatinine Clearance 43.81 ml/min; Glucose 91 mg/dL (74-106); Potassium 3.9 mmol/L (3.5-5.1); Sodium Level 140 mmol/L (136-145); Troponin-I HS < 3 pg/mL (3.0-54.0)
== END 2023-01-09 18:46 | disposition home or self-care (01) ==
PROVIDERS: Emergency Provider Emergency Medicine; PCP Family Medicine; Visit Provider Emergency Medicine
DX: J45.909 Unspecified asthma, uncomplicated (principal); R06.00 Dyspnea, unspecified; F32.A Depression, unspecified; K21.9 Gastro-esophageal reflux disease without esophagitis; Z79.899 Other long term (current) drug therapy; Z79.51 Long term (current) use of inhaled steroids; Z90.710 Acquired absence of both cervix and uterus
CPT/HCPCS: 71046; 80048; 84484; 85025; 93005; 94640; 99284; A4216

== ENCOUNTER → 2023-03-20 | Outpatient (CLI) | payer OTHER, SELFPAY ==
[2023-03-20 10:40] LABS: Vitamin D,25 Hydroxy 66.1 ng/mL
[2023-03-20 10:46] LABS: AST(SGOT) 15 U/L (15-37); Alanine Aminotransfer ALT/SGPT 30 U/L (13-56); Albumin, Serum 3.3 g/dL (3.2-5.0); Alkaline Phosphatase 101 U/L (45-117); Anion Gap 6 (5-15); BUN 16 mg/dL (7-18); Chloride 112 mmol/L (98-107); Creatinine, Serum 1.07 mg/dL (0.55-1.02); EST Glomerular Filtration Rate 55 mL/min (>60); Est Glom Filt Rate - Afr Amer 67 mL/min (>60); Globulin 3.3 g/dL (2.2-4.2); Glucose 107 mg/dL (74-106); Potassium 3.2 mmol/L (3.5-5.1); Protein, Total 6.6 g/dL (6.4-8.2); Sodium Level 143 mmol/L (136-145)
[2023-03-20 15:35] LABS: Magnesium 2.4 mg/dL (1.6-2.6)
[2023-03-20 22:02] LABS: Hemoglobin A1c 5.5 % (3.8-5.6)
== END | disposition home or self-care (01) ==
PROVIDERS: PCP Family Medicine; Visit Provider Family Medicine
DX: E55.9 Vitamin D deficiency, unspecified (principal)
CPT/HCPCS: 36415; 80053; 82306; 83036; 83735

== ENCOUNTER → 2023-04-10 | Outpatient (CLI) | payer OTHER, SELFPAY ==
--- NOTE | 2023-04-10 07:52 | BI_ITS ---
MAMMOGRAPHY - BILATERAL SCREENING REASON FOR EXAM: Female, 63 years old. Routine annual screening examination. PERTINENT HISTORY: Mother with breast cancer. Aunt with breast cancer. TECHNIQUE: Digital bilateral breast abraham (3D mammographic acquisition) in the CC and MLO projections. 2-D mediolateral oblique (MLO) and craniocaudad (CC) views of both breasts were obtained. CAD: Full Field Digital Mammography with Computer Added Detection was performed. COMPARISON: Comparison is made with prior study dated February 21, 2022 and March 11, 2021. FINDINGS: Breast Composition: There are scattered areas of fibroglandular density. There are no dominant masses or suspicious calcifications. Stable small benign-appearing bilateral axillary lymph nodes. No other significant abnormalities are identified. There has been no significant change since the prior study. BI/SCRN MAMM (CAD)W/ABRAHAM BILAT IMPRESSION: Stable bilateral screening mammogram. Yearly follow-up mammogram recommended. (A) ASSESSMENT CATEGORY: BIRADS Category 2: Benign. A letter regarding these results will be sent to the patient by the facility within 30 days. Approximately 10% of breast cancers are not detected by mammography. A normal mammogram should not delay biopsy of a clinically suspicious abnormality. [id number] Electronically Signed: Huy Santacruz MD at 8:33 EDT ,
== END | disposition home or self-care (01) ==
PROVIDERS: PCP Family Medicine; Referring Provider Family Medicine; Visit Provider Family Medicine
DX: Z12.31 Encounter for screening mammogram for malignant neoplasm of breast (principal); Z80.3 Family history of malignant neoplasm of breast
CPT/HCPCS: 77063; 77067

== ENCOUNTER → 2023-06-12 | Outpatient (CLI) | payer OTHER, SELFPAY ==
[2023-06-12 18:00] LABS: Bacteria 0 SEEN /hpf (None Seen)
[2023-06-12 18:16] LABS: Glucose, Dipstick Normal (Normal); Ketone-Dipstick Negative (Negative); Leukocyte Esterase-Dipstick Negative /ul (Negative); Nitrite-Dipstick Positive (Negative); Occult Blood-Urine Negative /ul (Negative); Protein-Dipstick 30 mg/dl (Negative); Urine Clarity Clear (Clear); Urine Urobilinogen 8 mg/dl (Normal)
[2023-06-12 18:18] LABS: Color, Urine SEE COMMENT BELOW (Yellow); Urine Bilirubin Dipstick 6 mg/dL (Negative)
[2023-06-12 18:24] LABS: Red Blood Cells-Urine 0-5 SEEN /hpf (0-5); Squamous Epithelial Cells - UA 0-5 SEEN /hpf (5-10); White Blood Cells 0-5 SEEN /hpf (0-5)
[2023-06-12 18:25] LABS: Mucous, Urine 1+ /hpf (<or=2+)
== END | disposition home or self-care (01) ==
PROVIDERS: PCP Family Medicine; Visit Provider Physician Assistant Surgical
DX: N39.0 Urinary tract infection, site not specified (principal); R30.0 Dysuria
CPT/HCPCS: 81001; 87086

== ENCOUNTER 2023-08-27 20:11 | Emergency (ER) | payer OTHER, SELFPAY ==
[2023-08-27] VITALS (20 sets, daily range): BP systolic 103–120; BP diastolic 63–85; PULSE 72–175; RESP 12–21; TEMP 36.6; O2SAT 88–100; BMI 31.3
--- NOTE | 2023-08-27 20:24 | EKG12_ITS ---
Test Reason : SVT Blood Pressure : / mmHG Vent. Rate : 086 BPM Atrial Rate : 086 BPM P-R Int : 170 ms QRS Dur : 098 ms QT Int : 384 ms P-R-T Axes : 040 026 020 degrees QTc Int : 459 ms Normal sinus rhythm Incomplete right bundle branch block Nonspecific ST abnormality Abnormal ECG Confirmed by TIFFANIE RANDHAWA, FRED ([id number]), editor book IRMA GIORDANO ([id number]) on 08/29/2023 6:19:21 AM Referred By: Confirmed By:FRED MORENO MD
[2023-08-27 20:32] LABS: Absolute Lymphocyte Count 2.18 X10^3/uL (0.83-4.51); Absolute Neutrophil Count 3.7 X10^3/uL (2.0-7.7); Basophil# 0.04 X10^3/uL; Basophil% 0.6 % (0-1); Eosinophil# 0.18 X10^3/uL; Eosinophils% 2.7 % (0-5); Hemoglobin 13.7 g/dL (12.0-15.0); Lymphocyte # 2.18 X10^3/ul (0.83-4.51); Lymphocyte % 32.7 % (19-41); Mean Corp Hgb Conc 32.6 g/dL (32-36); Monocyte# 0.49 X10^3/uL; Monocyte% 7.3 % (0-10); NRBC Flagged by Analyzer 0 % (0-5); Neutrophil # 3.74 X10^3/uL (2.7-7.7); Neutrophil % 56.1 % (47-70); Platelet Count 257 K/mm3 (150-450); RBC Distribution Width CV 12.8 % (11.6-14.6); RBC Distribution Width SD 41.7 fl (35.1-43.9); Red Blood Count 4.72 M/mm3 (4.2-5.4); White Blood Count 6.7 K/mm3 (4.4-11.0)
[2023-08-27 21:15] LABS: Anion Gap 8 (5-15); BUN 16 mg/dL (7-18); BUN/Creat Ratio 13.3 RATIO (10-20); Calcium,Total 9.2 mg/dL (8.5-10.1); Chloride 109 mmol/L (98-107); EST Glomerular Filtration Rate 49 mL/min (>60); Est Glom Filt Rate - Afr Amer 59 mL/min (>60); Estimated Creatinine Clearance 47.49 ml/min; Glucose 111 mg/dL (74-106); Potassium 3.8 mmol/L (3.5-5.1); Sodium Level 142 mmol/L (136-145); Thyroid Stim Hormone (TSH) 2.25 uIU/mL (0.358-3.74)
--- NOTE | 2023-08-27 22:00 | EX.ED.DYSGE1 ---
HPI History of Present Illness Chief Complaint: Palpitations Detail of Chief Complaint: Rapid heart rate, pallor, diaphoresis and orthostatic lightheadedness. Informant: patient Onset/Context/Timing Onset: Hours Timing: Intermittent Quality: Orthostatic lightheadedness, pallor, diaphoresis and palpitations Location: At work Current Severity: Mild Maximum Severity: Severe Worsened by: Nothing Relieved by: Nothing Associated Symptoms Associated Symptoms: Per HPI narrative Narrative Narrative: patient is a 63-year-old female with history of asthma. While at work she became lightheaded with rapid heart rate greater than 170, pallor and diaphoresis. She presents to the emergency department. First set of vitals revealed blood pressure 118/85 with a heart rate of 175. She was not on the monitor. She presently feels back to baseline. She denies fever, chills night sweats. She denies headache, visual, ocular auditory symptoms. She denies chest pain of any type. She denied dyspnea. She denied dyspnea on exertion. Denies orthopnea or PND. She denies history of cardiac disease, hypertension hyperlipidemia. She denies abdominal pain, black or maroon-colored stool. She denies history of VTE. Denies leg pain, swelling or discoloration. She denies symptoms of hyperthyroidism i.e. weight loss, rigidity, sweating, diarrhea etc. Prior similar symptoms: Yes (Several years ago) Recent Illness/Hospitalization: No [facility] Medical History Asthma Chronic neck and back pain Depression GERD (gastroesophageal reflux disease) Hemorrhoids History of hay fever Migraines Home Medications escitalopram oxalate 20 mg tablet (Lexapro) 20 mg PO DAILY 09/10/16 [History Last Taken 12/06/20] omeprazole magnesium 20 mg capsule,delayed release (Acid Supervisor [place] (omeprazole)) 20 mg PO DAILY 04/05/20 [History Last Taken 12/06/20] cholecalciferol (vitamin D3) 125 mcg (5,000 unit) capsule 125 mcg PO DAILY 05/05/20 [History Last Taken 12/06/20] docusate sodium 100 mg capsule (Colace) 200 mg PO DAILY 05/05/20 [History Last Taken 12/04/20] budesonide-formoterol HFA 160 mcg-4.5 mcg/actuation aerosol inhaler (Symbicort) 2 puff inhalation Q12H #3 ea 06/20/22 [Rx Last Taken Unknown] bupropion HCl 100 mg tablet,12 hr sustained-release (Wellbutrin SR) 100 mg PO DAILY 06/20/22 [History Last Taken Unknown] montelukast 10 mg tablet (Singulair) 10 mg PO DAILY #90 tabs 06/04/23 [Rx Last Taken Unknown] albuterol sulfate 90 mcg/actuation aerosol inhaler 2 puff inhalation Q4H PRN PRN Sob &/Or Wheezing #8.5 grams 07/26/23 [Rx Last Taken Unknown] metoprolol tartrate 25 mg tablet 25 mg PO DAILY #30 tabs 08/27/23 [Rx Last Taken Unknown] Allergy/AdvReac Type Severity Reaction Status Date / Time amoxicillin Allergy Rash Verified 08/27/23 20:16 Sulfa (Sulfonamide Allergy Rash Verified 08/27/23 20:16 Antibiotics) Family History Mother Breast cancer CVA (cerebral vascular accident) Sister Cancer ovarian Father Myocardial infarction Grandmother Cancer cervical Aunt Breast cancer Cancer lymphoma Uncle Cancer lymphoma Other Asthma Surgical History H/O: hysterectomy History of colonoscopy (~2017) Social History Smoking Status: Never smoker alcohol intake: current details: social substance use type: does not use caffeine: Yes frequency: 3-4 times per week seatbelt use: always do you feel safe at home: Yes 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 [employer] ROS ROS ED Constitutional Constitutional ED: Denies chills, fever(s), subjective, sweats or weight loss Eyes Eyes: Denies blurry vision, change in vision or diplopia ENT ENT ED: Denies ear pain, rhinorrhea or sore throat Cardiovascular Cardiovascular: Reports palpitations and racing heartbeat; Denies chest pain, orthopnea or paroxysmal nocturnal dyspnea Respiratory/Chest Respiratory/Chest: Denies cough, dyspnea, dyspnea on exertion, orthopnea or paroxysmal nocturnal dyspnea Gastrointestinal Gastrointestinal: Reports nausea; Denies abdominal pain, diarrhea, melena or vomiting Musculoskeletal Musculoskeletal: Denies arthralgias or myalgias Integumentary Denies rash Neurologic Neurologic: Denies headache(s) or paresthesias Endocrine Endocrinology: Denies heat intolerance Hematologic/Lymphatic Hematologic/Lymphatic: Reports systems reviewed and no addt'l complaints, except as documented EXAM Physical Exam Const Vital Signs: 08/27/23 20:12 08/27/23 20:15 08/27/23 20:16 Temperature 97.8 F Temperature Source Temporal Pulse Rate 175 H 159 H Respiratory Rate 21 H 13 Respiratory Effort Normal Respiratory Pattern Normal Blood Pressure 118/85 H 120/79 Blood Pressure Mean 96 92 Pulse Ox 98 98 Oxygen Delivery Method Room Air Room Air 08/27/23 20:20 08/27/23 20:24 08/27/23 20:30 Temperature Temperature Source Pulse Rate 86 89 84 Respiratory Rate 12 21 H 12 Respiratory Effort Respiratory Pattern Blood Pressure 111/75 Blood Pressure Mean 87 Pulse Ox 96 98 96 Oxygen Delivery Method Room Air 08/27/23 20:40 08/27/23 20:45 08/27/23 20:50 Temperature Temperature Source Pulse Rate 88 84 87 Respiratory Rate 18 13 18 Respiratory Effort Respiratory Pattern Blood Pressure 119/68 Blood Pressure Mean 84 Pulse Ox 94 94 Oxygen Delivery Method Room Air Room Air 08/27/23 21:12 Temperature Temperature Source Pulse Rate 83 Respiratory Rate 16 Respiratory Effort Respiratory Pattern Blood Pressure 114/78 Blood Pressure Mean 90 Pulse Ox 99 Oxygen Delivery Method Room Air Positive well nourished and well developed General Appearance ED: well developed, NAD and pallor HEENT HEENT Narrative: Head is atraumatic and normocephalic. Ears normal. Nares patent. Posterior pharynx is normal. Eyes PERRL and EOMs intact bilaterally General Eye ED: Negative for pale conjunctiva or scleral icterus Neck no lymphadenopathy, supple and no JVD Chest Wall inspection of chest normal and palpation of chest normal Resp normal respiratory effort and clear to auscultation bilaterally Cardio regular rate, regular rhythm, S1 normal heart sound, S2 normal heart sound and no murmurs GI normal to inspection, nondistended, normoactive bowel sounds, non-tender, non-distended and no masses; Negative for hepatosplenomegaly Extremity normal to inspection Extremity Narrative: There is no asymmetry, swelling, discoloration, leg vein distention, palpable cords or tenderness along the distribution of the deep venous system. Neuro oriented x3, CN's II-XII intact bilaterally and no sensory deficits noted Sensorium / Orientation: alert Motor Exam: strength 5/5 throughout Psych mental status grossly normal Skin no rashes or lesions noted, no wounds and skin turgor normal Skin Narrative: Nurses state when she arrived she was pale. General Skin Exam: pallor; Negative for jaundice MDM MDM MDM Narrative Medical decision making narrative: Differential diagnosis would include paroxysmal atrial fibrillation, PSVT, will obtain EKG to determine there is any changes to suggest WPW or Sanchez long Ganong syndrome etc. Will obtain TSH to rule out thyroid disease. CBC to assess for anemia since she appears pale. Electrolyte panel to assess renal function as well as potassium calcium and sodium. She was placed on the monitor. Her rhythm has been sinus without any ectopy or dysrhythmia noted. Lab Data Attestation: I reviewed the patient's lab results. Lab results narrative: Blood work is unremarkable. Creatinine is slightly evaded 1.2 with an estimated GFR of 49. TSH was normal. Labs: Laboratory Results - last 24 hr 08/27/23 20:15 WBC 6.7 RBC 4.72 Hgb 13.7 Hct 42.0 MCV 89.0 MCH 29.0 MCHC 32.6 RDW Std Deviation 41.7 RDW Coeff of Sarah 12.8 Plt Count 257 MPV 10.0 Immature Gran % (Auto) 0.600 Neut % (Auto) 56.1 Lymph % (Auto) 32.7 [place] % (Auto) 7.3 Eos % (Auto) 2.7 Baso % (Auto) 0.6 Absolute Neuts (auto) 3.7 Absolute Lymphs (auto) 2.18 Nucleated RBC % 0 Sodium 142 Potassium 3.8 Chloride 109 H Carbon Dioxide 25.0 Anion Gap 8 BUN 16 Creatinine 1.20 H Estim Creat Clear Calc 47.49 Est GFR (MDRD) Af Amer 59 L Est GFR (MDRD) Non-Af 49 L BUN/Creatinine Ratio 13.3 Glucose 111 H Calcium 9.2 TSH 2.25 EKG Initial EKG: Attestation: I personally reviewed and interpreted this EKG as follows: Interpretation: Sinus Rhythm (Rate is 86. There is an RR prime in V1 and V2. CO interval is 170 ms. Cures duration 90 ms. QT durations are 94 ms. [place] is normal.) Management Discussion w/another healthcare provider: Product Representative (Case discussed with Dr. Jimmy Rios. Recommendation is metoprolol succinate 25 mg XL once a day. Call the office to be seen by Dr. Walters or him.) Discharge Plan Triage Chief Complaint: Palpitations Other Complaint: Chest Pain ED Provider: Richard Das Dx/Rx/DC Orders Clinical Impression: Orthostatic hypotension, Tachycardia Instructions: ED About Arrhythmias Prescriptions: New metoprolol tartrate 25 mg tablet 25 mg PO DAILY Qty: 30 0RF No Action omeprazole magnesium [Acid Supervisor [place] (omeprazole)] 20 mg capsule,delayed release(DR/EC) 20 mg PO DAILY docusate sodium [Colace] 100 mg capsule 200 mg PO DAILY cholecalciferol (vitamin D3) 125 mcg (5,000 unit) capsule 125 mcg PO DAILY bupropion HCl [Wellbutrin SR] 100 mg tablet sustained-release 12 hr 100 mg PO DAILY Symbicort 160-4.5 mcg/actuation HFA aerosol inhaler 2 puff INHALATION Q12H Qty: 3 3RF escitalopram oxalate [Lexapro] 20 MG tablet 20 mg PO DAILY montelukast [Singulair] 10 mg tablet 10 mg PO DAILY Qty: 90 3RF albuterol sulfate 90 mcg/actuation HFA aerosol inhaler 2 puff INHALATION Q4H PRN PRN (Reason: Sob &/Or Wheezing) Qty: 8.5 3RF Primary Care Provider: Justice James Referrals: Justice James MD [Primary Care Provider] - Don Rios MD [Med Staff - Active Staff] - 5-7 Days Disposition Disposition: Home, Self Care
[2023-08-27] MEDS: Metoprolol Tartrate 25 MG Tablet PO (22:23)
== END 2023-08-27 22:24 | disposition home or self-care (01) ==
PROVIDERS: Emergency Provider Emergency Medicine; PCP Family Medicine; Visit Provider Emergency Medicine
DX: R00.0 Tachycardia, unspecified (principal); I95.1 Orthostatic hypotension; F32.A Depression, unspecified; K21.9 Gastro-esophageal reflux disease without esophagitis; Z79.899 Other long term (current) drug therapy; J45.909 Unspecified asthma, uncomplicated; Z79.51 Long term (current) use of inhaled steroids; Z90.710 Acquired absence of both cervix and uterus
CPT/HCPCS: 80048; 84443; 85025; 93005; 99284; A4216

== ENCOUNTER → 2023-09-17 | Outpatient (CLI) | payer OTHER, SELFPAY ==
[2023-09-17 10:05] LABS: Absolute Lymphocyte Count 1.78 X10^3/uL (0.83-4.51); Absolute Neutrophil Count 2.4 X10^3/uL (2.0-7.7); Basophil# 0.04 X10^3/uL; Basophil% 0.8 % (0-1); Eosinophil# 0.13 X10^3/uL; Eosinophils% 2.7 % (0-5); Hematocrit 39.7 % (37-47); Hemoglobin 12.8 g/dL (12.0-15.0); Lymphocyte # 1.78 X10^3/ul (0.83-4.51); Lymphocyte % 37.2 % (19-41); Mean Corp Hgb Conc 32.2 g/dL (32-36); Mean Corpuscular Hgb 28.4 pg (27.0-32.0); Mean Platelet Vol. 10.1 fl (6.2-12.0); Monocyte# 0.38 X10^3/uL; Monocyte% 7.9 % (0-10); NRBC Flagged by Analyzer 0 % (0-5); Neutrophil # 2.42 X10^3/uL (2.7-7.7); Neutrophil % 50.8 % (47-70); Platelet Count 234 K/mm3 (150-450); RBC Distribution Width CV 12.7 % (11.6-14.6); RBC Distribution Width SD 40.8 fl (35.1-43.9); Red Blood Count 4.51 M/mm3 (4.2-5.4); White Blood Count 4.8 K/mm3 (4.4-11.0)
[2023-09-17 10:58] LABS: ALB/GLOB Ratio 0.9 RATIO (0.9-2.4); AST(SGOT) 15 U/L (15-37); Alanine Aminotransfer ALT/SGPT 26 U/L (13-56); Albumin, Serum 3.2 g/dL (3.2-5.0); Alkaline Phosphatase 105 U/L (45-117); Anion Gap 6 (5-15); BUN 16 mg/dL (7-18); BUN/Creat Ratio 15.2 RATIO (10-20); Calcium,Total 8.4 mg/dL (8.5-10.1); Chloride 113 mmol/L (98-107); Creatinine, Serum 1.05 mg/dL (0.55-1.02); EST Glomerular Filtration Rate 57 mL/min (>60); Est Glom Filt Rate - Afr Amer 68 mL/min (>60); Globulin 3.4 g/dL (2.2-4.2); Glucose 107 mg/dL (74-106); Magnesium 2.2 mg/dL (1.6-2.6); Potassium 3.8 mmol/L (3.5-5.1); Protein, Total 6.6 g/dL (6.4-8.2); Sodium Level 142 mmol/L (136-145); T4 Free Direct 0.77 ng/dL (0.76-1.46); Thyroid Stim Hormone (TSH) 2.18 uIU/mL (0.358-3.74)
[2023-09-17 11:00] LABS: Vitamin D,25 Hydroxy 70.6 ng/mL
== END | disposition home or self-care (01) ==
LOC: MFPLAB 09:13
PROVIDERS: PCP Family Medicine; Visit Provider Family Medicine
DX: R00.0 Tachycardia, unspecified (principal); E55.9 Vitamin D deficiency, unspecified
CPT/HCPCS: 36415; 80053; 82306; 83735; 84439; 84443; 85025

== ENCOUNTER 2023-10-02 07:46 | Outpatient (CLI) | payer OTHER, SELFPAY ==
--- NOTE | 2023-10-02 07:48 | ECHOD_ITS ---
Reason For Study: Tachycardia Procedure This was a 2D Doppler, Color Flow transthoracic echocardiogram. Exam performed in department. Left Ventricle Normal LV size. Left ventricular systolic function is normal. The estimated ejection fraction is 65 %. No regional wall motion abnormalities noted. Right Ventricle Normal RV size. Normal systolic function. Atria Normal left atrium. Normal right atrium. Mitral Valve Normal mitral valve. Tricuspid Valve Normal tricuspid valve. Mild tricuspid valve insufficiency. Aortic Valve Trisinus/trileaflet aortic valve. Pulmonic Valve Normal pulmonic valve. Great Vessels Normal aortic root. The pulmonary artery is normal size. Normal inferior vena cava. Pericardium/Pleural No pericardial effusion. MMode/2D Measurements & Calculations LVIDd: 4.3 cm IVSd: 0.88 cm Ao root diam: 2.9 cm LVIDs: 2.2 cm LVPWd: 0.93 cm RVDd: 3.2 cm FS: 49.2 % LAV(MOD-bp): 43.5 ml LVAd ap4: 23.1 cm2 SV(MOD-sp4): 37.9 ml LAV(MOD-bp) Indexed: 24.4 ml/m2 LVLd ap4: 7.2 cm LAV(MOD-sp2): 35.6 ml EDV(MOD-sp4): 61.1 ml LAV(MOD-sp4): 42.9 ml EDV(sp4-el): 63.1 ml LVAs ap4: 12.3 cm2 LVLs ap4: 5.7 cm ESV(MOD-sp4): 23.2 ml ESV(sp4-el): 22.4 ml EF(MOD-sp4): 62.1 % EF(sp4-el): 64.5 % SV(sp4-el): 40.7 ml LA A4 area: 17.2 cm2 LA dimension(2D): 3.6 cm RA A4 area: 11.6 cm2 TAPSE: 2.0 cm Time Measurements MV dec time: 0.23 sec Doppler Measurements & Calculations MV E max jay: 91.0 cm/sec Lat Peak E' Jay: 8.4 cm/sec Med Peak E' Jay: 10.3 cm/sec MV A max jay: 66.7 cm/sec E/E' lat: 10.8 E/E' med: 8.8 MV E/A: 1.4 Ao V2 max: 132.5 cm/sec LV V1 max: 101.6 cm/sec MV dec slope: 398.5 cm/sec2 Ao max P.0 mmHg LV V1 max P.1 mmHg Ao V2 mean: 94.3 cm/sec LV V1 mean P.1 mmHg Ao mean P.9 mmHg LV V1 mean: 67.0 cm/sec Ao V2 VTI: 32.6 cm LV V1 VTI: 25.7 cm AV (velocity ratio): 0.79 PA V2 max: 89.9 cm/sec TR max jay: 214.8 cm/sec TR max P.5 mmHg ECHO/Echo Complete Interpretation Summary Normal LV size. Left ventricular systolic function is normal. The estimated ejection fraction is 65 %. Structurally normal valves. Ordering Physician: Julio Cesar Scott Referring Physician: Justice James Performed By: Stacia Elias, MANDEEP, RVT
== END 2023-10-02 23:59 | disposition home or self-care (01) ==
LOC: CVS 07:48
PROVIDERS: PCP Family Medicine; Referring Provider Internal Medicine Cardiovascular Disease; Visit Provider Internal Medicine Cardiovascular Disease
DX: R00.0 Tachycardia, unspecified (principal)
CPT/HCPCS: 93306

== ENCOUNTER → 2023-11-04 | Outpatient (CLI) | payer OTHER, SELFPAY ==
[2023-11-04 16:03] LABS: Anion Gap 5 (5-15); BUN 18 mg/dL (7-18); BUN/Creat Ratio 17.1 RATIO (10-20); Calcium,Total 9.6 mg/dL (8.5-10.1); Chloride 112 mmol/L (98-107); Creatinine, Serum 1.05 mg/dL (0.55-1.02); EST Glomerular Filtration Rate 57 mL/min (>60); Est Glom Filt Rate - Afr Amer 68 mL/min (>60); Glucose 93 mg/dL (74-106); Potassium 3.9 mmol/L (3.5-5.1); Sodium Level 140 mmol/L (136-145)
== END | disposition home or self-care (01) ==
LOC: MFPLAB 11:27
PROVIDERS: PCP Family Medicine; Visit Provider Family Medicine
DX: R94.4 Abnormal results of kidney function studies (principal)
CPT/HCPCS: 36415; 80048

== ENCOUNTER 2023-11-21 23:30 | Emergency (ER) | payer OTHER, SELFPAY ==
[2023-11-21 23:31] VITALS: BP 135/86; PULSE 88; RESP 22; TEMP 36.8; O2SAT 99; BMI 32.4
--- NOTE | 2023-11-21 23:50 | ED.VIS.GI ---
HPI HPI - GI History of Present Illness Chief Complaint: Abd Pain Informant: patient Narrative Narrative: 63-year-old female gradual onset lower abdominal pain all day today, but became severe tonight. Does not radiate into her back. Nausea but no vomiting. No fevers or chills. No problems urinating. Small firm bowel movements today did not seem to alter the pain. She had a couple of loose bowel movements yesterday but no watery diarrhea. No blood or melena. Had a diverticulosis diagnosis on colonoscopy in the past. Doctor also suspicious she may have irritable bowel syndrome, but she states the discomfort that she has off-and-on in her abdomen is nothing like what she is experiencing now. [facility] Medical History Tachycardia Orthostatic hypotension Dyspnea Migraines GERD (gastroesophageal reflux disease) Hemorrhoids History of hay fever Asthma Chronic neck and back pain Depression Home Medications ?Medication ?Instructions ?Recorded ?Last Taken ?Type escitalopram oxalate 20 mg tablet 20 mg PO DAILY 09/10/16 12/06/20 History (Lexapro) omeprazole magnesium 20 mg 20 mg PO DAILY 04/05/20 12/06/20 History capsule,delayed release (Acid Rehab Therapy Manager (omeprazole)) cholecalciferol (vitamin D3) 125 125 mcg PO DAILY 05/05/20 12/06/20 History mcg (5,000 unit) capsule bupropion HCl 100 mg tablet,12 hr 100 mg PO DAILY 06/20/22 Unknown History sustained-release (Wellbutrin SR) montelukast 10 mg tablet 10 mg PO DAILY #90 tabs 06/04/23 Unknown Rx (Singulair) docusate sodium 100 mg capsule 200 mg PO DAILY PRN 08/30/23 Unknown History (Colace) krill oil 500 mg capsule 500 mg PO DAILY 08/30/23 Unknown History mecobalamin (vitamin B12) 1,000 1,000 mcg PO DAILY 08/30/23 Unknown History mcg lozenges albuterol sulfate 90 mcg/actuation 2 puff inhalation Q4H PRN 10/11/23 Unknown Rx aerosol inhaler (Ventolin HFA) shortness of breath or wheezing #18 grams fluticasone 250 mcg-salmeterol 50 1 inh inhalation ONCE 11/19/23 Unknown History mcg/dose blistr powdr for inhalation (Wixela Inhub) metoprolol tartrate 25 mg tablet 12.5 mg (1/2 x 25 mg) PO DAILY #90 11/19/23 Unknown Rx tabs ciprofloxacin HCl 500 mg tablet 500 mg PO BID #20 TABLETS 11/22/23 Unknown Rx hydrocodone-acetaminophen 5-325mg 1 tab PO Q6H PRN PRN Pain 3 days 11/22/23 Unknown Rx 5mg-325mg #10 TABLETS metronidazole 500 mg tablet 500 mg PO BID #20 tabs 11/22/23 Unknown Rx ondansetron 8 mg disintegrating 8 mg PO Q8H PRN nausea and 11/22/23 Unknown Rx tablet vomiting #12 tabs Allergy/AdvReac Type Severity Reaction Status Date / Time Penicillins Allergy Severe Rash Verified 11/21/23 23:33 amoxicillin Allergy Rash Verified 11/21/23 23:33 Sulfa (Sulfonamide Allergy Rash Verified 11/21/23 23:33 Antibiotics) duloxetine (From Cymbalta) AdvReac Severe LETHARGY Verified 11/21/23 23:33 loratadine (From Claritin) AdvReac Intermediate headache Verified 11/21/23 23:33 Family History Mother Breast cancer CVA (cerebral vascular accident) Sister Cancer ovarian Father Myocardial infarction Grandmother Cancer cervical Aunt Breast cancer Cancer lymphoma Uncle Cancer lymphoma Other Asthma Surgical History H/O: hysterectomy History of colonoscopy (~2017) Social History Smoking Status: Never smoker alcohol intake: current details: social substance use type: does not use caffeine: Yes frequency: 3-4 times per week seatbelt use: always do you feel safe at home: Yes 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 works at [employer] ROS ED Constitutional Constitutional ED: Denies chills or fever(s) Eyes Eyes: Denies change in vision or diplopia ENT ENT ED: Denies rhinorrhea or sore throat Cardiovascular Cardiovascular: Denies chest pain or palpitations Respiratory/Chest Respiratory/Chest: Denies cough or dyspnea Gastrointestinal Gastrointestinal: Reports abdominal pain and nausea; Denies diarrhea, melena or vomiting Genitourinary Genitourinary ED: Denies dysuria or hematuria Musculoskeletal Musculoskeletal: Reports other Details: Sore back from working out in the garden ; Denies neck pain Integumentary Denies abscess or rash Neurologic Neurologic: Denies headache(s), paresthesias or weakness Psychiatric Psychiatric: Denies anxiety or suicidal thoughts EXAM Physical Exam Const Vital Signs: 11/21/23 23:31 Temperature 98.2 F Temperature Source Temporal Pulse Rate 88 Respiratory Rate 22 H Blood Pressure 135/86 H Blood Pressure Mean 102 Pulse Ox 99 Oxygen Delivery Method Room Air Positive well nourished and well developed Constitutional Narrative: Uncomfortable in pain holding abdomen but in no distress General Appearance ED: well developed and NAD HEENT Reports moist mucous membranes normocephalic and atraumatic Eyes PERRL and EOMs intact bilaterally Neck full ROM and supple Resp normal respiratory effort and clear to auscultation bilaterally Cardio regular rate, regular rhythm and no murmurs GI non-distended GI Narrative: Very tender in the left lower quadrant and suprapubic area without guarding or rebound, less tender to right lower quadrant and left mid and upper abdomen. Auscultation: normoactive bowel sounds Palpation: soft Back/Spine no CVA tenderness General Back: other FROM Extremity normal to inspection General Extremety ED: Negative for edema, pulses abnormal or tenderness General Extremity: Negative for edema or pulses abnormal Neuro oriented x3, CN's II-XII intact bilaterally and no sensory deficits noted Sensorium / Orientation: awake and alert Motor Exam: strength 5/5 throughout Skin no rashes or lesions noted and no wounds MDM MDM MDM Narrative Medical decision making narrative: Given diverticulitis is high in the differential, CT abdomen/pelvis warranted and obtained. I reviewed the images and report and I agree with it, uncomplicated sigmoid diverticulitis. Labs are noted, she does not have a significant leukocytosis, and after treating her with morphine, Toradol, IV fluids, Zofran she is feeling much better. Offered admission she declines and states she would prefer to be at home and her pain is well-controlled. Will put her on Cipro and Flagyl as well as given her prescriptions for Zofran and [place] to use as needed, and advised to follow-up with her doctor after this clears up we discussed reasons to return to the ER. Lab Data Attestation: I reviewed the patient's lab results. Labs: Laboratory Results - last 24 hr 11/21/23 11/22/23 23:59 00:50 WBC 9.8 RBC 4.63 Hgb 13.3 Hct 41.0 MCV 88.6 MCH 28.7 MCHC 32.4 RDW Std Deviation 41.1 RDW Coeff of Sarah 12.7 Plt Count 254 MPV 9.6 Immature Gran % (Auto) 0.500 Neut % (Auto) 73.9 H Lymph % (Auto) 16.2 L [place] % (Auto) 7.4 Eos % (Auto) 1.5 Baso % (Auto) 0.5 Absolute Neuts (auto) 7.3 Absolute Lymphs (auto) 1.59 Nucleated RBC % 0 Sodium 141 Potassium 3.7 Chloride 110 H Carbon Dioxide 25.0 Anion Gap 6 BUN 14 Creatinine 1.12 H Estim Creat Clear Calc 51.81 Est GFR (MDRD) Af Amer 63 Est GFR (MDRD) Non-Af 52 L BUN/Creatinine Ratio 12.5 Glucose 115 H Calcium 9.3 Urine Color Yellow Urine Clarity Clear Urine pH 6.0 Ur Specific [place] 1.010 Urine Protein Negative Urine Glucose (UA) Normal Urine Ketones Negative Urine Occult Blood Negative Urine Nitrite Negative Urine Bilirubin Negative Urine Urobilinogen Normal Ur Leukocyte Esterase Negative Urine RBC 0 SEEN Urine WBC 0 SEEN Ur Squamous Epith Cells 0 SEEN Urine Bacteria 0 SEEN Urine Mucus 0 SEEN Radiography Diagnostic Testing: Clinical Impression(s) from Imaging Studies Abdomen/Pelvis CT 11/22/23 23:49 IMPRESSION: Acute sigmoid diverticulitis. No evidence of perforation or abscess. Electronically Signed: Edilma Ng MD at 1:17 EDT , Discharge Plan Triage Chief Complaint: Abd Pain ED Provider: Nicholas Willoughby Dx/Rx/DC Orders Clinical Impression: Diverticulitis of sigmoid colon Instructions: Diverticulitis Dc Prescriptions: New hydrocodone-acetaminophen 5-325 mg tablet 1 tab PO Q6H PRN PRN (Reason: Pain) 3 Days Qty: 10 0RF ciprofloxacin HCl 500 mg tablet 500 mg PO BID Qty: 20 0RF ondansetron 8 mg tablet,disintegrating 8 mg PO Q8H PRN (Reason: nausea and vomiting) Qty: 12 0RF metronidazole 500 mg tablet 500 mg PO BID Qty: 20 0RF No Action omeprazole magnesium [Acid Rehab Therapy Manager (omeprazole)] 20 mg capsule,delayed release(DR/EC) 20 mg PO DAILY cholecalciferol (vitamin D3) 125 mcg (5,000 unit) capsule 125 mcg PO DAILY docusate sodium [Colace] 100 mg capsule 200 mg PO DAILY PRN bupropion HCl [Wellbutrin SR] 100 mg tablet sustained-release 12 hr 100 mg PO DAILY krill oil 500 mg capsule 500 mg PO DAILY mecobalamin (vitamin B12) 1,000 mcg lozenge 1,000 mcg PO DAILY Rx Instructions: allow to dissolve in mouth OR may chew lightly before swallowing fluticasone propion-salmeterol [Wixela Inhub] 250-50 mcg/dose blister with device 1 inh inhalation ONCE metoprolol tartrate 25 mg tablet 12.5 mg PO DAILY Qty: 90 3RF escitalopram oxalate [Lexapro] 20 MG tablet 20 mg PO DAILY montelukast [Singulair] 10 mg tablet 10 mg PO DAILY Qty: 90 3RF albuterol sulfate [Ventolin HFA] 90 mcg/actuation HFA aerosol inhaler 2 puff inhalation Q4H PRN (Reason: shortness of breath or wheezing) Qty: 18 6RF Primary Care Provider: Justice James Referrals: Justice James MD [Primary Care Provider] - 1-2 Weeks Print Language: Bulgarian Disposition Disposition: Home, Self Care
[2023-11-21] MEDS: 0.9% Normal Saline (1000mL) 1,000 ML 125 ML IV (23:57)
[2023-11-21] MEDS: Morphine 4 MG/ML Syringe IV (23:57)
[2023-11-21] MEDS: Ondansetron 4 MG/2 ML Vial IV (23:57)
[2023-11-21] MEDS: Ketorolac 15 MG/ML Vial IV (23:57)
[2023-11-22 00:15] LABS: Absolute Lymphocyte Count 1.59 X10^3/uL (0.83-4.51); Absolute Neutrophil Count 7.3 X10^3/uL (2.0-7.7); Basophil# 0.05 X10^3/uL; Basophil% 0.5 % (0-1); Eosinophil# 0.15 X10^3/uL; Eosinophils% 1.5 % (0-5); Hemoglobin 13.3 g/dL (12.0-15.0); Lymphocyte # 1.59 X10^3/ul (0.83-4.51); Lymphocyte % 16.2 % (19-41); Mean Corp Hgb Conc 32.4 g/dL (32-36); Mean Corpuscular Hgb 28.7 pg (27.0-32.0); Mean Corpuscular Volume 88.6 fL (81-99); Mean Platelet Vol. 9.6 fl (6.2-12.0); Monocyte# 0.73 X10^3/uL; Monocyte% 7.4 % (0-10); NRBC Flagged by Analyzer 0 % (0-5); Neutrophil # 7.26 X10^3/uL (2.7-7.7); Neutrophil % 73.9 % (47-70); Platelet Count 254 K/mm3 (150-450); RBC Distribution Width CV 12.7 % (11.6-14.6); RBC Distribution Width SD 41.1 fl (35.1-43.9); Red Blood Count 4.63 M/mm3 (4.2-5.4); White Blood Count 9.8 K/mm3 (4.4-11.0)
[2023-11-22 00:34] LABS: Anion Gap 6 (5-15); BUN 14 mg/dL (7-18); BUN/Creat Ratio 12.5 RATIO (10-20); Calcium,Total 9.3 mg/dL (8.5-10.1); Chloride 110 mmol/L (98-107); Creatinine, Serum 1.12 mg/dL (0.55-1.02); EST Glomerular Filtration Rate 52 mL/min (>60); Est Glom Filt Rate - Afr Amer 63 mL/min (>60); Estimated Creatinine Clearance 51.81 ml/min; Glucose 115 mg/dL (74-106); Potassium 3.7 mmol/L (3.5-5.1); Sodium Level 141 mmol/L (136-145)
[2023-11-22 00:57] LABS: Bacteria 0 SEEN /hpf (None Seen); Mucous, Urine 0 SEEN /hpf (<or=2+); Red Blood Cells-Urine 0 SEEN /hpf (0-5); Squamous Epithelial Cells - UA 0 SEEN /hpf (5-10); White Blood Cells 0 SEEN /hpf (0-5)
[2023-11-22 01:01] LABS: Color, Urine Yellow (Yellow); Glucose, Dipstick Normal (Normal); Ketone-Dipstick Negative (Negative); Leukocyte Esterase-Dipstick Negative /ul (Negative); Nitrite-Dipstick Negative (Negative); Occult Blood-Urine Negative /ul (Negative); Protein-Dipstick Negative (Negative); Urine Bilirubin Dipstick Negative (Negative); Urine Clarity Clear (Clear); Urine Urobilinogen Normal (Normal)
[2023-11-22] MEDS: metroNIDAZOLE 500 MG Tablet PO (01:50)
[2023-11-22] MEDS: Ciprofloxacin 500 MG Tablet PO (01:50)
[2023-11-22 01:52] VITALS: BP 97/52; PULSE 85; RESP 18; TEMP 36.4; O2SAT 97
--- NOTE | 2023-11-22 23:49 | CT_ITS ---
EXAM: CT Abdomen And Pelvis W/ Contrast Injection HISTORY: lower abd pain TECHNIQUE: Routine protocol CT abdomen pelvis. IV Contrast: IV 100mL Isovue-370 . Oral Contrast: without. Sagittal and coronal images were reconstructed. RADIATION DOSAGE (If Supplied By Facility): CTDIvol = ( 16.22 ) mGy, DLP = ( 979.38 ) mGycm Individualized dose optimization techniques were used for this CT. COMPARISON: None. LIMITATIONS: None. FINDINGS: LOWER CHEST: Minimal dependent atelectasis in the lung bases. LIVER: Small cyst in the left lobe. A few smaller low attenuation structures likely cysts, too small to characterize. GALLBLADDER/BILE DUCTS: Unremarkable. PANCREAS: Unremarkable. SPLEEN: Unremarkable. ADRENAL GLANDS: Unremarkable. KIDNEYS / URETERS: Unremarkable. BOWEL / MESENTERY: Mild wall thickening of the sigmoid colon with adjacent inflammatory stranding. Diverticula in this region and throughout the colon. No bowel obstruction. APPENDIX: Identified and normal. No evidence of acute appendicitis. PERITONEUM: No free air. Small amount of fluid in the free fluid in the pelvis. VESSELS: Abdominal aorta is normal caliber. RETROPERITONEUM: Unremarkable. REPRODUCTIVE ORGANS: Uterus not identified. BLADDER: Unremarkable. ABDOMINAL WALL: Small umbilical hernia contains only fat, no bowel. BONES: No acute abnormality. Bilateral pars defects at L5 with grade 2 spondylolisthesis L5-S1 and degenerative changes. OTHER: None. CT/Abdomen/Pelvis W IV Cont ONLY IMPRESSION: Acute sigmoid diverticulitis. No evidence of perforation or abscess. Electronically Signed: Edilma Ng MD at 1:17 EDT ,
== END 2023-11-22 01:58 | disposition home or self-care (01) ==
PROVIDERS: Emergency Provider Emergency Medicine; PCP Family Medicine; Visit Provider Emergency Medicine
DX: K57.32 Diverticulitis of large intestine without perforation or abscess without bleeding (principal); R11.0 Nausea; F32.A Depression, unspecified; K21.9 Gastro-esophageal reflux disease without esophagitis; Z90.710 Acquired absence of both cervix and uterus; Z79.899 Other long term (current) drug therapy
CPT/HCPCS: 74177; 80048; 81001; 85025; 96361; 96374; 96375; 99284; J7030; Q9967; A4216; J2405

== ENCOUNTER → 2023-11-28 | Outpatient (CLI) | payer OTHER, SELFPAY ==
[2023-11-28 16:44] LABS: AST(SGOT) 37 U/L (15-37); Alanine Aminotransfer ALT/SGPT 43 U/L (13-56); Albumin, Serum 3.6 g/dL (3.2-5.0); Alkaline Phosphatase 92 U/L (45-117); Bilirubin, Direct 0.14 mg/dL (0.00-0.30); Cholesterol 191 mg/dL (200); Globulin 3.8 g/dL (2.2-4.2); High Density Lipoprotein 57 mg/dL; Protein, Total 7.4 g/dL (6.4-8.2); Triglycerides 84 mg/dL; Very Low Density Lipoprotein 17 mg/dL (5-40)
== END | disposition home or self-care (01) ==
LOC: LAB 08:34
PROVIDERS: PCP Family Medicine; Visit Provider Nurse Practitioner Gerontology
DX: E78.5 Hyperlipidemia, unspecified (principal)
CPT/HCPCS: 36415; 80061; 80076

== ENCOUNTER → 2024-04-17 | Outpatient (CLI) | payer OTHER, SELFPAY ==
--- NOTE | 2024-04-17 07:32 | BI_ITS ---
MAMMOGRAPHY - BILATERAL SCREENING REASON FOR EXAM: Female, 64 years old. Routine annual screening examination. PERTINENT HISTORY: Mother with breast cancer. Aunt with breast cancer. History of prior right needle breast biopsy. TECHNIQUE: Digital bilateral breast abraham (3D mammographic acquisition) in the CC and MLO projections. 2-D mediolateral oblique (MLO) and craniocaudad (CC) views of both breasts were obtained. CAD: Full Field Digital Mammography with Computer Added Detection was performed. COMPARISON: Comparison is made with prior study April 10, 2023 and February 21, 2022. FINDINGS: Breast Composition: There are scattered areas of fibroglandular density. There are no dominant masses or suspicious calcifications. No other significant abnormalities are identified. There has been no significant change since the prior study. BI/SCRN MAMM (CAD)W/ABRAHAM BILAT IMPRESSION: Stable bilateral screening mammogram. Yearly follow-up mammogram recommended. (A) ASSESSMENT CATEGORY: BIRADS Category 1: Negative. A letter regarding these results will be sent to the patient by the facility within 30 days. Approximately 10% of breast cancers are not detected by mammography. A normal mammogram should not delay biopsy of a clinically suspicious abnormality. [id number] Electronically Signed: Huy Santacruz MD at 8:50 EDT ,
== END | disposition home or self-care (01) ==
PROVIDERS: PCP Family Medicine; Referring Provider Nurse Practitioner Gerontology; Visit Provider Nurse Practitioner Gerontology
DX: Z12.31 Encounter for screening mammogram for malignant neoplasm of breast (principal); R00.0 Tachycardia, unspecified
CPT/HCPCS: 77063; 77067; 93225; 93226

== ENCOUNTER → 2024-05-04 | Outpatient (CLI) | payer OTHER, SELFPAY ==
--- NOTE | 2024-05-04 16:18 | STRESSREP_ITS ---
Stress Test Report Exercise myocardial perfusion stress test. 64-year-old lady with a history of chest discomfort Stress protocol: Resting EKG demonstrates normal sinus rhythm with a rate of 59 bpm resting blood pressure is 122/78 mmHg. The patient exercised according to the regular Kimani protocol for a total duration of 7 minutes and 5 seconds attaining a maximum heart rate of 142 bpm which was 89% of maximum predicted heart rate; the maximum workload was 10.1 metabolic equivalents. At rest there were no ST or T wave changes noted to suggest ischemia and at peak exercise upsloping ST changes only were noted which did not meet the criteria for ischemia. The patient did experience some chest discomfort and throat tightness at peak exercise which res olved during rest. The test was terminated due to the target heart rate being achieved/fatigue. The peak blood pressure was 148/70 mmHg. Rate-pressure product was 18,000. Myocardial perfusion protocol. 12.0 mCi of technetium 99m sestamibi was injected at rest. The patient exercised according to regular Kimani protocol for total duration of 7 minutes and 5 seconds and at peak exercise 35.0 mCi of technetium 99m sestamibi was injected stress images were obtained stress and rest images were reconstructed in comparing the short axis vertical long and horizontal long axis. Gated images were also obtained. Perfusion SPECT analysis: Review of the stress images demonstrate normal uptake of tracer noted in all areas of the myocardium except for a small portion of the anterior wall with mildly reduced perfusion. The resting images similarly demonstrate normal uptake of tracer noted in all areas of the myocardium. Mild anterior ischemia cannot be completely excluded. Gated SPECT analysis: The gated ejection fraction is 87%. Conclusion: Mildly abnormal exercise myocardial perfusion stress test at a high workload, with mild anterior ischemia Preserved ejection fraction.
== END | disposition home or self-care (01) ==
LOC: CVS 07:02
PROVIDERS: PCP Family Medicine; Referring Provider Nurse Practitioner Gerontology; Visit Provider Nurse Practitioner Gerontology
DX: R07.9 Chest pain, unspecified (principal)
CPT/HCPCS: 78452; 93017; A9500; A4216

== ENCOUNTER → 2024-05-26 | Outpatient (CLI) | payer OTHER, SELFPAY | END | disposition home or self-care (01) | LOC: LABSPEC 15:31 | PROVIDERS: PCP Family Medicine; Referring Provider Otolaryngology Otolaryngology/Facial Plastic Surgery; Visit Provider Otolaryngology Otolaryngology/Facial Plastic Surgery | DX: J32.9 Chronic sinusitis, unspecified (principal) | CPT/HCPCS: 87070; 87077; 87186; 87205 ==

== ENCOUNTER 2024-06-02 08:02 | Day surgery (SDC) | payer OTHER, SELFPAY ==
--- NOTE | 2024-05-25 15:10 | PCM.HP.BLA ---
History and Physical Date of Admission: 06/02/24 Pleasant 64-year-old lady who presents today for a diagnostic heart catheterization. She has no previous cardiac history who was previously seen for lightheadedness, and tachycardia. 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 She was taken to the emergency room where she was hooked up to the monitor and at that time had apparently converted to sinus rhythm. She denied any chest pain or paroxysmal nocturnal dyspnea or pedal edema no neck arm or jaw discomfort suggest angina. She has been compliant with her antidepressant medications but no other medications. Electrolytes that were obtained demonstrated normal potassium and TSH and a normal hemoglobin. EKG demonstrated sinus rhythm with a rate of 86 bpm and no acute changes. During an office visit in February 2024, She acknowledged short bursts of palpitations about twice daily. She also acknowledged chest pain with exertion. This is midsternal. She describes this as an achy pressure. This will last for a few minutes. She also acknowledged -she attributes this to her asthma. She underwent a stress test which was mildly abnormal at a high workload with mild anterior ischemia. Because of this she is here today to undergo a diagnostic heart catheterization. [facility] Medical History Tachycardia Orthostatic hypotension Dyspnea Migraines GERD (gastroesophageal reflux disease) Hemorrhoids History of hay fever Asthma Chronic neck and back pain Depression Surgical History H/O: hysterectomy History of colonoscopy (~2017) Family History Mother Breast cancer CVA (cerebral vascular accident) Sister Cancer ovarian Father Myocardial infarction Grandmother Cancer cervical Aunt Breast cancer Cancer lymphoma Uncle Cancer lymphoma Other Asthma Social History Smoking Status: Never smoker alcohol intake: current details: social substance use type: does not use caffeine: Yes frequency: 3-4 times per week seatbelt use: always do you feel safe at home: Yes additional social history: Don- Sqe Patient works at [employer] ROS Const Const: Negative for fatigue, weakness, fever(s), headache(s), chills, frequent falls, weight gain or weight loss Eyes Eyes: Negative for blind spots, loss of peripheral vision, transient loss of vision, blurry vision, change in vision, double vision, floaters or tunnel vision ENT ENT: Negative for headache(s), dizziness, Nosebleed/epistaxis, balance problems or neck pain Cardio Chest Pain: Yes Frequency: weekly Character: other (ache/pressure) Onset: exercise Location: mid sternal Duration: minutes Palpitations: Yes feels like its: fast Edema: None Muscle aches with walking: None Resp Respiratory: Positive for SOB with activity (attributes to asthma); Negative for SOB at rest or SOB orthopnea\SOB lying down GI GI: Negative nausea, vomiting, heartburn, bloating, vomiting blood/hematemesis, bright, red blood in stools or black,tarry stools Musc Musc: Negative for muscle aches/ myalgia, muscle weakness, joint pain or balance problems Neuro Neuro: Positive for lightheadedness (occasional with quick positional changes); Negative for dizziness, near syncope, syncope, orthostatic symptoms, frequent falls, headache(s), weakness, blurry vision or double vision Fco Hematologic/Lymphatic: Negative for easy bleeding or easy bruising Endo Endo: Negative for fatigue Cardiology Exam Const Appearance: cooperative, healthy appearing, no acute distress, well developed and well groomed Nutritional Appearance: average body habitus and well nourished Orientation: alert, awake and oriented x3 Head Head: normal to inspection, normocephalic and atraumatic Ears: hearing grossly normal bilaterally and external ears normal Nose: external nose normal and nares normal Face and Sinus: face symmetric Eyes General: appearance normal, both eyes and all related structures Eyelids: eyelids normal Conjunctivae: conjunctivae normal Pupils: PERRL, normal by confrontation and accommodation normal EOM: EOM intact bilaterally Neck Neck: normal visual inspection, trachea midline and no JVD JVD: +5 Carotids: normal carotid upstroke and bounding pulses Chest Chest inspection: normal inspection of the chest, symmetric chest movement and normal respiratory effort Auscultation: Bilateral: Clear to Auscultation Cardio Palpation: normal PMI Rate: regular rate Rhythm: regular rhythm; Negative ectopic beats Heart sounds: S1 normal, S2 normal and normal, physiologic split S2; Negative rub, gallop or murmur GI GI: normal to inspection and soft Neuro General: patient alert, patient awake, patient oriented x3, gait normal, moves all extremities and no focal sensory deficit Skin Skin: no rashes or lesions noted Extremities Pulses: Normal: Right Posterior Tibial Pulse, Left Posterior Tibial Pulse, Right Radial Pulse and Left Radial Pulse Lower Extremity Edema: None: Bilateral Musculoskel Musculoskeletal: No joint tenderness Psych Psychological: normal affect Assessment & Plan Assessment/Plan (1) Abnormal stress test: (2) Chest pain: PLAN: Plan Patient will undergo a diagnostic heart catheterization. Based on findings plan of care will be determined.
--- NOTE | 2024-05-26 08:40 | RAD_ITS ---
STUDY: X-RAY CHEST REASON FOR EXAM: Female, 64 years old. Cardiac Cath TECHNIQUE: PA and lateral views of the chest. COMPARISON: Comparison is made with prior study dated January 09, 2023. FINDINGS: Mild increased linear markings in the lingular segment of the left upper lobe suggestive of either atelectasis and/or linear scarring. There is no demonstrated pleural abnormality. Normal size heart. Normal mediastinum and safia. Normal visualized pulmonary arteries. Normal visualized aortic arch and descending thoracic aorta. There is demineralization of the osseous structures. Normal visualized ribs, clavicles, and shoulders. There is no demonstrated abnormality of the visualized soft tissue structures of the upper abdomen. RAD/Chest PA and Lateral IMPRESSION: Mild increased markings in the lingular segment of the left upper lobe suggestive of linear scarring and/or atelectasis. Electronically Signed: Huy Santacruz MD at 15:26 EST ,
[2024-05-26 09:03] LABS: Absolute Lymphocyte Count 2.29 X10^3/uL (0.83-4.51); Absolute Neutrophil Count 3.8 X10^3/uL (2.0-7.7); Basophil# 0.04 X10^3/uL; Basophil% 0.6 % (0-1); Eosinophil# 0.18 X10^3/uL; Eosinophils% 2.7 % (0-5); Hematocrit 41.9 % (37-47); Hemoglobin 13.4 g/dL (12.0-15.0); Lymphocyte # 2.29 X10^3/ul (0.83-4.51); Lymphocyte % 33.8 % (19-41); Mean Corpuscular Hgb 28.5 pg (27.0-32.0); Mean Corpuscular Volume 89.1 fL (81-99); Mean Platelet Vol. 9.7 fl (6.2-12.0); Monocyte# 0.39 X10^3/uL; Monocyte% 5.8 % (0-10); NRBC Flagged by Analyzer 0 % (0-5); Neutrophil # 3.84 X10^3/uL (2.7-7.7); Neutrophil % 56.5 % (47-70); Platelet Count 250 K/mm3 (150-450); RBC Distribution Width CV 12.6 % (11.6-14.6); RBC Distribution Width SD 41.7 fl (35.1-43.9); White Blood Count 6.8 K/mm3 (4.4-11.0)
[2024-05-26 09:17] LABS: AST(SGOT) 12 U/L (15-37); Alanine Aminotransfer ALT/SGPT 23 U/L (13-56); Albumin, Serum 3.4 g/dL (3.2-5.0); Alkaline Phosphatase 112 U/L (45-117); Anion Gap 6 (5-15); BUN 14 mg/dL (7-18); BUN/Creat Ratio 12.6 RATIO (10-20); Bilirubin, Direct 0.12 mg/dL (0.00-0.30); Calcium,Total 9.3 mg/dL (8.5-10.1); Chloride 112 mmol/L (98-107); Cholesterol 243 mg/dL (200); Creatinine, Serum 1.11 mg/dL (0.55-1.02); EST Glomerular Filtration Rate 53 mL/min (>60); Est Glom Filt Rate - Afr Amer 64 mL/min (>60); Globulin 3.6 g/dL (2.2-4.2); Glucose 98 mg/dL (74-106); High Density Lipoprotein 72 mg/dL; Potassium 3.8 mmol/L (3.5-5.1); Sodium Level 143 mmol/L (136-145); Triglycerides 95 mg/dL; Very Low Density Lipoprotein 19 mg/dL (5-40)
[2024-06-02 08:15] VITALS: BMI 33.3
--- NOTE | 2024-06-02 10:07 | CL.D_ITS ---
Patient Name: ANMOL HERNANDEZ Study Date: 06/02/2024 Performing: Julio Cesar Scott MD Ht: 62 inches 157.48 cm : 1960 Wt: 182.79 lbs 82.91 kg Age: 64 Gender: female BSA: 1.84 PROCEDURE(S) PERFORMED [id number])LHC/COR/LV CLINICAL PROFILE AND INDICATIONS Indications: Suspected CAD Heart Failure: None Stress/Imaging Date: 05/10/24Stress Test with SPECT MPI: Positive Low Risk CAD Presentations: Stable angina. CONCLUSIONS Normal coronary arteries Normal LV size, wall motion,and systolic function RECOMMENDATIONS Medical therapy DESCRIPTION OF PROCEDURE The patient arrived to the procedure lab. The risks and benefits of the procedure as well as a full description of our services here and current unavailability of surgical backup were fully explained to the patient and/or their significant other prior to the catheterization. The Timeout was completed, verifying the correct patient and procedure. The patient's procedural site was prepped and draped in the usual fashion. Local anesthetic was given subcutaneously to right radial region with Lidocaine 2%. Using a modified Seldinger technique, arterial access was obtained via the right radial artery, a 6Fr sheath was inserted. Left Coronary Artery selective angiography was performed in multiple views using a 5 Fr. 4.0 [place] catheter. Right Coronary Artery selective angiography was then performed in multiple views using a 5 Fr. 4.0 [place] catheter. Left Ventriculography was performed in [place] projection using a 5 Fr. [place] catheter. LV to AO pullback pressures were then recorded.The arterial sheath was pulled and a TR Band was applied for hemostasis. 10cc of air CORONARY ANGIOGRAPHY DOMINANCE: Left Dominant LEFT HEART ASSESSMENT Left Ventricular Ejection Fraction: by LV Gram 60 % Normal LV wall motion Normal Left Ventricular systolic function LEFT MAIN: Angiographically normal LEFT ANTERIOR DESCENDING ARTERY: Angiographically normal CIRCUMFLEX ARTERY: Angiographically normal RIGHT CORONARY ARTERY: Angiographically normal COMPLICATIONS No Complications PROCEDURE MEDICATIONS Fentanyl 50 mcg IV Versed 1 mg IV Versed 1 mg IV Oxygen: 2 L/min via nasal cannula Heparin given IA 06/02/2024 09:35:44 Verapamil 2.5mg, Ntg 100mcgs, 3000 units of Heparin given IA 06/02/2024 09:35:44 SUMMARY OF HEMODYNAMIC DATA Time AIR REST ECG 08:18:23 ECG 09:16:05 AO 125/66 (88) SA 09:52:44 LV 127/0, 7 09:56:43 LV 112/1, 11 09:56:51 LV 111/0, 12 09:57:23 LVp 110/1, 12 09:57:26 AOp 109/48 (77) 09:57:33 Signed By Julio Cesar Scott MD On 06/02/2024 10:06:42 Julio Cesar Scott MD
== END 2024-06-02 11:34 | disposition home or self-care (01) ==
PROVIDERS: Nurse Practitioner Gerontology; PCP Family Medicine; Referring Provider Internal Medicine Cardiovascular Disease; Visit Provider Internal Medicine Cardiovascular Disease
DX: R94.39 Abnormal result of other cardiovascular function study (principal); J45.909 Unspecified asthma, uncomplicated; I20.9 Angina pectoris, unspecified; R00.2 Palpitations; R07.9 Chest pain, unspecified; Z90.710 Acquired absence of both cervix and uterus
CPT/HCPCS: 36415; 71046; 80048; 80061; 80076; 85025; 93458; 99152; 99153; Q9967; C1769; C1894

== ENCOUNTER 2024-08-20 16:33 | Emergency (ER) | payer OTHER, SELFPAY ==
[2024-08-20 16:34] VITALS: BP 114/70; PULSE 86; RESP 18; TEMP 36.7; O2SAT 98; BMI 32.5
[2024-08-20 17:06] LABS: Absolute Lymphocyte Count 0.62 X10^3/uL (0.83-4.51); Absolute Neutrophil Count 6.6 X10^3/uL (2.0-7.7); Basophil# 0.03 X10^3/uL; Basophil% 0.4 % (0-1); Eosinophil# 0.13 X10^3/uL; Eosinophils% 1.7 % (0-5); Hematocrit 41.1 % (37-47); Hemoglobin 13.8 g/dL (12.0-15.0); Lymphocyte # 0.62 X10^3/ul (0.83-4.51); Lymphocyte % 8.1 % (19-41); Mean Corp Hgb Conc 33.6 g/dL (32-36); Mean Corpuscular Hgb 29.2 pg (27.0-32.0); Mean Corpuscular Volume 86.9 fL (81-99); Mean Platelet Vol. 9.7 fl (6.2-12.0); Monocyte# 0.31 X10^3/uL; NRBC Flagged by Analyzer 0 % (0-5); Neutrophil # 6.58 X10^3/uL (2.7-7.7); Neutrophil % 85.4 % (47-70); Platelet Count 231 K/mm3 (150-450); RBC Distribution Width CV 12.6 % (11.6-14.6); RBC Distribution Width SD 40.1 fl (35.1-43.9); Red Blood Count 4.73 M/mm3 (4.2-5.4); White Blood Count 7.7 K/mm3 (4.4-11.0)
[2024-08-20 17:22] LABS: ALB/GLOB Ratio 1.4 RATIO (0.9-2.4); AST(SGOT) 21 U/L (<=31); Alanine Aminotransfer ALT/SGPT 23 U/L (<=34); Albumin, Serum 4.1 g/dL (3.4-4.8); Alkaline Phosphatase 110 U/L (35-104); Anion Gap 12 (5-15); BUN 21 mg/dL (4-19); BUN/Creat Ratio 19.3 RATIO (10-20); Calcium,Total 9.4 mg/dL (7.6-11.0); Carbon Dioxide 21.7 mmol/L (21.0-32.0); Chloride 108 mmol/L (98-108); Creatinine, Serum 1.08 mg/dL (0.70-1.20); EST Glomerular Filtration Rate 58 (>60); Estimated Creatinine Clearance 53.19 ml/min (50-250); Globulin 2.9 g/dL (2.2-4.2); Glucose 108 mg/dL (70-99); Lipase 24 U/L (13-75); Sodium Level 141 mmol/L (133-145); Total Bilirubin 0.49 mg/dL (0.00-1.30)
--- NOTE | 2024-08-20 17:27 | CT_ITS ---
PROCEDURE: ABDOMEN/PELVIS W IV CONT ONLY REASON FOR EXAM: Nausea vomiting Diarrhea TECHNIQUE: CT abdomen and pelvis was performed with IV contrast. Multiplanar reformats were generated. IV CONTRAST: 99 mL Isovue 370 COMPARISON: 11/22/2023 FINDINGS: Lung bases: Atelectasis/scarring.. Tiny hiatal hernia. Liver: Similar left lobe cyst. Additional tiny hypodensities too small to characterize, likely additional cysts or hemangiomas in the absence of known malignancy, also similar. Spleen: Unremarkable. Gallbladder: Unremarkable. Pancreas: Unremarkable. Adrenals: Unremarkable. Kidneys: Tiny hypodensities too small to characterize, likely cysts. Bowel: Mild focal stranding in the left pericolic gutter abutting the descending colon surrounding a fat lobule, atypical appearance for epiploic appendagitis, new from prior. Mildly prominent fluid distended but nondilated mid and distal small bowel loops without convincing inflammation. Diverticulosis. Normal caliber appendix. Lymph nodes: Unremarkable. Vasculature: Unremarkable. Peritoneum: Unremarkable. Bladder: Underdistended and suboptimally evaluated, grossly unremarkable. Reproductive Organs: Hysterectomy. Body Wall: Small fat containing umbilical hernia. Bones: Degenerative disc disease, L5-S1. Similar bilateral L5 pars defects with grade 1-2 anterolisthesis. Trace lumbar dextroscoliosis may be positional. Similar likely bone island along the left iliac bone. CT/Abdomen/Pelvis W IV Cont ONLY IMPRESSION: 1. Borderline findings of possible very mild small bowel ileus/enteritis. 2. Findings along the descending colon typical for mild epiploic appendagitis w hich may be an additional source of self-limited abdominal pain, if present. 3. Additional description as above. Reading Location: [id number]
--- NOTE | 2024-08-20 17:29 | EDS_ITS ---
HPI HPI - GI History of Present Illness Chief Complaint: Nausea/Vomiting/Diarrhea Narrative Narrative: 62-year-old female no past surgical history to the abdomen presents with nausea, vomiting, and diarrhea. 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 She started feeling some indigestion type symptoms at that time. She awoke this afternoon at around 1 PM, 4 hours ago, with burning sensation more in her chest and indigestion type symptoms. She states that she went to the bathroom and vomited 3 times without any hematemesis. She now has burning in her throat from the acid. She also had multiple episodes of diarrhea. No blood in her stool. She thinks that she has history of diverticulitis and IBS and thought maybe she was having an exacerbation of that. No exacerbating or alleviating factors to her abdominal pain. She might feel slightly weak and dehydrated as well. She has diffuse, crampy abdominal pain, and pressing on her abdomen makes her nauseated. No fevers or chills. [facility] Medical History Tachycardia Orthostatic hypotension Dyspnea Migraines GERD (gastroesophageal reflux disease) Hemorrhoids History of hay fever Asthma Chronic neck and back pain Depression Home Medications ?Medication ?Instructions ?Recorded ?Last Taken ?Type escitalopram oxalate 20 mg tablet 20 mg PO DAILY 09/1006/02/24 History (Lexapro) cholecalciferol (vitamin D3) 125 125 mcg PO DAILY 04/1712/06/20 History mcg (5,000 unit) capsule bupropion HCl 100 mg tablet,12 hr 100 mg PO DAILY 10/0706/02/24 History sustained-release (Wellbutrin SR) krill oil 500 mg capsule 500 mg PO DAILY 08/30/23 Unk nown History mecobalamin (vitamin B12) 1,000 1,000 mcg PO DAILY Unknown History mcg lozenges fluticasone 250 mcg-salmeterol 50 1 inh inhalation ONC E 11/19/23 06/02/24 History mcg/dose blistr powdr for
--- NOTE | 2024-08-20 17:29 | ED.VIS.GI ---
HPI HPI - GI History of Present Illness Chief Complaint: Nausea/Vomiting/Diarrhea Narrative Narrative: 62-year-old female no past surgical history to the abdomen presents with nausea, vomiting, and diarrhea. 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 She started feeling some indigestion type symptoms at that time. She awoke this afternoon at around 1 PM, 4 hours ago, with burning sensation more in her chest and indigestion type symptoms. She states that she went to the bathroom and vomited 3 times without any hematemesis. She now has burning in her throat from the acid. She also had multiple episodes of diarrhea. No blood in her stool. She thinks that she has history of diverticulitis and IBS and thought maybe she was having an exacerbation of that. No exacerbating or alleviating factors to her abdominal pain. She might feel slightly weak and dehydrated as well. She has diffuse, crampy abdominal pain, and pressing on her abdomen makes her nauseated. No fevers or chills. [facility] Medical History Tachycardia Orthostatic hypotension Dyspnea Migraines GERD (gastroesophageal reflux disease) Hemorrhoids History of hay fever Asthma Chronic neck and back pain Depression Home Medications ?Medication ?Instructions ?Recorded ?Last Taken ?Type escitalopram oxalate 20 mg tablet 20 mg PO DAILY 09/10/16 06/02/24 History (Lexapro) cholecalciferol (vitamin D3) 125 125 mcg PO DAILY 05/05/20 12/06/20 History mcg (5,000 unit) capsule bupropion HCl 100 mg tablet,12 hr 100 mg PO DAILY 06/20/22 06/02/24 History sustained-release (Wellbutrin SR) krill oil 500 mg capsule 500 mg PO DAILY 08/30/23 Unknown History mecobalamin (vitamin B12) 1,000 1,000 mcg PO DAILY 08/30/23 Unknown History mcg lozenges fluticasone 250 mcg-salmeterol 50 1 inh inhalation ONCE 11/19/23 06/02/24 History mcg/dose blistr powdr for inhalation (Wixela Inhub) metoprolol tartrate 25 mg tablet 12.5 mg (1/2 x 25 mg) PO DAILY 12/12/23 Unknown Rx Please give 90 pills in case pt needs to increase #90 tabs albuterol 90 mcg-budesonide 80 2 inh inhalation TID PRN shortness 03/16/24 Unknown Rx mcg/actuation HFA aerosol inhaler of breath #10.7 grams (Airsupra) aspirin 81 mg tablet,delayed 81 mg PO QDAY Cardiac cath #10 tabs 05/06/24 06/02/24 Rx release (Adult Aspirin Regimen) montelukast 10 mg tablet 10 mg PO DAILY #90 tabs 05/22/24 06/02/24 Rx (Singulair) losartan 50 mg tablet 50 mg PO QDAY #60 tabs 06/04/24 Unknown Rx dicyclomine 20 mg tablet 20 mg PO BID #15 tabs 08/20/24 Unknown Rx ondansetron 4 mg disintegrating 4 mg PO Q8H PRN PRN Nausea #12 tabs 08/20/24 Unknown Rx tablet Allergy/AdvReac Type Severity Reaction Status Date / Time Penicillins Allergy Severe Rash Verified 08/20/24 16:34 amoxicillin Allergy Rash Verified 08/20/24 16:34 Sulfa (Sulfonamide Allergy Rash Verified 08/20/24 16:34 Antibiotics) duloxetine (From Cymbalta) AdvReac Severe LETHARGY Verified 08/20/24 16:34 loratadine (From Claritin) AdvReac Intermediate headache Verified 08/20/24 16:34 Family History Mother Breast cancer CVA (cerebral vascular accident) Sister Cancer ovarian Father Myocardial infarction Grandmother Cancer cervical Aunt Breast cancer Cancer lymphoma Uncle Cancer lymphoma Other Asthma Surgical History H/O: hysterectomy History of colonoscopy (~2017) Social History (Updated 08/20/24 @ 17:43 by Linnette Rodriguez) household members: spouse housing: house Smoking Status: Never smoker alcohol intake: current details: social substance use type: does not use caffeine: Yes frequency: 3-4 times per week seatbelt use: always do you feel safe at home: Yes additional social history: Don- [employer] Patient works at [employer] ROS ROS ED ROS Narrative Review of systems positive for diffuse crampy abdominal pain. Positive nausea and vomiting. No hematemesis. Multiple episodes of diarrhea. Mild generalized weakness. No fevers or chills. EXAM Physical Exam Narrative Exam Narrative: Afebrile. Vital signs noted. Nontoxic-appearing. Cardiovascular examination reveals a regular rate and rhythm. Lungs are clear to auscultation bilaterally. Abdomen is soft with diffuse tenderness to palpation but no guarding or rebound. She does have more tenderness towards the left lower quadrant of the abdomen. Negative Oscar sign. No pain over McBurney's point. Neurological examination is nonfocal and nonlateralizing, moves all extremities. Const Vital Signs: 08/20/24 16:34 Temperature 98.1 F Temperature Source Oral Pulse Rate 86 Respiratory Rate 18 Blood Pressure 114/70 Blood Pressure Mean 84 Pulse Ox 98 Oxygen Delivery Method Room Air MDM MDM MDM Narrative Medical decision making narrative: Differential diagnosis includes but not limited to diverticulitis versus gastroenteritis versus acute appendicitis versus partial bowel obstruction. History and physical does not support bowel obstruction. Additionally, her pain is more diffuse she is not having pain over the right lower quadrant so I doubt acute appendicitis. Patient administered morphine and Zofran for analgesia. Protocol labs were obtained and reviewed by myself. She has normal white count of 7.7 with hemoglobin normal at 13.8, hematocrit 41.1, platelet count normal at 231. BUN slightly elevated at 21 with creatinine 1.08. Lipase normal at 24 so I doubt pancreatitis. Urinalysis obtained and negative for infection. I do not feel she requires antibiotics. I reviewed the radiology report of the CT of the abdomen and pelvis. There is distal small bowel wall thickening consistent with enteritis. Although it mentions ileus, she does have bowel sounds that I doubt ileus. There is no evidence of diverticulitis. She may have epiploic appendagitis as well. Appendix appears normal. Repeat examination at approximately 1830 does show her resting comfortably and her symptoms have improved. She will be given oral Bentyl here and prescription written for a few tablets to take twice a day as well as Zofran ODT's. She was given a note to be off work for the next 2 days. She will follow-up with her primary care provider. Return instructions to the emergency department were reviewed. Disposition is discharged home in stable condition. History & Record Review Discussion w/independent historian: Patient Lab Data Attestation: I reviewed the patient's lab results. Labs: Laboratory Results - last 24 hr 08/20/24 08/20/24 16:50 17:26 WBC 7.7 RBC 4.73 Hgb 13.8 Hct 41.1 MCV 86.9 MCH 29.2 MCHC 33.6 RDW Std Deviation 40.1 RDW Coeff of Sarah 12.6 Plt Count 231 MPV 9.7 Immature Gran % (Auto) 0.400 Neut % (Auto) 85.4 H Lymph % (Auto) 8.1 L [place] % (Auto) 4.0 Eos % (Auto) 1.7 Baso % (Auto) 0.4 Absolute Neuts (auto) 6.6 Absolute Lymphs (auto) 0.62 L Nucleated RBC % 0 Sodium 141 Potassium 4.0 Chloride 108 Carbon Dioxide 21.7 Anion Gap 12 BUN 21 H Creatinine 1.08 Estim Creat Clear Calc 53.19 Est GFR (MDRD) Non-Af 58 L BUN/Creatinine Ratio 19.3 Glucose 108 H Calcium 9.4 Total Bilirubin 0.49 AST 21 ALT 23 Alkaline Phosphatase 110 H Total Protein 7.0 Albumin 4.1 Globulin 2.9 Albumin/Globulin Ratio 1.4 Lipase 24 Urine Color Yellow Urine Clarity Sl. Cloudy Urine pH 7.0 Ur Specific [place] 1.010 Urine Protein 30 H Urine Glucose (UA) Normal Urine Ketones Negative Urine Occult Blood Negative Urine Nitrite Negative Urine Bilirubin Negative Urine Urobilinogen Normal Ur Leukocyte Esterase 25 H Urine RBC 0 SEEN Urine WBC 0-5 SEEN Ur Squamous Epith Cells 0-5 SEEN Urine Bacteria 0 SEEN Urine Mucus 0 SEEN Radiography Diagnostic Testing: Clinical Impression(s) from Imaging Studies Abdomen/Pelvis CT 08/20/24 17:27 IMPRESSION: 1. Borderline findings of possible very mild small bowel ileus/enteritis. 2. Findings along the descending colon typical for mild epiploic appendagitis which may be an additional source of self-limited abdominal pain, if present. 3. Additional description as above. Reading Location: [id number] Discharge Plan Triage Chief Complaint: Nausea/Vomiting/Diarrhea ED Provider: Nolan Anderson Dx/Rx/DC Orders Clinical Impression: Nausea, vomiting, and diarrhea, Enteritis, Epiploic appendagitis Instructions: Anatomy of the Digestive System, ED Gastroenteritis, Noninfectious, ED Vomit Diarrhea [place] Adult Prescriptions: New dicyclomine 20 mg tablet 20 mg PO BID Qty: 15 0RF ondansetron 4 mg tablet,disintegrating 4 mg PO Q8H PRN PRN (Reason: Nausea) Qty: 12 0RF No Action cholecalciferol (vitamin D3) 125 mcg (5,000 unit) capsule 125 mcg PO DAILY bupropion HCl [Wellbutrin SR] 100 mg tablet sustained-release 12 hr 100 mg PO DAILY krill oil 500 mg capsule 500 mg PO DAILY mecobalamin (vitamin B12) 1,000 mcg lozenge 1,000 mcg PO DAILY Rx Instructions: allow to dissolve in mouth OR may chew lightly before swallowing fluticasone propion-salmeterol [Wixela Inhub] 250-50 mcg/dose blister with device 1 inh inhalation ONCE Airsupra 90-80 mcg/actuation HFA aerosol inhaler 2 inh inhalation TID PRN (Reason: shortness of breath) Qty: 10.7 11RF Rx Instructions: as a single dose; may repeat up to 6 doses per day (12 inhalations) escitalopram oxalate [Lexapro] 20 MG tablet 20 mg PO DAILY metoprolol tartrate 25 mg tablet 12.5 mg PO DAILY Qty: 90 3RF aspirin [Adult Aspirin Regimen] 81 mg tablet,delayed release (DR/EC) 81 mg PO QDAY Qty: 10 0RF montelukast [Singulair] 10 mg tablet 10 mg PO DAILY Qty: 90 3RF losartan 50 mg tablet 50 mg PO QDAY Qty: 60 3RF Stand Alone Forms: ED Work / School Excuse Primary Care Provider: Justice James Referrals: Justice James MD [Primary Care Provider] - 3-5 Days if not improving Activity Restrictions/Additional Instructions: Medication as directed. Drink plenty of oral fluids. Return with increased abdominal pain, new or worsening symptoms. Print Language: Setswana Disposition Disposition: Home, Self Care
[2024-08-20] MEDS: Ondansetron 4 MG/2 ML Vial IV (17:36)
[2024-08-20] MEDS: Morphine 4 MG/ML Syringe IV (17:36)
[2024-08-20 17:40] LABS: Bacteria 0 SEEN /hpf (None Seen); Mucous, Urine 0 SEEN /hpf (<or=2+)
[2024-08-20 17:43] LABS: Color, Urine Yellow (Yellow); Glucose, Dipstick Normal (Normal); Ketone-Dipstick Negative (Negative); Leukocyte Esterase-Dipstick 25 /ul (Negative); Nitrite-Dipstick Negative (Negative); Occult Blood-Urine Negative /ul (Negative); Protein-Dipstick 30 mg/dl (Negative); Urine Bilirubin Dipstick Negative (Negative); Urine Clarity Sl. Cloudy (Clear); Urine Urobilinogen Normal (Normal)
[2024-08-20 17:49] LABS: Red Blood Cells-Urine 0 SEEN /hpf (0-5); Squamous Epithelial Cells - UA 0-5 SEEN /hpf (5-10); White Blood Cells 0-5 SEEN /hpf (0-5)
[2024-08-20 18:34] VITALS: BP 93/57; PULSE 70; RESP 18; O2SAT 98
[2024-08-20] MEDS: Dicyclomine 10 MG Capsule 20 MG PO (18:34)
--- NOTE | 2024-08-20 18:46 | ED.RN ---
pt states blood pressure always runs low. bp 93/61
[2024-08-20 19:08] VITALS: BP 93/57; PULSE 70; RESP 18; TEMP 36.8; O2SAT 98
== END 2024-08-20 19:56 | disposition home or self-care (01) ==
PROVIDERS: Emergency Provider Emergency Medicine; PCP Family Medicine; Referring Provider Emergency Medicine; Visit Provider Emergency Medicine
DX: R11.2 Nausea with vomiting, unspecified (principal); K52.9 Noninfective gastroenteritis and colitis, unspecified; Z90.710 Acquired absence of both cervix and uterus; K63.89 Other specified diseases of intestine; Q43.8 Other specified congenital malformations of intestine; F32.A Depression, unspecified; Z79.899 Other long term (current) drug therapy; J45.909 Unspecified asthma, uncomplicated; Z79.51 Long term (current) use of inhaled steroids
CPT/HCPCS: 74177; 80053; 81001; 83690; 85025; 93005; 96374; 96375; 99284; Q9967; J2405

== ENCOUNTER → 2024-09-23 | Outpatient (CLI) | payer OTHER, SELFPAY ==
[2024-09-23 12:25] LABS: Absolute Lymphocyte Count 2.18 X10^3/uL (0.83-4.51); Absolute Neutrophil Count 2.7 X10^3/uL (2.0-7.7); Basophil# 0.04 X10^3/uL; Basophil% 0.7 % (0-1); Eosinophil# 0.21 X10^3/uL; Eosinophils% 3.8 % (0-5); Hematocrit 37.8 % (37-47); Hemoglobin 12.3 g/dL (12.0-15.0); Lymphocyte # 2.18 X10^3/ul (0.83-4.51); Lymphocyte % 39.4 % (19-41); Mean Corp Hgb Conc 32.5 g/dL (32-36); Mean Corpuscular Hgb 28.7 pg (27.0-32.0); Mean Corpuscular Volume 88.1 fL (81-99); Mean Platelet Vol. 10.3 fl (6.2-12.0); Monocyte# 0.38 X10^3/uL; Monocyte% 6.9 % (0-10); NRBC Flagged by Analyzer 0 % (0-5); Neutrophil # 2.69 X10^3/uL (2.7-7.7); Neutrophil % 48.7 % (47-70); Platelet Count 255 K/mm3 (150-450); RBC Distribution Width CV 12.9 % (11.6-14.6); RBC Distribution Width SD 41.4 fl (35.1-43.9); Red Blood Count 4.29 M/mm3 (4.2-5.4); White Blood Count 5.5 K/mm3 (4.4-11.0)
[2024-09-23 15:53] LABS: ALB/GLOB Ratio 1.5 RATIO (0.9-2.4); AST(SGOT) 21 U/L (<=31); Alanine Aminotransfer ALT/SGPT 29 U/L (<=34); Albumin, Serum 3.9 g/dL (3.4-4.8); Alkaline Phosphatase 105 U/L (35-104); Anion Gap 10 (5-15); BUN 16 mg/dL (4-19); BUN/Creat Ratio 17.4 RATIO (10-20); Calcium,Total 9.3 mg/dL (7.6-11.0); Carbon Dioxide 22.5 mmol/L (21.0-32.0); Chloride 108 mmol/L (98-108); Creatinine, Serum 0.91 mg/dL (0.70-1.20); EST Glomerular Filtration Rate 71 (>60); Globulin 2.7 g/dL (2.2-4.2); Glucose 97 mg/dL (70-99); Magnesium 2.2 mg/dL (1.5-2.2); Potassium 3.7 mmol/L (3.3-5.1); Protein, Total 6.6 g/dL (5.9-8.4); Sodium Level 140 mmol/L (133-145); Total Bilirubin 0.19 mg/dL (0.00-1.30)
[2024-09-23 15:54] LABS: Vitamin D,25 Hydroxy 54.7 ng/mL (30-100)
== END | disposition home or self-care (01) ==
LOC: MFPLAB 09:49
PROVIDERS: PCP Family Medicine; Referring Provider Family Medicine; Visit Provider Family Medicine
DX: R00.0 Tachycardia, unspecified (principal); E87.6 Hypokalemia; E55.9 Vitamin D deficiency, unspecified
CPT/HCPCS: 36415; 80053; 82306; 83735; 84439; 84443; 85025

== ENCOUNTER → 2024-09-28 | Outpatient (CLI) | payer OTHER, SELFPAY ==
--- NOTE | 2024-09-28 08:00 | US_ITS ---
PROCEDURE: ABDOMEN LIMITED 09/28/2024 REASON FOR EXAM: CYST FINDINGS: Visualized portions of the pancreas appear within limits. No evidence of ductal dilation. The liver measures 18.4 cm. Increased appearing liver echogenicity can be seen with hepatic steatosis or other hepatocellular disease. Liver surface contour appears smooth. No evidence of intrahepatic biliary ductal dilation. Hepatic color flow is present. Flow within the portal vein appears hepatopetal as expected. 2 x 2.8 x 2.2 cm cyst seen within the left lobe. Smaller 8 mm cyst also noted left lobe. The gallbladder appears within limits without stones, wall thickening or pericholecystic free fluid. Wall measures 2 mm. Report of a negative sonographic Oscar's sign. CBD 4 mm. The right kidney measures 10.9 x 5.9 x 4.7 cm with a cortical thickness of 1.1 cm. No hydronephrosis, renal stone or perinephric edema seen. A couple of renal cysts, 6 mm upper lateral and 1.1 cm inferior medial. No free fluid seen. US/Abdomen Limited IMPRESSION: Increased appearing liver echogenicity can be seen with hepatic steatosis or ot her hepatocellular disease. Liver surface contour appears smooth. A couple of liver and renal cysts as above. Reading Location: [id number]
--- NOTE | 2024-09-28 08:30 | US_ITS ---
PROCEDURE: KIDNEY AND BLADDER 09/28/2024 REASON FOR EXAM: CYST TECHNIQUE: Bilateral renal and bladder ultrasound. FINDINGS: The right kidney measures 10.9 x 5.8 x 4.8 cm with a cortical thickness of 1.1 cm. The left kidney measures 11 x 5.8 x 4.8 with a cortical thickness of 1 cm. The kidneys appear within limits for echogenicity without hydronephrosis, renal stone or perinephric edema seen. A couple of right renal cysts, 6 mm upper and 1.1 cm lower pole. Bladder volume 86.5 cc. The bladder appears within limits. 5 mm wall thickness. Bilateral ureteral jets are seen during imaging. No free fluid seen. US/Kidney and Bladder IMPRESSION: The kidneys appear within limits as above. A couple of small right renal cysts. Bladder wall borderline thick at 5 mm otherwise appears within limits. Reading Location: [id number]
== END | disposition home or self-care (01) ==
LOC: US 07:58
PROVIDERS: PCP Family Medicine; Referring Provider Family Medicine; Visit Provider Family Medicine
DX: K76.89 Other specified diseases of liver (principal); N28.1 Cyst of kidney, acquired
CPT/HCPCS: 76705; 76770

== ENCOUNTER 2025-04-29 05:50 | Emergency (ER) | payer OTHER, SELFPAY ==
[2025-04-29 05:51] VITALS: BP 132/75; PULSE 77; RESP 16; TEMP 37.4; O2SAT 96; BMI 31.1
--- OUTSIDE RECORDS SUMMARY | 2025-04-29 06:12 | XMS RPT_ITS | CCD ---
Author Organization [facility] Care Team Providers Care Gas Main And Line Fitter Name Role Phone Dr. Justice James Primary Care Provider Dr. Justice James Referring Provider Georges DENNIS, DIRECTOR OF STRATEGIC PARTNERSHIPS-C Parul Attending Provider Dr. Justice James Primary Care Provider Dr. Justice James Referring Provider JIMMY Zuniga Attending Provider Dr. Justice James Primary Care Provider Dr. Justice James Referring Provider JIMMY Zuniga Attending Provider Dr. Julio Cesar Scott Attending Provider Terrell DENNIS, DIRECTOR OF STRATEGIC PARTNERSHIPS-C Yocasta Attending Provider Dr. Justice James MD Primary Care Provider Terrell DENNIS-CYocasta Attending Provider Terrell DENNIS-CYocasta Referring Provider Terrell DENNIS-CYocasta Other Provider Dr. Julio Cesar Scott MD Attending Provider Dr. Julio Cesar Scott MD Other Provider Joie Lazaro Attending Provider Maya RANDHAWA, Dr. José Miguel Hall Attending Provider Dr. José Miguel Trejo MD Referring Provider Dr. Julio Cesar Scott MD Referring Provider Nolan Anderson MD Referring Provider Monica RANDHAWA, Nolan Emergency Provider Erika RANDHAWA, Dr. Justice Calvert Primary Care Provider [phone] Sonia RANDHAWA, Dr. Harrell Attending Provider Sonia RANDHAWA, Dr. Harrell Referring Provider [phone] Terrell DIRECTOR OF STRATEGIC PARTNERSHIPS-C, Yocasta Other Provider Monica RANDHAWA, Nolan Attending Provider Monica RANDHAWA, Nolan Referring Provider Monica RANDHAWA, Nolan Emergency Provider Erika RANDHAWA, Dr. Justice Calvert Attending Provider Erika RANDHAWA, Justice Referring Provider Unavailable Erika RANDHAWA, Dr. Justice Calvert Referring Provider Erika RANDHAWA, Dr. Justice Calvert Primary Care Physician Erika RANDHAWA, Dr. Justice Calvert Referring Provider Georges DENNIS-C, Parul Attending Physician Erika Justice E Primary Care Unavailable Schlukaszner, Justice E Attending Unavailable Justice Wheeler Referring Unavailable Reodicjose, Nolan Referring Unavailable Reodica, Nolan Attending Unavailable Schinner, Justice E Primary Care Unavailable Schinner, Justice E Primary Care Unavailable Schinner Justice E Referring Unavailable SchinnerJustice E Attending Unavailable Schinner, Justice E Primary Care Unavailable Terrell DENNIS, Yocasta Referring Unavailable Terrell DENNIS, Yocasta Attending Unavailable Schinner, Justice E Primary Care Unavailable Schinner, Justice E Referring Unavailable Joie Lazaro Attending Unavail able Schinner Justice E Primary Care Unavailable Sonia, Julio Cesar Referring Unavailable Sonia, Dinosaur Attending Unavailable Schinner, Justice E Primary Care Unavailable Sonia, Julio Cesar Attending Unavailable Terrell DENNIS, Yocasta Consulting Unavailable Terrell DENNIS, Yocasta Referring Unavailable Schinner, Justice E Primary Care Unavailable Sonia, Julio Cesar Consulting Unavailable Joie Lazaro Attending Unavail able Schinner, Justice E Primary Care Unavailable Schinner, Justice E Referring Unavailable Parul Su NP Attending Unavailable Parul Su NP Attending Unavailable Schinner, Justice E Primary Care Unavailable Schinner, Justice E Referring Unavailable Justice James Primary Care Unavailable Julio Cesar Scott Attending Unavailable Yocasta Tejada NP Referring Unavailable Justice James Primary Care Unavailable Yocasta Tejada NP Attending Unavailable Justice James Primary Care Unavailable Yocasta Tejada NP Referring Unavailable Yocasta Tejada NP Attending Unavailable Yocasta Tejada NP Consulting Unavailable Justice James Primary Care Unavailable José Miguel Trejo Referring Unavailable José Miguel Trejo Attending Unavailable Allergies Allergy Classification Reported Allergen(s) Allergy Type Date of Onset Reaction(s) Facility (16 sources) Amoxicillin Drug Allergy 1 [facility] (17 sources) Sulfonamides (Antibiotic); Translations: [Sulfa (Sulfonamide Antibiotics)] Allergy to substance 1 [facility] (6 sources) [facility] All[facility] 4 headache [facility] (6 sources) Penicillins Allergy to substance 4 [facility] (1 source) Amoxicillin Drug Allergy 5 [facility] (1 source) DULoxetine Drug Allergy 5 [facility] (1 source) Loratadine Drug Allergy 5 [facility] (1 source) Penicillins Drug allergy (disorder) 5 [facility] Medications Current Medications Medication Drug Class(es) Dates Sig (Normalized) Sig (Original) albuterol 0.83 mg/ml inhalation solution (20 sources) beta2-Adrenergic Agonist Start: 10-09-2024 take 2.5 mg by inhalation every four hours as needed for wheezing Albuterol Sulfate 2.5 mg /3 mL (0.083 %) solution for nebulization Active 2.5 mg INHALATION Q4H as needed for Sob &/Or Wheezing 180 3 October 09, 2024 12:00am Complies with drug therapy Start: 06-20-2022 End: 07-26-2023 take 1 puff(s) by inhalation every four hours as needed Albuterol Sulfate Active 2 PUFF INHALATION EVERY 4 HOURS NEEDED 8.5 July 26, 2023 11:21am Start: 09-10-2016 take 1 puff(s) by in halation every four hours as needed Albuterol Sulfate Active 2 PUFF INHALATION EVERY 4 HOURS NEEDED September 10, 2016 8:17am Start: 09-10-2016 End: 03-16-2024 Albuterol Sulfate (Ventolin Hfa) 90 mcg/actuation HFA aerosol inhaler Discontinued 2 NMA INHALATION Q4H as needed for shortness of breath or wheezing 18 6 October 11, 2023 12:00am March 16, 2024 8:03am Start: 09-10-2016 End: 06-20-2022 Albuterol Sulfate 1 INHALER inhaler Discontinued 2 NMA INHALATION EVERY 4 HOURS NEEDED as needed for Sob &/Or Wheezing September 10, 2016 12:00am June 20, 2022 12:12pm Start: 09-10-2016 End: 06-20-2022 Albuterol Sulfate 1 INHALER inhaler Discontinued 2 NMA INHALATION EVERY 4 HOURS NEEDED as needed for Sob &/Or Wheezing September 09, 2016 11:00pm June 20, 2022 11:12am Start: 09-10-2016 End: 06-20-2022 take 1 puff(s) by inhalation every four hours as needed Albuterol Sulfate Discontinued 2 PUFF INHALATION EVERY 4 HOURS NEEDED September 09, 2016 11:00pm June 20, 2022 11:12am Start: 09-10-2016 End: 06-20-2022 take 1 puff(s) by inhalation every four hours as needed Albuterol Sulfate Discontinued 2 PUFF INHALATION EVERY 4 HOURS NEEDED September 10, 2016 12:00am June 20, 2022 12:12pm Start: 09-10-2016 take 1 puff(s) by in halation every four hours as needed Albuterol Sulfate Active 2 PUFF INHALATION EVERY 4 HOURS NEEDED September 10, 2016 12:00am Albuterol-Budesonide (1 source) Start: 03-16-2024 Albuterol-[place] sonide (Airsupra) 90-80 mcg/actuation HFA aerosol inhaler Active 2 NMA INHALATION THREE TIMES A DAY as needed for shortness of breath 10.7 11 March 16, 2024 12:00am as a single dose; may repeat up to 6 doses per day (12 inhalations) Complies with drug therapy Albuterol-Budesonide (Airsup ra) 90-80 mcg/actuation HFA aerosol inhaler (3 sources) Start: 03-16-2024 Albuterol-[place] sonide (Airsupra) 90-80 mcg/actuation HFA aerosol inhaler Active 2 NMA INHALATION THREE TIMES A DAY as needed for shortness of breath 10.7 March 16, 2024 12:00am as a single dose; may repeat up to 6 doses per day (12 inhalations) Start: 03-16-2024 Albuterol-[place] sonide (Airsupra) 90-80 mcg/actuation HFA aerosol inhaler Active 2 NMA INHALATION THREE TIMES A DAY as needed for shortness of breath 10.7 March 15, 2024 11:00pm as a single dose; may repeat up to 6 doses per day (12 inhalations) Budesonide-Formoterol (20 sources) Corticosteroid, beta2-Adrenergic Agonist Start: 03-16-2025 Budesonide-Formoterol (Breyna) 160-4.5 mcg/actuation HFA aerosol inhaler Active 2 NMA INHALATION TWICE A DAY 3 3 March 16, 2025 12:00am Complies with drug therapy Start: 05-01-2021 End: 10-24-2023 Budesonide-Formoterol (Symbi blu) 160-4.5 mcg/actuation HFA aerosol inhaler Discontinued 2 NMA INHALATION Q12H 3 3 October 21, 2023 1:16pm October 24, 2023 12:05pm Start: 05-01-2021 End: 06-20-2022 take 1 puff(s) by inhalation every twelve hours Budesonide-Formoterol (Symbicort) 160-4.5 mcg/actuation HFA aerosol inhaler Active 2 PUFF INHALATION Q12H 3 June 20, 2022 12:10pm Start: 10-04-2020 End: 05-01-2021 Budesonide-Formoterol (Symbi blu) 160-4.5 mcg/actuation HFA aerosol inhaler Discontinued 2 NMA INHALATION Q12H 3 3 October 04, 2020 8:33am May 01, 2021 10:33am Start: 10-04-2020 End: 05-01-2021 Budesonide-Formoterol (Symbi blu) 160-4.5 mcg/actuation HFA aerosol inhaler Discontinued 2 NMA INHALATION Q12H 3 October 04, 2020 8:33am May 01, 2021 10:33am Start: 10-04-2020 End: 05-01-2021 Budesonide-Formoterol (Symbi blu) 160-4.5 mcg/actuation HFA aerosol inhaler Discontinued 2 NMA INHALATION Q12H 3 October 04, 2020 7:33am May 01, 2021 9:33am Start: 10-04-2020 End: 05-01-2021 take 1 puff(s) by inhalation every twelve hours Budesonide-Formoterol (Symbicort) 160-4.5 mcg/actuation HFA aerosol inhaler Discontinued 2 PUFF INHALATION Q12H 3 October 04, 2020 7:33am May 01, 2021 9:33am Start: 10-04-2020 End: 05-01-2021 take 1 puff(s) by inhalation every twelve hours Budesonide-Formoterol (Symbicort) 160-4.5 mcg/actuation HFA aerosol inhaler Discontinued 2 PUFF INHALATION Q12H 3 October 04, 2020 8:33am May 01, 2021 10:33am Start: 07-23-2019 End: 10-04-2020 Budesonide-Formoterol (Symbi blu) 160-4.5 mcg/actuation HFA aerosol inhaler Discontinued 2 NMA INHALATION Q12H 3 3 August 26, 2019 8:34am October 04, 2020 8:33am Start: 07-23-2019 End: 10-04-2020 take 1 puff(s) by inhalation every twelve hours Budesonide-Formoterol (Symbicort) 160-4.5 mcg/actuation HFA aerosol inhaler Discontinued 2 PUFF INHALATION Q12H 3 August 26, 2019 8:34am October 04, 2020 8:33am Start: 08-14-2018 End: 06-01-2019 Budesonide-Formoterol (Symbi blu) 80-4.5 mcg/actuation HFA aerosol inhaler Discontinued 2 NMA INHALATION TWICE A DAY August 14, 2018 1:00am June 01, 2019 11:18am Start: 08-14-2018 End: 06-01-2019 take 1 puff(s) by inhalation twice daily Budesonide-Formoterol (Symbicort) 80-4.5 mcg/actuation HFA aerosol inhaler Discontinued 2 PUFF INHALATION TWICE A DAY August 14, 2018 1:00am June 01, 2019 11:18am 12 hr buPROPion hydrochloride 100 mg extended release oral tablet (20 sources) Aminoketone Start: 06-20-2022 take 1 tablet by mouth once daily Bupropion Hcl (Wellbutrin Sr) 100 mg tablet sustained-release 12 hr Active 100 mg PO DAILY June 20, 2022 1:00am Complies with drug therapy Start: 10-04-2020 End: 06-20-2022 take 1 tablet by mouth once daily Bupropion Hcl (Wellbutrin Sr) 150 mg tablet sustained-release 12 hr Discontinued 150 mg PO DAILY October 04, 2020 12:00am June 20, 2022 11:52am cholecalciferol 0.125 mg oral capsule (16 sources) Vitamin D Start: 05-05-2020 take 1 capsule by mouth once daily Cholecalciferol (Vitamin D3) 125 mcg (5,000 unit) capsule Active 125 ug PO DAILY May 05, 2020 1:00am Complies with drug therapy dicyclomine hydrochloride 10 mg oral capsule (20 sources) Anticholinergic Start: 08-20-2024 take 1 capsule by mouth twice daily as needed Dicyclomine 10 mg capsule Active 10 mg PO TWICE A DAY as needed for Abdominal cramping 10 August 20, 2024 7:59pm Complies with drug therapy Start: 08-02-2019 End: 05-05-2020 take 2 capsules by mouth three times daily before mealtime Dicyclomine 10 MG capsule Discontinued 20 mg PO THREE TIMES DAILY BEFORE MEALS 20 August 02, 2019 1:00am May 05, 2020 10:42am Start: 08-02-2019 End: 05-05-2020 take 20 mg by mouth three times daily before mealtime Dicyclomine Discontinued 20 MG PO THREE TIMES DAILY BEFORE MEALS August 02, 2019 1:00am May 05, 2020 10:42am escitalopram 20 mg oral tablet (16 sources) Serotonin Reuptake Inhibitor Start: 09-10-2016 take 1 tablet by mouth once daily Escitalopram Oxalate (Lexapro) 20 MG tablet Active 20 mg PO DAILY September 10, 2016 12:00am Complies with drug therapy krill oil 500 mg oral capsule (6 sources) Start: 08-30-2023 take 1 capsule by mouth once daily Krill Oil 500 mg capsule Active 500 mg PO DAILY August 30, 2023 12:00am Complies with drug therapy losartan potassium 50 mg oral tablet (5 sources) Angiotensin 2 Receptor Lina Start: 06-04-2024 End: 11-25-2024 take 1 tablet by mouth once daily Losartan 50 mg tablet Active 50 mg PO daily 3 November 25, 2024 11:00am Complies with drug therapy mecobalamin 1 mg oral lozenge (3 sources) Start: 08-30-2023 take 1000 ug by mouth once daily Mecobalamin (Vitamin B12) 1,000 mcg lozenge Active 1000 ug PO DAILY August 30, 2023 12:00am allow to dissolve in mouth OR may chew lightly before swallowing Complies with drug therapy Start: 08-30-2023 take 1000 ug by mout h once daily Mecobalamin (Vitamin B12) Active 1000 MCG PO DAILY August 30, 2023 12:00am allow to dissolve in mouth OR may chew lightly before swallowing Mecobalamin (Vitamin B12) 1,000 mcg lozenge (3 sources) Start: 08-30-2023 take 1000 ug by mouth once daily Mecobalamin (Vitamin B12) 1,000 mcg lozenge Active 1000 ug PO DAILY August 30, 2023 12:00am allow to dissolve in mouth OR may chew lightly before swallowing Start: 08-30-2023 take 1000 ug by mout h once daily Mecobalamin (Vitamin B12) 1,000 mcg lozenge Active 1000 ug PO DAILY August 29, 2023 11:00pm allow to dissolve in mouth OR may chew lightly before swallowing Completed/Discontinued Medications Medication Drug Class(es) Dates Sig (Normalized) Sig (Original) acetaminophen 325 mg / HYDROcodone bitartrate 5 mg oral tablet (4 sources) Opioid Agonist Start: 11-22-2023 End: 02-20-2024 Hydrocodone-Acetami nophen 5-325 mg tablet Discontinued 1 {tbl} PO EVERY 6 HOURS NEEDED as needed for Pain 10 3 0 November 22, 2023 February 20, 2024 8:32am Diverticulitis of sigmoid colon aspirin 81 mg delayed release oral tablet (4 sources) Platelet Aggregation Inhibitor, Nonsteroidal Anti-inflammatory Drug Start: 05-06-2024 End: 03-16-2025 take 1 tablet by mouth once daily Aspirin (Adult Aspirin Regimen) 81 mg tablet,delayed release (DR/EC) Discontinued 81 mg PO daily 10 May 06, 2024 1:00am March 16, 2025 10:59am Cardiac cath azithromycin 250 mg oral tablet (20 sources) Macrolide Antimicrobial Start: 10-09-2024 End: 03-16-2025 Azithromycin 250 mg tablet Discontinued 0 PO .COMPLEX October 09, 2024 12:00am March 16, 2025 10:59am orally; as directed Start: 01-02-2023 End: 06-12-2023 take 2-5 tablets by mouth once daily Azithromycin 250 mg tablet Discontinued 0 PO .COMPLEX 6 January 02, 2023 12:00am June 12, 2023 4:36pm take 500 mg today (day 1), then 250 mg for 4 days (days 2-5) PO Start: 12-08-2020 End: 12-15-2020 take 1 tablet by mouth once daily at bedtime Azithromycin 500 mg tablet Discontinued 500 mg PO DAILY 1 December 08, 2020 12:00am December 15, 2020 9:19am Take dose this evening at bedtime cefdinir 300 mg oral capsule (16 sources) Cephalosporin Antibacterial Start: 12-08-2020 End: 12-15-2020 take 1 capsule by mouth twice daily Cefdinir 300 mg capsule Discontinued 300 mg PO TWICE A DAY 10 December 08, 2020 12:00am December 15, 2020 9:19am ciprofloxacin 500 mg oral tablet (4 sources) Quinolone Antimicrobial Start: 11-22-2023 End: 02-20-2024 take 1 tablet by mouth twice daily Ciprofloxacin Hcl 500 mg tablet Discontinued 500 mg PO TWICE A DAY 20 November 22, 2023 12:00am February 20, 2024 8:33am cyclobenzaprine hydrochloride 10 mg oral tablet (16 sources) Muscle Relaxant Start: 09-10-2016 End: 08-07-2017 take 1 tablet by mouth three times daily as needed for muscle spasms Cyclobenzaprine 10 MG tablet Discontinued 10 mg PO THREE TIMES A DAY as needed for Muscle Spasm September 10, 2016 12:00am August 07, 2017 11:41am docusate sodium 100 mg oral capsule (20 sources) Start: 05-05-2020 End: 02-20-2024 take 2 capsules by mouth once daily as needed Docusate Sodium (Colace) 100 mg capsule Discontinued 200 mg PO DAILY as needed August 30, 2023 1:53pm February 20, 2024 8:32am ergocalciferol 0.05 mg oral tablet (16 sources) Provitamin D2 Compound Start: 08-14-2018 End: 05-05-2020 Ergocalciferol (Vitamin D2) 2,000 unit tablet Discontinued 2000 U PO DAILY August 14, 2018 1:00am May 05, 2020 10:41am estradiol 0.5 mg oral tablet (20 sources) Estrogen Start: 08-14-2018 End: 05-05-2020 take 1 tablet by mouth once daily Estradiol 0.5 mg tablet Discontinued 0.5 mg PO DAILY 90 3 August 14, 2018 1:00am May 05, 2020 10:47am Start: 08-07-2017 End: 05-19-2018 take 1 tablet by mouth once daily Estradiol 0.5 mg tablet Discontinued 0.5 mg PO daily 90 3 August 07, 2017 1:00am May 19, 2018 9:45am fluticasone propionate 0.05 mg/actuat metered dose nasal spray (16 sources) Corticosteroid Start: 07-23-2019 End: 05-05-2020 Fluticasone Propionate 50 mcg/actuation spray,suspension Discontinued 1 NMA INTRANASAL Q12H 54.6 3 July 23, 2019 1:00am May 05, 2020 10:43am administer into each nostril Start: 07-23-2019 End: 05-05-2020 take 1 spray(s) nasal route every twelve hours Fluticasone Propionate Discontinued 1 SPRAY INTRANASAL Q12H 54.6 July 23, 2019 1:00am May 05, 2020 10:43am administer into each nostril Fluticasone Propion-Salmeterol (10 sources) Corticosteroid, beta2-Adrenergic Agonist Start: 12-25-2024 End: 03-16-2025 Fluticasone Propion-Salmeterol (Wixela Inhub) 250-50 mcg/dose blister with device Discontinued 1 NMA INHALATION TWICE A DAY 60 December 25, 2024 8:27am March 16, 2025 11:30am Start: 11-19-2024 End: 12-25-2024 Fluticasone Propion-Salmeter ol (Wixela Inhub) 250-50 mcg/dose blister with device Discontinued 1 NMA INHALATION TWICE A DAY 60 11 November 19, 2024 2:02pm December 25, 2024 8:27am Start: 11-19-2023 End: 11-19-2024 Fluticasone Propion-Salmeter ol (Wixela Inhub) 250-50 mcg/dose blister with device Discontinued 1 NMA INHALATION ONCE November 19, 2023 8:51am November 19, 2024 2:02pm Start: 11-19-2023 Fluticasone Pr opion-Salmeterol (Wixela Inhub) 250-50 mcg/dose blister with device Active 1 NMA INHALATION ONCE November 19, 2023 8:51am Start: 11-19-2023 Fluticasone Pr opion-Salmeterol (Wixela Inhub) 250-50 mcg/dose blister with device Active 1 NMA INHALATION ONCE November 19, 2023 7:51am Start: 10-24-2023 End: 11-19-2023 Fluticasone Propion-Salmeter ol (Wixela Inhub) 250-50 mcg/dose blister with device Discontinued 1 NMA INHALATION TWICE A DAY 60 11 October 24, 2023 12:00am November 19, 2023 8:52am LORazepam 0.5 mg oral tablet (16 sources) Benzodiazepine Start: 09-10-2016 End: 05-19-2018 take 1 tablet by mouth at bedtime as needed for sleep Lorazepam 0.5 MG tablet Discontinued 0.5 mg PO AT BEDTIME NEEDED as needed for Sleep September 10, 2016 12:00am May 19, 2018 9:43am metoprolol tartrate 25 mg oral tablet (20 sources) beta-Adrenergic Lina Start: 12-12-2023 End: 03-16-2025 Metoprolol Tartrate 25 mg tablet Discontinued 12.5 mg PO DAILY 90 3 December 12, 2023 8:57am March 16, 2025 11:00am Please give 90 pills in case pt needs to increase Start: 11-19-2023 End: 12-12-2023 Metoprolol Tartrate 25 mg ta blet Discontinued 12.5 mg PO DAILY 90 3 November 19, 2023 9:01am December 12, 2023 8:57am Start: 08-28-2023 End: 11-19-2023 take 1 tablet by mouth once daily Metoprolol Tartrate 25 mg tablet Discontinued 25 mg PO DAILY 90 3 September 10, 2023 12:01pm November 19, 2023 9:02am Start: 08-27-2023 End: 08-28-2023 take 1 capsule by mouth once daily Metoprolol Succinate 25 mg capsule,sprinkle,ER 24hr Discontinued 25 mg PO DAILY 30 0 August 27, 2023 12:00am August 28, 2023 1:57pm metroNIDAZOLE 500 mg oral tablet (4 sources) Nitroimidazole Antimicrobial Start: 11-22-2023 End: 02-20-2024 take 1 tablet by mouth twice daily Metronidazole 500 mg tablet Discontinued 500 mg PO TWICE A DAY 20 0 November 22, 2023 12:00am February 20, 2024 8:32am montelukast 10 mg oral tablet (20 sources) Leukotriene Receptor Antagonist Start: 09-10-2016 End: 05-22-2024 take 1 tablet by mouth once daily Montelukast (Singulair) 10 mg tablet Discontinued 10 mg PO DAILY 90 June 04, 2023 10:55am May 22, 2024 10:06am nitrofurantoin, macrocrystals 25 mg / nitrofurantoin, monohydrate 75 mg oral capsule (20 sources) Nitrofuran Antibacterial Start: 06-12-2023 End: 06-19-2023 take 1 capsule by mouth every twelve hours at mealtime Nitrofurantoin Monohyd/M-Cryst 100 mg capsule Discontinued 1 NMA PO Q12H 14 7 0 June 12, 2023 1:00am June 18, 2023 1:00am June 19, 2023 1:05am administer with a meal/food; swallow whole; do not open, crush, dissolve , or chew Start: 11-29-2020 End: 12-06-2020 take 1 capsule by mouth every twelve hours at mealtime Nitrofurantoin Monohyd/M-Cryst 100 mg capsule Discontinued 1 NMA PO Q12H 14 7 0 November 29, 2020 12:00am December 05, 2020 12:00am December 06, 2020 12:01am administer with a meal/food; swallow whole; do not open, crush, dissolve , or chew Start: 05-19-2018 End: 05-26-2018 take 1 capsule by mouth every twelve hours at mealtime Nitrofurantoin Monohyd/M-Cryst 100 mg capsule Discontinued 1 NMA PO Q12H 14 7 0 May 19, 2018 1:00am May 25, 2018 1:00am May 26, 2018 1:08am Urinary tract infection, site not specified administer with a meal/food; swallow whole; do not open, crush, dissolve , or chew omeprazole 20 mg delayed release oral capsule (16 sources) Proton Pump Inhibitor Start: 04-05-2020 End: 02-20-2024 take 1 capsule by mouth once daily Omeprazole Magnesium (Acid Data Collection Technician (Omeprazole)) 20 mg capsule,delayed release(DR/EC) Discontinued 20 mg PO DAILY April 05, 2020 12:00am February 20, 2024 8:32am ondansetron 4 mg disintegrating oral tablet (20 sources) Serotonin-3 Receptor Antagonist Start: 08-20-2024 End: 03-16-2025 take 1 tablet by mouth every eight hours as needed for nausea Ondansetron 4 mg tablet,disintegratin g Discontinued 4 mg PO EVERY 8 HOURS NEEDED as needed for Nausea 12 August 20, 2024 1:00am March 16, 2025 11:00am Start: 11-22-2023 End: 02-20-2024 take 1 tablet by mouth every eight hours as needed for nausea and vomiting Ondansetron 8 mg tablet,disintegrating Discontinued 8 mg PO Q8H as needed for nausea and vomiting 12 November 22, 2023 12:00am February 20, 2024 8:32am Start: 02-25-2022 End: 06-12-2023 take 1 tablet by mouth every six hours as needed for nausea and vomiting Ondansetron 4 mg tablet,disintegrating Discontinued 4 mg PO EVERY 6 HOURS as needed for nausea and vomiting February 25, 2022 12:00am June 12, 2023 4:36pm Start: 08-02-2019 End: 05-05-2020 take 1 tablet by mouth every eight hours as needed for nausea Ondansetron 4 MG tablet Discontinued 4 mg PO EVERY 8 HOURS NEEDED as needed for Nausea August 02, 2019 1:00am May 05, 2020 10:43am predniSONE 20 mg oral tablet (20 sources) Start: 10-09-2024 End: 10-14-2024 take 3 tablets by mouth once daily at mealtime Prednisone 20 mg tablet Discontinued 60 mg PO daily 15 5 0 October 09, 2024 12:00am October 13, 2024 12:00am October 14, 2024 12:08am administer with food or milk Start: 01-02-2023 End: 06-12-2023 take 3 tablets by mouth once daily at mealtime Prednisone 20 mg tablet Discontinued 60 mg PO daily 15 0 January 02, 2023 12:00am June 12, 2023 4:36pm administer with food or milk Start: 01-02-2023 End: 06-12-2023 take 60 mg by mouth once daily at mealtime Prednisone Discontinued 60 MG PO daily January 02, 2023 12:00am June 12, 2023 4:36pm administer with food or milk Start: 12-08-2020 End: 12-15-2020 take 4 tablets by mouth once daily at breakfast Prednisone 10 mg tablet Discontinued 40 mg PO WITH BREAKFAST 30 December 08, 2020 12:00am December 15, 2020 9:20am Take 40 mg daily for 4 more days Start: 12-08-2020 End: 12-15-2020 take 40 mg by mouth once daily at breakfast Prednisone Discontinued 40 MG PO WITH BREAKFAST December 08, 2020 12:00am December 15, 2020 9:20am Take 40 mg daily for 4 more days spacer (16 sources) Start: 08-26-2019 End: 08-26-2019 spacer Discontinued 0 .ROUTE .MEDSUPPLY August 26, 2019 8:29am August 26, 2019 8:34am As directed Start: 08-26-2019 End: 08-26-2019 spacer Discontinued 0 .ROUTE .MEDSUPPLY 1 August 26, 2019 12:00am August 26, 2019 8:34am As directed Start: 08-26-2019 End: 08-26-2019 spacer Discontinued 0 .ROUTE .MEDSUPPLY August 25, 2019 11:00pm August 26, 2019 7:34am As directed Start: 08-26-2019 End: 08-26-2019 spacer Discontinued 0 .ROUTE .MEDSUPPLY 1 August 26, 2019 12:00am August 26, 2019 8:34am As directed theophylline 400 mg extended release oral tablet (16 sources) Methylxanthine Start: 09-10-2016 End: 05-19-2018 Theophylline 400 MG tablet extended release 24 hr Discontinued 300 mg PO TWICE A DAY September 10, 2016 12:00am May 19, 2018 9:44am Start: 09-10-2016 End: 05-19-2018 take 300 mg by mouth twice daily Theophylline Discontinued 300 MG PO TWICE A DAY September 10, 2016 12:00am May 19, 2018 9:44am 60 actuat tiotropium 0.73147 mg/actuat inhalation spray (16 sources) Anticholinergic Start: 06-01-2019 End: 07-23-2019 take 1.25 ug by inhalation once daily Tiotropium Lynndyl (Spiriva Respimat) 1.25 mcg/actuation mist Discontinued 2 NMA INHALATION DAILY 4 June 01, 2019 1:00am July 23, 2019 12:27pm Start: 06-01-2019 End: 07-23-2019 take 1 puff(s) by inhalation once daily Tiotropium Lynndyl (Spiriva Respimat) 1.25 mcg/actuation mist Discontinued 2 PUFF INHALATION DAILY June 01, 2019 1:00am July 23, 2019 12:27pm Problems Active Problems Problem Classification Problem Date Documented Da te Episodic/Chronic Acute bronchitis (1 source) Parainfluenza virus bronchitis; Translations: [Acute bronchitis due to parainfluenza virus] 10-09-2024 Episodic Asthma (20 sources) Asthma; Translations: [Unspecified asthma, uncomplicated] Onset: 10-09-2024 Chronic Bacterial infection; unspecified site (1 source) Pneumococcal infectious disease; Translations: [Streptococcal infection, unspecified site] 10-09-2024 Episodic Disorders of lipid metabolism (4 sources) Hyperlipidemia; Translations: [Hyperlipidemia, unspecified] 11-19-2023 Chronic Diverticulosis and diverticulitis (4 sources) Diverticulitis of sigmoid colon; Translations: [Diverticulitis of large intestine without perforation or abscess without bleeding] 11-30-2023 Chronic Fever of unknown origin (13 sources) Fever; Translations: [Fever, unspecified] 03-05-2022 Episodic Headache; including migraine (13 sources) Headache; Translations: [Headache] 03-05-2022 Episodic Hemorrhoids (16 sources) Hemorrhoids; Translations: [Unspecified hemorrhoids] 08-02-2019 Episodic Intestinal infection (16 sources) Viral gastroenteritis; Translations: [Viral intestinal infection, unspecified] 08-03-2019 Episodic Noninfectious gastroenteritis (4 sources) Enteritis of small intestine; Translations: [Noninfective gastroenteritis and colitis, unspecified] 08-20-2024 Episodic Other circulatory disease (7 sources) Orthostatic hypotension; Translations: [Orthostatic hypotension] 08-27-2023 Episodic Other gastrointestinal disorders (4 sources) Epiploic appendagitis; Translations: [Other specified diseases of intestine] 08-20-2024 Episodic Other liver diseases (1 source) Other specified diseases of liver; Translations: [Other specified diseases of liver] Onset: 09-30-2024 Chronic Other lower respiratory disease (16 sources) Hypoxemia; Translations: [Hypoxemia] 12-16-2020 Episodic Other lower respiratory disease (16 sources) H/O: hay fever; Translations: [Personal history of other diseases of the respiratory system] 08-02-2019 Episodic Other lower respiratory disease (10 sources) Dyspnea; Translations: [Dyspnea, unspecified] 01-17-2023 Episodic Other upper respiratory disease (2 sources) Seasonal allergy; Translations: [Other seasonal allergic rhinitis] 03-16-2025 Chronic Other upper respiratory infections (1 source) Chronic sinusitis, unspecified; Translations: [Chronic sinusitis, unspecified] Onset: 06-26-2024 Chronic Pneumonia (except that caused by tuberculosis or sexually transmitted disease) (20 sources) Community acquired pneumonia; Translations: [Pneumonia, unspecified organism] 12-16-2020 Episodic Septicemia (except in labor) (16 sources) Sepsis; Translations: [Sepsis, unspecified organism] 12-16-2020 Episodic Spondylosis; intervertebral disc disorders; other back problems (16 sources) Chronic pain; Translations: [Cervicalgia] 08-02-2019 Episodic Urinary tract infections (4 sources) Urinary tract infection, site not specified; Translations: [Urinary tract infection, site not specified] 06-12-2023 Episodic Viral infection (13 sources) Viral disease; Translations: [Viral infection, unspecified] 03-05-2022 Episodic Past or Other Problems Problem Classification Problem Date Documented Date Episodic/Chronic Cardiac dysrhythmias (8 sources) Tachycardia; Translations: [Tachycardia, unspecified] Onset: 09-25-2024 08-27-2023 Episodic Nausea and vomiting (18 sources) Nausea; Translations: [Nausea] Onset: 09-01-2024 03-05-2022 Episodic Nonspecific chest pain (9 sources) Chest pain; Translations: [Chest pain, unspecified] Onset: 06-02-2024 02-20-2024 Episodic Other screening for suspected conditions (not mental disorders or infectious disease) (10 sources) Cardiovascular stress test abnormal; Translations: [Abnormal result of other cardiovascular function study] Onset: 05-11-2024 05-05-2024 Episodic Results Test Name Value Interpretation Reference Range Facility Pulmonary Visit Reporton Pulmonary Visit Report [facility] Pulmonary Medicine [address] [place] [address] OFFICE VISIT Date of Service: 03/16/25 MR#: [id number] Acct: [id number] Name: MARYANMOL Jose Rep #: [id number] : 1960 Provider: DEBORAH Su Age/Sex: 65/F [place] [facility] [place] Status: Signed Assessment and Plan Assessment and Plan (1) Asthma: Status: Chronic Qualifiers: Asthma severity: moderate Asthma persistence: persistent Asthma complication type: with acute exacerbation Qualified Code(s): J45.41 - Moderate persistent asthma with (acute) exacerbation Plan: Deteriorated. Unfortunately, this patient is experiencing an unwanted side effect of hoarseness that I believe is a direct result of the powdered combination ICS/LABA. For this reason I would like to switch her to an HFA type device. We will try to see if Breyna is covered by her prescription plan. I provided the patient with a list of alternatives if this is not affordable. She will contact our office if she is not able to fill this prescription. She has not been on Singulair as she did not find it to be helpful. (2) Seasonal allergies: Status: Acute Plan: I have encouraged her to take Greta or Zyrtec daily the fall until there is any thorough oliver on the ground. The patient conveys understanding and is agreeable with this plan. Medications: New budesonide-formotero l 160-4.5 mcg/actuation (Breyna) 2 inhalations inhalation BID 3 ea 3RF Discontinued fluticasone propion-salmeterol 250-50 mcg/dose (Wixela Inhub) Discontinued Reason: Order Changed 1 inh inhalation BID 60 ea 11RF Plan Details Additional Comments: This note was generated with [employer] dictation software. It may contain incorrect words, spelling, and punctuation that were not noted in checking the note before signing. Portions of this documentation have been copied and pasted from previous office visit notes to provide a cohesive continuity of the history. The note has been reviewed, edited, and updated, as necessary. Follow Up: 1 Year HPI HPI Comments Details: This patient presents to the office today for follow-up of her asthma. She is ambulatory and on room air. She has not recently been seen in the ED or urgent care for any respiratory illness. She has not required any antibiotics or prednisone for any breathing problems. She is compliant with use of Wixela twice daily. She does report rinsing her mouth out after each use. She sore throat or thrush. Unfortunately, she does notice hoarseness and in need to clear her throat that she believes is related to the inhaler. She has not been taking Singulair. She has not recently required the use of her albuterol rescue inhaler. She denies any difficulty with shortness of breath. She denies any cough, sputum production or hemoptysis. She has not had any wheezing, chest tightness, chest pain or palpitations. She has noticed some sinus congestion that she believes is related to allergies to goldenrod. She also denies any fever, chills or body aches. Intake Vital Signs 03/16/24 07:39 03/16/25 07:54 Height 5 ft 2 in 5 ft 2 in Weight: 169 lb BMI 30.9 BP 116/75 Blood Pressure Location Lt brachial Position Sitting Respiration 18 Pulse 64 Pulse Source Monitor Temp 97.4 F L Temperature Source Temporal Artery Pulse Oximetry (%) 99 Oxygen Delivery Method room air Intake Visit Reasons: 1 Y FU Chief Complaint: dysuria Application Development Team Lead Required: No Accompanied by: Self Allergies Penicillins Allergy (Severe, Verified 03/16/25 10:58) Rash amoxicillin Allergy (Verified 03/16/25 10:58) Rash Sulfa (Sulfonamide Antibiotics) Allergy (Verified 03/16/25 10:58) Rash duloxetine (From Cymbalta) Adverse Reaction (Severe, Verified 03/16/25 10:58) LETHARGY loratadine (From Claritin) Adverse Reaction (Intermediate, Verified 03/16/25 10:58) headache Medications ???Medication ???Instructions ???Recorded ???Confirmed ???Type escitalopram oxalate 20 mg tablet 20 mg PO DAILY 09/10/16 03/16/25 History (Lexapro) cholecalciferol (vitamin D3) 125 125 mcg PO DAILY 05/05/20 03/16/25 History mcg (5,000 unit) capsule bupropion HCl 100 mg tablet,12 hr 100 mg PO DAILY 06/20/22 03/16/25 History sustained-release (Wellbutrin SR) krill oil 500 mg capsule 500 mg PO DAILY 08/30/23 03/16/25 History mecobalamin (vitamin B12) 1,000 1,000 mcg PO DAILY 08/30/23 History mcg lozenges albuterol 90 mcg-budesonide 80 2 inh inhalation TID PRN shortness 03/16/24 03/16/25 Rx mcg/actuation HFA aerosol inhaler of breath #10.7 grams (Airsupra) montelukast 10 mg tablet 10 mg PO DAILY #90 tabs 05/22/24 0 03/16/25 Rx (Singulair) dicyclomine 10 mg capsule 10 mg PO BID PRN Abdominal 5 03/16/25 Rx cramp (more content not included)... Normal [facility] Pulmonary Visit Reporton Pulmonary Visit Report [facility] Pulmonary Medicine of [address] [place] [address] OFFICE VISIT Date of Service: 10/09/24 MR#: [id number] Acct: [id number] Name: ANMOL HERNANDEZ Jose Rep #: [id number] : 1960 Provider: DEBORAH Su Age/Sex: 64/F [place] [facility] [place] Status: Signed Assessment and Plan Assessment and Plan (1) Parainfluenza virus bronchitis: Status: Acute (2) Streptococcus pneumoniae: Status: Acute (3) Asthma: Status: Chronic Qualifiers: Asthma severity: moderate Asthma persistence: persistent Asthma complication type: with acute exacerbation Qualified Code(s): J45.41 - Moderate persistent asthma with (acute) exacerbation Orders: Orders NIOX Today J45.41 - Moderate persistent asthma with (acute) exacerbation Medications: New albuterol sulfate 2.5 mg (3 mL) inhalation Q4H PRN 180 mL 3RF Sob /Or Wheezing prednisone administer with food or milk 60 mg (3 x 20 mg) PO QDAY 15 tabs 0RF 5 days Plan The patient is an acute exacerbation of asthma secondary to parainfluenza virus and Streptococcus pneumoniae. She has been ordered Levaquin and azithromycin by her primary care doctor. I am going to provide the patient with a nebulizer and prescribed albuterol to be nebulized every 4 hours as needed. I am also placing her on a prednisone burst. I have encouraged her to increase Mucinex to 1200 mg twice daily. Continue all maintenance medications. She should avoid work for the next few days as she is contagious. I asked her to contact the office next week with an update. Keep previously scheduled routine follow-up. Plan Details Additional Comments: This note was generated with [employer] dictation software. It may contain incorrect words, spelling, and punctuation that were not noted in checking the note before signing. HPI Acute Chief Complaint: Shortness of breath HPI Comments Details: This patient presents to the office today for an acute visit regarding cough. She is ambulatory and on room air. She contacted the office on October 09, 2023 reporting that she had acute respiratory symptoms. She had been seen by her primary care doctor earlier this week. Symptoms technically started 1 week ago. She was negative for influenza and COVID. There was some other type of swab that was "sent out" and test results should be back today. Test results have arrived and indicate positive parainfluenza virus and Streptococcus pneumoniae. The patient started a Z-Shivam on Saturday and the PCP called in Levaquin today. She is reporting shortness of breath on exertion. She has a cough that can be productive of yellow to mcwilliams-colored sputum. She has been using [id number] Mucinex 600 mg twice daily and Sudafed. She is compliant with Wixela twice daily. She does report rinsing her mouth out after each use. She denies any medication side effect such as or throat or thrush. She is also compliant with Singulair daily. She has been utilizing albuterol several times daily. She has shortness of breath that has progressed. It is exaggerated on exertion. She has a cough that is productive of yellow to mcwilliams-colored sputum. She is having white to yellow-colored nasal drainage. She is experiencing chest congestion and chest tightness. She has noticed wheezing. She has not had any palpitations. She denies any fever, chills or body aches. She is experiencing fatigue. Intake Vital Signs 08/20/24 16:34 10/08/24 15:06 10/09/24 07:55 Height 5 ft 2 in 5 ft 2 in 5 ft 2 in Weight: 175 lb BMI 32.0 BP 89/61 L Blood Pressure Location Lt brachial Position Sitting Respiration 18 Pulse 77 Pulse Source Monitor Temp 95.8 F L Temperature Source Temporal Artery Pulse Oximetry (%) 96 Oxygen Delivery Method room air Intake Visit Reasons: Acute Chief Complaint: dysuria Application Development Team Lead Required: No Accompanied by: Self Allergies Penicillins Allergy (Severe, Verified 10/09/24 09:48) Rash amoxicillin Allergy (Verified 10/09/24 09:48) Rash Sulfa (Sulfonamide Antibiotics) Allergy (Verified 10/09/24 09:48) Rash duloxetine (From Cymbalta) Adverse Reaction (Severe, Verified 10/09/24 09:48) LETHARGY loratadine (From Claritin) Adverse Reaction (Intermediate, Verified 10/09/24 09:48) headache Medications ???Medication ???Instructions ???Recorded ???Confirmed ???Type escitalopram oxalate 20 mg tablet 20 mg PO DAILY 09/10/16 10/09/24 History (Lexapro) cholecalciferol (vitamin D3) 125 125 mcg PO DAILY 05/05/20 10/09/24 History mcg (5,000 unit) capsule bupropion HCl 100 mg tablet,12 hr 100 mg PO DAILY 06/20/22 10/09/24 History sustained-release (Wellbutrin SR) krill oil 500 mg capsule 500 mg PO DAILY 08/30/23 10/09/24 History mecobalamin (vitamin B12) 1,000 1,000 mcg PO DAILY 08/30/2310/09/ (more content not included)... Normal [facility] Abdomen Limitedon 09-28-2024 Abdomen Limited [facility] Imaging Services [address] [place], [place] [address] Abdomen Limited MR#: [id number] Acct: [id number] Name: ANMOL HERNANDEZ Rep #: [id number] : 1960 F 64 From: Hossein Lyle MD PCP: Dr. Justice James MD Status: REG CLI Study: Abdomen Limited Date of Exam: 09/28/24 Exam# [id number] Ordering Dr: Justice James MD PROCEDURE: ABDOMEN LIMITED 09/28/2024 REASON FOR EXAM: CYST FINDINGS: Visualized portions of the pancreas appear within limits. No evidence of ductal dilation. The liver measures 18.4 cm. Increased appearing liver echogenicity can be seen with hepatic steatosis or other hepatocellular disease. Liver surface contour appears smooth. No evidence of intrahepatic biliary ductal dilation. Hepatic color flow is present. Flow within the portal vein appears hepatopetal as expected. 2 x 2.8 x 2.2 cm cyst seen within the left lobe. Smaller 8 mm cyst also noted left lobe. The gallbladder appears within limits without stones, wall thickening or pericholecystic free fluid. Wall measures 2 mm. Report of a negative sonographic Oscar's sign. CBD 4 mm. The right kidney measures 10.9 x 5.9 x 4.7 cm with a cortical thickness of 1.1 cm. No hydronephrosis, renal stone or perinephric edema seen. A couple of renal cysts, 6 mm upper lateral and 1.1 cm inferior medial. No free fluid seen. US/Abdomen Limited IMPRESSION: Increased appearing liver echogenicity can be seen with hepatic steatosis or other hepatocellular disease. Liver surface contour appears smooth. A couple of liver and renal cysts as above. Reading Location: [facility] CC: Dr. Justice James MD Principal Cyber Engineer: Signed Normal [facility] Kidney and Bladderon 025 Kidney and Bladder [facility] Imaging Services [address] [place] [address] Kidney and Bladder MR#: [id number] Acct: [id number] Name: ANMOL HERNANDEZ Rep #: [id number] : 1960 F 64 From: Hossein Lyle MD PCP: Dr. Justice James MD Status: REG CLI Study: Kidney and Bladder Date of Exam: 09/28/24 Exam# [id number] Ordering Dr: Justice James MD PROCEDURE: KIDNEY AND BLADDER 09/28/2024 REASON FOR EXAM: CYST TECHNIQUE: Bilateral renal and bladder ultrasound. FINDINGS: The right kidney measures 10.9 x 5.8 x 4.8 cm with a cortical thickness of 1.1 cm. The left kidney measures 11 x 5.8 x 4.8 with a cortical thickness of 1 cm. The kidneys appear within limits for echogenicity without hydronephrosis, renal stone or perinephric edema seen. A couple of right renal cysts, 6 mm upper and 1.1 cm lower pole. Bladder volume 86.5 cc. The bladder appears within limits. 5 mm wall thickness. Bilateral ureteral jets are seen during imaging. No free fluid seen. US/Kidney and Bladder IMPRESSION: The kidneys appear within limits as above. A couple of small right renal cysts. Bladder wall borderline thick at 5 mm otherwise appears within limits. Reading Location: [facility] CC: Dr. Justice James MD Principal Cyber Engineer: Signed Normal [facility] Absolute neutrophil countOrd ered By: Justice James on 09-23-2024 Neutrophils (Bld) [#/Vol] 2.7 10*3/uL 2.0-7.7 [facility] Anion gap in Serum or Plasma Ordered By: Justice James on 09-23-2024 Anion gap [Moles/Vol] 10 mmol/L 5- [facility] BUN/creatinine ratioOrdered By: Justice James on 09-23-2024 Urea nitrogen/Creatinine [Mass ratio] 17.4 mg/mg 10-20 [facility] Basophil percentageOrdered B y: Justice James on 09-23-2024 Basophils/100 WBC (Bld) 0.7 % 0-1 [facility] Bilirubin, totalOrdered By: Justice James on 09-23-2024 Bilirubin [Mass/Vol] 0.19 mg/dL 0.00-1.30 [facility] CBC W/Diff, Automatedon Absolute Lymph 2.18 X10 3/uL Normal 0.83-4.51 [facility] Comment on above: Order Comment: Order Date: 09/23/24Order Info: 0184-1 - CBCD Performed By: #### L 100.0100, L500.4050, L501.5200, L506.0400, L501.9520 ####[facility] [address] [place], [address] Absolute Neut 2.7 X10 3/uL Normal 2.0-7.7 [facility] Comment on above: Order Comment: Order Date: 09/23/24Order Info: 0184-1 - CBCD Performed By: #### L 100.0100, L500.4050, L501.5200, L506.0400, L501.9520 ####[facility] [address] [place], [address] Basophils/100 WBC (Bld) 0.7 % Normal 0-1 [facility] Comment on above: Order Comment: Order Date: 09/23/24Order Info: 0184-1 - CBCD Performed By: #### L 100.0100, L500.4050, L501.5200, L506.0400, L501.9520 ####[facility] [address] [place], [address] Eosinophils/100 WBC (Bld) 3.8 % Normal 0-5 [facility] Comment on above: Order Comment: Order Date: 09/23/24Order Info: 0184-1 - CBCD Performed By: #### L 100.0100, L500.4050, L501.5200, L506.0400, L501.9520 ####[facility] [address] [place], [address] Erythrocyte distribution width (RBC) [Ratio] 12.9 % Normal 11.6-14.6 [facility] Comment on above: Order Comment: Order Date: 09/23/24Order Info: 0184-1 - CBCD Performed By: #### L 100.0100, L500.4050, L501.5200, L506.0400, L501.9520 ####[facility] [address] [place], [address] Hematocrit (Bld) [Volume fraction] 37.8 % Normal 37-47 [facility] Comment on above: Order Comment: Order Date: 09/23/24Order Info: 0184-1 - CBCD Performed By: #### L 100.0100, L500.4050, L501.5200, L506.0400, L501.9520 ####[facility] [address] [place], [address] Hemoglobin (Bld) [Mass/Vol] 12.3 g/dL Normal 12.0-15.0 [facility] Comment on above: Order Comment: Order Date: 09/23/24Order Info: 0184-1 - CBCD Performed By: #### L 100.0100, L500.4050, L501.5200, L506.0400, L501.9520 ####[facility] [address] [place], [address] IG% 0.500 Normal 0.0-0.9 [facility] Comment on above: Order Comment: Order Date: 09/23/24Order Info: 0184-1 - CBCD Result Comment: IG% - Immature Granulocytes (promyelocytes, myelocytes and metamyelocytes) > 1% indicates that a LEFT SHIFT is Present. Performed By: #### L 100.0100, L500.4050, L501.5200, L506.0400, L501.9520 ####[facility] [address] [place], [address] Lymphocytes/100 WBC (Bld) 39.4 % Normal 19-41 [facility] Comment on above: Order Comment: Order Date: 09/23/24Order Info: 0184-1 - CBCD Performed By: #### L 100.0100, L500.4050, L501.5200, L506.0400, L501.9520 ####[facility] [address] [place], [address] MCH (RBC) [Entitic mass] 28.7 pg Normal 27.0-32.0 [facility] Comment on above: Order Comment: Order Date: 09/23/24Order Info: 0184-1 - CBCD Performed By: #### L 100.0100, L500.4050, L501.5200, L506.0400, L501.9520 ####[facility] [address] [place], [address] MCHC (RBC) [Mass/Vol] 32.5 g/dL Normal 32-36 [facility] Comment on above: Order Comment: Order Date: 09/23/24Order Info: 0184-1 - CBCD Performed By: #### L 100.0100, L500.4050, L501.5200, L506.0400, L501.9520 ####[facility] [address] [place], [address] MCV (RBC) [Entitic vol] 88.1 fL Normal 81-[address] [facility] Comment on above: Order Comment: Order Date: 09/23/24Order Info: 0184-1 - CBCD Performed By: #### L 100.0100, L500.4050, L501.5200, L506.0400, L501.9520 ####[facility] [address] [place], [address] Monocytes/100 WBC (Bld) 6.9 % Normal 0-[address] [facility] Comment on above: Order Comment: Order Date: 09/23/24Order Info: 0184-1 - CBCD Performed By: #### L 100.0100, L500.4050, L501.5200, L506.0400, L501.9520 ####[facility] [address] [place], [address] Neutrophils/100 WBC (Bld) 48.7 % Normal 47-70 [facility] Comment on above: Order Comment: Order Date: 09/23/24Order Info: 0184-1 - CBCD Performed By: #### L 100.0100, L500.4050, L501.5200, L506.0400, L501.9520 ####[facility] [address] [place], [address] Nucleated RBC (Bld) [#/Vol] 0 10*3/uL Normal 0-5 [facility] Comment on above: Order Comment: Order Date: 09/23/24Order Info: 0184-1 - CBCD Performed By: #### L 100.0100, L500.4050, L501.5200, L506.0400, L501.9520 ####[facility] [address] [place], [address] Platelet mean volume (Bld) [Entitic vol] 10.3 fL Normal 6.2-12.0 [facility] Comment on above: Order Comment: Order Date: 09/23/24Order Info: 0184-1 - CBCD Performed By: #### L 100.0100, L500.4050, L501.5200, L506.0400, L501.9520 ####[facility] [address] [place], [address] Platelets (Bld) [#/Vol] 255 10*3/uL Normal 150-450 [facility] Comment on above: Order Comment: Order Date: 09/23/24Order Info: 0184-1 - CBCD Performed By: #### L 100.0100, L500.4050, L501.5200, L506.0400, L501.9520 ####[facility] [address] [place], [address] RBC (Bld) [#/Vol] 4.29 10*6/uL Normal 4.2-5.4 [facility] Comment on above: Order Comment: Order Date: 09/23/24Order Info: 0184-1 - CBCD Performed By: #### L 100.0100, L500.4050, L501.5200, L506.0400, L501.9520 ####[facility] [address] [place], [address] RDW SD 41.4 fl Normal 35.1-43.9 [facility] Comment on above: Order Comment: Order Date: 09/23/24Order Info: [id number] - CBCD Performed By: #### L 100.0100, L500.4050, L501.5200, L506.0400, L501.9520 ####[facility] [address] [place], [address] WBC (Bld) [#/Vol] 5.5 10*3/uL Normal 4.4-11.0 [facility] Comment on above: Order Comment: Order Date: 09/23/24Order Info: [id number] - CBCD Performed By: #### L 100.0100, L500.4050, L501.5200, L506.0400, L501.9520 ####[facility] [address] [place], [address] Carbon dioxide, total [Moles /volume] in Central venous bloodOrdered By: Justice James on 09-23-2024 CO2 [Moles/Vol] 22.5 mmol/L 21.0-32.0 [facility] Chloride assayOrdered By: Bernice James on 09-23-2024 Chloride [Moles/Vol] 108 mmol/L 98-108 [facility] Comprehensive Metabolic Prof ilon 09-23-2024 Albumin [Mass/Vol] 3.9 g/dL Normal 3.4-4.8 [facility] Comment on above: Order Comment: Order Date: 09/23/24Order Info: [id number] - CMPOrder Info: [id number] - MGOrder Info: [id number] - TSHOrder Info: 3024-7 - T4F Performed By: #### L 100.0100, L500.4050, L501.5200, L506.0400, L501.9520 ####[facility] [address] [place], [address] Albumin/Globulin [Mass ratio] 1.5 {ratio} Normal 0.9-2.4 [facility] Comment on above: Order Comment: Order Date: 09/23/24Order Info: [id number] - CMPOrder Info: [id number] - MGOrder Info: [id number] - TSHOrder Info: 3024-7 - T4F Performed By: #### L 100.0100, L500.4050, L501.5200, L506.0400, L501.9520 ####[facility] [address] [place], [address] ALK PHOS 105 U/L High 35-104 [facility] Comment on above: Order Comment: Order Date: 09/23/24Order Info: [id number] - CMPOrder Info: [id number] - MGOrder Info: [id number] - TSHOrder Info: 3024-7 - T4F Performed By: #### L 100.0100, L500.4050, L501.5200, L506.0400, L501.9520 ####[facility] [address] [place], [address] ALT [Catalytic activity/Vol] 29 U/L Normal <=34 [facility] Comment on above: Order Comment: Order Date: 09/23/24Order Info: [id number] - CMPOrder Info: [id number] - MGOrder Info: [id number] - TSHOrder Info: 3024-7 - T4F Performed By: #### L 100.0100, L500.4050, L501.5200, L506.0400, L501.9520 ####[facility] [address] [place], [address] AST [Catalytic activity/Vol] 21 U/L Normal <=31 [facility] Comment on above: Order Comment: Order Date: 09/23/24Order Info: [id number] - CMPOrder Info: [id number] - MGOrder Info: [id number] - TSHOrder Info: 3024-7 - T4F Performed By: #### L 100.0100, L500.4050, L501.5200, L506.0400, L501.9520 ####[facility] [address] [place], [address] Bilirubin [Mass/Vol] 0.19 mg/dL Normal 0.00-1.30 [facility] Comment on above: Order Comment: Order Date: 09/23/24Order Info: 0786-1 - CMPOrder Info: [id number] - MGOrder Info: [id number] - TSHOrder Info: 3024-7 - T4F Performed By: #### L 100.0100, L500.4050, L501.5200, L506.0400, L501.9520 ####[facility] [address] [place], [address] BUN/CRE 17.4 RATIO Normal 10-20 [facility] Comment on above: Order Comment: Order Date: 09/23/24Order Info: [id number] - CMPOrder Info: [id number] - MGOrder Info: [id number] - TSHOrder Info: 3024-7 - T4F Performed By: #### L 100.0100, L500.4050, L501.5200, L506.0400, L501.9520 ####[facility] [address] [place], [address] Calcium [Mass/Vol] 9.3 mg/dL Normal 7.6-11.0 [facility] Comment on above: Order Comment: Order Date: 09/23/24Order Info: [id number] - CMPOrder Info: [id number] - MGOrder Info: [id number] - TSHOrder Info: 3024-7 - T4F Performed By: #### L 100.0100, L500.4050, L501.5200, L506.0400, L501.9520 ####[facility] [address] [place], [address] Chloride [Moles/Vol] 108 mmol/L Normal 98-108 [facility] Comment on above: Order Comment: Order Date: 09/23/24Order Info: 0786-1 - CMPOrder Info: [id number] - MGOrder Info: [id number] - TSHOrder Info: 3024-7 - T4F Performed By: #### L 100.0100, L500.4050, L501.5200, L506.0400, L501.9520 ####[facility] [address] [place], [address] CO2 [Moles/Vol] 22.5 mmol/L Normal 21.0-32.0 [facility] Comment on above: Order Comment: Order Date: 09/23/24Order Info: [id number] - CMPOrder Info: [id number] - MGOrder Info: [id number] - TSHOrder Info: 3024-7 - T4F Performed By: #### L 100.0100, L500.4050, L501.5200, L506.0400, L501.9520 ####[facility] [address] [place], [address] Creatinine [Mass/Vol] 0.91 mg/dL Normal 0.70-1.20 [facility] Comment on above: Order Comment: Order Date: 09/23/24Order Info: 0786-1 - CMPOrder Info: [id number] - MGOrder Info: [id number] - TSHOrder Info: 3024-7 - T4F Performed By: #### L 100.0100, L500.4050, L501.5200, L506.0400, L501.9520 ####[facility] [address] [place], [place], [address] GAP 10 Normal 5-15 [facility] Comment on above: Order Comment: Order Date: 09/23/24Order Info: 0786-1 - CMPOrder Info: [id number] - MGOrder Info: [id number] - TSHOrder Info: 3024-7 - T4F Performed By: #### L 100.0100, L500.4050, L501.5200, L506.0400, L501.9520 ####[facility] [address] [place], [place], [address] GFR/1.73 sq M.predicted among non-blacks MDRD (S/P/Bld) [Vol rate/Area] 71 mL/min/{1.73_m2} Normal >60 [facility] Comment on above: Order Comment: Order Date: 09/23/24Order Info: 785-1 - CMPOrder Info: [id number] - MGOrder Info: 3016-3 - TSHOrder Info: 3024-7 - T4F Result Comment: mL/m in/1.73m2 CKD-EPI Creatinine Equation (2020) Performed By: #### L 100.0100, L500.4050, L501.5200, L506.0400, L501.9520 ####[facility] [address] [place], [place], [id number] Globulin (S) [Mass/Vol] 2.7 g/dL Normal 2.2-4.2 [facility] Comment on above: Order Comment: Order Date: 09/23/24Order Info: 0786-1 - CMPOrder Info: [id number] - MGOrder Info: [id number] - TSHOrder Info: 3024-7 - T4F Performed By: #### L 100.0100, L500.4050, L501.5200, L506.0400, L501.9520 ####[facility] [address] [place], [address] Glucose [Mass/Vol] 97 mg/dL Normal 70-99 [facility] Comment on above: Order Comment: Order Date: 09/23/24Order Info: 0786-1 - CMPOrder Info: [id number] - MGOrder Info: [id number] - TSHOrder Info: 3024-7 - T4F Performed By: #### L 100.0100, L500.4050, L501.5200, L506.0400, L501.9520 ####[facility] [address] [place], [address] Potassium [Moles/Vol] 3.7 mmol/L Normal 3.3-5.1 [facility] Comment on above: Order Comment: Order Date: 09/23/24Order Info: 0786-1 - CMPOrder Info: [id number] - MGOrder Info: [id number] - TSHOrder Info: 3024-7 - T4F Performed By: #### L 100.0100, L500.4050, L501.5200, L506.0400, L501.9520 ####[facility] [address] [place], [address] Sodium [Moles/Vol] 140 mmol/L Normal 133-145 [facility] Comment on above: Order Comment: Order Date: 09/23/24Order Info: 0786-1 - CMPOrder Info: [id number] - MGOrder Info: [id number] - TSHOrder Info: 3024-7 - T4F Performed By: #### L 100.0100, L500.4050, L501.5200, L506.0400, L501.9520 ####[facility] [address] [place], [address] T PROT 6.6 g/dL Normal 5.9-8.4 [facility] Comment on above: Order Comment: Order Date: 09/23/24Order Info: 0786-1 - CMPOrder Info: [id number] - MGOrder Info: [id number] - TSHOrder Info: 3024-7 - T4F Performed By: #### L 100.0100, L500.4050, L501.5200, L506.0400, L501.9520 ####[facility] [address] [place], [address] Urea nitrogen [Mass/Vol] 16 mg/dL Normal 4-19 [facility] Comment on above: Order Comment: Order Date: 09/23/24Order Info: 0786-1 - CMPOrder Info: [id number] - MGOrder Info: 3016-3 - TSHOrder Info: 3024-7 - T4F Performed By: #### L 100.0100, L500.4050, L501.5200, L506.0400, L501.9520 ####[facility] [address] [place], [address] Eosinophil percentageOrdered By: Justice James on 09-23-2024 Eosinophils/100 WBC (Bld) 3.8 % 0-5 [facility] Erythrocyte distribution wid th (RBC) [Ratio]Ordered By: Justice James on 09-23-2024 Erythrocyte distribution width (RBC) [Entitic vol] 41.4 fL 35.1-43.9 [facility] Erythrocyte distribution wid th ratioOrdered By: Justice James on 09-23-2024 Erythrocyte distribution width (RBC) [Ratio] 12.9 % 11.6-14.6 [facility] GFR/1.73 sq M.predicted primo g non-blacks MDRD (S/P/Bld) [Vol rate/Area]Ordered By: Justice James on 09-23-2024 Estimated GFR (MDRD) Non-Af Amer 71 >60 [facility] Comment on above: mL/min/1.73m2 CKD-EP I Creatinine Equation (2020) Hematocrit Auto (Bld) [Volum e fraction]Ordered By: Justice James on 09-23-2024 Hematocrit (Bld) [Volume fraction] 37.8 % 37-47 [facility] Hemoglobin measurementOrdere d By: Justice James on 09-23-2024 Hemoglobin (Bld) [Mass/Vol] 12.3 g/dL 12.0-15.0 [facility] Immature granulocytes/100 WB C Auto (Bld)Ordered By: Justice James on 09-23-2024 Immature granulocytes/100 WBC (Bld) 0.500 % 0.0-0.9 [facility] Comment on above: IG% - Immature Granu locytes (promyelocytes, myelocytes and metamyelocytes) > 1% indicates that a LEFT SHIFT is Present. Laboratory - Chemistry and C hemistry - challengeOrdered By: Justice James on 09-23-2024 AST [Catalytic activity/Vol] 21 U/L <32 [facility] Lymphocytes Auto (Unsp spec) [#/Vol]Ordered By: Justice James on 09-23-2024 Lymphocytes (Bld) [#/Vol] 2.18 10*3/uL 0.83-4.51 [facility] Lymphocytes/100 WBC Auto (Un sp spec)Ordered By: Justice James on 09-23-2024 Lymphocytes/100 WBC (Bld) 39.4 % 19-41 [facility] MCV (mean corpuscular volume ) determinationOrdered By: Justice James on 09-23-2024 MCV (RBC) [Entitic vol] 88.1 fL 81-99 [facility] Magnesiumon 09-23-2024 Magnesium [Mass/Vol] 2.2 mg/dL Normal 1.5-2.2 [facility] Comment on above: Order Comment: Order Date: 09/23/24Order Info: [id number] - CMPOrder Info: [id number] - MGOrder Info: [id number] - TSHOrder Info: 3024-7 - T4F Performed By: #### L 100.0100, L500.4050, L501.5200, L506.0400, L501.9520 ####[facility] [address] [place], [place], [id number] Magnesium (Unsp spec) [Mass/ Vol]Ordered By: Justice James on 09-23-2024 Magnesium [Mass/Vol] 2.2 mg/dL 1.5-2.2 [facility] Mean corpuscular hemoglobin (MCH) determinationOrdered By: Justice James on 09-23-2024 MCH (RBC) [Entitic mass] 28.7 pg 27.0-32.0 [facility] Mean corpuscular hemoglobin concentration (MCHC) determinationOrdered By: Justice James on 09-23-2024 MCHC (RBC) [Mass/Vol] 32.5 g/dL 32-36 [facility] Mean platelet volume determi nationOrdered By: Justice James on 09-23-2024 Platelet mean volume (Bld) [Entitic vol] 10.3 fL 6.2-12.0 [facility] Monocyte percentageOrdered B y: Justice James on 09-23-2024 Monocytes/100 WBC (Bld) 6.9 % 0-10 [facility] Neutrophil percentageOrdered By: Justice James on 09-23-2024 Neutrophils/100 WBC (Bld) 48.7 % 47-70 [facility] Nucleated red blood cell per centageOrdered By: Justice James on 09-23-2024 Nucleated RBC/100 WBC (Bld) [Ratio] 0 % 0-5 [facility] Platelet countOrdered By: Bernice James on 09-23-2024 Platelets (Bld) [#/Vol] 255 10*3/uL 150-450 [facility] Potassium (Unsp spec) [Mass/ Vol]Ordered By: Justice James on 09-23-2024 Potassium [Moles/Vol] 3.7 mmol/L 3.3-5.1 [facility] RBC Auto (Bld) [#/Vol]Ordere d By: Justice James on 09-23-2024 RBC (Bld) [#/Vol] 4.29 10*6/uL 4.2-5.4 [facility] Serum creatinine measurement (mass/volume)Ordered By: Justice James on 09-23-2024 Creatinine [Mass/Vol] 0.91 mg/dL 0.70-1.20 [facility] Serum globulin measurementOr dered By: Justice James on 09-23-2024 Globulin (S) [Mass/Vol] 2.7 g/dL 2.2-4.2 [facility] Serum glucose measurement (m ass/volume)Ordered By: Justice James on 09-23-2024 Glucose [Mass/Vol] 97 mg/dL 70-99 [facility] Serum or plasma alanine james otransferase (ALT) measurementOrdered By: Justice James on 09-23-2024 ALT [Catalytic activity/Vol] 29 U/L <35 [facility] Serum or plasma albumin pilo urement (mass/volume)Ordered By: Justice James on 09-23-2024 Albumin [Mass/Vol] 3.9 g/dL 3.4-4.8 [facility] Serum or plasma albumin/glob ulin mass ratioOrdered By: Justice James on 09-23-2024 Albumin/Globulin [Mass ratio] 1.5 {ratio} 0.9-2.4 [facility] Serum or plasma alkaline hui sphatase measurementOrdered By: Justice James on 09-23-2024 ALP [Catalytic activity/Vol] 105 U/L High 35-104 [facility] Serum or plasma calcium pilo urement (mass/volume)Ordered By: Justice James on 09-23-2024 Calcium [Mass/Vol] 9.3 mg/dL 7.6-11.0 [facility] Serum or plasma urea nitroge n measurement (mass/volume)Ordered By: Justice James on 09-23-2024 Urea nitrogen [Mass/Vol] 16 mg/dL 4-19 [facility] Sodium levelOrdered By: Justice James on 09-23-2024 Sodium [Moles/Vol] 140 mmol/L 133-145 [facility] T4 Free Directon 09-23-2024 T4 FREE DIRECT 0.80 ng/dL Normal 0.76-1.46 [facility] Comment on above: Order Comment: Order Date: 09/23/24Order Info: [id number] - CMPOrder Info: [id number] - MGOrder Info: [id number] - TSHOrder Info: 3024-7 - T4F Performed By: #### L 100.0100, L500.4050, L501.5200, L506.0400, L501.9520 ####[facility] [address] [place], [place], [address] T4 freeOrdered By: Justice cowart on 09-23-2024 Free T4 [Mass/Vol] 0.80 ng/dL 0.76-1.46 [facility] TSH DL <= 0.005 mIU/L QnOrde red By: Justice James on 09-23-2024 Thyroid Stimulating Hormone (TSH) 2.420 uIU/mL 0.300-4.200 [facility] Thyroid Stim Hormone (TSH)on 09-23-2024 TSH 2.420 uIU/mL Normal 0.300-4.200 [facility] Comment on above: Order Comment: Order Date: 09/23/24Order Info: [id number]- - CMPOrder Info: - MGOrder Info: [id number] - TSHOrder Info: [id number] - T4F Performed By: #### L 100.0100, L500.4050, L501.5200, L506.0400, L501.9520 ####[facility] [address] [place], [place], [address] Total proteinOrdered By: Pato James on 09-23-2024 Protein [Mass/Vol] 6.6 g/dL 5.9-8.4 [facility] Vitamin D, 25-hydroxyOrdered By: Justice James on 09-23-2024 Vitamin D 25-Hydroxy 54.7 ng/mL 30-100 [facility] Comment on above: Vitamin D StatusDefi ciency: <20 ng/mL (50nmol/L)Insufficiency: 20-30 ng/mL (50-75 nmol/L)Sufficiency: 30-100 ng/mL (75-250 nmol/L)Toxicity: >100 ng/mL (>250 nmol/L) Vitamin D,25 Hydroxyon 09-23 Vitamin D 25-OH 54.7 ng/mL Normal 30-100 [facility] Comment on above: Order Comment: Order Date: 09/23/24Order Info: [id number] - CMPOrder Info: - MGOrder Info: [id number] - TSHOrder Info: [id number] - T4F Result Comment: Irene min D Status Deficiency: <20 ng/mL (50nmol/L) Insufficiency: 20-30 ng/mL (50-75 nmol/L) Sufficiency: 30-100 ng/mL (75-250 nmol/L) Toxicity: >100 ng/mL (>250 nmol/L) Performed By: #### L 506.1001 ####[facility] [address] [facility] [place], [address] White blood cell (WBC) count Ordered By: Justice James on 09-23-2024 WBC (Bld) [#/Vol] 5.5 10*3/uL 4.4-11.0 [facility] Abdomen/Pelvis W IV Cont ONL Yon 08-20-2024 Abdomen/Pelvis W IV Cont ONLY [facility] Imaging Services [address] [place] [address] Abdomen/Pelvis W IV Cont ONLY MR#: [id number] Acct: [id number] Name: ANMOL HERNANDEZ Jose Rep #: [id number] : 1960 F 64 From: Francisco Skelton MD PCP: Dr. Justice James MD Status: REG ER Study: Abdomen/Pelvis W IV Cont ONLY Date of Exam: Exam# [id number] Ordering Dr: Nolan Anderson MD PROCEDURE: ABDOMEN/PELVIS W IV CONT ONLY REASON FOR EXAM: Nausea vomiting Diarrhea TECHNIQUE: CT abdomen and pelvis was performed with IV contrast. Multiplanar reformats were generated. IV CONTRAST: 99 mL Isovue 370 COMPARISON: 11/22/2023 FINDINGS: Lung bases: Atelectasis/scarring .. Tiny hiatal hernia. Liver: Similar left lobe cyst. Additional tiny hypodensities too small to characterize, likely additional cysts or hemangiomas in the absence of known malignancy, also similar. Spleen: Unremarkable. Gallbladder: Unremarkable. Pancreas: Unremarkable. Adrenals: Unremarkable. Kidneys: Tiny hypodensities too small to characterize, likely cysts. Bowel: Mild focal stranding in the left pericolic gutter abutting the descending colon surrounding a fat lobule, atypical appearance for epiploic appendagitis, new from prior. Mildly prominent fluid distended but nondilated mid and distal small bowel loops without convincing inflammation. Diverticulosis. Normal caliber appendix. Lymph nodes: Unremarkable. Vasculature: Unremarkable. Peritoneum: Unremarkable. Bladder: Underdistended and suboptimally evaluated, grossly unremarkable. Reproductive Organs: Hysterectomy. Body Wall: Small fat containing umbilical hernia. Bones: Degenerative disc disease, L5-S1. Similar bilateral L5 pars defects with grade 1-2 anterolisthesis. Trace lumbar dextroscoliosis may be positional. Similar likely bone island along the left iliac bone. CT/Abdomen/Pelvis W IV Cont ONLY IMPRESSION: 1. Borderline findings of possible very mild small bowel ileus/enteritis. 2. Findings along the descending colon typical for mild epiploic appendagitis which may be an additional source of self-limited abdominal pain, if present. 3. Additional description as above. Reading Location: [facility] CC: Dr. Nolan Anderson MD; Dr. Justice James MD Principal Cyber Engineer: Signed Normal [facility] Absolute neutrophil countOrd ered By: ED PROVIDER on 08-20-2024 Neutrophils (Bld) [#/Vol] 6.6 10*3/uL 2.0-7.7 [facility] Anion gap in Serum or Plasma Ordered By: Nolan Anderson on 08-20-2024 Anion gap [Moles/Vol] 12 mmol/L 5-15 [facility] BUN/creatinine ratioOrdered By: Nolan Anderson on 08-20-2024 Urea nitrogen/Creatinine [Mass ratio] 19.3 mg/mg 10-20 [facility] Basophil percentageOrdered B y: ED PROVIDER on 08-20-2024 Basophils/100 WBC (Bld) 0.4 % 0-1 [facility] Bilirubin Test strip Ql (U)O rdered By: Nolan Anderson on 08-20-2024 Bilirubin Ql (U) Negative Negative [facility] Bilirubin, totalOrdered By: Nolan Anderson on 08-20-2024 Bilirubin [Mass/Vol] 0.49 mg/dL 0.00-1.30 [facility] CBC W/Diff, Automatedon Absolute Lymph 0.62 X10 3/uL Low 0.83-4.51 [facility] Comment on above: Performed By: #### L 500.4050, L501.2450, L100.0100 #### [facility] [address] [place], [address] Absolute Neut 6.6 X10 3/uL Normal 2.0-7.7 [facility] Comment on above: Performed By: #### L 500.4050, L501.2450, L100.0100 #### [facility] [address] [place], [address] Basophils/100 WBC (Bld) 0.4 % Normal 0-1 [facility] Comment on above: Performed By: #### L 500.4050, L501.2450, L100.0100 #### [facility] [address] [place], [address] Eosinophils/100 WBC (Bld) 1.7 % Normal 0-5 [facility] Comment on above: Performed By: #### L 500.4050, L501.2450, L100.0100 #### [facility] [address] [place], [address] Erythrocyte distribution width (RBC) [Ratio] 12.6 % Normal 11.6-14.6 [facility] Comment on above: Performed By: #### L 500.4050, L501.2450, L100.0100 #### [facility] [address] [place], [address] Hematocrit (Bld) [Volume fraction] 41.1 % Normal 37-47 [facility] Comment on above: Performed By: #### L 500.4050, L501.2450, L100.0100 #### [facility] [address] [place], [address] Hemoglobin (Bld) [Mass/Vol] 13.8 g/dL Normal 12.0-15.0 [facility] Comment on above: Performed By: #### L 500.4050, L501.2450, L100.0100 #### [facility] [address] [place], [address] IG% 0.400 Normal 0.0-0.9 [facility] Comment on above: Result Comment: IG% - Immature Granulocytes (promyelocytes, myelocytes and metamyelocytes) > 1% indicates that a LEFT SHIFT is Present. Performed By: #### L 500.4050, L501.2450, L100.0100 #### [facility] [address] [place], [address] Lymphocytes/100 WBC (Bld) 8.1 % Low 19-41 [facility] Comment on above: Performed By: #### L 500.4050, L501.2450, L100.0100 #### [facility] [address] [place], [address] MCH (RBC) [Entitic mass] 29.2 pg Normal 27.0-32.0 [facility] Comment on above: Performed By: #### L 500.4050, L501.2450, L100.0100 #### [facility] [address] [place], [address] MCHC (RBC) [Mass/Vol] 33.6 g/dL Normal 32-36 [facility] Comment on above: Performed By: #### L 500.4050, L501.2450, L100.0100 #### [facility] [address] [place], [address] MCV (RBC) [Entitic vol] 86.9 fL Normal 81-99 [facility] Comment on above: Performed By: #### L 500.4050, L501.2450, L100.0100 #### [facility] [address] [place], [address] Monocytes/100 WBC (Bld) 4.0 % Normal 0-10 [facility] Comment on above: Performed By: #### L 500.4050, L501.2450, L100.0100 #### [facility] [address] [place], [address] Neutrophils/100 WBC (Bld) 85.4 % High 47-70 [facility] Comment on above: Performed By: #### L 500.4050, L501.2450, L100.0100 #### [facility] [address] [place], [address] Nucleated RBC (Bld) [#/Vol] 0 10*3/uL Normal 0-5 [facility] Comment on above: Performed By: #### L 500.4050, L501.2450, L100.0100 #### [facility] [address] [place], [address] Platelet mean volume (Bld) [Entitic vol] 9.7 fL Normal 6.2-12.0 [facility] Comment on above: Performed By: #### L 500.4050, L501.2450, L100.0100 #### [facility] [address] [place], [address] Platelets (Bld) [#/Vol] 231 10*3/uL Normal 150-450 [facility] Comment on above: Performed By: #### L 500.4050, L501.2450, L100.0100 #### [facility] [address] [place], [address] RBC (Bld) [#/Vol] 4.73 10*6/uL Normal 4.2-5.4 [facility] Comment on above: Performed By: #### L 500.4050, L501.2450, L100.0100 #### [facility] [address] [place], [address] RDW SD 40.1 fl Normal 35.1-43.9 [facility] Comment on above: Performed By: #### L 500.4050, L501.2450, L100.0100 #### [facility] [address] [place], [address] WBC (Bld) [#/Vol] 7.7 10*3/uL Normal 4.4-11.0 [facility] Comment on above: Performed By: #### L 500.4050, L501.2450, L100.0100 #### [facility] [address] [place], [address] Carbon dioxide, total [Moles /volume] in Central venous bloodOrdered By: Nolan Anderson on 08-20-2024 CO2 [Moles/Vol] 21.7 mmol/L 21.0-32.0 [facility] Chloride assayOrdered By: Kal Anderson on 08-20-2024 Chloride [Moles/Vol] 108 mmol/L 98-108 [facility] Comprehensive Metabolic Prof ilon 08-20-2024 Albumin [Mass/Vol] 4.1 g/dL Normal 3.4-4.8 [facility] Comment on above: Performed By: #### L 500.4050, L501.2450, L100.0100 #### [facility] [address] [place], [address] Albumin/Globulin [Mass ratio] 1.4 {ratio} Normal 0.9-2.4 [facility] Comment on above: Performed By: #### L 500.4050, L501.2450, L100.0100 #### [facility] [address] [place], [address] ALK PHOS 110 U/L High 35-104 [facility] Comment on above: Performed By: #### L 500.4050, L501.2450, L100.0100 #### [facility] [address] [place], [address] ALT [Catalytic activity/Vol] 23 U/L Normal <=34 [facility] Comment on above: Performed By: #### L 500.4050, L501.2450, L100.0100 #### [facility] [address] [place], [address] AST [Catalytic activity/Vol] 21 U/L Normal <=31 [facility] Comment on above: Performed By: #### L 500.4050, L501.2450, L100.0100 #### [facility] [address] [place], [address] Bilirubin [Mass/Vol] 0.49 mg/dL Normal 0.00-1.30 [facility] Comment on above: Performed By: #### L 500.4050, L501.2450, L100.0100 #### [facility] [address] [place], [address] BUN/CRE 19.3 RATIO Normal 10-20 [facility] Comment on above: Performed By: #### L 500.4050, L501.2450, L100.0100 #### [facility] [address] [place], [address] Calcium [Mass/Vol] 9.4 mg/dL Normal 7.6-11.0 [facility] Comment on above: Performed By: #### L 500.4050, L501.2450, L100.0100 #### [facility] [address] [place], [address] Chloride [Moles/Vol] 108 mmol/L Normal 98-108 [facility] Comment on above: Performed By: #### L 500.4050, L501.2450, L100.0100 #### [facility] [address] [place], [address] CO2 [Moles/Vol] 21.7 mmol/L Normal 21.0-32.0 [facility] Comment on above: Performed By: #### L 500.4050, L501.2450, L100.0100 #### [facility] [address] [place], [address] Creatinine [Mass/Vol] 1.08 mg/dL Normal 0.70-1.20 [facility] Comment on above: Performed By: #### L 500.4050, L501.2450, L100.0100 #### [facility] [address] [place], [address] ECRCL 53.19 ml/min Normal 50-250 [facility] Comment on above: Performed By: #### L 500.4050, L501.2450, L100.0100 #### [facility] [address] [place], [address] GAP 12 Normal 5-15 [facility] Comment on above: Performed By: #### L 500.4050, L501.2450, L100.0100 #### [facility] [address] [place], [address] GFR/1.73 sq M.predicted among non-blacks MDRD (S/P/Bld) [Vol rate/Area] 58 mL/min/{1.73_m2} Low >60 [facility] Comment on above: Result Comment: mL/m in/1.73m2 CKD-EPI Creatinine Equation (2020) Performed By: #### L 500.4050, L501.2450, L100.0100 #### [facility] [address] [place], [address] Globulin (S) [Mass/Vol] 2.9 g/dL Normal 2.2-4.[address] [facility] Comment on above: Performed By: #### L 500.4050, L501.2450, L100.0100 #### [facility] [address] [place], [address] Glucose [Mass/Vol] 108 mg/dL High 70-99 [facility] Comment on above: Performed By: #### L 500.4050, L501.2450, L100.0100 #### [facility] [address] [place], [address] Potassium [Moles/Vol] 4.0 mmol/L Normal 3.3-5.1 [facility] Comment on above: Performed By: #### L 500.4050, L501.2450, L100.0100 #### [facility] [address] [place], [address] Sodium [Moles/Vol] 141 mmol/L Normal 133-145 [facility] Comment on above: Performed By: #### L 500.4050, L501.2450, L100.0100 #### [facility] [address] [place], [address] T PROT 7.0 g/dL Normal 5.9-8.4 [facility] Comment on above: Performed By: #### L 500.4050, L501.2450, L100.0100 #### [facility] [address] [place], [address] Urea nitrogen [Mass/Vol] 21 mg/dL High 4-19 [facility] Comment on above: Performed By: #### L 500.4050, L501.2450, L100.0100 #### [facility] [address] [place], [address] Emergency Department Summary on 08-20-2024 Emergency Department Summary [facility] Medical Records Department [address] [place] [address] Emergency Department Summary 08/20/24 MR#: [id number] Acct: [id number] Name: ANMOL HERNANDEZ Rep #: [id number] : 1960 64 From: Nolan Anderson MD PCP: Dr. Justice James MD Status:REG ER Location: ED HPI HPI - GI History of Present Illness Chief Complaint: Nausea/Vomiting/Diar anusah Narrative Narrative: 62-year-old female no past surgical history to the abdomen presents with nausea, vomiting, and diarrhea. 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 She started feeling some indigestion type symptoms at that time. She awoke this afternoon at around 1 PM, 4 hours ago, with burning sensation more in her chest and indigestion type symptoms. She states that she went to the bathroom and vomited 3 times without any hematemesis. She now has burning in her throat from the acid. She also had multiple episodes of diarrhea. No blood in her stool. She thinks that she has history of diverticulitis and IBS and thought maybe she was having an exacerbation of that. No exacerbating or alleviating factors to her abdominal pain. She might feel slightly weak and dehydrated as well. She has diffuse, crampy abdominal pain, and pressing on her abdomen makes her nauseated. No fevers or chills. [facility] Medical History Tachycardia Orthostatic hypotension Dyspnea Migraines GERD (gastroesophageal reflux disease) Hemorrhoids History of hay fever Asthma Chronic neck and back pain Depression Home Medications ???Medication ???Instructions ???Recorded ???Last Taken ???Type escitalopram oxalate 20 mg tablet 20 mg PO DAILY 09/10/16 06/02/24 History (Lexapro) cholecalciferol (vitamin D3) 125 125 mcg PO DAILY 05/05/20 12/06/20 History mcg (5,000 unit) capsule bupropion HCl 100 mg tablet,12 hr 100 mg PO DAILY 06/20/22 06/02/24 History sustained-release (Wellbutrin SR) krill oil 500 mg capsule 500 mg PO DAILY 08/30/23 Unknown H istory mecobalamin (vitamin B12) 1,000 1,000 mcg PO DAILY 08/30/23 Unknow n History mcg lozenges fluticasone 250 mcg-salmeterol 50 1 inh inhalation ONCE 11/19/23 History mcg/dose blistr powdr for inhalation (Wixela Inhub) metoprolol tartrate 25 mg tablet 12.5 mg (1/2 x 25 mg) PO DAILY Unknown Rx Please give 90 pills in case pt needs to increase #90 tabs albuterol 90 mcg-budesonide 80 2 inh inhalation TID PRN shortness 03/16/24 Unknown Rx mcg/actuation HFA aerosol inhaler of breath #10.7 grams (Airsupra) aspirin 81 mg tablet,delayed 81 mg PO QDAY Cardiac cath #10 tab s 05/06/24 06/02/24 Rx release (Adult Aspirin Regimen) montelukast 10 mg tablet 10 mg PO DAILY #90 tabs 05/22/24 1 08/03/23 Rx (Singulair) losartan 50 mg tablet 50 mg PO QDAY #60 tabs 06/04/24 Un known Rx dicyclomine 20 mg tablet 20 mg PO BID #15 tabs 08/20/24 Unk nown Rx ondansetron 4 mg disintegrating 4 mg PO Q8H PRN PRN Nausea #12 tab s 08/20/24 Unknown Rx tablet Allergy/AdvReac Type Severity Reaction Status Date / Time Penicillins Allergy Severe Rash Verified 08/20/24 16:34 amoxicillin Allergy Rash Verified 08/20/24 16:34 Sulfa (Sulfonamide Allergy Rash Verified 08/20/24 16:34 Antibiotics) duloxetine (From Cymbalta) AdvReac Severe LETHARGY Verified 08/20/24 16:34 loratadine (From Claritin) AdvReac Intermediate headache Verified 08/20/24 16:34 Family History Mother Breast cancer CVA (cerebral vascular accident) Sister Cancer ovarian Father Myocardial infarction Grandmother Cancer cervical Aunt Breast cancer Cancer lymphoma Uncle Cancer lymphoma Other Asthma Surgical History H/O: hysterectomy History of colonoscopy ( 2018) Social History (Updated 08/20/24 @ 17:43 by Linnette Rodriguez) household members: spouse housing: house Smoking Status: Never smoker alcohol intake: current details: social substance use type: does not use caffeine: Yes frequency: 3-4 times per week seatbelt use: always do you feel safe at home: Yes 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 ROS ROS ED ROS Narrative Review of systems positive for diffuse crampy abdominal pain. Positive nausea and vomiting. No hematemesis. Multiple episodes of diarrhea. Mild generalized weakness. No fevers or chills. EXAM Physical Exam Narrative Exam Narrative: Afebrile. Vital signs noted. Nontoxic-appearing. Cardiovascular examination reveals a regular rate and rhythm. Lungs are clear to auscultation bilaterally. Abdomen is soft with diffuse tenderness to palpation but no guarding or rebound. She does (more content not included)... Normal [facility] Eosinophil percentageOrdered By: ED PROVIDER on 08-20-2024 Eosinophils/100 WBC (Bld) 1.7 % 0-5 [facility] Epithelial cells.squamous LM Ql (Urine sed)Ordered By: Nolan Anderson on 08-20-2024 Epithelial cells.squamous LM.HPF (Urine sed) [#/Area] 0 /[HPF] 5-10 [facility] Erythrocyte distribution wid th ratioOrdered By: ED PROVIDER on 08-20-2024 Erythrocyte distribution width (RBC) [Ratio] 12.6 % 11.6-14.6 [facility] Erythrocyte distribution wid th standard deviationOrdered By: ED PROVIDER on 08-20-2024 Erythrocyte distribution width (RBC) [Entitic vol] 40.1 fL 35.1-43.9 [facility] Estimation of creatinine garret aranceOrdered By: Nolan Anderson on 08-20-2024 Estimated Creatinine Clearance Calc 53.19 ml/min 50-250 [facility] GFR/1.73 sq M.predicted primo g non-blacks MDRD (S/P/Bld) [Vol rate/Area]Ordered By: Nolan Anderson on 08-20-2024 Estimated GFR (MDRD) Non-Af Amer 58 Low >60 [facility] Comment on above: mL/min/1.73m2 CKD-EP I Creatinine Equation (2020) Glucose Ql (U)Ordered By: Kal Anderson on 08-20-2024 Urine Glucose (UA) Normal mg/dl Normal [facility] Hematocrit Auto (Bld) [Volum e fraction]Ordered By: ED PROVIDER on 08-20-2024 Hematocrit (Bld) [Volume fraction] 41.1 % 37-47 [facility] Hemoglobin measurementOrdere d By: ED PROVIDER on 08-20-2024 Hemoglobin (Bld) [Mass/Vol] 13.8 g/dL 12.0-15.0 [facility] Immature granulocytes/100 WB C Auto (Bld)Ordered By: ED PROVIDER on 08-20-2024 Immature granulocytes/100 WBC (Bld) 0.400 % 0.0-0.9 [facility] Comment on above: IG% - Immature Granu locytes (promyelocytes, myelocytes and metamyelocytes) > 1% indicates that a LEFT SHIFT is Present. Ketones Test strip Ql (U)Ord ered By: Nolan Anderson on 08-20-2024 Ketones Ql (U) Negative Negative [facility] - Chemistry and C hemistry - challengeOrdered By: Nolan Anderson on 08-20-2024 AST [Catalytic activity/Vol] 21 U/L <32 [facility] Lipaseon 08-20-2024 Lipase [Catalytic activity/Vol] 24 U/L Normal 13-75 [facility] Comment on above: Result Comment: Plejose kaplan note: LIPASE revised reference range effective 22. New Lipase methodology. Expected to produce lower values than the previous assay method. NEW Reference Range: 13 - 75 U/L Performed By: #### L 500.4050, L501.2450, L100.0100 #### [facility] [address] [place], [address] Lipase measurementOrdered By : Nolan Anderson on 08-20-2024 Lipase [Catalytic activity/Vol] 24 U/L 13-75 [facility] Comment on above: Please note:LIPASE r evised reference range effective 22. New Lipase methodology. Expected to produce lower values than the previous assay method. NEW Reference Range: 13 - 75 U/L Lymphocytes Auto (Unsp spec) [#/Vol]Ordered By: ED PROVIDER on 08-20-2024 Lymphocytes (Bld) [#/Vol] 0.62 10*3/uL Low 0.83-4.51 [facility] Lymphocytes/100 WBC Auto (Un sp spec)Ordered By: ED PROVIDER on 08-20-2024 Lymphocytes/100 WBC (Bld) 8.1 % Low 19-41 [facility] MCV (mean corpuscular volume ) determinationOrdered By: ED PROVIDER on 08-20-2024 MCV (RBC) [Entitic vol] 86.9 fL 81-99 [facility] Mean corpuscular hemoglobin (MCH) determinationOrdered By: ED PROVIDER on 08-20-2024 MCH (RBC) [Entitic mass] 29.2 pg 27.0-32.0 [facility] Mean corpuscular hemoglobin concentration (MCHC) determinationOrdered By: ED PROVIDER on 08-20-2024 MCHC (RBC) [Mass/Vol] 33.6 g/dL 32-36 [facility] Mean platelet volume determi nationOrdered By: ED PROVIDER on 08-20-2024 Platelet mean volume (Bld) [Entitic vol] 9.7 fL 6.2-12.0 [facility] Microscopic analysis of urin e for red blood cells (RBC)Ordered By: Nolan Anderson on 08-20-2024 Urine RBC 0 SEEN /hpf 0-5 [facility] Monocyte percentageOrdered B y: ED PROVIDER on 08-20-2024 Monocytes/100 WBC (Bld) 4.0 % 0-10 [facility] Mucus LM Ql (Urine sed)Order ed By: Nolan Anderson on 08-20-2024 Mucus Ql (Urine sed) 0 SEEN /hpf [facility] Neutrophil percentageOrdered By: ED PROVIDER on 08-20-2024 Neutrophils/100 WBC (Bld) 85.4 % High 47-70 [facility] Nitrite Test strip Ql (U)Ord ered By: Nolan Anderson on 08-20-2024 Nitrite Ql (U) Negative Negative [facility] Nucleated red blood cell per centageOrdered By: ED PROVIDER on 08-20-2024 Nucleated RBC/100 WBC (Bld) [Ratio] 0 % 0-5 [facility] Platelet countOrdered By: ED PROVIDER on 08-20-2024 Platelets (Bld) [#/Vol] 231 10*3/uL 150-450 [facility] Potassium (Unsp spec) [Mass/ Vol]Ordered By: Nolan Anderson on 08-20-2024 Potassium [Moles/Vol] 4.0 mmol/L 3.3-5.1 [facility] Protein Test strip Ql (U)Ord ered By: Nolan Anderson on 08-20-2024 Protein Ql (U) 30 mg/dl High Negative [facility] RBC Auto (Bld) [#/Vol]Ordere d By: ED PROVIDER on 08-20-2024 RBC (Bld) [#/Vol] 4.73 10*6/uL 4.2-5.4 [facility] Serum creatinine measurement (mass/volume)Ordered By: Nolan Anderson on 08-20-2024 Creatinine [Mass/Vol] 1.08 mg/dL 0.70-1.20 [facility] Serum globulin measurementOr dered By: Nolan Anderson on 08-20-2024 Globulin (S) [Mass/Vol] 2.9 g/dL 2.2-4.2 [facility] Serum glucose measurement (m ass/volume)Ordered By: Nolan Anderson on 08-20-2024 Glucose [Mass/Vol] 108 mg/dL High 70-99 [facility] Serum or plasma alanine james otransferase (ALT) measurementOrdered By: Nolan Anderson on 08-20-2024 ALT [Catalytic activity/Vol] 23 U/L <35 [facility] Serum or plasma albumin pilo urement (mass/volume)Ordered By: Nolan Anderson on 08-20-2024 Albumin [Mass/Vol] 4.1 g/dL 3.4-4.8 [facility] Serum or plasma albumin/glob ulin mass ratioOrdered By: Nolan Anderson on 08-20-2024 Albumin/Globulin [Mass ratio] 1.4 {ratio} 0.9-2.4 [facility] Serum or plasma alkaline hui sphatase measurementOrdered By: Nolan Anderson on 08-20-2024 ALP [Catalytic activity/Vol] 110 U/L High 35-104 [facility] Serum or plasma calcium pilo urement (mass/volume)Ordered By: Nolan Anderson on 08-20-2024 Calcium [Mass/Vol] 9.4 mg/dL 7.6-11.0 [facility] Serum or plasma urea nitroge n measurement (mass/volume)Ordered By: Nolan Anderson on 08-20-2024 Urea nitrogen [Mass/Vol] 21 mg/dL High 4-19 [facility] Sodium levelOrdered By: Nolan Anderson on 08-20-2024 Sodium [Moles/Vol] 141 mmol/L 133-145 [facility] Total proteinOrdered By: Swathi Anderson on 08-20-2024 Protein [Mass/Vol] 7.0 g/dL 5.9-8.4 [facility] Urinalysis, Completeon 08-20 EPI,SQUAMOUS 0-5 SEEN Normal 5-10 [facility] Comment on above: Order Comment: JACOB CTOR TO SPECIFY Performed By: #### L 400.0001 #### [facility] [address] [facility] [address] RBC 0 SEEN Normal 0-5 [facility] Comment on above: Order Comment: JACOB CTOR TO SPECIFY Performed By: #### L 400.0001 #### [facility] [address] [facility] [address] WBC 0-5 SEEN Normal 0-5 [facility] Comment on above: Order Comment: JACOB CTOR TO SPECIFY Performed By: #### L 400.0001 #### [facility] [address] [facility] [address] BACTERIA 0 SEEN Normal None Seen [facility] Comment on above: Order Comment: JACOB CTOR TO SPECIFY Performed By: #### L 400.0001 #### [facility] [address] [facility] [address] Mucus Ql (Urine sed) 0 SEEN Normal [facility] Comment on above: Order Comment: JACOB CTOR TO SPECIFY Performed By: #### L 400.0001 #### [facility] [address] [facility] [address] Urine blood detectionOrdered By: Nolan Anderson on 08-20-2024 Urine Occult Blood Negative Negative [facility] Urine clarityOrdered By: Swathi Anderson on 08-20-2024 Clarity (U) Sl. Cloudy Clear [facility] Urine color determinationOrd ered By: Nolan Anderson on 08-20-2024 Color (U) Yellow Yellow [facility] Urine leukocyte esterase det ection by dipstickOrdered By: Nolan Anderson on 08-20-2024 Leukocyte esterase Test strip Ql (U) 25 /ul High Negative [facility] Urine pHOrdered By: Nolan huang on 08-20-2024 pH (U) 7.0 [pH] 5.0 - 8.0 [facility] Urine sediment bacteria coun t by microscopy (number/high power field)Ordered By: Nolan Anderson on 08-20-2024 Bacteria LM.HPF (Urine sed) [#/Area] 0 /[HPF] None Seen [facility] Urine specific gravity measu rementOrdered By: Nolan Anderson on 08-20-2024 Specific gravity (U) [Rel density] 1.010 1.002-1.030 [facility] Urobilinogen Ql (U)Ordered B y: Nolan Anderson on 08-20-2024 Urine Urobilinogen Normal mg/dl Normal [facility] White blood cell (WBC) count Ordered By: ED PROVIDER on 08-20-2024 WBC (Bld) [#/Vol] 7.7 10*3/uL 4.4-11.0 [facility] White blood cell countOrdere d By: Nolan Anderson on 08-20-2024 Urine WBC 0-5 SEEN /hpf 0-5 [facility] Nasopharyngeal Cultureon NAC # 1,2 Identification and sensitivity performed at [facility]. Nasopharyngeal Culture Klebsiella oxytoca Amount Growth 1+ Moraxella Catarrhalis Moraxella Catarrhalis Klebsiella oxytoca: REACTION Amoxicillin+Clav Islt SIMONE S Ampicillin Islt SIMONE Cefepime Islt SIMONE S cefTRIAXone Islt SIMONE S Ciprofloxacin Islt SIMONE S Gentamicin Islt SIMONE S Imipenem Islt SIMONE S levoFLOXacin Islt SIMONE S Meropenem Islt SIMONE S Tetracycline Islt SIMONE S Tobramycin Islt SIMONE S TMP SMX Islt SIMONE S Cefuroxime Islt SIMONE S Moraxella Catarrhalis: REACTION Cefotaxime Islt SIMONE S cefTAZidime Islt SIMONE Ciprofloxacin Islt SIMONE S levoFLOXacin Islt SIMONE S Cefuroxime Islt SIMONE S [facility] Comment on above: Performed By: #### M 100.2500, M100.1999 ####[facility] [id number] [place], [address] Cardiac Cath Diagnosticon Cardiac Cath Diagnostic [facility] Imaging Services [address] [place] [address] Cardiac Cath Diagnostic MR#: [id number] Acct: [id number] Name: ANMOL HERNANDEZ Rep #: [id number] : 1960 64 From: Julio Cesar Scott MD PCP: Dr. Justice James MD Status:[facility] Patient Name: ANMOL HERNANDEZ Study Date: 06/02/2024 Performing: Julio Cesar Scott MD Ht: 62 inches 157.48 cm : 1960 Wt: 182.79 lbs 82.91 kg Age: 64 Gender: female BSA: 1.84 PROCEDURE(S) PERFORMED DC01-(50870)LHC/COR/ LV CLINICAL PROFILE AND INDICATIONS Indications: Suspected CAD Heart Failure: None Stress/Imaging Date: 05/10/24Stress Test with SPECT MPI: Positive Low Risk CAD Presentations: Stable angina. CONCLUSIONS Normal coronary arteries Normal LV size, wall motion,and systolic function RECOMMENDATIONS Medical therapy DESCRIPTION OF PROCEDURE The patient arrived to the procedure lab. The risks and benefits of the procedure as well as a full description of our services here and current unavailability of surgical backup were fully explained to the patient and/or their significant other prior to the catheterization. The Timeout was completed, verifying the correct patient and procedure. The patient's procedural site was prepped and draped in the usual fashion. Local anesthetic was given subcutaneously to right radial region with Lidocaine 2%. Using a modified Seldinger technique, arterial access was obtained via the right radial artery, a 6Fr sheath was inserted. Left Coronary Artery selective angiography was performed in multiple views using a 5 Fr. 4.0 Olney catheter. Right Coronary Artery selective angiography was then performed in multiple views using a 5 Fr. 4.0 Olney catheter. Left Ventriculography was performed in LANDAVERDE projection using a 5 Fr. Pigtail catheter. LV to AO pullback pressures were then recorded.The arterial sheath was pulled and a TR Band was applied for hemostasis. 10cc of air CORONARY ANGIOGRAPHY DOMINANCE: Left Dominant LEFT HEART ASSESSMENT Left Ventricular Ejection Fraction: by LV Gram 60 % Normal LV wall motion Normal Left Ventricular systolic function LEFT MAIN: Angiographically normal LEFT ANTERIOR DESCENDING ARTERY: Angiographically normal CIRCUMFLEX ARTERY: Angiographically normal RIGHT CORONARY ARTERY: Angiographically normal COMPLICATIONS No Complications PROCEDURE MEDICATIONS Fentanyl 50 mcg IV Versed 1 mg IV Versed 1 mg IV Oxygen: 2 L/min via nasal cannula Heparin given IA 06/02/2024 09:35:44 Verapamil 2.5mg, Ntg 100mcgs, 3000 units of Heparin given IA 06/02/2024 09:35:44 SUMMARY OF HEMODYNAMIC DATA Time AIR REST ECG 08:18:23 ECG 09:16:05 AO 125/66 (88) SA 09:52:44 LV 127/0, 7 09:56:43 LV 112/1, 11 09:56:51 LV 111/0, 12 09:57:23 LVp 110/1, 12 09:57:26 AOp 109/48 (77) 09:57:33 Signed By Julio Cesar Scott MD On 06/02/2024 10:06:42 Julio Cesar Scott MD 06/02/24 1007 Date Julio Cesar Scott MD [facility] Signature: Date (if indicated) CC: Dr. Julio Cesar Scott MD; Dr. Justice James MD Date Dictated: 06/02/24923 Date Transcribed: 06/02/24 1006 Principal Cyber Engineer: [place] Signed Normal [facility] Gram Stainon 05-27-2024 GS Gram Stain Rare Gram positive cocci 1+ Red Blood Cells 1+ White Blood Cells Normal [facility] Comment on above: Performed By: #### M 100.2500, M100.2000 ####[facility] [id number] [place], [address] Absolute neutrophil countOrd ered By: Yocasta Tejada on 05-26-2024 Neutrophils (Bld) [#/Vol] 3.8 10*3/uL 2.0-7.7 [facility] Basic Metabolic Profile (BMP )on 05-26-2024 BUN/CRE 12.6 RATIO Normal 10-20 [facility] Comment on above: Performed By: #### L 500.4100, L100.0100, L500.2500, L500.3400 #### [facility] [address] [place], [address] CA,Total 9.3 mg/dL Normal 8.5-10.1 [facility] Comment on above: Performed By: #### L 500.4100, L100.0100, L500.2500, L500.3400 #### [facility] [address] [place], [address] Chloride [Moles/Vol] 112 mmol/L High 98-107 [facility] Comment on above: Performed By: #### L 500.4100, L100.0100, L500.2500, L500.3400 #### [facility] [address] [place], [address] CO2 [Moles/Vol] 25.0 mmol/L Normal 21.0-32.0 [facility] Comment on above: Performed By: #### L 500.4100, L100.0100, L500.2500, L500.3400 #### [facility] [address] [place], [address] Creatinine [Mass/Vol] 1.11 mg/dL High 0.55-1.02 [facility] Comment on above: Result Comment: The validity of the calculated GFR GFRAA in patients over 70 years has not been determined. Clinical correlation is essential. Performed By: #### L 500.4100, L100.0100, L500.2500, L500.3400 #### [facility] [address] [place], [address] EST GFR - AA 64 mL/min Normal >60 [facility] Comment on above: Result Comment: Afri can [place] GFR Calc Performed By: #### L 500.4100, L100.0100, L500.2500, L500.3400 #### [facility] [address] [place], [address] GAP 6 Normal 5-15 [facility] Comment on above: Performed By: #### L 500.4100, L100.0100, L500.2500, L500.3400 #### [facility] [address] [place], [address] GFR/1.73 sq M.predicted among non-blacks MDRD (S/P/Bld) [Vol rate/Area] 53 mL/min/{1.73_m2} Low >60 [facility] Comment on above: Result Comment: Non- GFR Calc Performed By: #### L 500.4100, L100.0100, L500.2500, L500.3400 #### [facility] [address] [place], [address] Glucose [Mass/Vol] 98 mg/dL Normal 74-106 [facility] Comment on above: Performed By: #### L 500.4100, L100.0100, L500.2500, L500.3400 #### [facility] [address] [place], [address] Potassium [Moles/Vol] 3.8 mmol/L Normal 3.5-5.1 [facility] Comment on above: Performed By: #### L 500.4100, L100.0100, L500.2500, L500.3400 #### [facility] [address] [place], [address] Sodium [Moles/Vol] 143 mmol/L Normal 136-145 [facility] Comment on above: Performed By: #### L 500.4100, L100.0100, L500.2500, L500.3400 #### [facility] [address] [place], [address] Urea nitrogen [Mass/Vol] 14 mg/dL Normal 7-18 [facility] Comment on above: Performed By: #### L 500.4100, L100.0100, L500.2500, L500.3400 #### [facility] [address] [place], [address] Basophil percentageOrdered B y: Yocasta Tejada on 05-26-2024 Basophils/100 WBC (Bld) 0.6 % 0- [facility] Bilirubin directOrdered By: Yocasta Tejada on 05-26-2024 Bilirubin.direct [Mass/Vol] 0.12 mg/dL 0.00-0.30 [facility] Bilirubin, totalOrdered By: Yocasta Tejada on 05-26-2024 Bilirubin [Mass/Vol] 0.40 mg/dL 0.20-1.00 [facility] Comment on above: For patients on eltr ombopag therapy, use of Dimension [place] TBIL is not recommended. Blood urea nitrogen (BUN)/cr eatinine ratioOrdered By: Yocasta Tejada on 05-26-2024 Urea nitrogen/Creatinine [Mass ratio] 12.6 mg/mg 04-05 [facility] CBC W/Diff, Automatedon 05-17 Absolute Lymph 2.29 X10 3/uL Normal 0.83-4.51 [facility] Comment on above: Performed By: #### L 500.4100, L100.0100, L500.2500, L500.3400 #### [facility] [address] [place], [address] Absolute Neut 3.8 X10 3/uL Normal 2.0-7.7 [facility] Comment on above: Performed By: #### L 500.4100, L100.0100, L500.2500, L500.3400 #### [facility] [address] [place], [address] Basophils/100 WBC (Bld) 0.6 % Normal 0-1 [facility] Comment on above: Performed By: #### L 500.4100, L100.0100, L500.2500, L500.3400 #### [facility] [address] [place], [address] Eosinophils/100 WBC (Bld) 2.7 % Normal 0-5 [facility] Comment on above: Performed By: #### L 500.4100, L100.0100, L500.2500, L500.3400 #### [facility] [address] [place], [address] Erythrocyte distribution width (RBC) [Ratio] 12.6 % Normal 11.6-14.6 [facility] Comment on above: Performed By: #### L 500.4100, L100.0100, L500.2500, L500.3400 #### [facility] [address] [place], [address] Hematocrit (Bld) [Volume fraction] 41.9 % Normal 37-47 [facility] Comment on above: Performed By: #### L 500.4100, L100.0100, L500.2500, L500.3400 #### [facility] [address] [place], [address] Hemoglobin (Bld) [Mass/Vol] 13.4 g/dL Normal 12.0-15.0 [facility] Comment on above: Performed By: #### L 500.4100, L100.0100, L500.2500, L500.3400 #### [facility] [address] [place], [address] IG% 0.600 Normal 0.0-0.9 [facility] Comment on above: Result Comment: IG% - Immature Granulocytes (promyelocytes, myelocytes and metamyelocytes) > 1% indicates that a LEFT SHIFT is Present. Performed By: #### L 500.4100, L100.0100, L500.2500, L500.3400 #### [facility] [address] [place], [address] Lymphocytes/100 WBC (Bld) 33.8 % Normal 19-41 [facility] Comment on above: Performed By: #### L 500.4100, L100.0100, L500.2500, L500.3400 #### [facility] [address] [place], [address] MCH (RBC) [Entitic mass] 28.5 pg Normal 27.0-32.0 [facility] Comment on above: Performed By: #### L 500.4100, L100.0100, L500.2500, L500.3400 #### [facility] [address] [place], [address] MCHC (RBC) [Mass/Vol] 32.0 g/dL Normal 32-36 [facility] Comment on above: Performed By: #### L 500.4100, L100.0100, L500.2500, L500.3400 #### [facility] [address] [place], [address] MCV (RBC) [Entitic vol] 89.1 fL Normal 81-99 [facility] Comment on above: Performed By: #### L 500.4100, L100.0100, L500.2500, L500.3400 #### [facility] [address] [place], [address] Monocytes/100 WBC (Bld) 5.8 % Normal 0-10 [facility] Comment on above: Performed By: #### L 500.4100, L100.0100, L500.2500, L500.3400 #### [facility] [address] [place], [address] Neutrophils/100 WBC (Bld) 56.5 % Normal 47-70 [facility] Comment on above: Performed By: #### L 500.4100, L100.0100, L500.2500, L500.3400 #### [facility] [address] [place], [address] Nucleated RBC (Bld) [#/Vol] 0 10*3/uL Normal 0-5 [facility] Comment on above: Performed By: #### L 500.4100, L100.0100, L500.2500, L500.3400 #### [facility] [address] [place], [address] Platelet mean volume (Bld) [Entitic vol] 9.7 fL Normal 6.2-12.0 [facility] Comment on above: Performed By: #### L 500.4100, L100.0100, L500.2500, L500.3400 #### [facility] [address] [place], [address] Platelets (Bld) [#/Vol] 250 10*3/uL Normal 150-450 [facility] Comment on above: Performed By: #### L 500.4100, L100.0100, L500.2500, L500.3400 #### [facility] [address] [place], [address] RBC (Bld) [#/Vol] 4.70 10*6/uL Normal 4.2-5.4 [facility] Comment on above: Performed By: #### L 500.4100, L100.0100, L500.2500, L500.3400 #### [facility] [address] [place], [address] RDW SD 41.7 fl Normal 35.1-43.9 [facility] Comment on above: Performed By: #### L 500.4100, L100.0100, L500.2500, L500.3400 #### [facility] [address] [place], [address] WBC (Bld) [#/Vol] 6.8 10*3/uL Normal 4.4-11.0 [facility] Comment on above: Performed By: #### L 500.4100, L100.0100, L500.2500, L500.3400 #### [facility] [address] [place], [address] Carbon dioxide measurementOr dered By: Yocasta Tejada on 05-26-2024 CO2 [Moles/Vol] 25.0 mmol/L 21.0-32.0 [facility] Chest PA and Lateralon 05-26 Chest PA and Lateral [facility] Imaging Services [address] [place] [address] Chest PA and Lateral MR#: [id number] Acct: [id number] Name: ANMOL HERNANDEZ Jose Rep #: [id number] : 1960 F 64 From: Huy beard MD PCP: Dr. Justice James MD Status: PRE [facility] Study: Chest PA and Lateral Date of Exam: 05/26/24 Exam# [id number] Ordering Dr: Yocasta Tejada DIRECTOR OF STRATEGIC PARTNERSHIPS DIRECTOR OF STRATEGIC PARTNERSHIPS- C [id number] STUDY: X-RAY CHEST REASON FOR EXAM: Female, 64 years old. Cardiac Cath TECHNIQUE: PA and lateral views of the chest. COMPARISON: Comparison is made with prior study dated January 09, 2023. FINDINGS: Mild increased linear markings in the lingular segment of the left upper lobe suggestive of either atelectasis and/or linear scarring. There is no demonstrated pleural abnormality. Normal size heart. Normal mediastinum and safia. Normal visualized pulmonary arteries. Normal visualized aortic arch and descending thoracic aorta. There is demineralization of the osseous structures. Normal visualized ribs, clavicles, and shoulders. There is no demonstrated abnormality of the visualized soft tissue structures of the upper abdomen. RAD/Chest PA and Lateral IMPRESSION: Mild increased markings in the lingular segment of the left upper lobe suggestive of linear scarring and/or atelectasis. Electronically Signed: Huy Santacruz MD at 15:26 EST , CC: DEBORAH Tejada; Dr. Justice James MD Principal Cyber Engineer: Signed Normal [facility] Chloride measurementOrdered By: Yocasta Tejada on 05-26-2024 Chloride [Moles/Vol] 112 mmol/L High 98-107 [facility] Eosinophil percentageOrdered By: Yocasta Tejada on 05-26-2024 Eosinophils/100 WBC (Bld) 2.7 % 0-5 [facility] Erythrocyte distribution wid th ratioOrdered By: Yocasta Tejada on 05-26-2024 Erythrocyte distribution width (RBC) [Ratio] 12.6 % 11.6-14.6 [facility] Erythrocyte distribution wid th standard deviationOrdered By: Yocasta Tejada on 05-26-2024 Erythrocyte distribution width (RBC) [Entitic vol] 41.7 fL 35.1-43.9 [facility] Estimated glomerular filtrat ion rate (GFR) AmericanOrdered By: Yocasta Tejada on 05-26-2024 Estimated GFR (MDRD) Amer 64 mL/min >60 [facility] Comment on above: GFR Calc Glomerular filtration rate ( GFR) estimationOrdered By: Yocasta Tejada on 05-26-2024 Estimated GFR (MDRD) Non-Af Amer 53 mL/min Low >60 [facility] Comment on above: Non- GFR Calc Glucose measurementOrdered B y: Yocasta Tejada on 05-26-2024 Glucose [Mass/Vol] 98 mg/dL 74-106 [facility] Gram stainOrdered By: José Miguel crouch on 05-26-2024 Microscopic observation Gram stain Nom (Unsp spec) [facility] Hematocrit Auto (Bld) [Volum e fraction]Ordered By: Yocasta Tejada on 05-26-2024 Hematocrit (Bld) [Volume fraction] 41.9 % 37-47 [facility] Hemoglobin measurementOrdere d By: Yocasta Tejada on 05-26-2024 Hemoglobin (Bld) [Mass/Vol] 13.4 g/dL 12.0-15.0 [facility] High density lipoprotein (HD L) measurementOrdered By: Yocasta Tejada on 05-26-2024 Cholesterol in HDL [Mass/Vol] 72 mg/dL >40 [facility] Comment on above: The drugs N-Acetylcy steine and Metamizole may falsely depress this assay. Reference Range HDL <40 mg/dL Low HDL Cholesterol HDL >or= 60 mg/dL High HDL Cholesterol Immature granulocytes/100 WB C Auto (Bld)Ordered By: Yocasta Tejada on 05-26-2024 Immature granulocytes/100 WBC (Bld) 0.600 % 0.0-0.9 [facility] Comment on above: IG% - Immature Granu locytes (promyelocytes, myelocytes and metamyelocytes) > 1% indicates that a LEFT SHIFT is Present. Laboratory - Chemistry and C hemistry - challengeOrdered By: Yocasta Tejada on 05-26-2024 AST [Catalytic activity/Vol] 12 U/L Low 15-37 [facility] Lipid Profileon 05-26-2024 Cholesterol [Mass/Vol] 243 mg/dL High 200 [facility] Comment on above: Result Comment: <200 mg/dL Desirable 200-240 mg/dL Borderline >240 mg/dL High Risk Performed By: #### L 500.4100, L100.0100, L500.2500, L500.3400 ####[facility] [address] [place], [address] Cholesterol in HDL [Mass/Vol] 72 mg/dL Normal [facility] Comment on above: Result Comment: The drugs N-Acetylcysteine and Metamizole may falsely depress this assay. Reference Range HDL <40 mg/dL Low HDL Cholesterol HDL >or= 60 mg/dL High HDL Cholesterol Performed By: #### L 500.4100, L100.0100, L500.2500, L500.3400 ####[facility] [address] [place], [address] Cholesterol in LDL [Mass/Vol] 152 mg/dL High 0-130 [facility] Comment on above: Performed By: #### L 500.4100, L100.0100, L500.2500, L500.3400 ####[facility] [address] [place], [address] Cholesterol in VLDL [Mass/Vol] 19 mg/dL Normal 5-40 [facility] Comment on above: Performed By: #### L 500.4100, L100.0100, L500.2500, L500.3400 ####[facility] [address] [place], [address] Triglyceride [Mass/Vol] 95 mg/dL Normal [facility] Comment on above: Result Comment: The drugs N-Acetylcysteine and Metamizole may falsely depress this assay. Serum Triglycerides Reference Interval Normal <150 mg/dL Borderline high 150 - 199 mg/dL High 200 - 499 mg/dL Very High > or = 500 mg/dL Performed By: #### L 500.4100, L100.0100, L500.2500, L500.3400 ####[facility] [address] [place], [address] Liver Profileon 05-26-2024 Albumin [Mass/Vol] 3.4 g/dL Normal 3.2-5.0 [facility] Comment on above: Performed By: #### L 500.4100, L100.0100, L500.2500, L500.3400 ####[facility] [address] [place], [address] ALK P 112 U/L Normal 45-117 [facility] Comment on above: Performed By: #### L 500.4100, L100.0100, L500.2500, L500.3400 ####[facility] [address] [place], [address] ALT [Catalytic activity/Vol] 23 U/L Normal 13-56 [facility] Comment on above: Performed By: #### L 500.4100, L100.0100, L500.2500, L500.3400 ####[facility] [address] [place], [address] AST [Catalytic activity/Vol] 12 U/L Low 15-37 [facility] Comment on above: Performed By: #### L 500.4100, L100.0100, L500.2500, L500.3400 ####[facility] [address] [place], [address] Bilirubin [Mass/Vol] 0.40 mg/dL Normal 0.20-1.00 [facility] Comment on above: Result Comment: For patients on eltrombopag therapy, use of Dimension [place] TBIL is not recommended. Performed By: #### L 500.4100, L100.0100, L500.2500, L500.3400 ####[facility] [address] [place], [address] Bilirubin.direct [Mass/Vol] 0.12 mg/dL Normal 0.00-0.30 [facility] Comment on above: Performed By: #### L 500.4100, L100.0100, L500.2500, L500.3400 ####[facility] [address] [place], [address] Globulin (S) [Mass/Vol] 3.6 g/dL Normal 2.2-4.[address] [facility] Comment on above: Performed By: #### L 500.4100, L100.0100, L500.2500, L500.3400 ####[facility] [address] [place], [address] T PROT 7.0 g/dL Normal 6.4-8.2 [facility] Comment on above: Performed By: #### L 500.4100, L100.0100, L500.2500, L500.3400 ####[facility] [address] [place], [address] Low density lipoprotein (LDL ) cholesterol measurementOrdered By: Yocasta Tejada on 05-26-2024 Cholesterol in LDL [Mass/Vol] 152 mg/dL High 0-130 [facility] Lymphocytes Auto (Unsp spec) [#/Vol]Ordered By: Yocasta Tejada on 05-26-2024 Lymphocytes (Bld) [#/Vol] 2.29 10*3/uL 0.83-4.51 [facility] Lymphocytes/100 WBC Auto (Un sp spec)Ordered By: Yocasta Tejada on 05-26-2024 Lymphocytes/100 WBC (Bld) 33.8 % 19-41 [facility] MCV (mean corpuscular volume ) determinationOrdered By: Yocasta Tejada on 05-26-2024 MCV (RBC) [Entitic vol] 89.1 fL 81-99 [facility] Mean corpuscular hemoglobin (MCH) determinationOrdered By: Yocasta Tejada on 05-26-2024 MCH (RBC) [Entitic mass] 28.5 pg 27.0-32.0 [facility] Mean corpuscular hemoglobin concentration (MCHC) determinationOrdered By: Yocasta Tejada on 05-26-2024 MCHC (RBC) [Mass/Vol] 32.0 g/dL 32-36 [facility] Mean platelet volume determi nationOrdered By: Yocasta Tejada on 05-26-2024 Platelet mean volume (Bld) [Entitic vol] 9.7 fL 6.2-12.0 [facility] Monocyte percentageOrdered B y: Yocasta Tejada on 05-26-2024 Monocytes/100 WBC (Bld) 5.8 % 0-10 [facility] Nasopharyngeal cultureOrdere d By: José Miguel Trejo on 05-26-2024 Nasopharyngeal Culture Klebsiella oxytoca Abnormal [facility] Nasopharyngeal Culture Moraxella Catarrhalis Abnormal [facility] Neutrophil percentageOrdered By: Yocasta Tejada on 05-26-2024 Neutrophils/100 WBC (Bld) 56.5 % 47-70 [facility] Nucleated red blood cell per centageOrdered By: Yocasta Tejada on 05-26-2024 Nucleated RBC/100 WBC (Bld) [Ratio] 0 % 0-5 [facility] Platelet countOrdered By: Timothy Tejada on 05-26-2024 Platelets (Bld) [#/Vol] 250 10*3/uL 150-450 [facility] Potassium measurementOrdered By: Yocasta Tejada on 05-26-2024 Potassium [Moles/Vol] 3.8 mmol/L 3.5-5.1 [facility] RBC Auto (Bld) [#/Vol]Ordere d By: Yocasta Tejada on 05-26-2024 RBC (Bld) [#/Vol] 4.70 10*6/uL 4.2-5.4 [facility] Serum anion gap measurementO rdered By: Yocasta Tejada on 05-26-2024 Anion gap [Moles/Vol] 6 mmol/L 5-15 [facility] Serum globulin measurementOr dered By: Yocasta Tejada on 05-26-2024 Globulin (S) [Mass/Vol] 3.6 g/dL 2.2-4.[address] [facility] Serum or plasma alanine james otransferase (ALT) measurementOrdered By: Yocasta Tejada on 05-26-2024 ALT [Catalytic activity/Vol] 23 U/L 13-56 [facility] Serum or plasma albumin pilo urement (mass/volume)Ordered By: Yocasta Tejada on 05-26-2024 Albumin [Mass/Vol] 3.4 g/dL 3.2-5.0 [facility] Serum or plasma alkaline hui sphatase measurementOrdered By: Yocasta Tejada on 05-26-2024 ALP [Catalytic activity/Vol] 112 U/L 45-117 [facility] Serum or plasma calcium pilo urement (mass/volume)Ordered By: Yocasta Tejada on 05-26-2024 Calcium [Mass/Vol] 9.3 mg/dL 8.5-10.1 [facility] Serum or plasma cholesterol measurement (mass/volume)Ordered By: Yocasta Tejada on 05-26-2024 Cholesterol [Mass/Vol] 243 mg/dL High <200 [facility] Comment on above: <200 mg/dL Desirable 200-240 mg/dL Borderline >240 mg/dL High Risk Serum or plasma creatinine m easurement (mass/volume)Ordered By: Yocasta Tejada on 05-26-2024 Creatinine [Mass/Vol] 1.11 mg/dL High 0.55-1.02 [facility] Comment on above: The validity of the calculated GFR & GFRAA in patients over 70 years has not been determined. Clinical correlation is essential. Serum or plasma urea nitroge n measurement (mass/volume)Ordered By: Yocasta Tejada on 05-26-2024 Urea nitrogen [Mass/Vol] 14 mg/dL 7-18 [facility] Sodium levelOrdered By: Iliana Tejada on 05-26-2024 Sodium [Moles/Vol] 143 mmol/L 136-145 [facility] Total proteinOrdered By: Francois Tejada on 05-26-2024 Protein [Mass/Vol] 7.0 g/dL 6.4-8.2 [facility] Triglycerides measurementOrd ered By: Yocasta Tejada on 05-26-2024 Triglyceride [Mass/Vol] 95 mg/dL <199 [facility] Comment on above: The drugs N-Acetylcy steine and Metamizole may falsely depress this assay.Serum Triglycerides Reference Interval Normal <150 mg/dL Borderline high 150 - 199 mg/dL High 200 - 499 mg/dL Very High > or = 500 mg/dL Very low density lipoprotein (VLDL) cholesterol measurementOrdered By: Yocasta Tejada on 05-26-2024 VLDL Cholesterol 19 mg/dL 5-40 [facility] White blood cell (WBC) count Ordered By: Yocasta Tejada on 05-26-2024 WBC (Bld) [#/Vol] 6.8 10*3/uL 4.4-11.0 [facility] Stress Reporton 05-04-2024 Stress Report [facility] Cardiovascular Services [address] [place] [address] MR#: [id number] Acct: [id number] Name: ANMOL HERNANDEZ Jose Rep #: [id number] : 1960 64 From: Julio Cesar Scott MD Primary Care: Dr. Justice James MD Status: REG CLI Referring Dr: Yocasta Tejada NP, NP-Racheal Sex: F C Stress Test Report Exercise myocardial perfusion stress test. 64-year-old lady with a history of chest discomfort Stress protocol: Resting EKG demonstrates normal sinus rhythm with a rate of 59 bpm resting blood pressure is 122/78 mmHg. The patient exercised according to the regular Kimani protocol for a total duration of 7 minutes and 5 seconds attaining a maximum heart rate of 142 bpm which was 89% of maximum predicted heart rate; the maximum workload was 10.1 metabolic equivalents. At rest there were no ST or T wave changes noted to suggest ischemia and at peak exercise upsloping ST changes only were noted which did not meet the criteria for ischemia. The patient did experience some chest discomfort and throat tightness at peak exercise which resolved during rest. The test was terminated due to the target heart rate being achieved/fatigue. The peak blood pressure was 148/70 mmHg. Rate-pressure product was 18,000. Myocardial perfusion protocol. 12.0 mCi of technetium 99m sestamibi was injected at rest. The patient exercised according to regular Kimani protocol for total duration of 7 minutes and 5 seconds and at peak exercise 35.0 mCi o f technetium 99m sestamibi was injected stress images were obtained stress and rest images were reconstructed in comparing the short axis vertical long and horizontal long axis. Gated images were also obtained. Perfusion SPECT analysis: Review of the stress images demonstrate normal uptake of tracer noted in all areas of the myocardium except for a small portion of the anterior wall with mildly reduced perfusion. The resting images similarly demonstrate normal uptake of tracer noted in all areas of the myocardium. Mild anterior ischemia cannot be completely excluded. Gated SPECT analysis: The gated ejection fraction is 87%. Conclusion: Mildly abnormal exercise myocardial perfusion stress test at a high workload, with mild anterior ischemia Preserved ejection fraction. 05/04/24 1621 Date Julio Cesar Scott MD CC: DIRECTOR OF STRATEGIC PARTNERSHIPS-C Yocasta Tejada; Dr. Justice James MD Date Dictated: 05/04/241617 Date Transcribed: 05/04/241617 Principal Cyber Engineer: [place] Signed Normal [facility] SCRN MAMM (CAD)W/ABRAHAM BILATo n 04-17-2024 SCRN MAMM (CAD)W/ABRAHAM BILAT [facility] Imaging Services [address] [place], [place] [address] SCRN MAMM (CAD)W/ABRAHAM BILAT MR#: [id number] Acct: [id number] Name: ANMOL HERNANDEZ Rep #: [id number] : 1960 F 64 From: Huy beard MD PCP: Dr. Justice James MD Status: [facility] Study: SCRN MAMM (CAD)W/ABRAHAM BILAT Date of Exam: 07/10 Exam# [id number] Ordering Dr: Justice James MD [id number] MAMMOGRAPHY - BILATERAL SCREENING REASON FOR EXAM: Female, 64 years old. Routine annual screening examination. PERTINENT HISTORY: Mother with breast cancer. Aunt with breast cancer. History of prior right needle breast biopsy. TECHNIQUE: Digital bilateral breast abraham (3D mammographic acquisition) in the CC and MLO projections. 2-D mediolateral oblique (MLO) and craniocaudad (CC) views of both breasts were obtained. CAD: Full Field Digital Mammography with Computer Added Detection was performed. COMPARISON: Comparison is made with prior study April 10, 2023 and February 21, 2022. FINDINGS: Breast Composition: There are scattered areas of fibroglandular density. There are no dominant masses or suspicious calcifications. No other significant abnormalities are identified. There has been no significant change since the prior study. BI/SCRN MAMM (CAD)W/ABRAHAM BILAT IMPRESSION: Stable bilateral screening mammogram. Yearly follow-up mammogram recommended. (A) ASSESSMENT CATEGORY: BIRADS Category 1: Negative. A letter regarding these results will be sent to the patient by the facility within 30 days. Approximately 10% of breast cancers are not detected by mammography. A normal mammogram should not delay biopsy of a clinically suspicious abnormality. [id number] Electronically Signed: Huy Santacruz MD at 8:50 EDT , CC: Dr. Justice James MD Principal Cyber Engineer: Signed Normal [facility] Absolute lymphocyte countOrd ered By: Justice James on 09-17-2023 Lymphocytes Auto (Unsp spec) [#/Vol] 1.78 10*3/uL 0.83-4.51 [facility] Automated lymphocyte count a s percentage of total leukocytesOrdered By: Justice James on 09-17-2023 Lymphocytes/100 WBC Auto (Unsp spec) 37.2 % 19-41 [facility] Basophil percentageOrdered B y: Justice James on 09-17-2023 Basophils/100 WBC (Bld) 0.8 % 0-1 [facility] Bilirubin [Mass/Vol] 0.40 mg/dL 0.20-1.00 [facility] Comment on above: For patients on eltr ombopag therapy, use of Dimension [place] TBIL is not recommended. Chloride [Moles/Vol] 113 mmol/L 98-107 [facility] Eosinophils/100 WBC (Bld) 2.7 % 0-5 [facility] Glucose [Mass/Vol] 107 mg/dL 74-106 [facility] Comment on above: Fasting Glucose resu lt from 100 to 125 mg/dL suggests IMPAIRED HOMEOSTASIS per A.D.A. criteria. Hemoglobin (Bld) [Mass/Vol] 12.8 g/dL 12.0-15.0 [facility] Monocytes/100 WBC (Bld) 7.9 % 0-10 [facility] Neutrophils (Bld) [#/Vol] 2.4 10*3/uL 2.0-7.7 [facility] Neutrophils/100 WBC (Bld) 50.8 % 47-70 [facility] Potassium [Moles/Vol] 3.8 mmol/L 3.5-5.1 [facility] Protein [Mass/Vol] 6.6 g/dL 6.4-8.2 [facility] Sodium [Moles/Vol] 142 mmol/L 136-145 [facility] WBC (Bld) [#/Vol] 4.8 10*3/uL 4.4-11.0 [facility] Determination of erythrocyte mean corpuscular volume (MCV)Ordered By: Justice James on 09-17-2023 MCV (RBC) [Entitic vol] 88.0 fL 81-99 [facility] Erythrocyte distribution wid th ratioOrdered By: Justice James on 09-17-2023 Erythrocyte distribution width (RBC) [Ratio] 12.7 % 11.6-14.6 [facility] Erythrocyte distribution wid th standard deviationOrdered By: Justice James on 09-17-2023 Erythrocyte distribution width (RBC) [Entitic vol] 40.8 fL 35.1-43.9 [facility] Hematocrit Auto (Bld) [Volum e fraction]Ordered By: Justice James on 09-17-2023 Hematocrit (Bld) [Volume fraction] 39.7 % 37-47 [facility] Immature granulocytes/100 WB C Auto (Bld)Ordered By: Justice James on 09-17-2023 Immature granulocytes/100 WBC (Bld) 0.600 % 0.0-0.9 [facility] Comment on above: IG% - Immature Granu locytes (promyelocytes, myelocytes and metamyelocytes) > 1% indicates that a LEFT SHIFT is Present. Laboratory - Chemistry and C hemistry - challengeOrdered By: Justice James on 09-17-2023 Albumin/Globulin [Mass ratio] 0.9 {ratio} 0.9-2.4 [facility] ALP [Catalytic activity/Vol] 105 U/L 45-117 [facility] ALT [Catalytic activity/Vol] 26 U/L 13-56 [facility] CO2 [Moles/Vol] 23.0 mmol/L 21.0-32.0 [facility] Globulin (S) [Mass/Vol] 3.4 g/dL 2.2-4.2 [facility] Magnesium [Mass/Vol] 2.2 mg/dL 1.6-2.6 [facility] Urea nitrogen/Creatinine [Mass ratio] 15.2 mg/mg 10-20 [facility] Laboratory - Hematology and Cell countsOrdered By: Justice James on 09-17-2023 MCH (RBC) [Entitic mass] 28.4 pg 27.0-32.0 [facility] MCHC (RBC) [Mass/Vol] 32.2 g/dL 32-36 [facility] Nucleated RBC/100 WBC (Bld) [Ratio] 0 % 0-5 [facility] Platelet mean volume (Bld) [Entitic vol] 10.1 fL 6.2-12.0 [facility] Platelets (Bld) [#/Vol] 234 10*3/uL 150-450 [facility] No Panel InformationOrdered By: Justice James on 09-17-2023 Estimated GFR (MDRD) Amer 68 mL/min >60 [facility] Comment on above: GFR Calc Estimated GFR (MDRD) Non-Af Amer 57 mL/min >60 [facility] Comment on above: Non- GFR Calc Vitamin D 25-Hydroxy 70.6 ng/mL [facility] Comment on above: Vitamin D 25(OH) Sta tus Range Deficiency <20 ng/mL (50nmol/L) Insufficiency 20 - 30 ng/mL (50 - 75 nmol/L) Sufficiency 30 - 100 ng/mL (75 - 250 nmol/L) Toxicity >100 ng/mL (>250 nmol/L) RBC Auto (Bld) [#/Vol]Ordere d By: Justice James on 09-17-2023 RBC (Bld) [#/Vol] 4.51 10*6/uL 4.2-5.4 [facility] Serum or plasma calcium pilo urement (mass/volume)Ordered By: Justice James on 09-17-2023 Calcium [Mass/Vol] 8.4 mg/dL 8.5-10.1 [facility] Serum or plasma creatinine m easurement (mass/volume)Ordered By: Justice James on 09-17-2023 Creatinine [Mass/Vol] 1.05 mg/dL 0.55-1.02 [facility] Comment on above: The validity of the calculated GFR & GFRAA in patients over 70 years has not been determined. Clinical correlation is essential. Serum or plasma thyroid stim ulating hormone (TSH) measurement (units/volume)Ordered By: Justice James on 09-17-2023 TSH Qn 2.18 uIU/mL 0.358-3.74 [facility] Serum or plasma urea nitroge n measurement (mass/volume)Ordered By: Justice James on 09-17-2023 Urea nitrogen [Mass/Vol] 16 mg/dL 7-18 [facility] Thin prep Papanicolaou smear with manual screeningOrdered By: Justice James on 09-17-2023 Thin prep Papanicolaou smear with manual screening 3.2 g/dL 3.2-5.0 [facility] Thin prep Papanicolaou smear with manual screening 15 U/L 15-37 [facility] Thin prep Papanicolaou smear with manual screening 6 5-15 [facility] Thin prep Papanicolaou smear with manual screening 0.77 ng/dL 0.76-1.46 [facility] Absolute lymphocyte countOrd ered By: [facility] Lymphocytes Auto (Unsp spec) [#/Vol] 2.18 10*3/uL 0.83-4.51 [facility] Automated lymphocyte count a s percentage of total leukocytesOrdered By: Richardbraxton Das on 08-27-2023 Lymphocytes/100 WBC Auto (Unsp spec) 32.7 % 19-41 [facility] Basophil percentageOrdered B y: Richard Das on 08-27-2023 Basophils/100 WBC (Bld) 0.6 % 0-1 [facility] Chloride [Moles/Vol] 109 mmol/L 98-107 [facility] Eosinophils/100 WBC (Bld) 2.7 % 0-5 [facility] Glucose [Mass/Vol] 111 mg/dL 74-106 [facility] Comment on above: Fasting Glucose resu lt from 100 to 125 mg/dL suggests IMPAIRED HOMEOSTASIS per A.D.A. criteria. Hemoglobin (Bld) [Mass/Vol] 13.7 g/dL 12.0-15.0 [facility] Monocytes/100 WBC (Bld) 7.3 % 0-10 [facility] Neutrophils (Bld) [#/Vol] 3.7 10*3/uL 2.0-7.7 [facility] Neutrophils/100 WBC (Bld) 56.1 % 47-70 [facility] Potassium [Moles/Vol] 3.8 mmol/L 3.5-5.1 [facility] Sodium [Moles/Vol] 142 mmol/L 136-145 [facility] WBC (Bld) [#/Vol] 6.7 10*3/uL 4.4-11.0 [facility] Determination of erythrocyte mean corpuscular volume (MCV)Ordered By: Richard Das on 08-27-2023 MCV (RBC) [Entitic vol] 89.0 fL 81-99 [facility] Erythrocyte distribution wid th ratioOrdered By: Richard Das on 08-27-2023 Erythrocyte distribution width (RBC) [Ratio] 12.8 % 11.6-14.6 [facility] Erythrocyte distribution wid th standard deviationOrdered By: Richard Das on 08-27-2023 Erythrocyte distribution width (RBC) [Entitic vol] 41.7 fL 35.1-43.9 [facility] Hematocrit Auto (Bld) [Volum e fraction]Ordered By: Richard Das on 08-27-2023 Hematocrit (Bld) [Volume fraction] 42.0 % 37-47 [facility] Immature granulocytes/100 WB C Auto (Bld)Ordered By: Richard Das on 08-27-2023 Immature granulocytes/100 WBC (Bld) 0.600 % 0.0-0.9 [facility] Comment on above: IG% - Immature Granu locytes (promyelocytes, myelocytes and metamyelocytes) > 1% indicates that a LEFT SHIFT is Present. Laboratory - Chemistry and C hemistry - challengeOrdered By: Richard Das on 08-27-2023 CO2 [Moles/Vol] 25.0 mmol/L 21.0-32.0 [facility] Urea nitrogen/Creatinine [Mass ratio] 13.3 mg/mg 10-20 [facility] Laboratory - Hematology and Cell countsOrdered By: Richard Das on 08-27-2023 MCH (RBC) [Entitic mass] 29.0 pg 27.0-32.0 [facility] MCHC (RBC) [Mass/Vol] 32.6 g/dL 32-36 [facility] Nucleated RBC/100 WBC (Bld) [Ratio] 0 % 0-5 [facility] Platelet mean volume (Bld) [Entitic vol] 10.0 fL 6.2-12.0 [facility] Platelets (Bld) [#/Vol] 257 10*3/uL 150-450 [facility] No Panel InformationOrdered By: Richard Das on 08-27-2023 Estimated Creatinine Clearance Calc 47.49 ml/min [facility] Estimated GFR (MDRD) Amer 59 mL/min >60 [facility] Comment on above: GFR Calc Estimated GFR (MDRD) Non-Af Amer 49 mL/min >60 [facility] Comment on above: Non- GFR Calc RBC Auto (Bld) [#/Vol]Ordere d By: Richard Das on 08-27-2023 RBC (Bld) [#/Vol] 4.72 10*6/uL 4.2-5.4 [facility] Serum or plasma calcium pilo urement (mass/volume)Ordered By: Richard Das on 08-27-2023 Calcium [Mass/Vol] 9.2 mg/dL 8.5-10.1 [facility] Serum or plasma creatinine m easurement (mass/volume)Ordered By: Richard Das on 08-27-2023 Creatinine [Mass/Vol] 1.20 mg/dL 0.55-1.02 [facility] Comment on above: The validity of the calculated GFR & GFRAA in patients over 70 years has not been determined. Clinical correlation is essential. Serum or plasma thyroid stim ulating hormone (TSH) measurement (units/volume)Ordered By: Richard Das on 08-27-2023 TSH Qn 2.25 uIU/mL 0.358-3.74 [facility] Serum or plasma urea nitroge n measurement (mass/volume)Ordered By: Richard Das on 08-27-2023 Urea nitrogen [Mass/Vol] 16 mg/dL 7-18 [facility] Thin prep Papanicolaou smear with manual screeningOrdered By: Richard Das on 08-27-2023 Thin prep Papanicolaou smear with manual screening 8 5-15 [facility] Basophil percentageOrdered B y: Thee Piña on 06-12-2023 Basophil percentage 0-5 SEEN /hpf 0-5 [facility] Bilirubin Test strip Ql (U)O rdered By: Thee Piña on 06-12-2023 Bilirubin Ql (U) 6 mg/dL Negative [facility] Comment on above: COLOR OF URINE MAY A FFECT DIPSTICK RESULTS. Culture, urineOrdered By: Rhea Piña on 06-12-2023 Bacteria identified Cx Nom (U) Culture exhibits no growth. [facility] Bacteria identified Cx Nom (U) Culture exhibits no growth. [facility] Ketones Test strip Ql (U)Ord ered By: Thee Piña on 06-12-2023 Ketones Ql (U) Negative Negative [facility] Mucus LM Ql (Urine sed)Order ed By: Thee Piña on 06-12-2023 Mucus Ql (Urine sed) 1+ /hpf [facility] Nitrite Test strip Ql (U)Ord ered By: Thee Piña on 06-12-2023 Nitrite Ql (U) Positive Negative [facility] Protein Test strip Ql (U)Ord ered By: Thee Piña on 06-12-2023 Protein Ql (U) 30 mg/dl Negative [facility] Squamous epithelial cells de tection in urine sediment by light microscopyOrdered By: Thee Piña on 06-12-2023 Epithelial cells.squamous LM Ql (Urine sed) 0-5 SEEN /hpf 5-10 [facility] Urine blood detectionOrdered By: Thee Piña on 06-12-2023 RBC Ql (U) Negative Negative [facility] RBC Ql (U) 0-5 SEEN /hpf 0-5 [facility] Urine clarityOrdered By: Sarthak Piña on 06-12-2023 Clarity (U) Clear Clear [facility] Urine color determinationOrd ered By: Thee Piña on 06-12-2023 Color (U) SEE COMMENT BELOW Yellow [facility] Comment on above: Visual Urine Color: ORANGE Urine glucose detectionOrder ed By: Thee Piña on 06-12-2023 Glucose Ql (U) Normal mg/dl Normal [facility] Urine leukocyte esterase det ection by dipstickOrdered By: Thee Piña on 06-12-2023 Leukocyte esterase Test strip Ql (U) Negative Negative [facility] Urine pHOrdered By: Thee matos on 06-12-2023 pH (U) 5.0 [pH] 5.0 - 8.0 [facility] Urine sediment bacteria coun t by microscopy (number/high power field)Ordered By: Thee Piña on 06-12-2023 Bacteria LM.HPF (Urine sed) [#/Area] 0 /[HPF] None Seen [facility] Urine specific gravity measu rementOrdered By: Thee Piña on 06-12-2023 Specific gravity (U) [Rel density] 1.020 1.002-1.030 [facility] Urobilinogen Auto test strip Ql (U)Ordered By: Thee Piña on 06-12-2023 Urobilinogen Ql (U) 8 mg/dl Normal [facility] Basophil percentageOrdered B y: Justice James on 03-20-2023 Bilirubin [Mass/Vol] 0.40 mg/dL 0.20-1.00 [facility] Comment on above: For patients on eltr ombopag therapy, use of Dimension [place] TBIL is not recommended. Chloride [Moles/Vol] 112 mmol/L 98-107 [facility] Glucose [Mass/Vol] 107 mg/dL 74-106 [facility] Comment on above: Fasting Glucose resu lt from 100 to 125 mg/dL suggests IMPAIRED HOMEOSTASIS per A.D.A. criteria. Potassium [Moles/Vol] 3.2 mmol/L 3.5-5.1 [facility] Protein [Mass/Vol] 6.6 g/dL 6.4-8.2 [facility] Sodium [Moles/Vol] 143 mmol/L 136-145 [facility] Laboratory - Chemistry and C hemistry - challengeOrdered By: Justice James on 03-20-2023 ALP [Catalytic activity/Vol] 101 U/L 45-117 [facility] ALT [Catalytic activity/Vol] 30 U/L 13-56 [facility] CO2 [Moles/Vol] 25.0 mmol/L 21.0-32.0 [facility] Globulin (S) [Mass/Vol] 3.3 g/dL 2.2-4.2 [facility] Magnesium [Mass/Vol] 2.4 mg/dL 1.6-2.6 [facility] Urea nitrogen/Creatinine [Mass ratio] 15.0 mg/mg 10-20 [facility] No Panel InformationOrdered By: Justice James on 03-20-2023 Estimated GFR (MDRD) Amer 67 mL/min >60 [facility] Comment on above: GFR Calc Estimated GFR (MDRD) Non-Af Amer 55 mL/min >60 [facility] Comment on above: Non- GFR Calc Vitamin D 25-Hydroxy 66.1 ng/mL [facility] Comment on above: Vitamin D 25(OH) Sta tus Range Deficiency <20 ng/mL (50nmol/L) Insufficiency 20 - 30 ng/mL (50 - 75 nmol/L) Sufficiency 30 - 100 ng/mL (75 - 250 nmol/L) Toxicity >100 ng/mL (>250 nmol/L) Serum or plasma albumin pilo urement (mass/volume)Ordered By: Justice James on 03-20-2023 Albumin [Mass/Vol] 3.3 g/dL 3.2-5.0 [facility] Serum or plasma albumin/glob ulin mass ratioOrdered By: Justice James on 03-20-2023 Albumin/Globulin [Mass ratio] 1.0 {ratio} 0.9-2.4 [facility] Serum or plasma calcium pilo urement (mass/volume)Ordered By: Justice James on 03-20-2023 Calcium [Mass/Vol] 9.0 mg/dL 8.5-10.1 [facility] Serum or plasma creatinine m easurement (mass/volume)Ordered By: Justice James on 03-20-2023 Creatinine [Mass/Vol] 1.07 mg/dL 0.55-1.02 [facility] Comment on above: The validity of the calculated GFR & GFRAA in patients over 70 years has not been determined. Clinical correlation is essential. Serum or plasma urea nitroge n measurement (mass/volume)Ordered By: Justice James on 03-20-2023 Urea nitrogen [Mass/Vol] 16 mg/dL 7-18 [facility] Thin prep Papanicolaou smear with manual screeningOrdered By: Justice James on 03-20-2023 Thin prep Papanicolaou smear with manual screening 15 U/L 15-37 [facility] Thin prep Papanicolaou smear with manual screening 6 5-15 [facility] Whole blood hemoglobin A1c/t otal hemoglobin ratio (mass fraction)Ordered By: Justice James on 03-20-2023 HbA1c (Bld) [Mass fraction] 5.5 % 3.8-5.6 [facility] Comment on above: Normal < 5.7 % Predi abetic 5.7 - 6.4 % Diabetic >or= 6.5 % Please note range changes. Absolute lymphocyte countOrd ered By: Raphael Guerrero on 01-09-2023 Lymphocytes Auto (Unsp spec) [#/Vol] 3.09 10*3/uL 0.83-4.51 [facility] Basophil percentageOrdered B y: Raphael Guerrero on 01-09-2023 Basophils/100 WBC (Bld) 0.5 % 0-[address] [facility] Chloride [Moles/Vol] 109 mmol/L 98-107 [facility] Eosinophils/100 WBC (Bld) 2.7 % 0-5 [facility] Glucose [Mass/Vol] 91 mg/dL 74-106 [facility] Neutrophils (Bld) [#/Vol] 3.8 10*3/uL 2.0-7.7 [facility] Neutrophils/100 WBC (Bld) 49.6 % 47-70 [facility] Potassium [Moles/Vol] 3.9 mmol/L 3.5-5.1 [facility] Sodium [Moles/Vol] 140 mmol/L 136-145 [facility] WBC (Bld) [#/Vol] 7.8 10*3/uL 4.4-11.0 [facility] Blood erythrocytes count (nu mber/volume)Ordered By: Raphael Guerrero on 01-09-2023 RBC (Bld) [#/Vol] 5.11 10*6/uL 4.2-5.4 [facility] Blood hemoglobin measurement (mass/volume)Ordered By: Raphael Guerrero on 01-09-2023 Hemoglobin (Bld) [Mass/Vol] 14.8 g/dL 12.0-15.0 [facility] Blood lymphocytes/100 leukoc ytesOrdered By: Raphael Guerrero on 01-09-2023 Lymphocytes/100 WBC (Bld) 39.8 % 19-41 [facility] Blood monocytes/100 leukocyt esOrdered By: Raphael Guerrero on 01-09-2023 Monocytes/100 WBC (Bld) 5.9 % 0-10 [facility] Blood platelet mean volumeOr dered By: Raphael Guerrero on 01-09-2023 Platelet mean volume (Bld) [Entitic vol] 9.5 fL 6.2-12.0 [facility] Determination of erythrocyte mean corpuscular volume (MCV)Ordered By: Raphael Guerrero on 01-09-2023 MCV (RBC) [Entitic vol] 88.1 fL 81-99 [facility] Hematocrit Auto (Bld) [Volum e fraction]Ordered By: Raphael Guerrero on 01-09-2023 Hematocrit (Bld) [Volume fraction] 45.0 % 37-47 [facility] Laboratory - Chemistry and C hemistry - challengeOrdered By: Raphael Guerrero on 01-09-2023 CO2 [Moles/Vol] 24.0 mmol/L 21.0-32.0 [facility] Urea nitrogen/Creatinine [Mass ratio] 11.1 mg/mg 10-20 [facility] Laboratory - Hematology and Cell countsOrdered By: Raphael Guerrero on 01-09-2023 Erythrocyte distribution width (RBC) [Entitic vol] 39.8 fL 35.1-43.9 [facility] Erythrocyte distribution width (RBC) [Ratio] 12.3 % 11.6-14.6 [facility] Immature granulocytes/100 WBC (Bld) 1.500 % 0.0-0.9 [facility] Comment on above: IG% - Immature Granu locytes (promyelocytes, myelocytes and metamyelocytes) > 1% indicates that a LEFT SHIFT is Present. MCH (RBC) [Entitic mass] 29.0 pg 27.0-32.0 [facility] Nucleated RBC/100 WBC (Bld) [Ratio] 0 % 0-5 [facility] MCHC Auto (RBC) [Mass/Vol]Or dered By: Raphael Guerrero on 01-09-2023 MCHC (RBC) [Mass/Vol] 32.9 g/dL 32-36 [facility] No Panel InformationOrdered By: Raphael Guerrero on 01-09-2023 Estimated Creatinine Clearance Calc 43.81 ml/min [facility] Estimated GFR (MDRD) Amer 66 mL/min >60 [facility] Comment on above: GFR Calc Estimated GFR (MDRD) Non-Af Amer 55 mL/min >60 [facility] Comment on above: Non- GFR Calc Troponin I High Sensitivity < 3 pg/mL 3.0-54.0 [facility] Comment on above: Please Note: New Raya t Units and Gender Specific Reference Ranges. For more information see Policy Stat Procedure [place] High Sensitivity Troponin (TNIH) and attachments. Platelets bldOrdered By: Shanika Guerrero on 01-09-2023 Platelets (Bld) [#/Vol] 295 10*3/uL 150-450 [facility] Serum or plasma calcium pilo urement (mass/volume)Ordered By: Raphael Guerrero on 01-09-2023 Calcium [Mass/Vol] 9.3 mg/dL 8.5-10.1 [facility] Serum or plasma creatinine m easurement (mass/volume)Ordered By: Raphael Guerrero on 01-09-2023 Creatinine [Mass/Vol] 1.08 mg/dL 0.55-1.02 [facility] Comment on above: The validity of the calculated GFR & GFRAA in patients over 70 years has not been determined. Clinical correlation is essential. Serum or plasma urea nitroge n measurement (mass/volume)Ordered By: Raphael Guerrero on 01-09-2023 Urea nitrogen [Mass/Vol] 12 mg/dL 7-18 [facility] Thin prep Papanicolaou smear with manual screeningOrdered By: Raphael Guerrero on 01-09-2023 Thin prep Papanicolaou smear with manual screening 7 -15 [facility] Absolute lymphocyte counton 03-30-2022 Lymphocytes Auto (Unsp spec) [#/Vol] 2.15 10*3/uL 0.83-4.51 [facility] Work Phone: Basophil percentageon 2021 Basophils/100 WBC (Bld) 0.7 % 0-1 [facility] Work Phone: Bilirubin [Mass/Vol] 0.40 mg/dL 0.20-1.00 [facility] Work Phone: [phone] Comment on above: For patients on eltr ombopag therapy, use of Dimension [place] TBIL is not recommended. Chloride [Moles/Vol] 111 mmol/L 98-107 [facility] Work Phone: [phone] Eosinophils/100 WBC (Bld) 5.3 % 0-5 [facility] Work Phone: Glucose [Mass/Vol] 85 mg/dL 74-106 [facility] Work Phone: [phone] Neutrophils (Bld) [#/Vol] 2.6 10*3/uL 2.0-7.7 [facility] Work Phone: Neutrophils/100 WBC (Bld) 45.5 % 47-70 [facility] Work Phone: Potassium [Moles/Vol] 3.5 mmol/L 3.5-5.1 [facility] Work Phone: Protein [Mass/Vol] 7.1 g/dL 6.4-8.2 [facility] Work Phone: [phone] Sodium [Moles/Vol] 142 mmol/L 136-145 [facility] Work Phone: [phone] WBC (Bld) [#/Vol] 5.6 10*3/uL 4.4-11.0 [facility] Work Phone: Blood erythrocytes count (nu mber/volume)on 03-30-2022 RBC (Bld) [#/Vol] 4.54 10*6/uL 4.2-5.4 [facility] Work Phone: Blood hemoglobin measurement (mass/volume)on 03-30-2022 Hemoglobin (Bld) [Mass/Vol] 13.3 g/dL 12.0-15.0 [facility] Work Phone: Blood lymphocytes/100 leukoc yteson 03-30-2022 Lymphocytes/100 WBC (Bld) 38.3 % 19-41 [facility] Work Phone: Blood monocytes/100 leukocyt eson 03-30-2022 Monocytes/100 WBC (Bld) 9.8 % 0-10 [facility] Work Phone: Blood platelet mean volumeon 03-30-2022 Platelet mean volume (Bld) [Entitic vol] 10.6 fL 6.2-12.0 [facility] Work Phone: Determination of erythrocyte mean corpuscular volume (MCV)on 03-30-2022 MCV (RBC) [Entitic vol] 91.0 fL 81-99 [facility] Work Phone: Hematocrit Auto (Bld) [Volum e fraction]on 03-30-2022 Hematocrit (Bld) [Volume fraction] 41.3 % 37-47 [facility] Work Phone: Laboratory - Chemistry and C hemistry - challengeon 03-30-2022 ALP [Catalytic activity/Vol] 94 U/L 45-117 [facility] Work Phone: [phone] ALT [Catalytic activity/Vol] 33 U/L 13-56 [facility] Work Phone: CO2 [Moles/Vol] 25.0 mmol/L 21.0-32.0 [facility] Work Phone: Globulin (S) [Mass/Vol] 3.7 g/dL 2.2-4.2 [facility] Work Phone: Urea nitrogen/Creatinine [Mass ratio] 16.5 mg/mg 10-20 [facility] Work Phone: Laboratory - Hematology and Cell countson 03-30-2022 Erythrocyte distribution width (RBC) [Entitic vol] 41.1 fL 35.1-43.9 [facility] Work Phone: Erythrocyte distribution width (RBC) [Ratio] 12.3 % 11.6-14.6 [facility] Work Phone: Immature granulocytes/100 WBC (Bld) 0.400 % 0.0-0.9 [facility] Work Phone: Comment on above: IG% - Immature Granu locytes (promyelocytes, myelocytes and metamyelocytes) > 1% indicates that a LEFT SHIFT is Present. MCH (RBC) [Entitic mass] 29.3 pg 27.0-32.0 [facility] Work Phone: Nucleated RBC/100 WBC (Bld) [Ratio] 0 % 0-5 [facility] Work Phone: MCHC Auto (RBC) [Mass/Vol]on 03-30-2022 MCHC (RBC) [Mass/Vol] 32.2 g/dL 32-36 [facility] Work Phone: No Panel Informationon 03-30 Estimated GFR (MDRD) Amer 66 mL/min >60 [facility] Work Phone: Comment on above: GFR Calc Estimated GFR (MDRD) Non-Af Amer 54 mL/min >60 [facility] Work Phone: Comment on above: Non- GFR Calc Thyroid Stimulating Hormone (TSH) 2.23 uIU/mL 0.358-3.74 [facility] Work Phone: Vitamin D 25-Hydroxy 64.2 ng/mL [facility] Work Phone: Comment on above: Vitamin D 25(OH) Sta tus Range Deficiency <20 ng/mL (50nmol/L) Insufficiency 20 - 30 ng/mL (50 - 75 nmol/L) Sufficiency 30 - 100 ng/mL (75 - 250 nmol/L) Toxicity >100 ng/mL (>250 nmol/L) Platelets bldon 03-30-2022 Platelets (Bld) [#/Vol] 235 10*3/uL 150-450 [facility] Work Phone: Serum or plasma albumin pilo urement (mass/volume)on 03-30-2022 Albumin [Mass/Vol] 3.4 g/dL 3.2-5.0 [facility] Work Phone: Serum or plasma albumin/glob ulin mass ratioon 03-30-2022 Albumin/Globulin [Mass ratio] 0.9 {ratio} 0.9-2.4 [facility] Work Phone: Serum or plasma calcium pilo urement (mass/volume)on 03-30-2022 Calcium [Mass/Vol] 9.1 mg/dL 8.5-10.1 [facility] Work Phone: Serum or plasma creatinine m easurement (mass/volume)on 03-30-2022 Creatinine [Mass/Vol] 1.09 mg/dL 0.55-1.02 [facility] Work Phone: Comment on above: The validity of the calculated GFR & GFRAA in patients over 70 years has not been determined. Clinical correlation is essential. Serum or plasma urea nitroge n measurement (mass/volume)on 03-30-2022 Urea nitrogen [Mass/Vol] 18 mg/dL 7-18 [facility] Work Phone: Thin prep Papanicolaou smear with manual screeningon 03-30-2022 Thin prep Papanicolaou smear with manual screening 16 U/L 15-37 [facility] Work Phone: Thin prep Papanicolaou smear with manual screening 6 5-15 [facility] Work Phone: Absolute lymphocyte counton 02-25-2022 Lymphocytes Auto (Unsp spec) [#/Vol] 0.33 10*3/uL 0.83-4.51 [facility] Work Phone: Basophil percentageon 2021 Basophil percentage 0-5 SEEN /hpf 0-5 [facility] Work Phone: Basophils/100 WBC (Bld) 0.2 % 0-1 [facility] Work Phone: Bilirubin [Mass/Vol] 0.70 mg/dL 0.20-1.00 [facility] Work Phone: Comment on above: For patients on eltr ombopag therapy, use of Dimension [place] TBIL is not recommended. Chloride [Moles/Vol] 109 mmol/L 98-107 [facility] Work Phone: Eosinophils/100 WBC (Bld) 0.7 % 0-5 [facility] Work Phone: Glucose [Mass/Vol] 105 mg/dL 74-106 [facility] Work Phone: Comment on above: Fasting Glucose resu lt from 100 to 125 mg/dL suggests IMPAIRED HOMEOSTASIS per A.D.A. criteria. Neutrophils (Bld) [#/Vol] 10.2 10*3/uL 2.0-7.7 [facility] Work Phone: Neutrophils/100 WBC (Bld) 93.1 % 47-70 [facility] Work Phone: Potassium [Moles/Vol] 3.6 mmol/L 3.5-5.1 [facility] Work Phone: Protein [Mass/Vol] 6.9 g/dL 6.4-8.2 [facility] Work Phone: Sodium [Moles/Vol] 139 mmol/L 136-145 [facility] Work Phone: WBC (Bld) [#/Vol] 11.0 10*3/uL 4.4-11.0 [facility] Work Phone: Bilirubin Test strip Ql (U)o n 02-25-2022 Bilirubin Ql (U) Negative Negative [facility] Work Phone: Blood erythrocytes count (nu mber/volume)on 02-25-2022 RBC (Bld) [#/Vol] 4.29 10*6/uL 4.2-5.4 [facility] Work Phone: Blood hemoglobin measurement (mass/volume)on 02-25-2022 Hemoglobin (Bld) [Mass/Vol] 12.9 g/dL 12.0-15.0 [facility] Work Phone: Blood lymphocytes/100 leukoc yteson 02-25-2022 Lymphocytes/100 WBC (Bld) 3.0 % 19-41 [facility] Work Phone: Blood monocytes/100 leukocyt eson 02-25-2022 Monocytes/100 WBC (Bld) 2.6 % 0-10 [facility] Work Phone: Blood platelet adequacy dete ction by light microscopyon 02-25-2022 Platelets LM Ql (Bld) ADEQUATE ADEQ [facility] Work Phone: Blood platelet mean volumeon 02-25-2022 Platelet mean volume (Bld) [Entitic vol] 10.2 fL 6.2-12.0 [facility] Work Phone: Determination of erythrocyte mean corpuscular volume (MCV)on 02-25-2022 MCV (RBC) [Entitic vol] 88.8 fL 81-99 [facility] Work Phone: Hematocrit Auto (Bld) [Volum e fraction]on 02-25-2022 Hematocrit (Bld) [Volume fraction] 38.1 % 37-47 [facility] Work Phone: Ketones Test strip Ql (U)on 02-25-2022 Ketones Ql (U) Negative Negative [facility] Work Phone: Laboratory - Chemistry and C hemistry - challengeon 02-25-2022 ALP [Catalytic activity/Vol] 87 U/L 45-117 [facility] Work Phone: ALT [Catalytic activity/Vol] 28 U/L 13-56 [facility] Work Phone: CO2 [Moles/Vol] 23.0 mmol/L 21.0-32.0 [facility] Work Phone: Globulin (S) [Mass/Vol] 3.7 g/dL 2.2-4.2 [facility] Work Phone: Urea nitrogen/Creatinine [Mass ratio] 9.1 mg/mg 10-20 [facility] Work Phone: Laboratory - Hematology and Cell countson 02-25-2022 Erythrocyte distribution width (RBC) [Entitic vol] 39.8 fL 35.1-43.9 [facility] Work Phone: Erythrocyte distribution width (RBC) [Ratio] 12.4 % 11.6-14.6 [facility] Work Phone: Immature granulocytes/100 WBC (Bld) 0.400 % 0.0-0.9 [facility] Work Phone: Comment on above: IG% - Immature Granu locytes (promyelocytes, myelocytes and metamyelocytes) > 1% indicates that a LEFT SHIFT is Present. MCH (RBC) [Entitic mass] 30.1 pg 27.0-32.0 [facility] Work Phone: Nucleated RBC/100 WBC (Bld) [Ratio] 0 % 0-5 [facility] Work Phone: Laboratory - Microbiology an d Antimicrobial susceptibilityon 02-25-2022 SARS-CoV-2 (COVID-19) RNA SHAYLA+probe Ql (Unsp spec) Not detected Not Detect [facility] Work Phone: Comment on above: Normal Reference Ran ge: Not DetectedMethod:(RT-PCR) real-time reverse transcriptase PCRLuminex SHAN Instrument*The Food and Drug Administration (FDA) has issued an Emergency Use Authorization (EAU) for the SHAN SARS-CoV-2 Assay for the rapid detection of the virus that causes COVID-19. This test has been validated, but the FDAs independent review of this validation is pending.*Negative results do not preclude infection and should not be used as the sole basis for treatment or patient management. Optimum specimen types and timing for peak viral levels during infections caused by SARS-CoV-2 have not been determined. Collection of multiple specimens from the same patient may be necessary to detect the virus. The possibility of a false negative result should be considered if the patient has clinical presentation or has had recent exposure. MCHC Auto (RBC) [Mass/Vol]on 02-25-2022 MCHC (RBC) [Mass/Vol] 33.9 g/dL 32-36 [facility] Work Phone: Mucus LM Ql (Urine sed)on Mucus Ql (Urine sed) 0 SEEN /hpf [facility] Work Phone: Nitrite Test strip Ql (U)on 02-25-2022 Nitrite Ql (U) Negative Negative [facility] Work Phone: No Panel Informationon 02-25 Estimated Creatinine Clearance Calc 43.02 ml/min [facility] Work Phone: Estimated GFR (MDRD) Amer 65 mL/min >60 [facility] Work Phone: Comment on above: GFR Calc Estimated GFR (MDRD) Non-Af Amer 54 mL/min >60 [facility] Work Phone: Comment on above: Non- GFR Calc Platelets bldon 02-25-2022 Platelets (Bld) [#/Vol] 175 10*3/uL 150-450 [facility] Work Phone: Protein Test strip Ql (U)on 02-25-2022 Protein Ql (U) Negative Negative [facility] Work Phone: RBC morphologyon 02-25-2022 RBC morphology finding Nom (Bld) NORM C+C NORMAL NORM C&C [facility] Work Phone: Serum or plasma albumin pilo urement (mass/volume)on 02-25-2022 Albumin [Mass/Vol] 3.2 g/dL 3.2-5.0 [facility] Work Phone: Serum or plasma albumin/glob ulin mass ratioon 02-25-2022 Albumin/Globulin [Mass ratio] 0.9 {ratio} 0.9-2.4 [facility] Work Phone: Serum or plasma calcium pilo urement (mass/volume)on 02-25-2022 Calcium [Mass/Vol] 9.0 mg/dL 8.5-10.1 [facility] Work Phone: Serum or plasma creatinine m easurement (mass/volume)on 02-25-2022 Creatinine [Mass/Vol] 1.10 mg/dL 0.55-1.02 [facility] Work Phone: Comment on above: The validity of the calculated GFR & GFRAA in patients over 70 years has not been determined. Clinical correlation is essential. Serum or plasma urea nitroge n measurement (mass/volume)on 02-25-2022 Urea nitrogen [Mass/Vol] 10 mg/dL 7-18 [facility] Work Phone: Squamous epithelial cells de tection in urine sediment by light microscopyon 02-25-2022 Epithelial cells.squamous LM Ql (Urine sed) 0-5 SEEN /hpf 5-10 [facility] Work Phone: Thin prep Papanicolaou smear with manual screeningon 02-25-2022 Thin prep Papanicolaou smear with manual screening 14 U/L 15-37 [facility] Work Phone: Thin prep Papanicolaou smear with manual screening 7 5-15 [facility] Work Phone: Urine blood detectionon 02-15 RBC Ql (U) Negative Negative [facility] Work Phone: RBC Ql (U) 0 SEEN /hpf 0-5 [facility] Work Phone: Urine clarityon 02-25-2022 Clarity (U) Clear Clear [facility] Work Phone: Urine color determinationon 02-25-2022 Color (U) Yellow Yellow [facility] Work Phone: Urine glucose detectionon Glucose Ql (U) Normal mg/dl Normal [facility] Work Phone: Urine leukocyte esterase det ection by dipstickon 02-25-2022 Leukocyte esterase Test strip Ql (U) 25 /ul Negative [facility] Work Phone: Urine pHon 02-25-2022 pH (U) 8.0 [pH] 5.0 - 8.0 [facility] Work Phone: Urine sediment bacteria coun t by microscopy (number/high power field)on 02-25-2022 Bacteria LM.HPF (Urine sed) [#/Area] 0 /[HPF] None Seen [facility] Work Phone: Urine specific gravity measu rementon 02-25-2022 Specific gravity (U) [Rel density] 1.015 1.002-1.030 [facility] Work Phone: Urobilinogen Auto test strip Ql (U)on 02-25-2022 Urobilinogen Ql (U) Normal mg/dl Normal [facility] Work Phone: Absolute lymphocyte counton 08-08-2021 Lymphocytes Auto (Unsp spec) [#/Vol] 2.06 10*3/uL 0.83-4.51 [facility] Work Phone: Basophil percentageon 2021 Basophils/100 WBC (Bld) 0.7 % 0-1 [facility] Work Phone: Bilirubin [Mass/Vol] 0.40 mg/dL 0.20-1.00 [facility] Work Phone: Comment on above: For patients on eltr ombopag therapy, use of Dimension [place] TBIL is not recommended. Chloride [Moles/Vol] 108 mmol/L 98-107 [facility] Work Phone: Cholesterol [Mass/Vol] 238 mg/dL <200 [facility] Work Phone: Comment on above: <200 mg/dL Desirable 200-240 mg/dL Borderline >240 mg/dL High Risk Eosinophils/100 WBC (Bld) 2.5 % 0-5 [facility] Work Phone: Glucose [Mass/Vol] 85 mg/dL 74-106 [facility] Work Phone: Neutrophils (Bld) [#/Vol] 2.9 10*3/uL 2.0-7.7 [facility] Work Phone: Neutrophils/100 WBC (Bld) 51.7 % 47-70 [facility] Work Phone: Potassium [Moles/Vol] 3.6 mmol/L 3.5-5.1 [facility] Work Phone: Protein [Mass/Vol] 7.1 g/dL 6.4-8.2 [facility] Work Phone: Sodium [Moles/Vol] 140 mmol/L 136-145 [facility] Work Phone: Triglyceride [Mass/Vol] 69 mg/dL [facility] Work Phone: Comment on above: The drugs N-Acetylcy steine and Metamizole may falsely depress this assay.Serum Triglycerides Reference Interval Normal <150 mg/dL Borderline high 150 - 199 mg/dL High 200 - 499 mg/dL Very High > or = 500 mg/dL WBC (Bld) [#/Vol] 5.6 10*3/uL 4.4-11.0 [facility] Work Phone: Blood erythrocytes count (nu mber/volume)on 08-08-2021 RBC (Bld) [#/Vol] 4.23 10*6/uL 4.2-5.4 [facility] Work Phone: Blood hemoglobin measurement (mass/volume)on 08-08-2021 Hemoglobin (Bld) [Mass/Vol] 12.4 g/dL 12.0-15.0 [facility] Work Phone: Blood lymphocytes/100 leukoc yteson 08-08-2021 Lymphocytes/100 WBC (Bld) 36.7 % 19-41 [facility] Work Phone: Blood monocytes/100 leukocyt eson 08-08-2021 Monocytes/100 WBC (Bld) 8.0 % 0-10 [facility] Work Phone: Blood platelet mean volumeon 08-08-2021 Platelet mean volume (Bld) [Entitic vol] 10.1 fL 6.2-12.0 [facility] Work Phone: Determination of erythrocyte mean corpuscular volume (MCV)on 08-08-2021 MCV (RBC) [Entitic vol] 90.1 fL 81-99 [facility] Work Phone: Hematocrit Auto (Bld) [Volum e fraction]on 08-08-2021 Hematocrit (Bld) [Volume fraction] 38.1 % 37-47 [facility] Work Phone: Iron measurement (mass/mass) on 08-08-2021 Iron (Unsp spec) [Mass/Mass] 52 ug/dL 50-170 [facility] Work Phone: Laboratory - Chemistry and C hemistry - challengeon 08-08-2021 ALP [Catalytic activity/Vol] 99 U/L 45-117 [facility] Work Phone: ALT [Catalytic activity/Vol] 31 U/L 13-56 [facility] Work Phone: CO2 [Moles/Vol] 23.0 mmol/L 21.0-32.0 [facility] Work Phone: Cobalamin (Vitamin B12) [Mass/Vol] 314 pg/mL 211-911 [facility] Work Phone: Globulin (S) [Mass/Vol] 3.5 g/dL 2.2-4.2 [facility] Work Phone: Urea nitrogen/Creatinine [Mass ratio] 20.1 mg/mg 10-20 [facility] Work Phone: [phone] Laboratory - Hematology and Cell countson 08-08-2021 Erythrocyte distribution width (RBC) [Entitic vol] 41.1 fL 35.1-43.9 [facility] Work Phone: Erythrocyte distribution width (RBC) [Ratio] 12.5 % 11.6-14.6 [facility] Work Phone: Immature granulocytes/100 WBC (Bld) 0.400 % 0.0-0.9 [facility] Work Phone: Comment on above: IG% - Immature Granu locytes (promyelocytes, myelocytes and metamyelocytes) > 1% indicates that a LEFT SHIFT is Present. MCH (RBC) [Entitic mass] 29.3 pg 27.0-32.0 [facility] Work Phone: Nucleated RBC/100 WBC (Bld) [Ratio] 0 % 0-5 [facility] Work Phone: MCHC Auto (RBC) [Mass/Vol]on 08-08-2021 MCHC (RBC) [Mass/Vol] 32.5 g/dL 32-36 [facility] Work Phone: No Panel Informationon 08-08 Estimated GFR (MDRD) Amer 73 mL/min >60 [facility] Work Phone: Comment on above: GFR Calc Estimated GFR (MDRD) Non-Af Amer 61 mL/min >60 [facility] Work Phone: Comment on above: Non- GFR Calc Thyroid Stimulating Hormone (TSH) 2.75 uIU/mL 0.358-3.74 [facility] Work Phone: Total Iron Binding Capacity 291 ug/dL 250-450 [facility] Work Phone: Vitamin D 25-Hydroxy 64.6 ng/mL [facility] Work Phone: Comment on above: Vitamin D 25(OH) Sta tus Range Deficiency <20 ng/mL (50nmol/L) Insufficiency 20 - 30 ng/mL (50 - 75 nmol/L) Sufficiency 30 - 100 ng/mL (75 - 250 nmol/L) Toxicity >100 ng/mL (>250 nmol/L) Platelets bldon 02-22-2022 Platelets (Bld) [#/Vol] 227 10*3/uL 150-450 [facility] Work Phone: Serum or plasma albumin pilo urement (mass/volume)on 08-08-2021 Albumin [Mass/Vol] 3.6 g/dL 3.2-5.0 [facility] Work Phone: Serum or plasma albumin/glob ulin mass ratioon 08-08-2021 Albumin/Globulin [Mass ratio] 1.0 {ratio} 0.9-2.4 [facility] Work Phone: Serum or plasma calcium pilo urement (mass/volume)on 08-08-2021 Calcium [Mass/Vol] 9.0 mg/dL 8.5-10.1 [facility] Work Phone: Serum or plasma cholesterol in HDL measurement (mass/volume)on 08-08-2021 Cholesterol in HDL [Mass/Vol] 66 mg/dL [facility] Work Phone: Comment on above: The drugs N-Acetylcy steine and Metamizole may falsely depress this assay. Reference Range HDL <40 mg/dL Low HDL Cholesterol HDL >or= 60 mg/dL High HDL Cholesterol Serum or plasma cholesterol in VLDL measurement (mass/volume)on 08-08-2021 Cholesterol in VLDL [Mass/Vol] 14 mg/dL 5-40 [facility] Work Phone: Serum or plasma creatinine m easurement (mass/volume)on 08-08-2021 Creatinine [Mass/Vol] 1.00 mg/dL 0.55-1.02 [facility] Work Phone: Comment on above: The validity of the calculated GFR & GFRAA in patients over 70 years has not been determined. Clinical correlation is essential. Serum or plasma ferritin davidson surement (mass/volume)on 08-08-2021 Ferritin [Mass/Vol] 88 ng/mL 8-252 [facility] Work Phone: Serum or plasma folate measu rement (mass/volume)on 08-08-2021 Folate [Mass/Vol] 11.90 ng/mL 3.1-55.4 [facility] Work Phone: Serum or plasma low density lipoprotein (LDL) cholesterol measurement (mass/volume)on 08-08-2021 Cholesterol in LDL [Mass/Vol] 158 mg/dL 0-130 [facility] Work Phone: Serum or plasma urea nitroge n measurement (mass/volume)on 08-08-2021 Urea nitrogen [Mass/Vol] 20 mg/dL 7-18 [facility] Work Phone: Thin prep Papanicolaou smear with manual screeningon 08-08-2021 Thin prep Papanicolaou smear with manual screening 17 U/L 15-37 [facility] Work Phone: Thin prep Papanicolaou smear with manual screening 9 5-15 [facility] Work Phone: No Panel Information SARS-CoV-2 & FLU Antigen (Rapid) [facility] Work Phone: Vital Signs Date Time Vital Sign Value Performing Clinician Faci lity 03-16-2025 07:54-0400 Body mass index (BMI) [Ratio] 30.9 kg/m2 Dr. Justice James MD Work Phone: [facility] 03-16-2025 07:54-0400 Body temperature 97.4 [degF] Dr. Justice James MD Work Phone: [facility] 03-16-2025 07:54-0400 Body weight 76.[address] Justice James MD Work Phone: [facility] 03-16-2025 07:54-0400 Diastolic blood pressure 75 mm[Hg] Dr. Justice James MD Work Phone: [facility] 03-16-2025 07:54-0400 Heart rate 64 /min Dr. Justice James MD Work Phone: [facility] 03-16-2025 07:54-0400 Respiratory rate 18 /min Dr. Justice James MD Work Phone: [facility] 03-16-2025 07:54-0400 SaO2% (BldA) [Mass fraction] 99 % Dr. Justice James MD Work Phone: [phone] [place] [address] 03-16-2025 07:54-0400 Systolic blood pressure 116 mm[Hg] Dr. Justice James MD Work Phone: [phone])[phone] [place] [address] 08-20-2024 19:08-0500 Body temperature 98.3 [degF] Dr. Justice James MD Work Phone: [phone](132)[phone] [place] [address] 08-20-2024 19:08-0500 Diastolic blood pressure 57 mm[Hg] Dr. Justice James MD Work Phone: [phone])[phone] [place] [address] 08-20-2024 19:08-0500 Heart rate 70 /min Dr. Justice James MD Work Phone: [phone](261)[phone] [place] [address] 08-20-2024 19:08-0500 Respiratory rate 18 /min Dr. Justice James MD Work Phone: [phone] [place] [address] 08-20-2024 19:08-0500 SaO2% (BldA) [Mass fraction] 98 % Dr. Justice James MD Work Phone: [phone] [place] [address] 08-20-2024 19:08-0500 Systolic blood pressure 93 mm[Hg] Dr. Justice James MD Work Phone: [phone] [place] [address] 08-20-2024 16:34-0500 Body height 157.[address] Justice James MD Work Phone: [phone] [place] [address] 08-20-2024 16:34-0500 Body mass index (BMI) [Ratio] 32.5 kg/m2 Dr. Justice James MD Work Phone: [phone])[phone] [place] [address] 08-20-2024 16:34-0500 Body weight 80.[address] Justice James MD Work Phone: [phone])[phone] [place] [address] 06-02-2024 08:16-0500 Body weight 82.[address] Justice James MD Work Phone: [facility] 06-02-2024 08:15-0500 Body mass index (BMI) [Ratio] 33.3 kg/m2 Dr. Justice aJmes MD Work Phone: [facility] 08-30-2023 13:49-0400 Body height 157.[address] Justice James Work Phone: [facility] 08-30-2023 13:49-0400 Body mass index (BMI) [Ratio] 31.6 kg/m2 Dr. Justice James Work Phone: [facility] 08-30-2023 13:49-0400 Body weight 78.[address] Justice James Work Phone: [facility] 08-30-2023 13:49-0400 Diastolic blood pressure 65 mm[Hg] Dr. Justice James Work Phone: [facility] 08-30-2023 13:49-0400 Heart rate 53 /min Dr. Justice Jaems Work Phone: [facility] 08-30-2023 13:49-0400 Respiratory rate 16 /min Dr. Justice James Work Phone: [facility] 08-30-2023 13:49-0400 Systolic blood pressure 115 mm[Hg] Dr. Justice James Work Phone: [facility] 08-27-2023 22:20-0400 Body temperature 97.9 [degF] Dr. Justice James Work Phone: [facility] 08-27-2023 22:20-0400 Diastolic blood pressure 72 mm[Hg] Dr. Justice James Work Phone: [facility] 08-27-2023 22:20-0400 Heart rate 72 /min Dr. Justice James Work Phone: [facility] 08-27-2023 22:20-0400 Respiratory rate 15 /min Dr. Justice James Work Phone: [facility] 08-27-2023 22:20-0400 SaO2% (BldA) [Mass fraction] 100 % Dr. Justice James Work Phone: [facility] 08-27-2023 22:20-0400 Systolic blood pressure 110 mm[Hg] Dr. Justice James Work Phone: [facility] 08-27-2023 20:12-0400 Body height 157.[address] Justice James Work Phone: [facility] 08-27-2023 20:12-0400 Body mass index (BMI) [Ratio] 31.3 kg/m2 Dr. Justice James Work Phone: [facility] 08-27-2023 20:12-0400 Body weight 77.[address] Justice James Work Phone: [facility] 01-09-2023 17:52-0400 Diastolic blood pressure 80 mm[Hg] Dr. Justice James Work Phone: [facility] 01-09-2023 17:52-0400 Heart rate 67 /min Dr. Justice James Work Phone: [facility] 01-09-2023 17:52-0400 Respiratory rate 12 /min Dr. Justice James Work Phone: [facility] 01-09-2023 17:52-0400 SaO2% (BldA) [Mass fraction] 97 % Dr. Justice James Work Phone: [facility] 01-09-2023 17:52-0400 Systolic blood pressure 147 mm[Hg] Dr. Justice James Work Phone: [facility] 01-09-2023 13:53-0400 Body height 157.[address] Justice James Work Phone: [facility] 01-09-2023 13:53-0400 Body mass index (BMI) [Ratio] 31.1 kg/m2 Dr. Justice James Work Phone: [facility] 01-09-2023 13:53-0400 Body temperature 96.2 [degF] Dr. Justice James Work Phone: [facility] 01-09-2023 13:53-0400 Body weight 77.[address] Justice James Work Phone: [facility] 12-27-2022 07:40-0400 Body mass index (BMI) [Ratio] 30.5 kg/m2 Dr. Justice James Work Phone: [facility] 12-27-2022 07:40-0400 Body temperature 97.7 [degF] Dr. Justice James Work Phone: [facility] 12-27-2022 07:40-0400 Body weight 75.[address] Justice James Work Phone: [facility] 12-27-2022 07:40-0400 Diastolic blood pressure 66 mm[Hg] Dr. Justice James Work Phone: [facility] 12-27-2022 07:40-0400 Heart rate 85 /min Dr. Justice James Work Phone: [facility] 12-27-2022 07:40-0400 Respiratory rate 17 /min Dr. Justice James Work Phone: [facility] 12-27-2022 07:40-0400 SaO2% (BldA) [Mass fraction] 97 % Dr. Justice James Work Phone: [facility] 12-27-2022 07:40-0400 Systolic blood pressure 107 mm[Hg] Dr. Justice James Work Phone: [facility] 02-25-2022 20:24-0400 Body temperature 99 [degF] [facility] Work Phone: 02-25-2022 20:24-0400 Diastolic blood pressure 62 mm[Hg] [facility] Work Phone: 02-25-2022 20:24-0400 Heart rate 100 /min [facility] Work Phone: 02-25-2022 20:24-0400 Respiratory rate 15 /min [facility] Work Phone: 02-25-2022 20:24-0400 SaO2% (BldA) [Mass fraction] 98 % [facility] Work Phone: 02-25-2022 20:24-0400 Systolic blood pressure 114 mm[Hg] [facility] Work Phone: 02-25-2022 16:52-0400 Body height 157.[address] [facility] Work Phone: 02-25-2022 16:52-0400 Body mass index (BMI) [Ratio] 29.9 kg/m2 [facility] Work Phone: 02-25-2022 16:52-0400 Body weight 74.[address] [facility] Work Phone: 10-24-2021 09:48-0400 Body height 157.[address] Justice James Work Phone: [facility] Work Phone: 10-24-2021 09:48-0400 Body mass index (BMI) [Ratio] 30.9 kg/m2 Dr. Justice James Work Phone: [facility] Work Phone: 10-24-2021 09:48-0400 Body temperature 97.2 [degF] Dr. Justice James Work Phone: [facility] Work Phone: 10-24-2021 09:48-0400 Body weight 76.[address] Justice James Work Phone: [facility] Work Phone: 10-24-2021 09:48-0400 Diastolic blood pressure 69 mm[Hg] Dr. Justice James Work Phone: [facility] Work Phone: 10-24-2021 09:48-0400 Heart rate 73 /min Dr. Justice James Work Phone: [facility] Work Phone: 10-24-2021 09:48-0400 Respiratory rate 16 /min Dr. Justice James Work Phone: [facility] Work Phone: 10-24-2021 09:48-0400 SaO2% (BldA) [Mass fraction] 97 % Dr. Justice aJmes Work Phone: [facility] Work Phone: 10-24-2021 09:48-0400 Systolic blood pressure 112 mm[Hg] Dr. Justice James Work Phone: [facility] Work Phone: 10-24-2021 09:48-0400 Body height 157.[address] Justice James Work Phone: [facility] Work Phone: 10-24-2021 09:48-0400 Body mass index (BMI) [Ratio] 30.9 kg/m2 Dr. Justice James Work Phone: [facility] Work Phone: 10-24-2021 09:48-0400 Body temperature 97.2 [degF] Dr. Justice James Work Phone: [facility] Work Phone: 10-24-2021 09:48-0400 Body weight 76.[address] Justice James Work Phone: [facility] Work Phone: 10-24-2021 09:48-0400 Diastolic blood pressure 69 mm[Hg] Dr. Justice James Work Phone: [facility] Work Phone: 10-24-2021 09:48-0400 Heart rate 73 /min Dr. Justice James Work Phone: [facility] Work Phone: 10-24-2021 09:48-0400 Respiratory rate 16 /min Dr. Justice James Work Phone: [facility] Work Phone: 10-24-2021 09:48-0400 SaO2% (BldA) [Mass fraction] 97 % Dr. Justice James Work Phone: [facility] Work Phone: 10-24-2021 09:48-0400 Systolic blood pressure 112 mm[Hg] Dr. Justice James Work Phone: [facility] Work Phone: Encounters Encounter Date Encounter Type Care Provider Facility Start: 03-16-2025 End: 03-16-2025 Patient encounter procedure Parul Su DIRECTOR OF STRATEGIC PARTNERSHIPS-C -[facility] Work Phone: Start: 03-16-2025 End: 03-16-[address] Justice James MD Work Phone: -[facility] Start: 10-09-2024 End: 10-09-2024 ambulatory Justice James [place] [place]: 09-28-2024 End: 09-28-[address] Justice aJmes MD Work Phone: [facility] Work Phone: Start: 09-28-2024 End: 09-28-[address] Justice James MD -Ultrasound, [facility] Work Phone: Start: 09-28-2024 End: 09-28-2024 ambulatory Justice James Facility:[facility] Start: 09-23-2024 End: 09-23-[address] Justice James MD Work Phone: [facility] Work Phone: Start: 09-23-2024 End: 09-23-[address] Justice James MD -Laboratory, [facility] Start: 09-23-2024 End: 09-23-2024 ambulatory Justice James Facility:[facility] Start: 08-20-2024 End: 08-20-2024 Emergency department patient visit Dr. Justice James MD Work Phone: -Emergency Department Work Phone: Start: 06-29-2024 ambulatory Justice James Facilit y:[facility] Start: 06-02-2024 End: 06-02-2024 Admission to same day surgery center Dr. Julio Cesar Scott MD -Net Developer Programmer/Special Procedures Work Phone: Start: 06-02-2024 End: 06-02-2024 ambulatory Justice James Facility:[facility] Start: 05-26-2024 End: 05-26-[address] José Migule Trejo MD -Laboratory, Specimen Work Phone: Start: 05-25-2024 End: 05-26-2024 ambulatory Justice James Facility:[facility] Start: 05-25-2024 Non-patient / Non-visit Collin Sinclair [facility] Start: 05-06-2024 Non-patient / Non-visit Yocasta galloway DIRECTOR OF STRATEGIC PARTNERSHIPS-C -[facility] Work Phone: Start: 05-06-2024 ambulatory Justice James Facilit y:[facility] Start: 05-04-2024 ambulatory Justice James Facilit y:[facility] Start: 05-04-2024 Non-patient / Non-visit Dr. Karlene RANDHAWA [facility] Start: 05-04-2024 End: 05-04-2024 Patient encounter procedure Yocasta Tejada DIRECTOR OF STRATEGIC PARTNERSHIPS-C -Cardiovascular Services Work Phone: Start: 05-04-2024 End: 05-04-2024 ambulatory Justice James Facility:[facility] Start: 04-17-2024 ambulatory Justice James Facilit y:[facility] Start: 04-17-2024 End: 04-17-2024 ambulatory Justice James Facility:[facility] Start: 10-03-2023 Non-patient / Non-visit Dr. Bernice James Work Phone: [facility] Work Phone: Start: 10-02-2023 Non-patient / Non-visit Dr. Bernice James Work Phone: [facility] Start: 10-02-2023 End: 10-02-[address] Justice James Work Phone: [facility] Work Phone: Start: 10-02-2023 End: 10-02-[address] [facility] Work [facility]: Start: 09-17-2023 End: 09-17-[address] Justice James Work Phone: [facility] Work Phone: Start: 09-17-2023 End: 09-17-[address] Justice James Work Phone: [facility] Start: 09-03-[address] Justice palma [facility] Work Phone: Start: 08-30-2023 End: 08-30-[address] Justice James Work Phone: [facility] Work Phone: Start: 08-27-2023 End: 08-27-2023 Emergency department patient visit Dr. Justice James Work Phone: [facility]-Emergency Department Work Phone: Start: 06-12-2023 End: 06-12-[address] Justice James Work Phone: [facility] Work Phone: Start: 06-12-2023 End: 06-12-[address] Justice James Work Phone: [facility]-Laboratory, Specimen Work Phone: Start: 06-12-2023 End: 06-12-[address] Justice James Work Phone: [facility] Work Phone: Start: 04-10-2023 End: 04-10-[address] Justice James Work Phone: [facility] Work Phone: Start: 04-10-2023 End: 04-10-[address] Justice James Work Phone: [facility]-Outpatient Breast Imaging Work Phone: Start: 04-02-2023 End: 04-16-[address] Justice James Work Phone: [facility] Work Phone: Start: 04-02-2023 End: 04-16-[address] [facility] Start: 04-02-[address] [facility] Start: 03-20-2023 End: 03-20-[address] Justice James Work Phone: [facility] Start: 01-09-2023 End: 01-09-2023 Emergency department patient visit Dr. Justice James Work Phone: [facility]-Emergency Department Work Phone: Start: 01-08-2023 End: 01-08-[address] Justice James Work Phone: [facility]-Radiology, [facility] Work Phone: Start: 12-27-2022 End: 12-27-[address] Justice James Work Phone: [facility]Pulmonary [facility] Work Phone: Start: 03-30-2022 End: 03-30-2022 ambulatory [facility] Work Phone: Start: 03-30-2022 End: 03-30-2022 Patient encounter procedure [facility] Start: 02-25-2022 End: 02-25-2022 Emergency department patient visit [facility]Emergency Department Start: 02-21-2022 End: 02-21-2022 ambulatory [facility] Work Phone: Start: 02-21-2022 End: 02-21-2022 Patient encounter procedure [facility] Start: 01-09-2022 End: 01-14-[address] [facility] Start: 11-23-2021 End: 12-14-[address] Justice James Work Phone: [facility] Start: 11-14-2021 End: 11-14-[address] Justice James Work Phone: [facility] Start: 10-24-2021 End: 10-24-[address] [facility] Start: 08-08-2021 End: 08-08-[address] Justice James Work Phone: [facility] Family Procedures Date Procedure Procedure Detail Performing Clinician Start: 09-28-2024 Complete ultrasound of kidneys and bladder Dr. Justice James MD Work Phone: Start: 09-28-[address] Justice James MD Work Phone: Start: 08-20-2024 Computed tomography of abdomen and pelvis with intravenous contrast Dr. Justice James MD Work Phone: Start: 05-26-2024 Gram stain microscopy Jose James MD Work Phone: Start: 05-26-2024 Respiratory microbia l culture Dr. Justice James MD Work Phone: Start: 05-26-2024 X-ray of chest, PA a nd lateral views Dr. Justice James MD Work Phone: Start: 05-04-2024 Radionuclide imaging of perfusion of myocardium under exercise stress Dr. Justice James MD Work Phone: Start: 06-12-[address] Justice James Work Phone: Start: 04-10-2023 Screening mammography Jose James Work Phone: Start: 01-09-2023 Plain chest X-ray Dr. Ramez James Work Phone: Start: 01-08-2023 Plain chest X-ray Dr. Ramez James Work Phone: Start: 02-25-2022 Plain chest X-ray Start: 02-21-2022 Screening mammography Start: 11-14-2021 End: 11-14-[address] Justice James Work Phone: H/O: hysterectomy H/O: hysterectomy Dr. Ramez James Work Phone: SARS-CoV-2 & FLU Ant igen (Rapid) Viral antigen assay Dr. Justice James Work Phone: Plan of Treatment Date Care Activity Detail Author Start: 08-20-2024 [facility] Start: 06-02-[facility]24 [facility] Start: 08-27-2023 [facility] Start: 02-25-2022 Viral nucleic acid assay [facility] Work Phone: Start: 02-25-2022 Taking nasal swab [facility] Work Phone: Start: 02-25-2022 [facility] Work Phone: Start: 02-25-2022 [facility] Work Phone: Patient Education [facility] Work Phone: Patient referral [facility] Work Phone: [facility] Work Phone: Immunizations Immunization Date Immunization Notes Care Provider Fa cility 03-14-2024 influenza, seasonal, injectable, preservative free Dr. Justice James MD Work Phone: [facility] 03-22-2023 influenza, injectabl e, quadrivalent, preservative free Dr. Justice James Work Phone: [facility] 03-16-2022 influenza, injectabl e, quadrivalent, preservative free Dr. Justice James Work Phone: [facility] 03-16-2022 influenza, seasonal, injectable [facility] Work Phone: 03-29-2021 influenza, injectabl e, quadrivalent, preservative free Dr. Justice James Work Phone: [facility] 03-29-2021 influenza, seasonal, injectable Dr. Justice James Work Phone: [facility] Work Phone: 11-29-2020 diphtheria, tetanus toxoids and acellular pertussis vaccine, unspecified formulation Dr. Justice James Work Phone: [facility] Work Phone: 09-29-2020 Kong (Moderna) Dr. Justice chandler Work Phone: [facility] 06-22-2020 Kong (Moderna) Dr. Justice chandler Work Phone: [facility] 04-05-2020 influenza, injectable,quadrivalent , preservative free, pediatric Dr. Justice James Work Phone: [facility] 04-05-2020 Flucelvax Quad [id number] (PF) (flu vac qs 2019(4 yr up)CD(PF)) 60 mcg ([address] Justice James Work Phone: [facility] Work Phone: 04-01-2019 influenza, injectabl e, quadrivalent, preservative free Dr. Justice James Work Phone: [facility] 04-01-2019 influenza, seasonal, injectable Dr. Justice James Work Phone: [facility] Work Phone: 04-03-2018 influenza, injectabl e, quadrivalent, preservative free Dr. Justice James Work Phone: [facility] 04-03-2018 influenza, seasonal, injectable Dr. Justice James Work Phone: [facility] Work Phone: 03-13-2017 influenza, injectabl e, quadrivalent, preservative free Dr. Justice James Work Phone: [facility] 03-13-2017 influenza, seasonal, injectable Dr. Justice James Work Phone: [facility] Work Phone: 03-27-2016 influenza, injectabl e, quadrivalent, preservative free Dr. Justice James Work Phone: [facility] 03-27-2016 influenza, seasonal, injectable Dr. Justice James Work Phone: [facility] Work Phone: 03-17-2015 influenza, injectabl e, quadrivalent, preservative free Dr. Justice James Work Phone: [facility] 03-17-2015 influenza, seasonal, injectable Dr. Justice James Work Phone: [facility] Work Phone: 03-11-2014 influenza, injectabl e, quadrivalent, preservative free Dr. Justice James Work Phone: [facility] 03-11-2014 influenza, seasonal, injectable Dr. Justice James Work Phone: [facility] Work Phone: 06-29-[address] Justice James Work Phone: [facility] Payers Date Payer Category Payer Self-pay [id number] 2024 Unknown [id number] Unknown [id number] 2.16.8 [id number] Unknown [id number] 2.16.8 [id number] Unknown [id number] 2.16.8 [id number] Unknown [id number] 2.16.8 [id number] Unknown [id number] 2.16.8 [id number] Unknown [id number] 2.16.8 [id number] Unknown [id number] 2.16.8 [id number] Unknown [id number] 2.16.8 [id number] Unknown [id number] 2.16.8 [id number] Unknown [id number] 2.16.8 [id number] Unknown [id number] 2.16.8 [id number] Unknown [id number] 2.16.8 [id number] Unknown [id number] 2.16.8 [id number] Unknown [id number] 2.16.8 [id number] Unknown [id number] 2.16.8 [id number] Social History Date Type Detail Facility Start: 10-24-2021 End: 08-30-2023 Tobacco smoking status NHIS Unknown if ever smoked [facility] Start: 08-02-2019 Spouse/ Signif icant Other [facility] Start: 1960 Sex Assigned At Female [facility] Start: 08-20-2024 End: 10-08-2024 Tobacco smoking status NHIS Never smoked tobacco (finding) [facility] Start: 08-20-2024 End: 09-30-2024 Sex Female (finding) [facility] Status Date Assessment Result Facility 08-27-2023 Cognitive function Level Of Cons ciousness Awake;Alert;Appropriate;Follow s Commands [facility] Work Phone: 02-25-2022 Cognitive function Level Of Cons ciousness Awake;Alert;Appropriate;Follow s Commands [facility] Work Phone: Clinical Notes 08-27-2023 to 03-16-2025 Note Date & Type Note Facility 03-16-[address] [facility] 09-29-2024 Radiology Diagnostic study note [facility] Imaging Services [address], [place] [id number] Kidney and Bladder MR#: [id number] Acct: [id number] Name: MARYANMOL D Rep #: [id number] : 1960 F 64 From: Blane Lyle MD PCP: Dr. Justice James MD Status: RE G CLI Study:Kidney and Bladder Date of Exam: 0 09/28/24 Exam# [id number] Ordering Dr: Justice James MD PROCEDURE: KIDNEY AND BLADDER 09/28/2024 REASON FOR EXAM: CYST TECHNIQUE: Bilateral renal and bladder ultrasound. FINDINGS: The right kidney measures 10.9 x 5.8 x 4.8 cm with a cortical thickness of 1.1 cm. The left kidney measures 11 x 5.8 x 4.8 with a cortical thickness of 1 cm. The kidneys appear within limits for echogenicity without hydronephrosis, renal stone or perinephric edema seen. A couple of right renal cysts, 6 mm upper and 1.1 cm lower pole. Bladder volume 86.5 cc. The bladder appears within limits. 5 mm wall thickness. Bilateral ureteral jets are seen during imaging. No free fluid seen. US/Kidney and Bladder IMPRESSION: The kidneys appear within limits as above. A couple of small right renal cysts. Bladder wall borderline thick at 5 mm otherwise appears within limits. Reading Location: [facility] CC: Dr. Justice James MD ~ Principal Cyber Engineer: Signed [facility] 09-29-2024 Radiology Diagnostic study note [facility] Imaging Services [address] [place] [address] [id number] Abdomen Limited MR#: [id number] Acct: [id number] Name: ANMOL HERNANDEZ Rep #: [id number] : 1960 F 64 From: Blane Lyle MD PCP: Dr. Justice James MD Status: RE G CLI Study:Abdomen Limited Date of Exam: 09/15 10/09 Exam# [id number] Ordering Dr: Justice James MD PROCEDURE: ABDOMEN LIMITED 09/28/2024 REASON FOR EXAM: CYST FINDINGS: Visualized portions of the pancreas appear within limits. No evidence of ductaldilation. The liver measures 18.4 cm. Increased appearing liver echogenicity can be seen with hepatic steatosis or other hepatocellular disease. Liver surface contour appears smooth. No evidence of intrahepatic biliary ductal dilation. Hepatic color flow is present. Flow within the portal vein appears hepatopetal as expected. 2 x 2.8 x 2.2 cm cyst seen within the left lobe. Smaller 8 mm cyst also noted left lobe. The gallbladder appears within limits without stones, wall thickening or pericholecystic free fluid. Wall measures 2 mm. Report of a negative sonographic Oscar's sign. CBD 4 mm. The right kidney measures 10.9 x 5.9 x 4.7 cm with a cortical thickness of 1.1 cm. No hydronephrosis, renal stone or perinephric edema seen. A couple of renal cysts, 6 mm upper lateral and 1.1 cm inferior medial. No free fluid seen. US/Abdomen Limited IMPRESSION: Increased appearing liver echogenicity can be seen with hepatic steatosis or other hepatocellular disease. Liver surface contour appears smooth. A couple of liver and renal cysts as above. Reading Location: [id number] CC: Dr. Justice James MD ~ Principal Cyber Engineer: Signed [facility] 08-20-2024 Discharge summary [facility] 08-20-2024 Radiology Diagnostic study note [facility] Imaging Services [address] [place] [id number] Abdomen/Pelvis W IV Cont ONLY MR#: [id number] Acct: [id number] Name: ANMOL HERNANDEZ Rep #: [id number] : 1960 F 64 From: Zully Skelton MD PCP: Dr. Justice James MD Status: RE G ER Study:Abdomen/Pelvis W IV Cont ONLY Date of E xam: 08/20/24 Exam# [id number] Ordering Dr: Nolan Anderson MD PROCEDURE: ABDOMEN/PELVIS W IV CONT ONLY REASON FOR EXAM: Nausea vomiting Diarrhea TECHNIQUE: CT abdomen and pelvis was performed with IV contrast. Multiplanar reformats weregenerated. IV CONTRAST: 99 mL Isovue 370 COMPARISON: 11/22/2023 FINDINGS: Lung bases: Atelectasis/scarring.. Tiny hiatal hernia. Liver: Similar left lobe cyst. Additional tiny hypodensities too small to characterize, likely additional cysts or hemangiomas in the absence of known malignancy, also similar. Spleen: Unremarkable. Gallbladder: Unremarkable. Pancreas: Unremarkable. Adrenals: Unremarkable. Kidneys: Tiny hypodensities too small to characterize, likely cysts. Bowel: Mild focal stranding in the left pericolic gutter abutting the descendingcolon surrounding a fat lobule, atypical appearance for epiploic appendagitis, new from prior. Mildly prominent fluid distended but nondilated mid and distal small bowel loops without convincing inflammation. Diverticulosis. Normal caliber appendix. Lymph nodes: Unremarkable. Vasculature: Unremarkable. Peritoneum: Unremarkable. Bladder: Underdistended and suboptimally evaluated, grossly unremarkable. Reproductive Organs: Hysterectomy. Body Wall: Small fat containing umbilical hernia. Bones: Degenerative disc disease, L5-S1. Similar bilateral L5 pars defects withgrade 1-2 anterolisthesis. Trace lumbar dextroscoliosis may be positional. Similar likely bone island along the left iliac bone. CT/Abdomen/Pelvis W IV Cont ONLY IMPRESSION: 1. Borderline findings of possible very mild small bowel ileus/enteritis. 2. Findings along the descending colon typical for mild epiploic appendagitis which may be an additional source of self-limited abdominal pain, if present. 3. Additional description as above. Reading Location: [id number] CC: Dr. Nolan Anderson MD; Dr. Justice James MD ~ Principal Cyber Engineer: Signed [facility] 08-20-2024 Discharge summary Note Date/Time August 20, 2024 6:37pm [facility] Medical Records Department [address] [place] [address] Emergency Department Summary 08/20/24 MR#: [id number] Acct: [id number] Name: ANMOL HERNANDEZ Rep #:[id number] : 1960 64 From: Nolan Anderson MD PCP: Dr. Justice James MD Status:RE G ER Location: ED HPI HPI - GI History of Present Illness Chief Complaint: Nausea/Vomiting/Diarrhea Narrative Narrative: 62-year-old female no past surgical history to the abdomen presents with nausea,vomiting, and diarrhea. 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 She started feeling some indigestion typesymptoms at that time. She awoke this afternoon at around 1 PM, 4 hours ago, with burning sensation more in her chest and indigestion type symptoms. She states that she went to the bathroom and vomited 3 times without any hematemesis. She now has burning in her throat from the acid. She also had multiple episodes of diarrhea. No blood in her stool. She thinks that she has history of diverticulitis and IBS and thought maybe she was having an exacerbation of that. No exacerbating or alleviating factors to her abdominal pain. She might feel slightly weak and dehydrated as well. She has diffuse, crampy abdominal pain, and pressing on her abdomen makes her nauseated. No fevers or chills. [facility] Medical History Tachycardia Orthostatic hypotension Dyspnea Migraines GERD (gastroesophageal reflux disease) Hemorrhoids History of hay fever Asthma Chronic neck and back pain Depression Home Medications ?Medication ?Instructions ?Recorded ?Last Taken ?Type escitalopram oxalate 20 mg tablet 20 mg PO DAILY 09/1006/02/24 History (Lexapro) cholecalciferol (vitamin D3) 125 125 mcg PO DAILY 04/1712/06/20 History mcg (5,000 unit) capsule bupropion HCl 100 mg tablet,12 hr 100 mg PO DAILY 10/0706/02/24 History sustained-release (Wellbutrin SR) krill oil 500 mg capsule 500 mg PO DAILY 08/30/23 Unk nown History mecobalamin (vitamin B12) 1,000 1,000 mcg PO DAILY Unknown History mcg lozenges fluticasone 250 mcg-salmeterol 50 1 inh inhalation ONC E 11/19/23 06/02/24 H istory mcg/dose blistr powdr for inhalation (Wixela Inhub) metoprolol tartrate 25 mg tablet 12.5 mg (1/2 x 25 mg) PO DAILY 12/12/23 Unknown Rx Please give 90 pills in case pt needs to increase #90 tabs albuterol 90 mcg-budesonide 80 2 inh inhalation TID SC N shortness 03/16/24 Unknown Rx mcg/actuation HFA aerosol inhaler of breath #10.7 gram s (Airsupra) aspirin 81 mg tablet,delayed 81 mg PO QDAY Cardiac cat h #10 tabs 05/06/24 06/02/24 Rx release (Adult Aspirin Regimen) montelukast 10 mg tablet 10 mg PO DAILY #90 tabs 12/0806/02/24 Rx (Singulair) losartan 50 mg tablet 50 mg PO QDAY #60 tabs 06/04 Unknown Rx dicyclomine 20 mg tablet 20 mg PO BID #15 tabs Unknown Rx ondansetron 4 mg disintegrating 4 mg PO Q8H PRN PRN Na usea #12 tabs 08/20/24 Unknown Rx tablet Allergy/AdvReac Type Severity Reaction Status Date / Time Penicillins Allergy Severe Rash Verified 08/20/24 16:34 amoxicillin Allergy Rash Verified 08/20/24 16:34 Sulfa (Sulfonamide Allergy Rash Verified 08/20/24 16:34 Antibiotics) duloxetine (From Cymbalta) AdvReac Severe LETHARGY Verified 08/20/24 16:34 loratadine (From Claritin) AdvReac Intermediate headache Verified 08/20/24 16:34 Family History Mother Breast cancer CVA (cerebral vascular accident) Sister Cancer ovarian Father Myocardial infarction Grandmother Cancer cervical Aunt Breast cancer Cancer lymphoma Uncle Cancer lymphoma Other Asthma Surgical History H/O: hysterectomy History of colonoscopy (~2017) Social History (Updated 08/20/24 @ 17:43 by Linnette Rodriguez) household members: spouse housing: house Smoking Status: Never smoker alcohol intake: current details: social substance use type: does not use caffeine: Yes frequency: 3-4 times per week seatbelt use: always do you feel safe at home: Yes 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 ROS ROS ED ROS Narrative Review of systems positive for diffuse crampy abdominal pain. Positive nausea and vomiting. No hematemesis. Multiple episodes of diarrhea. Mild generalizedweakness. No fevers or chills. EXAM Physical Exam Narrative Exam Narrative: Afebrile. Vital signs noted. Nontoxic-appearing. Cardiovascular examination reveals a regular rate and rhythm. Lungs are clear to auscultation bilaterally. Abdomen is soft with diffuse tenderness to palpation but no guarding or rebound. She does have more tenderness towards the left lower quadrant of the abdomen. Negative Oscar sign. No pain over McBurney's point. Neurological examination is nonfocal and nonlateralizing, moves all extremities. Const Vital Signs: 08/20/24 16:34 Temperature 98.1 F Temperature Source Oral Pulse Rate 86 Respiratory Rate 18 Blood Pressure 114/70 Blood Pressure Mean 84 Pulse Ox 98 Oxygen Delivery Method Room Air MDM MDM MDM Narrative Medical decision making narrative: Differential diagnosis includes but not limited to diverticulitis versus gastroenteritis versus acute appendicitis versus partial bowel obstruction. History and physical does not support bowel obstruction. Additionally, her painis more diffuse she is not having pain over the right lower quadrant so I doubt acute appendicitis. Patient administered morphine and Zofran for analgesia. Protocol labs were obtained and reviewed by myself. She has normal white count of 7.7 with hemoglobin normal at 13.8, hematocrit 41.1, platelet count normal at231. BUN slightly elevated at 21 with creatinine 1.08. Lipase normal at 24 so I doubt pancreatitis. Urinalysis obtained and negative for infection. I do notfeel she requires antibiotics. I reviewed the radiology report of the CT of the abdomen and pelvis. There is distal small bowel wall thickening consistent with enteritis. Although it mentions ileus, she does have bowel sounds that I doubt ileus. There is no evidence of diverticulitis. She may have epiploic appendagitis as well. Appendix appears normal. Repeat examination at approximately 1830 does show herresting comfortably and her symptoms have improved. She will be given oral Bentyl here and prescription written for a few tablets to take twice a day as well as Zofran ODT's. She was given a note to be off work for the next 2 days. She will follow-up with her primary care provider. Return instructions to the emergency department were reviewed. Disposition is discharged home in stable condition. History & Record Review Discussion w/independent historian: Patient Lab Data Attestation: I reviewed the patient's lab results. Labs: Laboratory Results - last 24 hr 08/20/24 08/20/24 16:50 17:26 WBC 7.7 RBC 4.73 Hgb 13.8 Hct 41.1 MCV 86.9 MCH 29.2 MCHC 33.6 RDW Std Deviation 40.1 RDW Coeff of Sarah 12.6 Plt Count 231 MPV 9.7 Immature Gran % (Auto) 0.400 Neut % (Auto) 85.4 H Lymph % (Auto) 8.1 L Love % (Auto) 4.0 Eos % (Auto) 1.7 Baso % (Auto) 0.4 Absolute Neuts (auto) 6.6 Absolute Lymphs (auto) 0.62 L Nucleated RBC % 0 Sodium 141 Potassium 4.0 Chloride 108 Carbon Dioxide 21.7 Anion Gap 12 BUN 21 H Creatinine 1.08 Estim Creat Clear Calc 53.19 Est GFR (MDRD) Non-Af 58 L BUN/Creatinine Ratio 19.3 Glucose 108 H Calcium 9.4 Total Bilirubin 0.49 AST 21 ALT 23 Alkaline Phosphatase 110 H Total Protein 7.0 Albumin 4.1 Globulin 2.9 Albumin/Globulin Ratio 1.4 Lipase 24 Urine Color Yellow Urine Clarity Sl. Cloudy Urine pH 7.0 Ur Specific Wilmot 1.010 Urine Protein 30 H Urine Glucose (UA) Normal Urine Ketones Negative Urine Occult Blood Negative Urine Nitrite Negative Urine Bilirubin Negative Urine Urobilinogen Normal Ur Leukocyte Esterase 25 H Urine RBC 0 SEEN Urine WBC 0-5 SEEN Ur Squamous Epith Cells 0-5 SEEN Urine Bacteria 0 SEEN Urine Mucus 0 SEEN Radiography Diagnostic Testing: Clinical Impression(s) from Imaging Studies Abdomen/Pelvis CT 08/20/24 17:27 IMPRESSION: 1. Borderline findings of possible very mild small bowel ileus/enteritis. 2. Findings along the descending colon typical for mild epiploic appendagitis which may be an additional source of self-limited abdominal pain, if present. 3. Additional description as above. Reading Location: [facility] Discharge Plan Triage Chief Complaint: Nausea/Vomiting/Diarrhea ED Provider: Nolan Anderson Dx/Rx/DC Orders Clinical Impression: Nausea, vomiting, and diarrhea, Enteritis, Epiploic appendagitis Instructions: Anatomy of the Digestive System, ED Gastroenteritis, Noninfectious, ED Vomit Diarrhea Nonspec Adult Prescriptions: New dicyclomine 20 mg tablet 20 mg PO BID Qty: 15 0RF ondansetron 4 mg tablet,disintegrating 4 mg PO Q8H PRN PRN (Reason: Nausea) Qty: 12 0RF No Action cholecalciferol (vitamin D3) 125 mcg (5,000 unit) capsule 125 mcg PO DAILY bupropion HCl [Wellbutrin SR] 100 mg tablet sustained-release 12 hr 100 mg PO DAILY krill oil 500 mg capsule 500 mg PO DAILY mecobalamin (vitamin B12) 1,000 mcg lozenge 1,000 mcg PO DAILY Rx Instructions: allow to dissolve in mouth OR may chew lightly before swallowing fluticasone propion-salmeterol [Wixela Inhub] 250-50 mcg/dose blister with device 1 inh inhalation ONCE Airsupra 90-80 mcg/actuation HFA aerosol inhaler 2 inh inhalation TID PRN (Reason: shortness of breath) Qty: 10.7 11RF Rx Instructions: as a single dose; may repeat up to 6 doses per day (12 inhalations) escitalopram oxalate [Lexapro] 20 MG tablet 20 mg PO DAILY metoprolol tartrate 25 mg tablet 12.5 mg PO DAILY Qty: 90 3RF aspirin [Adult Aspirin Regimen] 81 mg tablet,delayed release (DR/EC) 81 mg PO QDAY Qty: 10 0RF montelukast [Singulair] 10 mg tablet 10 mg PO DAILY Qty: 90 3RF losartan 50 mg tablet 50 mg PO QDAY Qty: 60 3RF Stand Alone Forms: ED Work / School Excuse Primary Care Provider: Justice James Referrals: Justice James MD [Primary Care Provider] - 3-5 Days if not improving Activity Restrictions/Additional Instructions: Medication as directed. Drink plenty of oral fluids. Return with increased abdominal pain, new or worsening symptoms. Print Language: Panamanian Disposition Disposition: Home, Self Care What to do if you have Problems For any increased pain, shortness of breath, bleeding, nausea or vomiting, chestpain, or any unexpected problems, contact your Primary Care Provider. Call [facility] ([phone]) or report to the closest Emergency Room. Call 911 if necessary. 08/20/247 <Electronically signed by Nolan Anderson MD> Cosign Signature (if applicable): CC: Dr. Justice James MD ~ Signed [facility] Work Phone: 1(375) 242-452612-17-2024 Evaluation note* Diagnosis Onset Date Resolution Status Admit Date Abnormal stress test acute Dece [id number] 8:02am Chest pain acute June 02, 2024 8:02am [facility] Work Phone: [phone]) 640-232212-09-2024 [facility] Medical Records Department [address] [place] [address] History Physical Exam 05/25/24 1510 MR#: [id number] Acct: [id number] Name: ANMOL HERNANDEZ Rep #: [id number] : 1960 64 From: Joie MARQUEZ PA PCP: Dr. Justice James MD Status:PRE [facility] [place] Location: [facility] History and Physical Date of Admission: 06/02/24 Pleasant 64-year-old lady who presents today for a diagnostic heart catheterization. She has no previous cardiac history who was previously seen for lightheadedness, and tachycardia. 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 She was taken to the emergency room where she was hooked up to the monitor and at that time had apparently converted to sinus rhythm. She denied any chest pain or paroxysmal nocturnal dyspnea or pedal edema no neck arm or jaw discomfort suggest angina. She has been compliant with her antidepressant medications but no other medications. Electrolytes that were obtained demonstrated normal potassium and TSH and a normal hemoglobin. EKG demonstrated sinus rhythm with a rate of 86 bpm and no acute changes. During an office visit in February 2024, She acknowledged short bursts of palpitations about twice daily. She also acknowledged chest pain with exertion. This is midsternal. She describes this as an "achy pressure". This will last for a few minutes. She also acknowledged -she attributes this to her asthma. She underwent a stress test which was mildly abnormal at a high workload with mild anterior ischemia. Because of this she is here today to undergo a diagnostic heart catheterization. [facility] Medical History Tachycardia Orthostatic hypotension Dyspnea Migraines GERD (gastroesophageal reflux disease) Hemorrhoids History of hay fever Asthma Chronic neck and back pain Depression Surgical History H/O: hysterectomy History of colonoscopy ( 2018) Family History Mother Breast cancer CVA (cerebral vascular accident) Sister Cancer ovarian Father Myocardial infarction Grandmother Cancer cervical Aunt Breast cancer Cancer lymphoma Uncle Cancer lymphoma Other Asthma Social History (Reviewed 02/20/24 @ 09:07 by Yocasta Tejada DIRECTOR OF STRATEGIC PARTNERSHIPS, DIRECTOR OF STRATEGIC PARTNERSHIPS-C) Smoking Status: Never smoker alcohol intake: current details: social substance use type: does not use caffeine: Yes frequency: 3-4 times per week seatbelt use: always do you feel safe at home: Yes 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 ROS Const Const: Negative for fatigue, weakness, fever(s), headache(s), chills, frequent falls, weight gain or weight loss Eyes Eyes: Negative for blind spots, loss of peripheral vision, transient loss of vision, blurry vision, change in vision, double vision, floaters or tunnel vision ENT ENT: Negative for headache(s), dizziness, Nosebleed/epistaxis, balance problems or neck pain Cardio Chest Pain: Yes Frequency: weekly Character: other (ache/pressure) Onset: exercise Location: mid sternal Duration: minutes Palpitations: Yes feels like its: fast Edema: None Muscle aches with walking: None Resp Respiratory: Positive for SOB with activity (attributes to asthma); Negative for SOB at rest or SOB orthopnea SOB lying down GI GI: Negative nausea, vomiting, heartburn, bloating, vomiting blood/hematemesis, bright, red blood in stools or black,tarry stools Musc Musc: Negative for muscle aches/ myalgia, muscle weakness, joint pain or balance problems Neuro Neuro: Positive for lightheadedness (occasional with quick positional changes); Negative for dizziness, near syncope, syncope, orthostatic symptoms, frequent falls, headache(s), weakness, blurry vision or double vision Fco Hematologic/Lymphatic: Negative for easy bleeding or easy bruising Endo Endo: Negative for fatigue Cardiology Exam Const Appearance: cooperative, healthy appearing, no acute distress, well developed and well groomed Nutritional Appearance: average body habitus and well nourished Orientation: alert, awake and oriented x3 Head Head: normal to inspection, normocephalic and atraumatic Ears: hearing grossly normal bilaterally and external ears normal Nose: external nose normal and nares normal Face and Sinus: face symmetric Eyes General: appearance normal, both eyes and all related structures Eyelids: eyelids normal Conjunctivae: conjunctivae normal Pupils: PERRL, normal by confrontation and accommodation normal EOM: EOM intact bilaterally Neck Neck: normal visual inspection, trachea midline and no JVD JVD: +5 Carotids: normal car (more content not included)...[facility] 08-27-2023 Discharge summary Author Richard Das [facility] August 27, 2023 10:09pm Note Date/Time August 27, 2023 10: 08pm [facility] Medical Records Department [address] [place] [address] Emergency Department Summary 08/27/23 MR#: [id number] Acct: [id number] Name: ANMOL HERNANDEZ Rep #:[id number] : 1960 63 From: Richard Das MD PCP: Dr. Justice James MD Status:RE G ER Location: ED HPI History of Present Illness Chief Complaint: Palpitations Detail of Chief Complaint: Rapid heart rate, pallor, diaphoresis and orthostaticlightheadedness. Informant: patient Onset/Context/Timing Onset: Hours Timing: Intermittent Quality: Orthostatic lightheadedness, pallor, diaphoresis and palpitations Location: At work Current Severity: Mild Maximum Severity: Severe Worsened by: Nothing Relieved by: Nothing Associated Symptoms Associated Symptoms: Per HPI narrative Narrative Narrative: patient is a 63-year-old female with history of asthma. While at work she became lightheaded with rapid heart rate greater than 170, pallor and diaphoresis. She presents to the emergency department. First set of vitals revealed blood pressure 118/85 with a heart rate of 175. She was not on the monitor. She presently feels back to baseline. She denies fever, chills night sweats. She denies headache, visual, ocular auditory symptoms. She denies chest pain of any type. She denied dyspnea. She denied dyspnea on exertion. Denies orthopnea or PND. She denies history of cardiac disease, hypertension hyperlipidemia. She denies abdominal pain, black or maroon-colored stool. She denies history of VTE. Denies leg pain, swelling or discoloration. She denies symptoms of hyperthyroidism i.e. weight loss, rigidity, sweating, diarrhea etc. Prior similar symptoms: Yes (Several years ago) Recent Illness/Hospitalization: No PFSH PFSH Medical History Asthma Chronic neck and back pain Depression GERD (gastroesophageal reflux disease) Hemorrhoids History of hay fever Migraines Home Medications escitalopram oxalate 20 mg tablet (Lexapro) 20 mg PO DAILY 09/10/16 [History Last Taken 12/06/20] omeprazole magnesium 20 mg capsule,delayed release (Acid Data Collection Technician (omeprazole)) 20 mg PO DAILY 04/05/20 [History Last Taken 12/06/20] cholecalciferol (vitamin D3) 125 mcg (5,000 unit) capsule 125 mcg PO DAILY 05/05/20 [History Last Taken 12/06/20] docusate sodium 100 mg capsule (Colace) 200 mg PO DAILY 05/05/20 [History Last Taken 12/04/20] budesonide-formoterol HFA 160 mcg-4.5 mcg/actuation aerosol inhaler (Symbicort) 2 puff inhalation Q12H #3 ea 06/20/22 [Rx Last Taken Unknown] bupropion HCl 100 mg tablet,12 hr sustained-release (Wellbutrin SR) 100 mg PO DAILY 06/20/22 [History Last Taken Unknown] montelukast 10 mg tablet (Singulair) 10 mg PO DAILY #90 tabs 06/04/23 [Rx Last Taken Unknown] albuterol sulfate 90 mcg/actuation aerosol inhaler 2 puff inhalation Q4H PRN PRNSob &/Or Wheezing #8.5 grams 07/26/23 [Rx Last Taken Unknown] metoprolol tartrate 25 mg tablet 25 mg PO DAILY #30 tabs 08/27/23 [Rx Last Taken Unknown] Allergy/AdvReac Type Severity Reaction Status Date / Time amoxicillin Allergy Rash Verified 08/27/23 20:16 Sulfa (Sulfonamide Allergy Rash Verified 08/27/23 20:16 Antibiotics) Family History Mother Breast cancer CVA (cerebral vascular accident) Sister Cancer ovarian Father Myocardial infarction Grandmother Cancer cervical Aunt Breast cancer Cancer lymphoma Uncle Cancer lymphoma Other Asthma Surgical History H/O: hysterectomy History of colonoscopy (~2018) Social History Smoking Status: Never smoker alcohol intake: current details: social substance use type: does not use caffeine: Yes frequency: 3-4 times per week seatbelt use: always do you feel safe at home: Yes 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 ROS ROS ED Constitutional Constitutional ED: Denies chills, fever(s), subjective, sweats or weight loss Eyes Eyes: Denies blurry vision, change in vision or diplopia ENT ENT ED: Denies ear pain, rhinorrhea or sore throat Cardiovascular Cardiovascular: Reports palpitations and racing heartbeat; Denies chest pain, orthopnea or paroxysmal nocturnal dyspnea Respiratory/Chest Respiratory/Chest: Denies cough, dyspnea, dyspnea on exertion, orthopnea or paroxysmal nocturnal dyspnea Gastrointestinal Gastrointestinal: Reports nausea; Denies abdominal pain, diarrhea, melena or vomiting Musculoskeletal Musculoskeletal: Denies arthralgias or myalgias Integumentary Denies rash Neurologic Neurologic: Denies headache(s) or paresthesias Endocrine Endocrinology: Denies heat intolerance Hematologic/Lymphatic Hematologic/Lymphatic: Reports systems reviewed and no addt'l complaints, exceptas documented EXAM Physical Exam Const Vital Signs: 08/27/23 20:12 08/27/23 20:15 08/27/23 20:16 Temperature 97.8 F Temperature Source Temporal Pulse Rate 175 H 159 H Respiratory Rate 21 H 13 Respiratory Effort Normal Respiratory Pattern Normal Blood Pressure 118/85 H 120/79 Blood Pressure Mean 96 92 Pulse Ox 98 98 Oxygen Delivery Method Room Air Room Air 08/27/23 20:20 08/27/23 20:24 08/27/23 20:30 Temperature Temperature Source Pulse Rate 86 89 84 Respiratory Rate 12 21 H 12 Respiratory Effort Respiratory Pattern Blood Pressure 111/75 Blood Pressure Mean 87 Pulse Ox 96 98 96 Oxygen Delivery Method Room Air 08/27/23 20:40 08/27/23 20:45 08/27/23 20:50 Temperature Temperature Source Pulse Rate 88 84 87 Respiratory Rate 18 13 18 Respiratory Effort Respiratory Pattern Blood Pressure 119/68 Blood Pressure Mean 84 Pulse Ox 94 94 Oxygen Delivery Method Room Air Room Air 08/27/23 21:12 Temperature Temperature Source Pulse Rate 83 Respiratory Rate 16 Respiratory Effort Respiratory Pattern Blood Pressure 114/78 Blood Pressure Mean 90 Pulse Ox 99 Oxygen Delivery Method Room Air Positive well nourished and well developed General Appearance ED: well developed, NAD and pallor HEENT HEENT Narrative: Head is atraumatic and normocephalic. Ears normal. Nares patent. Posterior pharynx is normal. Eyes PERRL and EOMs intact bilaterally General Eye ED: Negative for pale conjunctiva or scleral icterus Neck no lymphadenopathy, supple and no JVD Chest Wall inspection of chest normal and palpation of chest normal Resp normal respiratory effort and clear to auscultation bilaterally Cardio regular rate, regular rhythm, S1 normal heart sound, S2 normal heart sound and no murmurs GI normal to inspection, nondistended, normoactive bowel sounds, non-tender, non-distended and no masses; Negative for hepatosplenomegaly Extremity normal to inspection Extremity Narrative: There is no asymmetry, swelling, discoloration, leg vein distention, palpable cords or tenderness along the distribution of the deep venous system. Neuro oriented x3, CN's II-XII intact bilaterally and no sensory deficits noted Sensorium / Orientation: alert Motor Exam: strength 5/5 throughout Psych mental status grossly normal Skin no rashes or lesions noted, no wounds and skin turgor normal Skin Narrative: Nurses state when she arrived she was pale. General Skin Exam: pallor; Negative for jaundice MDM MDM MDM Narrative Medical decision making narrative: Differential diagnosis would include paroxysmal atrial fibrillation, PSVT, will obtain EKG to determine there is any changes to suggest WPW or Sanchez long Ganong syndrome etc. Will obtain TSH to rule out thyroid disease. CBC to assess for anemia since she appears pale. Electrolyte panel to assess renal function as well as potassium calcium and sodium. She was placed on the monitor. Her rhythm has been sinus without any ectopy or dysrhythmia noted. Lab Data Attestation: I reviewed the patient's lab results. Lab results narrative: Blood work is unremarkable. Creatinine is slightly evaded 1.2 with an estimatedGFR of 49. TSH was normal. Labs: Laboratory Results - last 24 hr 08/27/23 20:15 WBC 6.7 RBC 4.72 Hgb 13.7 Hct 42.0 MCV 89.0 MCH 29.0 MCHC 32.6 RDW Std Deviation 41.7 RDW Coeff of Sarah 12.8 Plt Count 257 MPV 10.0 Immature Gran % (Auto) 0.600 Neut % (Auto) 56.1 Lymph % (Auto) 32.7 Love % (Auto) 7.3 Eos % (Auto) 2.7 Baso % (Auto) 0.6 Absolute Neuts (auto) 3.7 Absolute Lymphs (auto) 2.18 Nucleated RBC % 0 Sodium 142 Potassium 3.8 Chloride 109 H Carbon Dioxide 25.0 Anion Gap 8 BUN 16 Creatinine 1.20 H Estim Creat Clear Calc 47.49 Est GFR (MDRD) Af Amer 59 L Est GFR (MDRD) Non-Af 49 L BUN/Creatinine Ratio 13.3 Glucose 111 H Calcium 9.2 TSH 2.25 EKG Initial EKG: Attestation: I personally reviewed and interpreted this EKG as follows: Interpretation: Sinus Rhythm (Rate is 86. There is an RR prime in V1 and V2. SC interval is 170 ms. Cures duration 90 ms. QT durations are 94 ms. [place] is normal.) Management Discussion w/another healthcare provider: [employer] (Case discussed with Dr. Jimmy Rios. Recommendation is metoprolol succinate 25 mg XL once a day. Call the office to be seen by Dr. Walters or him.) Discharge Plan Triage Chief Complaint: Palpitations Other Complaint: Chest Pain ED Provider: Richard Das Dx/Rx/DC Orders Clinical Impression: Orthostatic hypotension, Tachycardia Instructions: ED About Arrhythmias Prescriptions: New metoprolol tartrate 25 mg tablet 25 mg PO DAILY Qty: 30 0RF No Action omeprazole magnesium [Acid Data Collection Technician (omeprazole)] 20 mg capsule,delayed release(DR/EC) 20 mg PO DAILY docusate sodium [Colace] 100 mg capsule 200 mg PO DAILY cholecalciferol (vitamin D3) 125 mcg (5,000 unit) capsule 125 mcg PO DAILY bupropion HCl [Wellbutrin SR] 100 mg tablet sustained-release 12 hr 100 mg PO DAILY Symbicort 160-4.5 mcg/actuation HFA aerosol inhaler 2 puff INHALATION Q12H Qty: 3 3RF escitalopram oxalate [Lexapro] 20 MG tablet 20 mg PO DAILY montelukast [Singulair] 10 mg tablet 10 mg PO DAILY Qty: 90 3RF albuterol sulfate 90 mcg/actuation HFA aerosol inhaler 2 puff INHALATION Q4H PRN PRN (Reason: Sob &/Or Wheezing) Qty: 8.5 3RF Primary Care Provider: Justice James Referrals: Justice James MD [Primary Care Provider] - Don Rios MD [Med Staff - Active Staff] - 5-7 Days Disposition Disposition: Home, Self Care What to do if you have Problems For any increased pain, shortness of breath, bleeding, nausea or vomiting, chestpain, or any unexpected problems, contact your Primary Care Provider. Call Doctors Registry ([phone]) or report to the closest Emergency Room. Call 911 if necessary. 08/27/232208 <Electronically signed by Richard Das MD> Cosigner Signature (if applicable): CC: Dr. Justice James MD ~ Signed [facility] Work Phone: Evaluation note* Diagnosis Onset Date Resolution Status Asthma acute [facility] Work Phone: Evaluation noteNo assessment information available [facility] Work Phone: Evaluation note* Diagnosis Onset Date Resolution Status Asthma chronic [facility] Work Phone: Evaluation note* Diagnosis Onset Date Resolution Status Urinary tract infection none active [facility] Work Phone: Evaluation note* Diagnosis Onset Date Resolution Status Admit Date Seasonal allergies acute 2024 10:46am Asthma chronic February 10:46am [facility] Work Phone: Hospital Discharge instructions Additional Instructions Work-up negative COVID PCR pending. Take medications as prescribed and needed. Continue oral fluids Tylenol Motrin as needed. Monitor your pulse oximeter return if worsening dyspnea pulse ox below 88%.[facility] Work Phone: Hospital Discharge instructions Additional Instructions Medication as directed. Drink plenty of oral fluids. Return with increased abdominal pain, new or worsening symptoms.[facility] Work Phone: Progress note Author Parul Su [facility] Note Date/Time March 16, 2025 11:36am [facility] [address] [place], [place] [address]. [address] [place] [address] OFFICE VISIT Date of Service: 03/16/25 MR#: [id number] Acct: [id number] Name: ANMOL HERNANDEZ Rep #: [id number] : 1960 Provider: DEBORAH Su Age/Sex: 65/F [place] [facility] [place] [facility] [place]: Signed Assessment and Plan Assessment and Plan (1) Asthma: Status: Chronic Qualifiers: Asthma severity: moderate Asthma persistence: persistent Asthma complication type: with acute exacerbation Qualified Code(s): J45.41 - Moderatepersistent asthma with (acute) exacerbation Plan: Deteriorated. Unfortunately, this patient is experiencing an unwanted side effect of hoarseness that I believe is a direct result of the powdered combination ICS/LABA. For this reason I would like to switch her to an HFA typedevice. We will try to see if Breyna is covered by her prescription plan. I provided the patient with a list of alternatives if this is not affordable. Shewill contact our office if she is not able to fill this prescription. She has not been on Singulair as she did not find it to be helpful. (2) Seasonal allergies: Status: Acute Plan: I have encouraged her to take Greta or Zyrtec daily the fall until there is any thorough oliver on the ground. The patient conveys understanding and is agreeable with this plan. Medications: New budesonide-formoterol 160-4.5 mcg/actuation (Breyna) 2 inhalations inhalation BID 3 ea 3RF Discontinued fluticasone propion-salmeterol 250-50 mcg/dose (Wixela Inhub) Discontinued Reason: Order Changed 1 inh inhalation BID 60 ea 11RF Plan Details Additional Comments: This note was generated with [employer] dictation software. It may contain incorrectwords, spelling, and punctuation that were not noted in checking the note beforesigning. Portions of this documentation have been copied and pasted from previous office visit notes to provide a cohesive continuity of the history. The note has been reviewed, edited, and updated, as necessary. Follow Up: 1 Year HPI HPI Comments Details: This patient presents to the office today for follow-up of her asthma. She is ambulatory and on room air. She has not recently been seen in the ED or urgent care for any respiratory illness. She has not required any antibiotics or prednisone for any breathing problems. She is compliant with use of Wixela twice daily. She does report rinsing her mouth out after each use. She sore throat or thrush. Unfortunately, she does notice hoarseness and in need to clear her throat that she believes is related to the inhaler. She has not been taking Singulair. She has not recently required the use of her albuterol rescue inhaler. She denies any difficulty with shortness of breath. She denies any cough, sputumproduction or hemoptysis. She has not had any wheezing, chest tightness, chest pain or palpitations. She has noticed some sinus congestion that she believes is related to allergies to goldenrod. She also denies any fever, chills or bodyaches. Intake Vital Signs 03/16/24 07:39 03/16/25 07:54 Height 5 ft 2 in 5 ft 2 in Weight: 169 lb BMI 30.9 BP 116/75 Blood Pressure Location Lt brachial Position Sitting Respiration 18 Pulse 64 Pulse Source Monitor Temp 97.4 F L Temperature Source Temporal Artery Pulse Oximetry (%) 99 Oxygen Delivery Method room air Intake Visit Reasons: 1 Y FU Chief Complaint: dysuria Application Development Team Lead Required: No Accompanied by: Self Allergies Penicillins Allergy (Severe, Verified 03/16/25 10:58) Rash amoxicillin Allergy (Verified 03/16/25 10:58) Rash Sulfa (Sulfonamide Antibiotics) Allergy (Verified 03/16/25 10:58) Rash duloxetine (From Cymbalta) Adverse Reaction (Severe, Verified 03/16/25 10:58) LETHARGY loratadine (From Claritin) Adverse Reaction (Intermediate, Verified 03/16/25 10:58) headache Medications ?Medication ?Instructions ?Recorded ?Confirmed ?Type escitalopram oxalate 20 mg tablet 20 mg PO DAILY 09/1003/16/25 History (Lexapro) cholecalciferol (vitamin D3) 125 125 mcg PO DAILY 04/1703/16/25 History mcg (5,000 unit) capsule bupropion HCl 100 mg tablet,12 hr 100 mg PO DAILY 10/0703/16/25 History sustained-release (Wellbutrin SR) krill oil 500 mg capsule 500 mg PO DAILY 08/30/23 History mecobalamin (vitamin B12) 1,000 1,000 mcg PO DAILY 03/16/25 History mcg lozenges albuterol 90 mcg-budesonide 80 2 inh inhalation TID SC N shortness 03/16/24 03/16/25 Rx mcg/actuation HFA aerosol inhaler of breath #10.7 gram s (Airsupra) montelukast 10 mg tablet 10 mg PO DAILY #90 tabs 12/0 12/0803/16/25 Rx (Singulair) dicyclomine 10 mg capsule 10 mg PO BID PRN Abdominal 0 08/20/24 03/16/25 Rx cramping #10 caps albuterol sulfate 2.5 mg/3 mL 2.5 mg (3 mL) inhalation Q4H PRN 10/09/24 03/16/25 Rx (0.083 %) solution for nebulization Sob &/Or Wheezing #180 mL losartan 50 mg tablet 50 mg PO QDAY #90 tabs 11/2503/16/25 Rx budesonide-formoterol HFA 160 2 inh inhalation BID #3 ea 03/16/25 03/16/25 Rx mcg-4.5 mcg/actuation aerosol inhaler (Breyna) [facility] Medical History (Reviewed 03/16/25 @ 11:15 by Parul Su DIRECTOR OF STRATEGIC PARTNERSHIPS, DIRECTOR OF STRATEGIC PARTNERSHIPS-C) Tachycardia Orthostatic hypotension Dyspnea Migraines GERD (gastroesophageal reflux disease) Hemorrhoids History of hay fever Asthma Chronic neck and back pain Depression Surgical History H/O: hysterectomy History of colonoscopy (~2017) Family History (Reviewed 03/16/25 @ 11:15 by Parul Su DIRECTOR OF STRATEGIC PARTNERSHIPS, DIRECTOR OF STRATEGIC PARTNERSHIPS-C) Mother Breast cancer CVA (cerebral vascular accident) Sister Cancer ovarian Father Myocardial infarction Grandmother Cancer cervical Aunt Breast cancer Cancer lymphoma Uncle Cancer lymphoma Other Asthma Social History (Reviewed 03/16/25 @ 11:15 by Parul Su DIRECTOR OF STRATEGIC PARTNERSHIPS, DIRECTOR OF STRATEGIC PARTNERSHIPS-C) household members: spouse housing: house Smoking Status: Never smoker alcohol intake: current details: social substance use type: does not use caffeine: Yes frequency: 3-4 times per week seatbelt use: always do you feel safe at home: Yes 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 Review of Systems Resp Respiratory: Yes as per HPI Exam Const Constitutional: Positive conversant, cooperative, in no acute respiratory distress, healthy appearing, well developed, well nourished, good hygiene and obese Head Head: Yes normocephalic, Yes atraumatic and No cyanosis of lips/distal nose Eyes Eye: Positive clear conjunctiva; Negative nystagmus Ears Ear: Positive hearing normal and external ears normal Nose Nose: Yes external nose normal Mouth Mouth: Positive oral mucosae normal Neck Neck: Positive normal visual inspection, full ROM and trachea midline Chest Wall Chest: Positive normal inspection of the chest and symmetric chest movement; Negative increased A/P diameter Resp lung sounds: Positive clear to auscultation, good air exchange, normal expiratory time and normal respiratory effort; Negative wheezes, rhonchi, rales or use of accessory muscles Cardio Cardiac: Positive regular rate, regular rhythm, S1 normal and S2 normal; Negative murmur GI GI: Positive normal to inspection and obese Genitourinary: Positive deferred Musc Musculoskeletal: Positive steady gait and ROM normal; Negative kyphosis or scoliosis Skin Pulmonary Skin Exam: Positive intact; Negative lesion, rash or ulcers Extremities Extremities: No clubbing and No cyanosis Neuro Neurologic: Yes no focal neuro deficits, Yes conversant, Yes cooperative, Yes normal cognition, Yes normal coordination, Yes normal concentration and Yes understands questions Psych Appearance: Positive grossly normal and eye contact Mental Status: Positive mental status grossly normal Mood: Positive congruent mood Affect: Positive normal affect Coding Level of Care Code Off vis,est,level 4 Diagnoses Moderate persistent asthma with acute exacerbation J45.41 Asthma severity: moderate Asthma persistence: persistent Asthma complication type: with acute exacerbation Seasonal allergies J30.2 03/16/25 1204 <Electronically signed by Parul vasquez NP DIRECTOR OF STRATEGIC PARTNERSHIPS-C> Date _ Parul Su NP DIRECTOR OF STRATE[employer]IC PARTNERSHIPS-C Cosigner Signature: Date (if applicable) CC: Dr. Justice James MD ~ [facility] [employer] Work Phone: Reason for referral (narrative)No reason for referral information availableWCrystal [facility] Work Phone: Chief Complaint and Reason for Visit Chief Complaint Admit Date CHEST PAIN/ e orders June 02, 2024 8:02am NAUSEA, HEARTBURN August 20, 2024 4:33 pm Reason for Visit Admit Date Abnormal stress test June 02, 2024 8:02am Chest pain June 02, 2024 8:02am Chief Complaint 6 M FU Reason for Visit Asthma Chief Complaint SCREENING GENERAL ILLNESS Chief Complaint SCREENING GENERAL ILLNESS EORDER Chief Complaint 6 M FU WHEEZING SOB/chest heaviness SCREENING Reason for Visit Asthma Chief Complaint SCREENING Urinary tract infection Reason for Visit Urinary tract infect ion Chief Complaint Urinary tract infect ion palpitations Reason for Visit Urinary tract infect ion Chief Complaint Urinary tract infect ion palpitations TACHYCARDIA / SVT ([facility] [facility] ED) Orthostatic hypotension, TACAHYCARDIA Reason for Visit Urinary tract infect ion Chief Complaint Urinary tract infect ion palpitations TACHYCARDIA / SVT ([employer] [facility] [facility]) Orthostatic hypotension, TACAHYCARDIA ARRYTHMIA Amb Documentation Reason for Visit Urinary tract infect ion Chief Complaint Admit Date CHEST PAIN May 04, 2024 7:02am CHEST PAIN May 04, 2024 4:18pm Amb Documentation May 06, 2024 2:58pm CHEST PAIN May 25, 2024 3 :10pm SINUSITIS May 26, 2024 3:30pm CHEST PAIN/ e orders June 02, 2024 8:02am NAUSEA, HEARTBURN August 20, 2024 4:33 pm Chief Complaint Admit Date CHEST PAIN/ e orders June 02, 2024 8:02am NAUSEA, HEARTBURN August 20, 2024 4:33 pm LIVER CYST September 28, 2024 7:5 1am Chief Complaint Admit Date 1 Y FU March 16, 2025 10:46am Reason for Visit Admit Date Seasonal allergies March 16, 2025 10:46am Asthma March 16, 2025 10:46am Family History No Family History Records Found Relationship Condition Age at Onset Recorded Date/T brijesh Not Specified Asthma Unknown mother Malignant neoplasm of breast Unknown Cerebrovascular accident (CVA) Unknown sister Malignant neoplasm Unknown father Myocardial infarction Unknown grandmother Malignant neoplasm Unknown aunt Malignant neoplasm of breast Unknown Malignant neoplasm Unknown uncle Malignant neoplasm Unknown Advance Directives No Advanced Directives Records Found Advance Directive Response Recorded Date/ Time Living Will No December 06, 2020 7:12pm Power of Experimental Technician No December 06 7:12pm Advance Directive Response Recorded Date/ Time Living Will No February 25, 2022 5:46pm Power of Experimental Technician No February 5:46pm Advance Directive Response Recorded Date/ Time Living Will No January 09, 2023 1:59pm Power of Experimental Technician No January 09 1:59pm Advance Directive Response Recorded Date/ Time Living Will No January 09, 2023 12:59pm Power of Experimental Technician No January 09 12:59pm Advance Directive Response Recorded Date/ Time Living Will No August 27, 2023 8:16pm Power of Experimental Technician No August 26 8:16pm Advance Directive Response Recorded Date/ Time Living Will No November 21, 2023 1 0:38pm Power of Experimental Technician No November 21, 2023 10:38pm Living Will No August 20, 2024 5:42pm Power of Experimental Technician No August 20 5:42pm Advance Directive Response Recorded Date/ Time Living Will No August 20, 2024 6:42pm Do you have a Healthcare Power of Experimental Technician? No August 20, 2024 6:42pm Advance Directive Response Recorded Date/ Time Living Will No November 21, 2023 1 1:38pm Do you have a Healthcare Power of Experimental Technician? No November 21, 2023 11:38pm Summary Purpose Additional Source Comments Goals (unrecognized section and content) Goals may be documented in a n alternate sectionGoals may be documented in an alternate sectionGoals may be documented in an alternate sectionGoals may be documented in an alternate sectionGoals may be documented in an alternate sectionGoals may be documented in an alternate sectionGoals may be documented in an alternate sectionGoals may be documented in an alternate sectionGoals may be documented in an alternate sectionGoals may be documented in an alternate sectionGoals may be documented in an alternate sectionGoals may be documented in an alternate sectionGoals may be documented in an alternate sectionGoals may be documented in an alternate sectionGoals may be documented in an alternate sectionGoals may be documented in an alternate section Care Teams (unrecognized sec tion and content) Team Status: Active Member Role Status Dates Dr. Justice James MD Family Provider Active Dr. Justice James MD Primary Care Provider Active Team Status: Inactive Member Role Status Dates Dr. Justice James MD Primary Care Provider, Referr ing Provider Active Parul Su DIRECTOR OF STRATEGIC PARTNERSHIPS, DIRECTOR OF STRATEGIC PARTNERSHIPS-C Attending Provider Active Team Status: Inactive Member Role Status Dates Dr. Justice James MD Primary Care Provider Active Parul Su DIRECTOR OF STRATEGIC PARTNERSHIPS, DIRECTOR OF STRATEGIC PARTNERSHIPS-C Attending Provider, Referrin g Provider Active Team Status: Inactive Member Role Status Dates Dr. Justice James MD Primary Care Pr ovider, Attending Provider, Referring Provider Active Team Status: Inactive Member Role Status Dates Dr. Justice James MD Primary Care Provider Active Dr. Raphael Guerrero DO Attending Provider, Emergency P hoa Active Team Status: Inactive Member Role Status Dates Dr. Justice James MD Primary Care Provider, Attend ing Provider Active Team Status: Active Member Role Status Dates Dr. Justice James MD Primary Care Provider Active Dr. Suleiman Estrada MD Attending Provider Active Team Status: Inactive Member Role Status Dates Dr. Justice James MD Primary Care Provider Active Dr. Suleiman Estrada MD Attending Provider Active Team Status: Inactive Member Role Status Dates Dr. Justice James MD Primary Care Provider, Referr ing Provider Active JIMMY Victoria Attending Provider Active Team Status: Inactive Member Role Status Dates Dr. Justice James MD Primary Care Provider Active JIMMY Victoria Attending Provider Active Team Status: Inactive Member Role Status Dates Dr. Justice James MD Primary Care Provider Active Dr. Richard Das MD Emergency Provider Active Team Status: Inactive Member Role Status Dates Dr. Justice James MD Primary Care Provider, Referr ing Provider Active Dr. Julio Cesar Scott MD Attending Provider Active Team Status: Active Member Role Status Dates Dr. Julio Cesar Scott MD Attending Provider, Referring Pro vider Active Dr. Justice James MD Primary Care Provider Active Team Status: Inactive Member Role Status Dates Dr. Justice James MD Primary Care Provider Active Dr. Richard Das MD Attending Provider, Emergency Provi agnes Active Team Status: Active Member Role Status Dates Dr. Justice James MD Primary Care Provider Active Dr. Julio Cesar Scott MD Attending Provider Active Team Status: Active Member Role Status Dates Dr. Justice James MD Primary Care Provider Active Yocasta Tejada DIRECTOR OF STRATEGIC PARTNERSHIPS, DIRECTOR OF STRATEGIC PARTNERSHIPS-C Attending Provider Active Team Status: Inactive Member Role Status Dates Dr. Justice James MD Primary Care Provider Active Dr. Julio Cesar Scott MD Attending Provider, Referring Pro vider Active Team Status: Active Member Role Status Dates Dr. Justice James MD Primary Care Provider Active Team Status: Inactive Member Role Status Dates Dr. Justice James MD Primary Care Provider Active Start: May 04, 2024 End: May 04, 2024 Yocasta Tejada DIRECTOR OF STRATEGIC PARTNERSHIPS, DIRECTOR OF STRATEGIC PARTNERSHIPS-C Attending Provider Active Start: May 04, 2024 End: May 04, 2024 Yocasta Tejada DIRECTOR OF STRATEGIC PARTNERSHIPS, DIRECTOR OF STRATEGIC PARTNERSHIPS-C Referring Provider Active Start: May 04, 2024 End: May 04, 2024 Team Status: Active Member Role Status Dates Dr. Justice James MD Primary Care Provider Active Start: May 04, 2024 Yocasta Tejada DIRECTOR OF STRATEGIC PARTNERSHIPS, DIRECTOR OF STRATEGIC PARTNERSHIPS-C Referring Provider Active Start: May 04, 2024 Yocasta Tejada DIRECTOR OF STRATEGIC PARTNERSHIPS, DIRECTOR OF STRATEGIC PARTNERSHIPS-C Other Provider Active Sta rt: May 04, 2024 Dr. Julio Cesar Scott MD Attending Provider Active S tart: May 04, 2024 Team Status: Active Member Role Status Dates Dr. Justice James MD Primary Care Provider Active Start: May 06, 2024 Yocasta Tejada DIRECTOR OF STRATEGIC PARTNERSHIPS, DIRECTOR OF STRATEGIC PARTNERSHIPS-C Attending Provider Active Start: May 06, 2024 Team Status: Active Member Role Status Dates Dr. Justice James MD Primary Care Provider Active Start: May 25, 2024 Dr. Julio Cesar Scott MD Other Provider Active Start : May 25, 2024 Joie Rogers PA, PA Attending Provider Active Start: May 25, 2024 Team Status: Inactive Member Role Status Dates Dr. Justice James MD Primary Care Provider Active Start: May 26, 2024 End: May 26, 2024 Dr. José Miguel Trejo MD Attending Provider Active Start: May 26, 2024 End: May 26, 2024 Dr. José Miguel Trejo MD Referring Provider Active Start: May 26, 2024 End: May 26, 2024 Team Status: Inactive Member Role Status Dates Dr. Justice James MD Primary Care Provider Active Start: June 02, 2024 End: June 02, 2024 Dr. Julio Cesar Scott MD Attending Provider Active S tart: June 02, 2024 End: June 02, 2024 Dr. Julio Cesar Scott MD Referring Provider Active S tart: June 02, 2024 End: June 02, 2024 Yocasta Tejada DIRECTOR OF STRATEGIC PARTNERSHIPS, DIRECTOR OF STRATEGIC PARTNERSHIPS-C Other Provider Active Sta rt: June 02, 2024 End: June 02, 2024 Team Status: Inactive Member Role Status Dates Dr. Justice James MD Primary Care Provider Active Start: August 20, 2024 End: August 20, 2024 Nolan Anderson MD Referring Provider Active Star t: August 20, 2024 End: August 20, 2024 Nolan Anderson MD Emergency Provider Active Star t: August 20, 2024 End: August 20, 2024 Team Status: Inactive Member Role Status Dates Dr. Justice James MD Primary Care Provider Active Start: August 20, 2024 End: August 20, 2024 Nolan Anderson MD Attending Provider Active Star t: August 20, 2024 End: August 20, 2024 Nolan Anderson MD Referring Provider Active Star t: August 20, 2024 End: August 20, 2024 Nolan Anderson MD Emergency Provider Active Star t: August 20, 2024 End: August 20, 2024 Team Status: Inactive Member Role Status Dates Dr. Justice James MD Primary Care Provider Active Start: September 23, 2024 End: September 23, 2024 Dr. Justice James MD Attending Provider Active Start: September 23, 2024 End: September 23, 2024 Justice PEREZ MD Referring Provider Active Start: September 23, 2024 End: September 23, 2024 Team Status: Inactive Member Role Status Dates Dr. Justice James MD Primary Care Provider Active Start: September 28, 2024 End: September 28, 2024 Dr. Justice James MD Attending Provider Active Start: September 28, 2024 End: September 28, 2024 Dr. Justice James MD Referring Provider Active Start: September 28, 2024 End: September 28, 2024 Team Status: Active Member Role/Relationship Status Dates Dr. Justice James MD Primary care physician Active Team Status: Inactive Member Role/Relationship Status Dates Dr. Justice James MD Primary care physician Active Start: March 16, 2025 End: March 16, 2025 Dr. Justice James MD Referring Provider Active Start: March 16, 2025 End: March 16, 2025 Parul Su DIRECTOR OF STRATEGIC PARTNERSHIPS, DIRECTOR OF STRATEGIC PARTNERSHIPS-C Attending physician Active Start: March 16, 2025 End: March 16, 2025 INFORMATION SOURCE (unrecogn ized section and content) DATE CREATED AUTHOR 03/21/[address] [facility] FOR RECORDS PERTAINING TO PATIENTS WHO ARE OR HAVE BEEN ENROLLED IN A CHEMICAL DEPENDENCY/SUBSTANCEABUSE PROGRAM, SOME INFORMATION MAY BE OMITTED. This clinical summary was aggregated from multiple sources. Caution should be exercised in using it in the provision of clinical care. This summary normalizes information from multiple sources, and as a consequence, information in this document may materially change the coding, format and clinical context of patient data. In addition, data may be omitted in some cases. CLINICAL DECISIONS SHOULD BE BASED ON THE PRIMARY CLINICAL RECORDS. [facility] [facility]. provides no warranty or guarantee of the accuracy or completeness of information in this document.
--- NOTE | 2025-04-29 06:13 | CT_ITS ---
PROCEDURE: ABDOMEN/PELVIS W IV CONT ONLY 04/29/2025 REASON FOR EXAM: ABD PAIN Lower abdominal pain since yesterday. TECHNIQUE: Procedure Code: [id number] Modality: CT Procedure: ABDOMEN/PELVIS W IV CONT ONLY Coronal and Sagittal reconstruction series were provided. CONTRAST: Isovue 370 VOLUME: 100 mL One or more dose reduction techniques were used (e.g., Automated exposure control, adjustment of the mA and/or kV according to patient size, use of iterative reconstruction technique. RADIATION DOSE SUMMARY: CTDlvol: 13.4 mGy DLP: 857.07 mGycm COMPARISON: August 20, 2024. FINDINGS: Lung bases: Stable mild degree of increased linear markings at the lung bases suggestive of linear scarring. The heart is nonenlarged. No significant coronary artery calcification is seen. Liver: Diffuse fatty infiltration. Stable 2.4 cm cyst in the peripheral medial aspect of the left lobe of the liver. Gallbladder: Unremarkable. Spleen: Normal size. Pancreas: Normal size without evidence of mass surrounding inflammation or ductal dilation. Adrenals: Unremarkable Kidneys: Normal renal sizes. No hydronephrosis. Bladder: Unremarkable Reproductive Organs: The patient is status post hysterectomy. Bowel: Diffuse sigmoid diverticulosis with increased markings in the surrounding peritoneal fat suggestive of acute non complicated sigmoid diverticulitis. A small amount of free fluid is seen in the right side of the cul-de-sac. Appendix: The appendix is not identified. There is no inflammatory process identified in the right lower quadrant to suggest appendicitis. Lymph nodes: Unremarkable. Vasculature: The abdominal aorta and IVC are normal. Peritoneum / Retroperitoneum: There is evidence of an umbilical hernia containing fat. The neck of the hernia measures 20.5 mm. Bones: Marked degree of disc space narrowing at the L5-S1 level with grade 1 anterior listhesis of L5 on S1 due to spondylolysis of the pars interarticularis of the L5 vertebrae. CT/Abdomen/Pelvis W IV Cont ONLY IMPRESSION: Findings in keeping with the acute sigmoid diverticulitis. Small amount of arnav e fluid is seen in the right side of the cul-de-sac. Fatty infiltration of the liver. Stable cyst in the medial aspect of the left lobe of the liver. Grade 1 anterior listhesis of L5 on S1 due to spondylolysis of the pars interar ticularis of the L5 vertebrae. Reading Location: [place] [id number]
--- NOTE | 2025-04-29 06:28 | EDS_ITS ---
HPI History of Present Illness Chief Complaint: Abd Pain Informant: patient and spouse/S.O. Narrative Narrative: Patient is a 65-year-old female who reports a past medical history of diverticulosis. She states that yesterday she felt some pain in her lower mid abdomen. She states that she will frequently get UTIs. She states that she felt that the pain was most likely the start of a UTI so she took Pyridium and and tried to hydrate and flush her system. She states despite doing that she now noted pain across the lower abdomen diffusely and has been nauseous. She also states that she now has constipation. With these changes she is concerned that she is now developed diverticulitis which she has had occasionally in the past and therefore comes in for evaluation. She denies any known sick contact. [facility] Medical History Tachycardia Orthostatic hypotension Dyspnea Migraines GERD (gastroesophageal reflux disease) Hemorrhoids History of hay fever Asthma Chronic neck and back pain Depression Home Medications Medication Instructions Recorded Last Taken Type escitalopram oxalate 20 mg tablet 20 mg PO DAILY 09/1006/02/24 History (Lexapro) cholecalciferol (vitamin D3) 125 125 mcg PO DAILY 04/1712/06/20 History mcg (5,000 unit) capsule bupropion HCl 100 mg tablet,12 hr 100 mg PO DAILY 10/0706/02/24 History sustained-release (Wellbutrin SR) krill oil 500 mg capsule 500 mg PO DAILY 08/30/23 Unk nown History mecobalamin (vitamin B12) 1,000 1,000 mcg PO DAILY Unknown History mcg lozenges albuterol 90 mcg-budesonide 80 2 inh inhalation TID MN N shortness 03/16/24 Unknown Rx mcg/actuation HFA aerosol inhaler of breath #10.7 gram s (Airsupra) montelukast 10 mg tablet 10 mg PO DAILY #90 tabs 12/0806/02/24 Rx (Singulair) dicyclomine 10 mg capsule 10 mg PO BID PRN Abdominal 0 08/20/24 Unknown Rx cramping #10 caps albuterol sulfate 2.5 mg/3 mL 2.5 mg (3 mL) inhalation Q4H PRN 10/09/24 Unknown Rx (0.083 %) solution for nebulization Sob &/Or Wheezing #180 mL losartan 50 mg tablet 50 mg PO QDAY #90 tabs 11/25 Unknown Rx budesonide-formoterol HFA 160 2 inh inhalation BID #3 ea 03/16/25 Unknown Rx mcg-4.5 mcg/actuation aerosol inhaler (Breyna) ciprofloxacin HCl 500 mg tablet 500 mg PO BID 10 days #20 tabs 04/29/25 Unknown Rx (Cipro) metronidazole 500 mg tablet 500 mg PO TID 10 days #30 tabs 04/29/25 Unknown Rx ondansetron 4 mg disintegrating 4 mg PO TID PRN nausea and 04/29/25 Unknown Rx tablet vomiting #21 tabs oxycodone-acetaminophen 5 mg-325 1 tab PO Q6H PRN pain 3 days #12 04/29/25 Unknown Rx mg tablet (Percocet) tabs Allergy/AdvReac Type Severity Reaction Status Date / Time Penicillins Allergy Severe Rash Verified 04/29/25 05:50 amoxicillin Allergy Rash Verified 04/29/25 05:50 Sulfa (Sulfonamide Allergy Rash Verified 04/29/25 05:50 Antibiotics) duloxetine (From Cymbalta) AdvReac Severe LETHARGY Verified 04/29/25 05:50 loratadine (From Claritin) AdvReac Intermediate headache Verified 04/29/25 05:50 Family History Mother Breast cancer CVA (cerebral vascular accident) Sister Cancer ovarian Father Myocardial infarction Grandmother Cancer cervical Aunt Breast cancer Cancer lymphoma Uncle Cancer lymphoma Other Asthma Surgical History H/O: hysterectomy History of colonoscopy (~2017) Social History household members: spouse housing: house Smoking Status: Never smoker alcohol intake: current details: social substance use type: does not use caffeine: Yes frequency: 3-4 times per week seatbelt use: always do you feel safe at home: Yes additional social history: Don- [employer] Patient works at [employer] ROS ED Constitutional Constitutional ED: Denies chills or fever(s) ENT ENT ED: Denies sore throat Cardiovascular Cardiovascular: Denies chest pain Respiratory/Chest Respiratory/Chest: Denies cough or dyspnea Gastrointestinal Gastrointestinal: Reports abdominal pain, constipation and nausea; Denies diarrhea or vomiting Genitourinary Genitourinary ED: Denies dysuria or hematuria Musculoskeletal Musculoskeletal: Denies back pain or myalgias Integumentary Denies rash Neurologic Neurologic: Denies headache(s) Hematologic/Lymphatic Hematologic/Lymphatic: Denies easy bleeding or easy bruising EXAM Physical Exam Const Vital Signs: 04/29/25 05:51 04/29/25 07:50 04/29/25 08:17 Temperature 99.4 F H 97.8 F 98.7 F Temperature Source Oral Oral Pulse Rate 77 80 83 Respiratory Rate 16 15 17 Blood Pressure 132/75 H 133/80 H 131/72 H Blood Pressure Mean 94 97 91 Pulse Ox 96 91 95 Oxygen Delivery Method Room Air Room Air Positive well nourished and well developed General Appearance ED: well developed; Negative for pallor HEENT HEENT Narrative: Normocephalic atraumatic No tongue or lip swelling no oral lesions no airway edema or compromise No secondary findings in the posterior pharynx to suggest infection Eyes PERRL and EOMs intact bilaterally General Eye ED: Negative for scleral icterus Neck supple Neck Narrative: No nuchal rigidity or meningeal signs Resp normal respiratory effort and clear to auscultation bilaterally Cardio regular rate and regular rhythm Rate: other Other Details: Regular rate and rhythm without murmurs rubs or gallop Radial and carotid pulses are equal and symmetric GI GI Narrative: Abdomen is slightly distended and bowel sounds are hypoactive There is diffuse pain with palpation of the lower abdomen and voluntary guarding noted No peritoneal signs or pulsatile mass No fluid wave noted. Auscultation: hypoactive bowel sounds Back/Spine no CVA tenderness Extremity normal to inspection Neuro oriented x3, CN's II-XII intact bilaterally and no sensory deficits noted Sensorium / Orientation: alert Motor Exam: strength 5/5 throughout Psych mental status grossly normal Skin no rashes or lesions noted and no wounds General Skin Exam: Negative for jaundice or pallor MDM MDM MDM Narrative Medical decision making narrative: Patient arrived to the ER with stable vitals. She reported increasing lower abdominal pain now with constipation and history of diverticulosis. Based on these findings there is concern for diverticulitis. In order to rule out a urinary tract infection or complicated diverticulitis or small bowel obstruction basic blood work and a CT scan were obtained. Urine sample showed no bacteria going against UTI or pyelonephritis. Labs revealed no leukocytosis or left shift. Lactic acid was normal as well going against systemic infection or ischemia. No elevation to the lipase going against pancreatitis and liver enzymes are within the normal range going against biliary issue. CT of the abdomen and pelvis revealed diverticulosis with surrounding fat stranding consistent with diverticulitis. There is no abscess or perforation or obstruction indicating this is simple diverticulitis not complicated and therefore there is no need for emergent surgical intervention or admission. The patient we placed on Cipro and Flagyl as she has a penicillin allergy. However her pain is well-controlled at this time and vital stable and therefore she is otherwise safe for discharge. History & Record Review Discussion w/independent historian: Patient and Significant other Lab Data Attestation: I reviewed the patient's lab results. Labs: Laboratory Results - last 24 hr 04/29/25 04/29/25 04/29/25 05:57 06:50 07:30 WBC 10.1 RBC 4.66 Hgb 13.5 Hct 41.8 MCV 89.7 MCH 29.0 MCHC 32.3 RDW Std Deviation 41.4 RDW Coeff of Sarah 12.6 Plt Count 278 MPV 9.8 Immature Gran % (Auto) 0.600 Neut % (Auto) 71.5 H Lymph % (Auto) 18.3 L [place] % (Auto) 7.4 Eos % (Auto) 1.7 Baso % (Auto) 0.5 Absolute Neuts (auto) 7.2 Absolute Lymphs (auto) 1.85 Nucleated RBC % 0 Sodium 138 Potassium 4.0 Chloride 106 Carbon Dioxide 21.7 Anion Gap 11 BUN 10 Creatinine 1.07 Estim Creat Clear Calc 51.84 Est GFR (MDRD) Non-Af 58 L BUN/Creatinine Ratio 9.6 L Glucose 100 H Lactic Acid 1.3 Calcium 9.4 Total Bilirubin 0.41 Direct Bilirubin 0.17 AST 18 ALT 17 Alkaline Phosphatase 101 Total Protein 7.1 Albumin 4.0 Globulin 3.0 Lipase 21 Urine Color SEE COMMENT BELOW Urine Clarity Clear Urine pH 6.0 Ur Specific [place] 1.005 Urine Protein 15 H Urine Glucose (UA) Normal Urine Ketones Negative Urine Occult Blood Negative Urine Nitrite Positive H Urine Bilirubin 6 H Urine Urobilinogen 8 H Ur Leukocyte Esterase 25 H Urine RBC 0 SEEN Urine WBC 0 SEEN Ur Squamous Epith Cells 0-5 SEEN Urine Bacteria 0 SEEN Urine Mucus 0 SEEN Radiography Diagnostic Testing: Clinical Impression(s) from Imaging Studies Abdomen/Pelvis CT 04/29/25 06:13 IMPRESSION: Findings in keeping with the acute sigmoid diverticulitis. Small amount of free fluid is seen in the right side of the cul-de-sac. Fatty infiltration of the liver. Stable cyst in the medial aspect of the left lobe of the liver. Grade 1 anterior listhesis of L5 on S1 due to spondylolysis of the pars interarticularis of the L5 vertebrae. Reading Location: [place] [id number] Discharge Plan Triage Chief Complaint: Abd Pain ED Provider: Fabrizio Hanson Dx/Rx/DC Orders Clinical Impression: Diverticulitis Instructions: Diverticulitis Dc Prescriptions: New ciprofloxacin HCl [Cipro] 500 mg tablet 500 mg PO BID 10 Days Qty: 20 0RF metronidazole 500 mg tablet 500 mg PO TID 10 Days Qty: 30 0RF ondansetron 4 mg tablet,disintegrating 4 mg PO TID PRN (Reason: nausea and vomiting) Qty: 21 0RF oxycodone-acetaminophen [Percocet] 5-325 mg tablet 1 tab PO Q6H PRN (Reason: pain) 3 Days Qty: 12 0RF No Action cholecalciferol (vitamin D3) 125 mcg (5,000 unit) capsule 125 mcg PO DAILY bupropion HCl [Wellbutrin SR] 100 mg tablet sustained-release 12 hr 100 mg PO DAILY krill oil 500 mg capsule 500 mg PO DAILY mecobalamin (vitamin B12) 1,000 mcg lozenge 1,000 mcg PO DAILY Rx Instructions: allow to dissolve in mouth OR may chew lightly before swallowing Airsupra 90-80 mcg/actuation HFA aerosol inhaler 2 inh inhalation TID PRN (Reason: shortness of breath) Qty: 10.7 11RF Rx Instructions: as a single dose; may repeat up to 6 doses per day (12 inhalations) budesonide-formoterol [Breyna] 160-4.5 mcg/actuation HFA aerosol inhaler 2 inh inhalation BID Qty: 3 3RF albuterol sulfate 2.5 mg /3 mL (0.083 %) solution for nebulization 2.5 mg inhalation Q4H PRN (Reason: Sob &/Or Wheezing) Qty: 180 3RF escitalopram oxalate [Lexapro] 20 MG tablet 20 mg PO DAILY dicyclomine 10 mg capsule 10 mg PO BID PRN (Reason: Abdominal cramping) Qty: 10 0RF montelukast [Singulair] 10 mg tablet 10 mg PO DAILY Qty: 90 3RF losartan 50 mg tablet 50 mg PO QDAY Qty: 90 3RF Stand Alone Forms: ED Work / School Excuse Primary Care Provider: Justice James Referrals: Justice James MD [Primary Care Provider, Family Practice] Activity Restrictions/Additional Instructions: Your blood work revealed no clinically significant findings and your urine sample showed no sign of infection. However your CT scan confirmed uncomplicated diverticulitis. Take the antibiotics as directed to help resolve the infection and pain. This will take on average 2 to 3 days to improve. Return to the ER should you have any further concerns Print Language: [place] Disposition Disposition: Home, Self Care Discharge Date/Time: 04/29/25 08:28 D/C Safety Score for UGIB Assessment Krish-Blatchford Bleeding Score (GBS): Stratifies upper GI bleeding patients who are "low-risk" and candidates for outpatient management. Hemoglobin, BUN, Recent Vital Signs: Hgb 13.5 g/dL (12.0-15.0) 04/29/25 05:57 BUN 10 mg/dL (4-19) 04/29/25 05:57 Pulse Rate 83 Blood Pressure 131/72 Score Interpretation: Score of 0: A GBS of 0 is a “Low Risk” GI bleed, and is highly sensitive (99.6% in a 2007 retrospective study) for predicting which patients did not require any “medical intervention”: blood transfusion, endoscopy, or surgery. This was confirmed in a 2009 Lancet study where patients with a score of 0 were actually discharged and had no GI bleeding mortality at 6 month followup Score above 0: A GBS greater than zero suggests a “High Risk” GI bleed that is likely to require “medical intervention”: transfusion, endoscopy, or surgery. A higher GBS also correlated with a higher likelihood of needing intervention Scores >/= 6 are associated with >50% risk of needing intervention D/C Safety Score for LGIB Assessment Assessment Tool: Readmission and adverse event risk in patients with acute lower GI bleeding. Hemoglobin and Recent Vital Signs: Hgb 13.5 g/dL (12.0-15.0) 04/29/25 05:57 Pulse Rate 83 04/29/25 08:17 Blood Pressure 131/72 04/29/25 08:17 Score Interpretation: Probability Percentage of safe discharge (absence of rebleeding, blood transfusion, therapeutic intervention, 28 day readmission, or ) Score of 8 or below: Consider discharge, with appropriate precautions. Score of 9 or above: Discharge NOT recommended. Consider admission with further workup and resuscitation as necessary.
[2025-04-29 06:29] LABS: Hematocrit 41.8 % (37-47); Hemoglobin 13.5 g/dL (12.0-15.0); Immature Granulocytes Count 0.060 X10^3/uL (0.0-0.0); Mean Corp Hgb Conc 32.3 g/dL (32-36); Mean Corpuscular Volume 89.7 fL (81-99); Mean Platelet Vol. 9.8 fl (6.2-12.0); NRBC Flagged by Analyzer 0 % (0-5); Platelet Count 278 K/mm3 (150-450); RBC Distribution Width CV 12.6 % (11.6-14.6); RBC Distribution Width SD 41.4 fl (35.1-43.9); Red Blood Count 4.66 M/mm3 (4.2-5.4); White Blood Count 10.1 K/mm3 (4.4-11.0)
[2025-04-29] MEDS: 0.9% Normal Saline (1000mL) 1,000 ML 999 ML IV (06:45)
[2025-04-29 06:55] LABS: Lipase 21 U/L (13-75)
[2025-04-29 07:08] LABS: AST(SGOT) 18 U/L (<=31); Alanine Aminotransfer ALT/SGPT 17 U/L (<=34); Albumin, Serum 4.0 g/dL (3.4-4.8); Alkaline Phosphatase 101 U/L (35-104); Anion Gap 11 (5-15); BUN 10 mg/dL (4-19); BUN/Creat Ratio 9.6 RATIO (10-20); Bilirubin, Direct 0.17 mg/dL (0.00-0.30); Calcium,Total 9.4 mg/dL (7.6-11.0); Carbon Dioxide 21.7 mmol/L (21.0-32.0); Chloride 106 mmol/L (98-108); Estimated Creatinine Clearance 51.84 ml/min (50-250); Globulin 3.0 g/dL (2.2-4.2); Glucose 100 mg/dL (70-99); Potassium 4.0 mmol/L (3.3-5.1)
[2025-04-29 07:36] LABS: Mucous, Urine 0 SEEN /hpf (<or=2+); Red Blood Cells-Urine 0 SEEN /hpf (0-5)
[2025-04-29 07:38] LABS: Glucose, Dipstick Normal (Normal); Ketone-Dipstick Negative (Negative); Leukocyte Esterase-Dipstick 25 /ul (Negative); Nitrite-Dipstick Positive (Negative); Occult Blood-Urine Negative /ul (Negative); Protein-Dipstick 15 mg/dl (Negative); Specific Gravity, Urine 1.005 (1.002-1.030)
[2025-04-29 07:39] LABS: Color, Urine SEE COMMENT BELOW (Yellow)
[2025-04-29 07:40] LABS: Urine Bilirubin Dipstick 6 mg/dL (Negative)
[2025-04-29 07:46] LABS: Squamous Epithelial Cells - UA 0-5 SEEN /hpf (5-10)
[2025-04-29 07:50] VITALS: BP 133/80; PULSE 80; RESP 15; TEMP 36.6; O2SAT 91
[2025-04-29] MEDS: HYDROmorphone 0.5 MG/0.5 ML SYRINGE IV (07:50)
[2025-04-29 08:17] VITALS: BP 131/72; PULSE 83; RESP 17; TEMP 37.1; O2SAT 95
== END 2025-04-29 08:28 | disposition home or self-care (01) ==
PROVIDERS: Emergency Provider Emergency Medicine; PCP Family Medicine; Visit Provider Emergency Medicine
DX: K57.32 Diverticulitis of large intestine without perforation or abscess without bleeding (principal); R10.30 Lower abdominal pain, unspecified; Z90.710 Acquired absence of both cervix and uterus; F32.A Depression, unspecified; Z79.899 Other long term (current) drug therapy; J45.909 Unspecified asthma, uncomplicated; Z79.51 Long term (current) use of inhaled steroids
CPT/HCPCS: 74177; 80048; 80076; 81001; 83605; 83690; 85025; 96361; 96374; 96375; 99282; Q9967; J2405